=== PATIENT | female | born 1980 | race Caucasian/White ===

== ENCOUNTER 2018-04-10 14:15 | Emergency (ER) | payer OTHER ==
[2018-04-10] MEDS ORDERED: ALBUTEROL 2.5 MG/3 ML NEB SOL ONE (15:42)
[2018-04-10] MEDS ORDERED: IPRATROPIUM BROM 0.5MG/2.5ML ONE (15:42)
--- NOTE | 2018-04-10 17:08 | EDPHYS ---
Physician Documentation [facility] Name: Paradise Colon Age: 38 yrs Sex: Female : 1980 Arrival Date: 04/10/2018 Time: 14:17 Bed 11 Private MD: ED Physician Earl Colon HPI: 04/10 15:45 This 38 yrs old Female presents to ER via Ambulatory with complaints of Flu cp Symptoms. 15:45 The patient or guardian reports cough, that is intermittent. cp 15:45 Onset: The symptoms/episode began/occurred 4 day(s) ago. Associated signs and symptoms: cp Pertinent positives: diarrhea, sore throat, Pertinent negatives: chest pain, ear ache, vomiting. Severity of symptoms: in the emergency department the symptoms are unchanged despite home interventions. 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 - Social history:: Smoking status: Patient/guardian denies using tobacco. ROS: 15:50 Constitutional: Negative for body aches, chills, fever, poor PO intake. cp 15:50 Eyes: Negative for injury, pain, redness, and discharge. cp 15:50 ENT: Positive for sore throat, Negative for drainage from ear(s), ear pain, difficulty swallowing, difficulty handling secretions. 15:50 Cardiovascular: Negative for chest pain, edema, palpitations. 15:50 Respiratory: Positive for cough, Negative for shortness of breath, wheezing. 15:50 Abdomen/GI: Positive for diarrhea, Negative for abdominal pain, vomiting, constipation. 15:50 Skin: Negative for cellulitis, rash. 15:50 Neuro: Negative for altered mental status, headache, weakness. 15:50 All other systems are negative. Exam: 16:00 Constitutional: The patient appears in no acute distress, alert, awake, non-toxic, well cp developed, well nourished. 16:00 Head/Face: Normocephalic, atraumatic. cp 16:00 Eyes: Periorbital structures: appear normal, Conjunctiva: normal, no exudate, no injection, Sclera: no appreciated abnormality, Lids and lashes: appear normal, bilaterally. 16:00 ENT: External ear(s): are unremarkable, Ear canal(s): are normal, clear, TM's: dullness, bilaterally, Nose: is normal, Mouth: Lips: moist, Oral mucosa: moist, Posterior pharynx: Airway: no evidence of obstruction, patent, Tonsils: are normal in appearance, Uvula: midline, swelling, is not appreciated, erythema, that is mild, exudate, is not appreciated, Voice: is hoarse. 16:00 Neck: ROM/movement: is normal, is supple, without pain, no range of motions limitations, no meningismus, no nuchal rigidity, Lymph nodes: no appreciated lymphadenopathy. 16:00 Chest/axilla: Inspection: normal, Palpation: is normal, no crepitus, no tenderness. 16:00 Cardiovascular: Rate: tachycardic, Rhythm: regular. 16:00 Respiratory: the patient does not display signs of respiratory distress, Respirations: normal, no use of accessory muscles, no retractions, no splinting, no tachypnea, labored breathing, is not present, Breath sounds: decreased breath sounds, that are mild, are located in both bases, rhonchi, are not appreciated, stridor, is not appreciated, + upper airway congestion. wheezing: is not appreciated. 16:00 Abdomen/GI: Exam negative for discomfort, distension, guarding, Inspection: obese 16:00 Back: pain, is absent, ROM is normal. 16:00 Skin: cellulitis, is not appreciated, no rash present. 16:00 Neuro: Orientation: to person, place \T\ time. Mentation: lucid, able to follow commands, Cerebellar function: is grossly normal, Motor: moves all fours, strength is normal, Sensation: no obvious gross deficits. Vital Signs: 14:23 BP 160 / 100; Pulse 105; Resp 19; Temp 98.0(TE); Pulse Ox 96% on R/A; Weight 111.13 kg; la1 Height 5 ft. 4 in. (162.56 cm); 17:15 BP 157 / 89; Pulse 99; Resp 19 S; Pulse Ox 98% on R/A; iw 14:23 Body Mass Index 42.05 (111.13 kg, 162.56 cm) la1 MDM: 15:10 Patient medically screened. marleny 16:00 Differential diagnosis: bronchitis, flu, URI, pneumonia, strep throat. cp 17:06 Data reviewed: vital signs, nurses notes, lab test result(s), radiologic studies, plain cp films. 17:06 Antibiotic administration: Not indicated, the patient has a suspected viral illness. cp 17:06 Counseling: I had a detailed discussion with the patient and/or guardian regarding: the cp historical points, exam findings, and any diagnostic results supporting the discharge/admit diagnosis, lab results, radiology results, to return to the emergency department if symptoms worsen or persist or if there are any questions or concerns that arise at home. Response to treatment: the patient's symptoms have mildly improved after treatment, and as a result, I will discharge patient. 04/10 14:23 Order name: Strep; Complete Time: 15:37 la1 04/10 15:37 Interpretation: Reviewed. 04/10 14:23 Order name: Flu; Complete Time: 15:37 la1 04/10 14:52 Order name: Throat Culture EDDE 04/10 16:18 Order name: XRAY Chest Pa And Lat (2 Views) cp Administered Medications: 15:44 Drug: Albuterol 2.5 mg Route: Inhalation; iw 15:44 Drug: AtroVENT Aerosol 0.5 mg Route: Inhalation; iw Disposition: 04/10/18 17:07 Discharged to Home. Impression: Acute upper respiratory infection, unspecified. - Condition is Stable. - Discharge Instructions: Upper Respiratory Infection, Adult, Viral Infections, Cool Mist Vaporizers. - Prescriptions for Tessalon Perles 100 mg Oral Capsule - take 1 capsule by ORAL route every 8 hours As needed; 15 capsule. Prednisone 20 mg Oral Tablet - take 2 tablet by ORAL route once daily for 5 days; 10 tablet. Albuterol Sulfate 90 mcg/actuation - inhale 1-2 puff by INHALATION route every 4-6 hours; 1 Inhaler. - Work release form, Medication Reconciliation Form, Thank You Letter, Antibiotic Education, Prescription Opioid Use form. - Follow up: Private Physician; When: 2 - 3 days; Reason: if symptoms continue. - Problem is new. - Symptoms have improved. Addendum: 04/12/2018 09:03 Co-signature as Attending Physician, Earl Colon MD I agree with the assessment and c santiago plan of care. Signatures: Dispatcher [employer] Earl Copeland MD MD cha Williams, Irene, RN RN iw Flavio Gasca RN RN la1 Earl Reynolds PA PA cp Corrections: (The following items were deleted from the chart) 04/10 17:21 17:07 04/10/2018 17:07 Discharged to Home. Impression: Acute upper respiratory iw infection, unspecified. Condition is Stable. Forms are Medication Reconciliation Form, Thank You Letter, Antibiotic Education, Prescription Opioid Use. Follow up: Private Physician; When: 2 - 3 days; Reason: if symptoms continue. Problem is new. Symptoms have improved. cp
--- NOTE | 2018-04-10 17:08 | ER ---
Nurse's Notes [facility] Name: Paradise Colon Age: 38 yrs Sex: Female : 1980 Arrival Date: 04/10/2018 Time: 14:17 Bed 11 Private MD: Diagnosis: Acute upper respiratory infection, unspecified Presentation: 04/10 14:22 Presenting complaint: Patient states: fever, cough, diarrhea, pain with cough for 4 la1 days. Transition of care: patient was not received from another setting of care. Onset of symptoms was April 10, 2018. Initial Sepsis Screen: Does the patient meet any 2 criteria? No. Patient's initial sepsis screen is negative. Does the patient have a suspected source of infection? No. Patient's initial sepsis screen is negative. Care prior to arrival: None. 14:22 Method Of Arrival: Ambulatory la1 14:22 Acuity: TANA 4 la1 Triage Assessment: 16:15 General: Appears in no apparent distress. Behavior is calm, appropriate for age. Pain: iw Complains of pain in throat. 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 - Social history:: Smoking status: Patient/guardian denies using tobacco. Screenin:20 Abuse screen: Denies threats or abuse. Denies injuries from another. Nutritional iw screening: No deficits noted. Tuberculosis screening: No symptoms or risk factors identified. Fall Risk None identified. Assessment: 17:19 Reassessment: Patient appears in no apparent distress at this time. Patient and/or iw family updated on plan of care and expected duration. Pain level reassessed. Patient is alert, oriented x 3, equal unlabored respirations, skin warm/dry/pink. Vital Signs: 14:23 BP 160 / 100; Pulse 105; Resp 19; Temp 98.0(TE); Pulse Ox 96% on R/A; Weight 111.13 kg; la1 Height 5 ft. 4 in. (162.56 cm); 17:15 BP 157 / 89; Pulse 99; Resp 19 S; Pulse Ox 98% on R/A; iw 14:23 Body Mass Index 42.05 (111.13 kg, 162.56 cm) la1 ED Course: 14:17 Patient arrived in ED. mr 14:22 Triage completed. la1 14:23 Arm band placed on left wrist. la1 14:49 Kiki Armas, RN is Primary Nurse. iw 15:09 Earl Reynolds PA is PHCP. cp 15:09 Earl Colon MD is Attending Physician. cp 16:56 X-ray completed. Patient tolerated procedure well. Patient moved back from radiology. mh1 16:57 XRAY Chest Pa And Lat (2 Views) In Process Unspecified. EDMS 17:19 No provider procedures requiring assistance completed. Patient did not have IV access iw during this emergency room visit. 17:21 Patient has correct armband on for positive identification. iw Administered Medications: 15:44 Drug: Albuterol 2.5 mg Route: Inhalation; iw 15:44 Drug: AtroVENT Aerosol 0.5 mg Route: Inhalation; iw Outcome: 17:07 Discharge ordered by MD. cp 17:20 Discharged to home ambulatory. iw 17:20 Condition: good 17:20 Discharge instructions given to patient, Instructed on discharge instructions, follow up and referral plans. medication usage, Demonstrated understanding of instructions, follow-up care, medications, Prescriptions given X 3. 17:21 Patient left the ED. iw Signatures: Dispatcher [employer] EDNM Kaley Guillaume Gonzalo Blackwellha 1 Kiki Armas, ALBA WILLIS iw Flavio Gasca RN RN hi1 Earl Reynolds PA PA cp
--- NOTE | 2018-04-10 17:26 | RAD REPORT ---
EXAM DESCRIPTION: RAD - Chest Pa And Lat (2 Views) - 04/10/2018 4:57 pm CLINICAL HISTORY: Fever, cough COMPARISON: January 2017 TECHNIQUE: PA and lateral views of the chest were obtained. FINDINGS: The lungs are clear of mass or consolidation. Lung markings are not significantly differen t from the comparison. No failure or volume overload. Heart size is normal and central vasculature is within normal limits. No pleural effusion or pneumothorax seen. No acute bony finding noted. No aortic abnormality. IMPRESSION: No acute cardiopulmonary process. No significant change from comparison.
== END 2018-04-10 17:21 | disposition home or self-care (01) ==
LOC: ER 14:15
DX: J06.9 Acute upper respiratory infection, unspecified (principal)
CPT/HCPCS: 71046; 87070; 87081; 87804; 99284

== ENCOUNTER 2018-08-25 13:47 | Observation (INO) | payer OTHER, SELFPAY ==
[2018-08-25] MEDS ORDERED: MORPHINE 4 MG/ML SYR ONE (16:27)
[2018-08-25] MEDS ORDERED: ONDANSETRON 4 MG/2 ML VIAL ONE ×2 (16:27→21:53)
[2018-08-25] MEDS ORDERED: NA CHLORIDE 0.9% 1,000 ML ONE (16:27)
[2018-08-25 16:31] LABS: Absolute Lymphocytes (CBC) 1.7 K/uL (0.7-4.9); Absolute Monocytes 0.6 K/uL (0.1-1.3); Absolute Neutrophil 11.2 K/uL (1.8-8.0); Basophils % 0.6 % (0-1.3); Eosinophils % 0.7 % (0-4.4); Hematocrit 41.5 % (36.0-45.0); Lymphocytes % 12.7 % (15.3-44.8); MCH 29.7 pg (27.0-35.0); MCV 88.6 fL (80-100); MPV 9.6 fL (7.6-11.3); Monocytes % 4.4 % (3.3-12.3); RBC Red Blood Cell Count 4.69 M/uL (3.86-4.86)
[2018-08-25] MEDS ORDERED: PROMETHAZINE HCL 50 MG/ML AMP IM ONE (17:33)
[2018-08-25 17:40] LABS: Albumin 3.5 g/dL (3.4-5.0); Bilirubin Direct 0.1 mg/dL (0-0.2); Bilirubin Total 0.7 mg/dL (0.2-1.0); Potassium 3.9 mmol/L (3.5-5.1); Protein, Total 7.6 g/dL (6.4-8.2)
[2018-08-25 18:14] LABS: Urine Blood 3+ (NEG); Urine Glucose NEGATIVE (NEG); Urine Protein 1+ (NEG)
[2018-08-25 18:15] LABS: Urine Bacteria <20 /HPF (<20); Urine Culture Reflex Order NOT NEEDED; Urine RBC >50 /HPF (NONE SEEN)
[2018-08-25 18:16] LABS: Urine Mucus 1+ /HPF (NONE SEEN)
--- NOTE | 2018-08-25 19:24 | RAD REPORT ---
EXAM DESCRIPTION: CT - Abdomen Pelvis W Contrast - 08/25/2018 7:11 pm CLINICAL HISTORY: Abdominal pain. Vomiting COMPARISON: None. TECHNIQUE: Computed axial tomography of the abdomen and pelvis was obtained. 100 cc Isovue-300 is ad ministered intravenously. Oral contrast was given. All CT scans are performed using dose optimization technique as appropriate and may include automated exposure control or mA/KV adjustment according to patient size. FINDINGS: Mild fatty infiltration liver is present. The spleen, pancreas, adrenals and right kidney appear unremarkable. Two tiny nonobstructing left dayna al calculi are present. The appendix is normal caliber. There is no evidence of diverticulitis There is no evidence of diverticulitis. The appendix is normal. A tiny umbilical hernia contains fat IMPRESSION: Tiny nonobstructing left renal calculi No acute abnormality is displayed
[2018-08-25] MEDS ORDERED: FAMOTIDINE 20 MG/2 ML VIAL IV ONE (21:53)
--- NOTE | 2018-08-25 22:31 | EDPHYS ---
Physician Documentation [facility] Name: Paradise Colon Age: 38 yrs Sex: Female : 1980 Arrival Date: 08/25/2018 Time: 13:49 Bed 20 Private MD: Landry Colbert ED Physician Bowen Lozoya HPI: 08/25 15:21 This 38 yrs old Female presents to ER via Wheelchair with complaints of rn Vomiting. 15:21 The patient presents to the emergency department with nausea, vomiting, diarrhea. rn 15:23 Onset: The symptoms/episode began/occurred this morning. Possible causes: unknown. The rn symptoms are aggravated by nothing. The symptoms are alleviated by nothing. Severity of symptoms: At their worst the symptoms were moderate in the emergency department the symptoms are unchanged. The patient has experienced a previous episode. Reports lower abd pain, began this AM, assoc with nausea/vomiting/anorexia, some loose stool, no fever, reports similar symptoms in past but didn't require surgery, doesn't remember diagnosis. Unsure if . . 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 - Social history:: Smoking status: Patient/guardian denies using tobacco. - Family history:: not pertinent. - Ebola Screening: : No symptoms or risks identified at this time. - Hospitalizations: : No recent hospitalization is reported. ROS: 15:23 Constitutional: Negative for fever, chills, and weight loss, Eyes: Negative for injury, rn pain, redness, and discharge, Neck: Negative for injury, pain, and swelling, Cardiovascular: Negative for chest pain, palpitations, and edema, Respiratory: Negative for shortness of breath, cough, wheezing, and pleuritic chest pain, Abdomen/GI: Negative for constipation MS/Extremity: Negative for injury and deformity, Skin: Negative for injury, rash, and discoloration, Neuro: Negative for headache, weakness, numbness, tingling, and seizure. Exam: 15:23 Constitutional: This is a well developed, well nourished patient who is awake, alert, rn + appears uncomfortable and holding emesis bag Head/Face: Normocephalic, atraumatic. Eyes: Pupils equal round and reactive to light, extra-ocular motions intact. Lids and lashes normal. Conjunctiva and sclera are non-icteric and not injected. Cornea within normal limits. Periorbital areas with no swelling, redness, or edema. ENT: dry MM Cardiovascular: Regular rate and rhythm with a normal S1 and S2. No gallops, murmurs, or rubs. Normal PMI, no JVD. No pulse deficits. Respiratory: Lungs have equal breath sounds bilaterally, clear to auscultation and percussion. No rales, rhonchi or wheezes noted. No increased work of breathing, no retractions or nasal flaring. Abdomen/GI: soft, mild diffuse abd tenderness, worst in suprapubic region, no rebound Skin: Warm, dry with normal turgor. Normal color with no rashes, no lesions, and no evidence of cellulitis. MS/ Extremity: Pulses equal, no cyanosis. Neurovascular intact. Full, normal range of motion. Equal circumference. Neuro: Awake and alert, GCS 15, oriented to person, place, time, and situation. Cranial nerves II-XII grossly intact. Motor strength 5/5 in all extremities. Sensory grossly intact. Vital Signs: 13:52 BP 134 / 101; Pulse 97; Resp 17; Temp 97.8(O); Pulse Ox 98% on R/A; Pain 10/10; tw2 16:15 BP 148 / 90; Pulse 74; Resp 18; Pulse Ox 99% on R/A; aj1 17:34 BP 120 / 62; Pulse 73; Resp 20; Pulse Ox 97% on R/A; aj1 18:30 BP 136 / 75; Pulse 68; Resp 18; Pulse Ox 97% on R/A; aj1 19:45 BP 133 / 80; Pulse 82; Resp 18; Pulse Ox 96% on R/A; lp1 20:30 BP 115 / 54; Pulse 84; Resp 18; Pulse Ox 95% on R/A; lp1 21:15 BP 105 / 60; Pulse 83; Resp 18; Pulse Ox 95% on R/A; lp1 22:00 BP 144 / 64; Pulse 83; Resp 18; Pulse Ox 96% on R/A; lp1 23:30 BP 137 / 70; Pulse 85; Resp 18; Temp 99(O); Pulse Ox 96% on R/A; lp1 MDM: 14:57 Patient medically screened. rn 17:38 ED course: Pt has not taken the contrast, when asked why, she states "i have been rn trying to drink my soda and still throwing up". . 22:29 Data reviewed: vital signs, nurses notes. ED course: pt still very nauseated some pain gs will admit for hydration. 08/25 15:19 Order name: Basic Metabolic Panel; Complete Time: 18:20 08/25 15:19 Order name: CBC with Diff; Complete Time: 16:39 08/25 15:19 Order name: Creatinine for Radiology; Complete Time: 18:20 08/25 15:19 Order name: Hepatic Function; Complete Time: 18:20 08/25 15:19 Order name: Lipase; Complete Time: 18:20 08/25 15:19 Order name: Urine Microscopic Only; Complete Time: 18:20 08/25 15:19 Order name: CT Abd/Pelvis - W/Contrast; Complete Time: 19:46 08/25 18:03 Order name: Urine Dipstick--Ancillary (enter results); Complete Time: 18:20 [facility] 08/25 18:03 Order name: Urine --Ancillary (enter results); Complete Time: 18:20 [facility] 08/25 15:19 Order name: IV Saline Lock; Complete Time: 16:58 08/25 15:19 Order name: Labs collected and sent; Complete Time: 16:58 08/25 15:19 Order name: Urine Test (obtain specimen); Complete Time: 18:12 08/25 15:19 Order name: Urine Dipstick-Ancillary (obtain specimen); Complete Time: 18:12 08/25 16:37 Order name: Labs - recollect needed; Complete Time: 17:24 bd Administered Medications: 16:26 Drug: NS 0.9% 1000 ml Route: IV; Rate: 1000 ml; Site: right forearm; aj1 17:36 Follow up: IV Status: Completed infusion; IV Intake: 1000ml aj1 16:27 Drug: Zofran 4 mg Route: IVP; Site: right forearm; aj1 17:35 Follow up: Response: No adverse reaction aj1 17:35 Drug: Phenergan 12.5 mg Route: IM; Site: right deltoid; aj1 18:12 Follow up: Response: No adverse reaction aj1 18:12 Drug: morphine 4 mg Route: IVP; Site: right forearm; aj1 21:53 Drug: Pepcid 20 mg Route: IVP; Site: right forearm; lp1 22:26 Follow up: Response: No adverse reaction lp1 21:53 Drug: Zofran 4 mg Route: IVP; Site: right forearm; lp1 22:26 Follow up: Response: Nausea is decreased lp1 Disposition: 08/25/18 22:31 Hospitalization ordered by Derrick Quintana for Observation. Preliminary diagnosis are Vomiting, Generalized abdominal pain, Dehydration. - Bed requested for Telemetry/MedSurg (observation). - Status is Observation. lp1 - Condition is Stable. - Problem is new. - Symptoms have improved. UTI on Admission? No Signatures: Dispatcher [employer] EDMS Aurora Gonzales Angela, RN RN [facility] [place] Renee RN ALBA Uri Jay MD MD rn Pena, Laura, RN RN [facility] Bowen Lozoya MD MD Corrections: (The following items were deleted from the chart) 22:49 22:31 Hospitalization Ordered by Derrick Quintana MD for Observation. Preliminary diagnosis is Vomiting; Generalized abdominal pain; Dehydration. Bed requested for Telemetry/MedSurg (observation). Status is Observation. Condition is Stable. Problem is new. Symptoms have improved. UTI on Admission? No. 08/26 00:19 08/25 22:49 08/25/2018 22:31 Hospitalization Ordered by Derrick Quintana MD for lp1 Observation. Preliminary diagnosis is Vomiting; Generalized abdominal pain; Dehydration. Bed requested for Telemetry/MedSurg (observation). Status is Observation. Condition is Stable. Problem is new. Symptoms have improved. UTI on Admission? No. mw
--- NOTE | 2018-08-25 22:31 | ER ---
Nurse's Notes [facility] Name: Paradise Colon Age: 38 yrs Sex: Female : 1980 Arrival Date: 08/25/2018 Time: 13:49 Bed 20 Private MD: Landry Colbert Diagnosis: Vomiting;Generalized abdominal pain;Dehydration Presentation: 08/25 13:51 Presenting complaint: Patient states: started vomiting this morning and i am having tw2 pain in my lower vaginal area. Transition of care: patient was not received from another setting of care. Onset of symptoms was August 25, 2018. Risk Assessment: Do you want to hurt yourself or someone else? Patient reports no desire to harm self or others. Initial Sepsis Screen: Does the patient meet any 2 criteria? No. Patient's initial sepsis screen is negative. Does the patient have a suspected source of infection? No. Patient's initial sepsis screen is negative. Care prior to arrival: None. 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 - Social history:: Smoking status: Patient/guardian denies using tobacco. - Family history:: not pertinent. - Ebola Screening: : No symptoms or risks identified at this time. - Hospitalizations: : No recent hospitalization is reported. Screenin:15 Abuse screen: Denies threats or abuse. Denies injuries from another. Nutritional aj1 screening: No deficits noted. Tuberculosis screening: No symptoms or risk factors identified. 20:10 Fall Risk None identified. lp1 Assessment: 15:15 General: Appears in no apparent distress. uncomfortable, Behavior is anxious, restless. aj1 Pain: Complains of pain in right lower quadrant and left lower quadrant. Neuro: Level of Consciousness is awake, alert, obeys commands. Cardiovascular: Patient's skin is warm and dry. Respiratory: Airway is patent Respiratory effort is even, unlabored, Respiratory pattern is regular, symmetrical. GI: Abdomen is non-distended, obese, Bowel sounds present X 4 quads. Abd is soft X 4 quads Abdomen is tender to palpation in abdomen diffusely Reports nausea, vomiting, Patient currently denies diarrhea. : No signs and/or symptoms were reported regarding the genitourinary system. EENT: No signs and/or symptoms were reported regarding the EENT system. Derm: No signs and/or symptoms reported regarding the dermatologic system. Skin is pink, warm \T\ dry. normal. Musculoskeletal: No signs and/or symptoms reported regarding the musculoskeletal system. Circulation, motion, and sensation intact. 16:15 Reassessment: Patient appears in no apparent distress at this time. No changes from aj1 previously documented assessment. Patient and/or family updated on plan of care and expected duration. Pain level reassessed. Patient is alert, oriented x 3, equal unlabored respirations, skin warm/dry/pink. 17:33 Reassessment: Notified Ld in CT that patient has finished drinking her contrast. aj1 17:33 Reassessment: Patient and/or family updated on plan of care and expected duration. Pain aj1 level reassessed. General: Appears in no apparent distress. uncomfortable, Behavior is anxious, restless. Neuro: Level of Consciousness is awake, alert, obeys commands. Cardiovascular: Patient's skin is warm and dry. Respiratory: Airway is patent Respiratory effort is even, unlabored, Respiratory pattern is regular, symmetrical. GI: Abdomen is non-distended, obese. Derm: Skin is pink, warm \T\ dry. normal. Musculoskeletal: Circulation, motion, and sensation intact. 18:29 Reassessment: Patient appears in no apparent distress at this time. No changes from aj1 previously documented assessment. Patient and/or family updated on plan of care and expected duration. Pain level reassessed. Patient is alert, oriented x 3, equal unlabored respirations, skin warm/dry/pink. 19:20 Reassessment: Patient returned from CT. lp1 19:40 Reassessment: Patient is alert, oriented x 3, equal unlabored respirations, skin lp1 warm/dry/pink. Patient aware of waiting for CT results. 20:45 Reassessment: Patient tolerating drinking Sprite at this time, states some nausea. lp1 21:45 Reassessment: Provider aware of patient's continued nausea; sipping on Sprite. lp1 22:26 Reassessment: Patient states some relief, but still having some nausea;. lp1 23:30 Reassessment: Patient appears in no apparent distress at this time. No changes from lp1 previously documented assessment. Aware of pending admission. 23:54 Reassessment: Attempted to give report to floor, nurse will call back. lp1 Vital Signs: 13:52 BP 134 / 101; Pulse 97; Resp 17; Temp 97.8(O); Pulse Ox 98% on R/A; Pain 10/10; tw2 16:15 BP 148 / 90; Pulse 74; Resp 18; Pulse Ox 99% on R/A; aj1 17:34 BP 120 / 62; Pulse 73; Resp 20; Pulse Ox 97% on R/A; aj1 18:30 BP 136 / 75; Pulse 68; Resp 18; Pulse Ox 97% on R/A; aj1 19:45 BP 133 / 80; Pulse 82; Resp 18; Pulse Ox 96% on R/A; lp1 20:30 BP 115 / 54; Pulse 84; Resp 18; Pulse Ox 95% on R/A; lp1 21:15 BP 105 / 60; Pulse 83; Resp 18; Pulse Ox 95% on R/A; lp1 22:00 BP 144 / 64; Pulse 83; Resp 18; Pulse Ox 96% on R/A; lp1 23:30 BP 137 / 70; Pulse 85; Resp 18; Temp 99(O); Pulse Ox 96% on R/A; lp1 ED Course: 13:49 Patient arrived in ED. sb2 13:50 Landry Colbert MD is Private Physician. sb2 13:52 Triage completed. tw2 14:57 Uri Jay MD is Attending Physician. rn 15:11 Irene Hart RN is Primary Nurse. aj1 15:15 No provider procedures requiring assistance completed. aj1 15:15 Patient has correct armband on for positive identification. Bed in low position. Call aj1 light in reach. Side rails up X 1. 16:27 Initial lab(s) drawn, by me, sent to lab. Inserted saline lock: 22 gauge in right aj1 forearm, using aseptic technique. Blood collected. 19:08 Attending Physician role handed off by Uri Jay MD gs 19:08 Bowen Lozoya MD is Attending Physician. gs 19:12 CT Abd/Pelvis - W/Contrast In Process Unspecified. EDMS 20:10 Arm band placed on right wrist. lp1 22:30 Derrick Quintana MD is Hospitalizing Provider. gs 23:56 Patient admitted, IV remains in place. lp1 Administered Medications: 16:26 Drug: NS 0.9% 1000 ml Route: IV; Rate: 1000 ml; Site: right forearm; aj1 17:36 Follow up: IV Status: Completed infusion; IV Intake: 1000ml aj1 16:27 Drug: Zofran 4 mg Route: IVP; Site: right forearm; aj1 17:35 Follow up: Response: No adverse reaction aj1 17:35 Drug: Phenergan 12.5 mg Route: IM; Site: right deltoid; aj1 18:12 Follow up: Response: No adverse reaction aj1 18:12 Drug: morphine 4 mg Route: IVP; Site: right forearm; aj1 21:53 Drug: Pepcid 20 mg Route: IVP; Site: right forearm; lp1 22:26 Follow up: Response: No adverse reaction lp1 21:53 Drug: Zofran 4 mg Route: IVP; Site: right forearm; lp1 22:26 Follow up: Response: Nausea is decreased lp1 Intake: 17:36 IV: 1000ml; Total: 1000ml. aj1 Outcome: 22:31 Decision to Hospitalize by Provider. gs 23:55 Condition: stable lp1 23:55 Instructed on the need for admit. 08/26 00:08 Admitted to Med/surg accompanied by tech, via wheelchair, room 231, with chart, Report lp1 called to ALBA Cuellar 00:19 Patient left the ED. lp1 Signatures: Dispatcher [employer] EDMS Irene Hart RN RN aj1 Uri Jay MD MD rn Pena, Laura, RN RN lp1 Madie Bella RN RN tw2 Bowen Lozoya MD MD gs Billeau, Sheri sb2 Corrections: (The following items were deleted from the chart) 08/25 13:52 13:51 Presenting complaint: Patient states: started vomiting this morning tw2 tw2
[2018-08-25] MEDS ORDERED: ACETAMINOPHEN 500 MG TAB PO PRN (23:41)
[2018-08-25] MEDS ORDERED: MORPHINE 2 MG/ML SYR IV PRN (23:41)
[2018-08-25] MEDS ORDERED: ONDANSETRON 4 MG/2 ML VIAL IV PRN (23:41)
[2018-08-26] MEDS: NA CHLORIDE 0.9% 1,000 ML IV SCH ×3 (01:19→17:49)
[2018-08-26] MEDS ORDERED: MORPHINE 4 MG/ML SYR ONE (01:22)
[2018-08-26 05:12] LABS: Absolute Monocytes 0.5 K/uL (0.1-1.3); Absolute Neutrophil 6.9 K/uL (1.8-8.0); Basophils % 1.3 % (0-1.3); Eosinophils % 1.4 % (0-4.4); Hematocrit 38.8 % (36.0-45.0); Lymphocytes % 27.9 % (15.3-44.8); MCH 29.6 pg (27.0-35.0); MCV 89.1 fL (80-100); MPV 9.6 fL (7.6-11.3); RBC Red Blood Cell Count 4.35 M/uL (3.86-4.86)
[2018-08-26 05:34] LABS: ALT/SGPT 50 U/L (12-78); AST/SGOT 62 U/L (15-37); Albumin 3.2 g/dL (3.4-5.0); Alkaline Phosphatase 56 U/L (45-117); BUN Blood Urea Nitrogen 13 mg/dL (7-18); Bicarbonate 27 mmol/L (21-32); Bilirubin Total 0.8 mg/dL (0.2-1.0); Glucose Level 106 mg/dL (74-106); Potassium 3.8 mmol/L (3.5-5.1); Protein, Total 6.8 g/dL (6.4-8.2); Sodium Level 141 mmol/L (136-145)
[2018-08-26] MEDS ORDERED: INFLUENZA VACCINE (for 3y+) 0.5 ML DOSE IMVAC ONE (06:00)
[2018-08-26] MEDS ORDERED: MORPHINE 4 MG/ML SYR IV PRN (07:07)
--- NOTE | 2018-08-26 08:51 | P.HP ---
Certification for Inpatient Patient admitted to: Observation With expected LOS: <2 Midnights Patient will require the following post-hospital care: None Practitioner: I am a practitioner with admitting privileges, knowledge of patient current condition, hospital course, and medical plan of care. Services: Services provided to patient in accordance with Admission requirements found in Title 42 Section 412.3 of the Code of Federal Regulations Patient History Date of Service: 08/25/18 Reason for admission: intractable nausea and vomiting along with abdominal pain History of Present Illness: Patient is a 38-year-old female who was admitted to the hospital with abdominal pain along with nausea and vomiting. She was in the emergency room for a prolonged period of time but her nausea and vomiting continued. I spoke with the ER physician and we decided to admit the patient for observation. She still has been able to keep any liquids down tonight. Will go ahead and try to advance her diet in the morning. Otherwise, her workup has been completely unremarkable except for mildly elevated liver enzymes. Allergies No Known Allergies Allergy (Verified 02/15/13 13:51) Home Medications: NK [No Home Meds] 08/26/18 - Past Medical/Surgical History Has patient received pneumonia vaccine in the past: No Diabetic: No Past Medical History: Patient denies medical history Past Surgical History: Patient denies surgical history - Family History Father Family History: Reviewed- Non-Contributory - Social History Smoking Status: Current every day smoker Alcohol use: Yes CD- Drugs: No Caffeine use: Yes Place of Residence: Home Review of Systems 10-point ROS is otherwise unremarkable Physical Examination - Vital Signs Temperature: 98.2 F Blood Pressure: 139/86 Pulse: 86 Respirations: 20 Pulse Ox (%): 94 - Physical Exam General: Alert, In no apparent distress, Oriented x3 HEENT: Atraumatic, PERRLA, Mucous membr. moist/pink, EOMI, Sclerae nonicteric Neck: Supple, 2+ carotid pulse no bruit, No LAD, Without JVD or thyroid abnormality Respiratory: Clear to auscultation bilaterally, Normal air movement Cardiovascular: Regular rate/rhythm, Normal S1 S2 Gastrointestinal: Normal bowel sounds, Soft and benign, Non-distended, No tenderness Musculoskeletal: No clubbing, No swelling, No tenderness Integumentary: No rashes Neurological: Normal gait, Normal speech, Normal strength at 5/5 x4 extr, Normal tone, Sensation intact, Cranial nerves 3-12 intact, Normal affect Lymphatics: No axilla or inguinal lymphadenopathy - Studies Laboratory Data (last 24 hrs) 08/25/18 16:58: Sodium 140, Potassium 3.9, BUN 15, Creatinine 0.90, Glucose 141 H, Total Bilirubin 0.7, AST 79 H, ALT 60, Alkaline Phosphatase 62, Lipase 65 L 08/25/18 16:16: Creatinine 0.80 08/25/18 16:16: WBC 13.7 H, Hgb 13.9, Hct 41.5, Plt Count 280 Assessment & Plan - Problems (Diagnosis) (1) Intractable nausea and vomiting Current Visit: Yes Status: Acute (2) Abdominal pain Current Visit: Yes Status: Acute - Plan 1. Continue with IV hydration 2. Continue with IV antiemetics 3. Continue with pain control 4. NPO 5. GI consultation if symptoms worsens 6. Monitor labs-CBC, BMP, LFTs and lipase along with electrolytes. 7. GI and DVT prophylaxis Discharge Plan: Home Plan to discharge in: 24 Hours - Advance Directives Does patient have a Living Will: No Does patient have a Durable POA for Healthcare: No - Code Status/Comfort Care Code Status Assessed: Yes Code Status: Full Code Critical Care: No Time Spent Managing PTS Care (In Minutes): 50
--- NOTE | 2018-08-26 17:21 | PN ---
Date of Progress Note: 08/26/2018 Subjective: The patient seen and examined. Chart reviewed and case discussed with RN. The patient unable to tolerate clear liquid diet, started having some abdominal cramping, but no nausea or vomiti ng. Review of Systems: Negative except as above. Medications: List reviewed. Objective: Vital Signs: Temperature 98.2, heart rate 83, blood pressure 139/86, respirations 20, O2 94% on room air. General: Awake, alert, and oriented x3, in some mild distress, morbidly obese female. CV: S1, S2. No murmurs. Regular rate and rhythm. Peripheral pulses present. Respiratory: Moving air well bilaterally. No wheezing or stridor. Gastrointestinal: Abdomen is soft. Mild tenderness to palpation in the suprapubic and epigastric re gion. No rebound or guarding. Bowel sounds are positive. Extremities: No clubbing, cyanosis, or edema. Neurologic: Nonfocal. Laboratory Data: Sodium 141, potassium 3.8, chloride 109, CO2 27, BUN 13, creatinine 0.7, glucose 10 6, calcium 8.4, AST 62, ALT 50, albumin 3.2. WBC 10.7, H and H 12.9, 38.8, platelets 258, neutrophil s 54%. Assessment And Plan: 1.Intractable nausea and vomiting. Continue antiemetics. Has improved. We will start on clear liq uid diet and advance as tolerated. 2.Generalized abdominal pain, improving, still mildly tender. CT scan does not show any abnormaliti es. 3.Fatty liver disease. Counseled. The patient understands risks of fatty liver disease, which can develop into liver cirrhosis and cancer, and need for transplant. She understands that she will need diet and exercise modification. Plan: Continue IV fluids. Continue antiemetics. Ambulate. If not improving, we will obtain abdomi nal x-ray and GI consultation. SA/MODL Voice ID: [id number] Report ID: [id number]
[2018-08-27] MEDS: NA CHLORIDE 0.9% 1,000 ML IV SCH (05:48)
[2018-08-27 05:49] LABS: ALT/SGPT 77 U/L (12-78); AST/SGOT 134 U/L (15-37); Albumin 3.1 g/dL (3.4-5.0); Alkaline Phosphatase 50 U/L (45-117); BUN Blood Urea Nitrogen 9 mg/dL (7-18); Bicarbonate 26 mmol/L (21-32); Glucose Level 97 mg/dL (74-106); Potassium 3.5 mmol/L (3.5-5.1); Protein, Total 6.5 g/dL (6.4-8.2); Sodium Level 140 mmol/L (136-145)
[2018-08-27 05:51] LABS: Absolute Lymphocytes (CBC) 2.4 K/uL (0.7-4.9); Absolute Monocytes 0.4 K/uL (0.1-1.3); Absolute Neutrophil 3.8 K/uL (1.8-8.0); Basophils % 0.8 % (0-1.3); Eosinophils % 3.9 % (0-4.4); Hematocrit 38.2 % (36.0-45.0); Lymphocytes % 34.3 % (15.3-44.8); MCH 29.7 pg (27.0-35.0); MCV 88.4 fL (80-100); MPV 9.5 fL (7.6-11.3); Monocytes % 5.1 % (3.3-12.3); RBC Red Blood Cell Count 4.32 M/uL (3.86-4.86)
[2018-08-27] MEDS ORDERED: VANCOMYCIN ORAL SOLN 250 MG/5 ML OSYR PO SCH (10:00)
--- NOTE | 2018-08-28 06:07 | DS ---
Date of Discharge: 08/27/2018 Admitting Diagnoses: 1.Intractable nausea and vomiting. 2.Generalized abdominal pain. Discharge Diagnoses: 1.Intractable nausea and vomiting resolved. The patient is able to tolerate diet. 2.Generalized abdominal pain, improved. 3.Diarrhea, resolved. Clostridium difficile negative. 4.Fatty liver disease, counseled. 5.Morbid obesity, body mass index 47, counseled. Hospital Course: The patient is a 38-year-old female with no past medical history, comes in with [place], vomiting, abdominal pain, cramping in nature, unable to tolerate any liquids or p.o. The patien t was started on IV fluids, IV antiemetics, and pain medications. Her white count was initially elev ated at 13.7 with left shift; however, normalized. She was not septic. The patient's electrolytes w ere within normal limits. The lipase was negative. UA did not show any infection. She was having s ome diarrhea and C. diff assay was checked which was negative. CT scan of the abdomen and pelvis was unremarkable other than a fatty liver which was seen. The patient was counseled regarding her fatty liver disease. She understands that she needs to modify her diet and exercise regimen. Otherwise, she will develop nonalcoholic fatty liver disease and complications thereof, including cirrhosis, nee d for transplant, and even . She voiced understanding. The patient was then slowly started on a diet, which was advanced. The patient was able to tolerate her diet. The pain had resolved. She was no longer nauseated or vomiting. The patient likely had viral gastroenteritis, which has improve d significantly. The patient was then cleared for discharge and was sent home in a stable condition. Activity: As tolerated. Medications: As per medication reconciliation list. Followup: Follow up with primary care physician in 2-3 days. Return to ER for worsening condition. Diet: [place] diet for the next few days. Physical Examination: General: Awake, alert, oriented x3. No acute distress. CV: S1, S2. No murmurs. Respiratory: Moving air well bilaterally. Abdomen: Soft, nontender, nondistended. Positive bowel sounds. Extremities: No clubbing, cyanosis, edema. Neurologic: Nonfocal. SA/MODL Voice ID: [id number] Report ID: [id number]
== END 2018-08-27 15:52 | disposition home or self-care (01) ==
LOC: ER 13:47 → ERHOLD 22:43 → 2ND 23:58
PROVIDERS: ADMIT Hospitalist; ATTEND Hospitalist
DX: R11.2 Nausea with vomiting, unspecified (principal); R10.84 Generalized abdominal pain; R19.7 Diarrhea, unspecified; K76.0 Fatty (change of) liver, not elsewhere classified; E66.01 Morbid (severe) obesity due to excess calories; Z68.42 Body mass index [BMI] 45.0-49.9, adult; F17.210 Nicotine dependence, cigarettes, uncomplicated; Z23 Encounter for immunization
CPT/HCPCS: 36415; 74177; 80048; 80053; 80076; 81003; 81015; 81025; 83690; 85025; 87493; 96361; 96372; 96374; 96375; 99285; G0008; G0378; J2270; J2405; J2550; J7030; Q2035; Q9967

== ENCOUNTER 2018-11-01 10:11 | Emergency (ER) | payer OTHER, SELFPAY ==
--- NOTE | 2018-11-01 12:50 | RAD REPORT ---
EXAM DESCRIPTION: RAD - Ankle Right 3 View - 11/01/2018 12:29 pm CLINICAL HISTORY: ankle pain History of ankle trauma on the right. COMPARISON: Ankle Left 3 View dated 11/05/2016 FINDINGS: Mild soft tissue swelling is seen about the right ankle. No acute fracture seen. Large pos terior and small plantar calcaneal spur.
--- NOTE | 2018-11-01 12:55 | ER ---
Nurse's Notes [facility] Name: Paradise Colon Age: 38 yrs Sex: Female : 1980 Arrival Date: 11/01/2018 Time: 10:12 Bed 12 Private MD: Diagnosis: Sprain of ankle Presentation: 11/01 10:52 Presenting complaint: Patient states: R ankle pain x months after "rolling ankle". ss Transition of care: patient was not received from another setting of care. Onset of symptoms is unknown. Risk Assessment: Do you want to hurt yourself or someone else? Patient reports no desire to harm self or others. Initial Sepsis Screen: Does the patient meet any 2 criteria? No. Patient's initial sepsis screen is negative. Does the patient have a suspected source of infection? No. Patient's initial sepsis screen is negative. Care prior to arrival: None. 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 - Social history:: Smoking status: Patient uses tobacco products, "I vape". - Ebola Screening: : Patient denies exposure to infectious person Patient denies travel to an Ebola-affected area in the 21 days before illness onset. Screenin:22 Abuse screen: Denies threats or abuse. Denies injuries from another. Nutritional iw screening: No deficits noted. Tuberculosis screening: No symptoms or risk factors identified. Fall Risk None identified. Assessment: 11:21 General: Appears in no apparent distress. Behavior is calm, cooperative. Pain: iw Complains of pain in right foot. Neuro: Level of Consciousness is awake, alert, obeys commands, Oriented to person, place, time, situation, Moves all extremities. Full function. Cardiovascular: Patient's skin is warm and dry. Respiratory: Respiratory effort is even, unlabored, Respiratory pattern is regular, symmetrical. Derm: Skin is intact, is healthy with good turgor. Musculoskeletal: Range of motion: intact in all extremities, Reports pain in right foot. Vital Signs: 10:53 BP 155 / 101; Pulse 78; Resp 16; Temp 97.6(TE); Pulse Ox 97% on R/A; Weight 108.86 kg; ss Height 5 ft. 2 in. (157.48 cm); Pain 4/10; 10:53 Body Mass Index 43.90 (108.86 kg, 157.48 cm) ED Course: 10:12 Patient arrived in ED. rg4 10:53 Triage completed. ss 10:53 Arm band placed on right wrist. ss 11:17 Kiki Armas, RN is Primary Nurse. iw 11:18 Reed Flores PA is PHCP. jr8 11:18 Earl Colon MD is Attending Physician. jr8 11:22 No provider procedures requiring assistance completed. Patient did not have IV access iw during this emergency room visit. 11:30 Patient has correct armband on for positive identification. iw 12:34 XRAY Ankle RIGHT 3 view In Process Unspecified. EDMS 12:53 Angelo Taylor MD is Referral Physician. jr8 Administered Medications: No medications were administered Outcome: 12:54 Discharge ordered by . jr8 13:48 Discharged to home ambulatory. iw 13:48 Condition: good 13:48 Discharge instructions given to patient, Instructed on discharge instructions, follow up and referral plans. medication usage, Demonstrated understanding of instructions, follow-up care, medications, Prescriptions given X 2. 13:50 Patient left the ED. iw Signatures: Dispatcher [employer] EDMS Kiki Armas, RN ALBA Bessie Norris RN RN Reed Flores PA PA jr8 Garcia, Rubi rg4
--- NOTE | 2018-11-01 12:55 | EDPHYS ---
Physician Documentation [facility] Name: Paradise Colon Age: 38 yrs Sex: Female : 1980 Arrival Date: 11/01/2018 Time: 10:12 Bed 12 Private MD: ED Physician Earl Cloon HPI: 11/01 12:37 This 38 yrs old Female presents to ER via Ambulatory with complaints of Ankle jr8 Injury. 12:37 The complaints affect the right ankle. Onset: The symptoms/episode began/occurred 2 jr8 month(s) ago. Associated signs and symptoms: The patient has no apparent associated signs or symptoms. Severity of symptoms: At their worst the symptoms were mild, in the emergency department the symptoms are unchanged. The patient has not experienced similar symptoms in the past. The patient has not recently seen a physician. Patient stated that she rolled her ankle back in August. Was not evaluated at that time. Continues to have ankle pain with motion and weight bearing . 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 - Social history:: Smoking status: Patient uses tobacco products, "I vape". - Ebola Screening: : Patient denies exposure to infectious person Patient denies travel to an Ebola-affected area in the 21 days before illness onset. ROS: 12:37 Eyes: Negative for injury, pain, redness, and discharge, ENT: Negative for injury, jr8 pain, and discharge, Neck: Negative for injury, pain, and swelling, Cardiovascular: Negative for chest pain, palpitations, and edema, Respiratory: Negative for shortness of breath, cough, wheezing, and pleuritic chest pain, Abdomen/GI: Negative for abdominal pain, nausea, vomiting, diarrhea, and constipation, Back: Negative for injury and pain, Skin: Negative for injury, rash, and discoloration, Neuro: Negative for headache, weakness, numbness, tingling, and seizure. 12:37 MS/extremity: Positive for pain, tenderness, of the right ankle. Exam: 12:37 Eyes: Pupils equal round and reactive to light, extra-ocular motions intact. Lids and jr8 lashes normal. Conjunctiva and sclera are non-icteric and not injected. Cornea within normal limits. Periorbital areas with no swelling, redness, or edema. ENT: Nares patent. No nasal discharge, no septal abnormalities noted. Tympanic membranes are normal and external auditory canals are clear. Oropharynx with no redness, swelling, or masses, exudates, or evidence of obstruction, uvula midline. Mucous membranes moist. Neck: Trachea midline, no thyromegaly or masses palpated, and no cervical lymphadenopathy. Supple, full range of motion without nuchal rigidity, or vertebral point tenderness. No Meningismus. Cardiovascular: Regular rate and rhythm with a normal S1 and S2. No gallops, murmurs, or rubs. Normal PMI, no JVD. No pulse deficits. Respiratory: Lungs have equal breath sounds bilaterally, clear to auscultation and percussion. No rales, rhonchi or wheezes noted. No increased work of breathing, no retractions or nasal flaring. Abdomen/GI: Soft, non-tender, with normal bowel sounds. No distension or tympany. No guarding or rebound. No evidence of tenderness throughout. Back: No spinal tenderness. No costovertebral tenderness. Full range of motion. Skin: Warm, dry with normal turgor. Normal color with no rashes, no lesions, and no evidence of cellulitis. Neuro: Awake and alert, GCS 15, oriented to person, place, time, and situation. Cranial nerves II-XII grossly intact. Motor strength 5/5 in all extremities. Sensory grossly intact. Cerebellar exam normal. Normal gait. 12:37 Musculoskeletal/extremity: Extremities: grossly normal except: noted in the right ankle: pain, tenderness, Tenderness to anterior aspect of ankle, ROM: intact in all extremities, full active range of motion, full passive range of motion, limited active range of motion due to pain, limited passive range of motion due to pain, Circulation is intact in all extremities. Sensation intact. Vital Signs: 10:53 BP 155 / 101; Pulse 78; Resp 16; Temp 97.6(TE); Pulse Ox 97% on R/A; Weight 108.86 kg; ss Height 5 ft. 2 in. (157.48 cm); Pain 4/10; 10:53 Body Mass Index 43.90 (108.86 kg, 157.48 cm) MDM: 11:18 Patient medically screened. jr8 12:53 Data reviewed: vital signs, nurses notes, radiologic studies, plain films, and as a jr8 result, I will discharge patient. Data interpreted: Pulse oximetry: on room air is 97 %. Interpretation: normal. Counseling: I had a detailed discussion with the patient and/or guardian regarding: the historical points, exam findings, and any diagnostic results supporting the discharge/admit diagnosis, radiology results, the need for outpatient follow up, a orthopedic surgeon, to return to the emergency department if symptoms worsen or persist or if there are any questions or concerns that arise at home. 11/01 10:55 Order name: XRAY Ankle RIGHT 3 view; Complete Time: 12:53 ss 11/01 12:53 Order name: Ankle Splint: Aircast; Complete Time: 13:40 jr8 Administered Medications: No medications were administered Disposition: 18:06 Co-signature as Attending Physician, Earl Colon MD I agree with the assessment and marleny plan of care. Disposition: 11/01/18 12:54 Discharged to Home. Impression: Sprain of ankle. - Condition is Stable. - Discharge Instructions: Ankle Sprain. - Prescriptions for Ibuprofen 800 mg Oral Tablet - take 1 tablet by ORAL route every 12 hours As needed take with food; 20 tablet. Tramadol 50 mg Oral Tablet - take 1 tablet by ORAL route every 8 hours as needed; 12 tablet. - Work release form, Medication Reconciliation Form, Thank You Letter, Antibiotic Education, Prescription Opioid Use form. - Follow up: Angelo Taylor MD; When: 2 - 3 days; Reason: Recheck today's complaints, Continuance of care, Re-evaluation by your physician. - Problem is new. - Symptoms have improved. Signatures: Dispatcher [employer] Earl Copeland MD MD cha Williams, Irene, RN RN iw Smirch, Shelby, RN RN ss Roszak, Josh, PA PA jr8 Corrections: (The following items were deleted from the chart) 13:50 12:54 11/01/2018 12:54 Discharged to Home. Impression: Sprain of ankle. Condition is iw Stable. Forms are Medication Reconciliation Form, Thank You Letter, Antibiotic Education, Prescription Opioid Use. Follow up: Angelo Taylor; When: 2 - 3 days; Reason: Recheck today's complaints, Continuance of care, Re-evaluation by your physician. Problem is new. Symptoms have improved. jr8
== END 2018-11-01 13:50 | disposition home or self-care (01) ==
LOC: ER 10:11
DX: S93.401A Sprain of unspecified ligament of right ankle, initial encounter (principal); X58.XXXA Exposure to other specified factors, initial encounter; Y93.9 Activity, unspecified; Y92.9 Unspecified place or not applicable
CPT/HCPCS: 99283

== ENCOUNTER 2019-02-13 06:54 | Emergency (ER) | payer BC, OTHER ==
[2019-02-13 07:44] LABS: Absolute Lymphocytes (CBC) 1.9 K/uL (0.7-4.9); Absolute Monocytes 0.4 K/uL (0.1-1.3); Absolute Neutrophil 5.2 K/uL (1.8-8.0); Basophils % 0.9 % (0-1.3); Eosinophils % 3.4 % (0-4.4); Hematocrit 42.6 % (36.0-45.0); MPV 9.4 fL (7.6-11.3); Monocytes % 4.7 % (3.3-12.3); RBC Red Blood Cell Count 4.82 M/uL (3.86-4.86)
[2019-02-13] MEDS ORDERED: CYCLOBENZAPRINE 10 MG TAB ONE (07:50)
[2019-02-13] MEDS ORDERED: HYDROCODONE/APAP 5/325 MG TAB ONE (07:50)
[2019-02-13 08:06] LABS: ALT/SGPT 44 U/L (12-78); AST/SGOT 55 U/L (15-37); Albumin 3.6 g/dL (3.4-5.0); Alkaline Phosphatase 66 U/L (45-117); BUN Blood Urea Nitrogen 14 mg/dL (7-18); Bicarbonate 28 mmol/L (21-32); Bilirubin Direct 0.2 mg/dL (0-0.2); Glucose Level 161 mg/dL (74-106); Lipase 47 U/L (73-393); Protein, Total 7.2 g/dL (6.4-8.2); Sodium Level 139 mmol/L (136-145); Troponin (Emerg Dept Use Only) < 0.02 ng/mL (0.0-0.045)
--- NOTE | 2019-02-13 08:45 | RAD REPORT ---
EXAM DESCRIPTION: [place] Single View02/13/2019 8:10 am CLINICAL HISTORY: Chest pain COMPARISON: March 2018 FINDINGS: The lungs appear clear of acute infiltrate. The heart is normal size IMPRESSION: No acute abnormalities displayed
--- NOTE | 2019-02-13 08:45 | RAD REPORT ---
EXAM DESCRIPTION: RAD - Shoulder Right 2 View - 02/13/2019 8:10 am CLINICAL HISTORY: Right shoulder pain FINDINGS: No acute fracture or dislocation is seen. Small bony density adjacent to the acromion has a sclerotic border and likely is chronic.
--- NOTE | 2019-02-13 09:23 | EDPHYS ---
Physician Documentation [facility] Name: Paradise Colon Age: 38 yrs Sex: Female : 1980 Arrival Date: 02/13/2019 Time: 06:56 Bed 16 Private MD: ED Physician Uri Jay HPI: 02/13 08:02 This 38 yrs old Female presents to ER via Ambulatory with complaints of rn Shoulder Pain, Vomiting. 08:02 The patient or guardian complains of pain, that is acute. right shoulder. rn 08:02 Onset: The symptoms/episode began/occurred yesterday. Modifying factors: the symptoms rn are alleviated by nothing. The symptoms are aggravated by lifting weight, movement, rotation of arm. Associated signs and symptoms: Pertinent positives: chest pain, Pertinent negatives:. 08:06 Severity of symptoms: At their worst the symptoms were mild, in the emergency rn department the symptoms are unchanged. The patient has not experienced similar symptoms in the past. REports works at [employer], began having right shoulder/outer chest pain yesterday, intermittent, no pain when not moving, pain with moving, no fever/cough/sob. Denies abd pain. Reports vomited today. . 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 - Social history:: Smoking status: Patient/guardian denies using tobacco. - Ebola Screening: : No symptoms or risks identified at this time. - Family history:: not pertinent. - Hospitalizations: : No recent hospitalization is reported. ROS: 08:06 Constitutional: Negative for fever, chills, and weight loss Eyes: Negative for injury, rn pain, redness, and discharge, Neck: Negative for injury, pain, and swelling, Cardiovascular: Negative for palpitations, and edema, Respiratory: Negative for shortness of breath, cough, wheezing, and pleuritic chest pain, Abdomen/GI: Negative for abdominal pain, and constipation, MS/Extremity: + right shoulder pain Skin: Negative for injury, rash, and discoloration, Neuro: Negative for headache, weakness, numbness, tingling, and seizure. Exam: 08:06 Constitutional: This is a well developed, well nourished patient who is awake, alert, rn and in no acute distress. Head/Face: Normocephalic, atraumatic. Neck: Trachea midline, no thyromegaly or masses palpated, and no cervical lymphadenopathy. Supple, full range of motion without nuchal rigidity, or vertebral point tenderness. No Meningismus. Chest/axilla: + tender right outer/lateral chest wall pain, no crepitus, no skin changes Cardiovascular: Regular rate and rhythm. No pulse deficits. Respiratory: Lungs have equal breath sounds bilaterally, clear to auscultation. No increased work of breathing, no retractions or nasal flaring. Abdomen/GI: soft, non-tender MS/ Extremity: Pulses equal, no cyanosis. Neurovascular intact. Full, normal range of motion. Equal circumference. Neuro: Awake and alert, GCS 15, oriented to person, place, time, and situation. Cranial nerves II-XII grossly intact. Motor strength 5/5 in all extremities. Sensory grossly intact. Cerebellar exam normal. Normal gait. Vital Signs: 07:24 BP 136 / 98; Pulse 90; Resp 16 S; Temp 97.5(TE); Pulse Ox 94% on R/A; Weight 108.86 kg aa5 (R); Height 5 ft. 3 in. (160.02 cm) (R); Pain 0/10; 08:21 BP 120 / 84; Pulse 82; Resp 17; Pulse Ox 95% on R/A; tw2 10:11 BP 136 / 87; Pulse 73; Resp 17; Pulse Ox 96% on R/A; tw2 10:54 BP 116 / 73; Pulse 77; Resp 17; Pulse Ox 95% on R/A; tw2 07:24 Body Mass Index 42.51 (108.86 kg, 160.02 cm) aa5 07:24 Pt reports pain only with movement. aa5 MDM: 07:23 Patient medically screened. rn 09:20 Differential diagnosis: DJD, tendonitis, muscle strain, chest wall pain, tendonitis. rn Data reviewed: vital signs, nurses notes, lab test result(s), EKG, radiologic studies, plain films, and as a result, I will discharge patient. Counseling: I had a detailed discussion with the patient and/or guardian regarding: the historical points, exam findings, and any diagnostic results supporting the discharge/admit diagnosis, lab results, radiology results, the need for outpatient follow up, to return to the emergency department if symptoms worsen or persist or if there are any questions or concerns that arise at home. Special discussion: I discussed with the patient/guardian in detail that at this point there is no indication for admission to the hospital. It is understood, however, that if the symptoms persist or worsen the patient needs to return immediately for re-evaluation. 02/13 07:30 Order name: CBC with Diff; Complete Time: 08:20 rn 02/13 07:30 Order name: Basic Metabolic Panel; Complete Time: 08:20 rn 02/13 07:30 Order name: LFT's; Complete Time: 08:20 rn 02/13 07:30 Order name: Lipase; Complete Time: 08:20 rn 02/13 07:30 Order name: Troponin (emerg Dept Use Only); Complete Time: 08:20 rn 02/13 07:30 Order name: XRAY Chest (1 view); Complete Time: 08:54 rn 02/13 07:30 Order name: IV Start; Complete Time: 07:36 rn 02/13 07:30 Order name: EKG; Complete Time: 07:31 rn 02/13 07:30 Order name: EKG - Nurse/Tech; Complete Time: 07:40 rn 02/13 07:30 Order name: XRAY Shoulder RIGHT 2 view; Complete Time: 08:54 rn 02/13 09:23 Order name: US Abdomen Limited; Complete Time: 10:38 rn Administered Medications: 07:42 Drug: [place] 5 mg-325 mg 1 tabs Route: PO; em 10:50 Follow up: Response: No adverse reaction; Pain is decreased tw2 07:42 Drug: Flexeril 10 mg Route: PO; em 10:49 Follow up: Response: No adverse reaction tw2 Disposition: 02/13/19 09:22 Discharged to Home. Impression: Chest pain, unspecified, Pain in right shoulder. - Condition is Stable. - Medication Reconciliation Form, Thank You Letter, Antibiotic Education, Prescription Opioid Use, Work release form form. - Follow up: Private Physician; When: As needed; Reason: Recheck today's complaints, Re-evaluation by your physician. - Problem is new. - Symptoms have improved. Signatures: Dispatcher [employer] Ciro Thompson, MANAGER SALES AND MARKETING MANAGER SALES AND MARKETING Uri Morrissey MD MD rn Calderon, Audri, RN RN aa5 Madie Bella RN RN tw2 Corrections: (The following items were deleted from the chart) 10:54 09:22 02/13/2019 09:22 Discharged to Home. Impression: Chest pain, unspecified; Pain in tw2 right shoulder. Condition is Stable. Forms are Work release form, Medication Reconciliation Form, Thank You Letter, Antibiotic Education, Prescription Opioid Use. Follow up: Private Physician; When: As needed; Reason: Recheck today's complaints, Re-evaluation by your physician. Problem is new. Symptoms have improved. rn
--- NOTE | 2019-02-13 09:23 | ER ---
Nurse's Notes [facility] Name: Paradise Colon Age: 38 yrs Sex: Female : 1980 Arrival Date: 02/13/2019 Time: 06:56 Bed 16 Private MD: Diagnosis: Chest pain, unspecified;Pain in right shoulder Presentation: 02/13 07:23 Presenting complaint: Patient states: pt c/o pain to right anterior aspect of chest aa5 radiating to right scapula that began yesterday. Pt reports vomiting today. Denies known injury, denies SOB, denies cough. 07:23 Acuity: TANA 3 aa5 07:23 Risk Assessment: Do you want to hurt yourself or someone else? Patient reports no aa5 desire to harm self or others. 07:23 Transition of care: patient was not received from another setting of care. Onset of aa5 symptoms was January 2019. Initial Sepsis Screen: Does the patient meet any 2 criteria? No. Patient's initial sepsis screen is negative. Does the patient have a suspected source of infection? No. Patient's initial sepsis screen is negative. Care prior to arrival: None. 07:23 Method Of Arrival: Ambulatory aa5 Triage Assessment: 07:40 General: Appears in no apparent distress. Behavior is calm, cooperative, appropriate tw2 for age. Pain: Complains of pain in left scapular area, right scapular area, left subscapular area, right subscapular area and chest. GI: Reports nausea, vomiting. 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 - Social history:: Smoking status: Patient/guardian denies using tobacco. - Ebola Screening: : No symptoms or risks identified at this time. - Family history:: not pertinent. - Hospitalizations: : No recent hospitalization is reported. Screenin:40 Abuse screen: Denies threats or abuse. Nutritional screening: No deficits noted. tw2 Tuberculosis screening: Fall Risk None identified. Assessment: 07:41 General: Appears in no apparent distress. Neuro: Level of Consciousness is awake, tw2 alert, obeys commands, Oriented to person, place, situation. Cardiovascular: Patient's skin is warm and dry. Respiratory: Airway is patent Respiratory effort is even, unlabored, Respiratory pattern is regular, symmetrical, Breath sounds are clear bilaterally. GI: Abdomen is flat, Bowel sounds present X 4 quads. : No signs and/or symptoms were reported regarding the genitourinary system. EENT: No signs and/or symptoms were reported regarding the EENT system. Derm: No signs and/or symptoms reported regarding the dermatologic system. Musculoskeletal: Range of motion: intact in all extremities. 08:23 Reassessment: Patient appears in no apparent distress at this time. No changes from tw2 previously documented assessment. Patient and/or family updated on plan of care and expected duration. Pain level reassessed. Patient is alert, oriented x 3, equal unlabored respirations, skin warm/dry/pink. 09:30 Reassessment: Patient appears in no apparent distress at this time. No changes from tw2 previously documented assessment. Patient and/or family updated on plan of care and expected duration. Pain level reassessed. Patient is alert, oriented x 3, equal unlabored respirations, skin warm/dry/pink. 10:09 Reassessment: US at bedside at this time. tw2 10:50 Reassessment: Patient appears in no apparent distress at this time. No changes from tw2 previously documented assessment. Patient and/or family updated on plan of care and expected duration. Pain level reassessed. Patient is alert, oriented x 3, equal unlabored respirations, skin warm/dry/pink. 10:54 Reassessment: Patient appears in no apparent distress at this time. No changes from tw2 previously documented assessment. Patient and/or family updated on plan of care and expected duration. Pain level reassessed. Patient is alert, oriented x 3, equal unlabored respirations, skin warm/dry/pink. Vital Signs: 07:24 BP 136 / 98; Pulse 90; Resp 16 S; Temp 97.5(TE); Pulse Ox 94% on R/A; Weight 108.86 kg aa5 (R); Height 5 ft. 3 in. (160.02 cm) (R); Pain 0/10; 08:21 BP 120 / 84; Pulse 82; Resp 17; Pulse Ox 95% on R/A; tw2 10:11 BP 136 / 87; Pulse 73; Resp 17; Pulse Ox 96% on R/A; tw2 10:54 BP 116 / 73; Pulse 77; Resp 17; Pulse Ox 95% on R/A; tw2 07:24 Body Mass Index 42.51 (108.86 kg, 160.02 cm) aa5 07:24 Pt reports pain only with movement. aa5 ED Course: 06:56 Patient arrived in ED. ds1 07:23 Madie Bella RN is Primary Nurse. tw2 07:23 Uri Jay MD is Attending Physician. rn 07:23 Arm band placed on Patient placed in an exam room, on a stretcher. aa5 07:23 Patient has correct armband on for positive identification. Bed in low position. Call aa5 light in reach. 07:37 Triage completed. aa5 07:37 Initial lab(s) drawn, by me, sent to lab. Inserted saline lock: 22 gauge in left em antecubital area, using aseptic technique. Blood collected. 08:11 XRAY Chest (1 view) In Process Unspecified. EDMS 08:11 XRAY Shoulder RIGHT 2 view In Process Unspecified. EDMS 09:25 Awaiting: US and results PRIOR to discharge. tw2 10:23 Ultrasound completed. Patient tolerated well. sg3 10:24 US Abdomen Limited In Process Unspecified. EDMS 10:50 No provider procedures requiring assistance completed. IV discontinued, intact, tw2 bleeding controlled, No redness/swelling at site. Pressure dressing applied. Administered Medications: 07:42 Drug: [place] 5 mg-325 mg 1 tabs Route: PO; em 10:50 Follow up: Response: No adverse reaction; Pain is decreased tw2 07:42 Drug: Flexeril 10 mg Route: PO; em 10:49 Follow up: Response: No adverse reaction tw2 Outcome: 09:22 Discharge ordered by . rn 10:50 Discharged to home ambulatory. tw2 10:50 Condition: stable 10:50 Discharge instructions given to patient, Instructed on discharge instructions, follow up and referral plans. Demonstrated understanding of instructions, follow-up care. 10:54 Patient left the ED. tw2 Signatures: Dispatcher [employer] EDMS Ciro Evans, EXPERIMENTAL MECHANIC ELECTRICAL EXPERIMENTAL MECHANIC ELECTRICAL Tosha Morris ds1 rUi Jay MD MD rn Calderon, Audri, RN RN aa5 Madie Bella RN RN tw2 Erika Esteves sg3
--- NOTE | 2019-02-13 10:30 | RAD REPORT ---
EXAM DESCRIPTION: US - Abdomen Exam Limited - 02/13/2019 10:24 am CLINICAL HISTORY: Abdominal pain. COMPARISON: None. FINDINGS: The gallbladder wall is not thickened. A gallstone is not seen. The biliary tree is normal caliber. IMPRESSION: Unremarkable gallbladder ultrasound.
--- NOTE | 2019-02-14 12:25 | EKG ---
Test Date: 2019-02-13 Test Time: 07:44:07 Manager Community: MEASUREMENT RESULTS: Intervals: Rate: 77 FL: 150 QRSD: 78 QT: 362 QTc: 409 [place]: P: 67 FL: 150 QRS: 10 T: 59 INTERPRETIVE STATEMENTS: Normal sinus rhythm Low voltage QRS Borderline ECG Compared to ECG 02/21/2017 13:48:53 Low QRS voltage now present Electronically Signed On 02-14-19 12:24:50 CDT by Fidel Peña
== END 2019-02-13 10:54 | disposition home or self-care (01) ==
LOC: ER 06:54
DX: R07.9 Chest pain, unspecified (principal); M25.511 Pain in right shoulder
CPT/HCPCS: 36415; 71045; 76705; 80048; 80076; 83690; 84484; 85025; 93005; 99284

== ENCOUNTER 2019-03-04 21:12 | Emergency (ER) | payer BC ==
[2019-03-04] MEDS ORDERED: HYDROCODONE/APAP 7.5/325 MG TAB ONE (22:44)
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
[2019-03-05 00:28] LABS: Urine Blood 3+ (NEG); Urine Glucose NEGATIVE (NEG); Urine Protein TRACE (NEG)
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
== END 2019-03-05 00:18 | disposition home or self-care (01) ==
LOC: ER 21:12
DX: S16.1XXA Strain of muscle, fascia and tendon at neck level, initial encounter (principal); V49.40XA Driver injured in collision with unspecified motor vehicles in traffic accident, initial encounter; Z72.0 Tobacco use
CPT/HCPCS: 70450; 72125; 81003; 81025; 99284

== ENCOUNTER 2019-08-23 21:01 | Emergency (ER) | payer BC, SELFPAY ==
[2019-08-23 22:10] LABS: Urine Bacteria >50 /HPF (<20); Urine Culture Reflex Order NOT NEEDED; Urine RBC NONE SEEN /HPF (NONE SEEN)
[2019-08-23 22:12] LABS: Urine Blood NEGATIVE (NEG); Urine Glucose NEGATIVE (NEG); Urine Protein 1+ (NEG)
[2019-08-23] MEDS ORDERED: CEFTRIAXONE 1000 MG/VIAL ONE (22:32)
--- NOTE | 2019-08-23 22:45 | ER ---
Nurse's Notes [facility] Name: Paradise Colon Age: 39 yrs Sex: Female : 1980 Arrival Date: 08/23/2019 Time: 21:05 Bed 5 Private MD: Diagnosis: Urinary tract infection, site not specified;Fever presenting with conditions classified elsewhere Presentation: 08/23 21:11 Presenting complaint: Patient states: "Since yesterday, my body has been hot, I've been lp1 running a fever and it's making me dizzy"; States Last taking Tylenol x3 tablets about an hour ago; Also states allergy to cats, has been around cats staying with a friend. Transition of care: patient was not received from another setting of care. Onset of symptoms was August 23, 2019. Risk Assessment: Do you want to hurt yourself or someone else? Patient reports no desire to harm self or others. Initial Sepsis Screen: Does the patient meet any 2 criteria? No. Patient's initial sepsis screen is negative. Does the patient have a suspected source of infection? No. Patient's initial sepsis screen is negative. Care prior to arrival: None. 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 - Social history:: Smoking status: Patient uses tobacco products, Vaping. - Ebola Screening: : No symptoms or risks identified at this time. Screenin:16 Abuse screen: Denies threats or abuse. Denies injuries from another. Nutritional lp1 screening: No deficits noted. Tuberculosis screening: No symptoms or risk factors identified. 21:28 Fall Risk Ambulatory Aid- None/Bed Rest/Nurse Assist (0 pts). Gait- Normal/Bed jd3 Rest/Wheelchair (0 pts) Mental Status- Oriented to own ability (0 pts). Total Munoz Fall Scale indicates No Risk (0-24 pts). Assessment: 21:25 General: Appears in no apparent distress. uncomfortable, Behavior is calm, cooperative, jd3 appropriate for age. Pain: Complains of pain in face and back Quality of pain is described as burning, aching. Neuro: Level of Consciousness is awake, alert, obeys commands, Oriented to person, place, time, situation, Reports dizziness. Cardiovascular: Heart tones S1 S2 Capillary refill < 3 seconds Patient's skin is warm and dry. Respiratory: Airway is patent Respiratory effort is even, unlabored, Respiratory pattern is regular, symmetrical, Breath sounds are clear bilaterally. GI: No signs and/or symptoms were reported involving the gastrointestinal system. : No signs and/or symptoms were reported regarding the genitourinary system. EENT: No signs and/or symptoms were reported regarding the EENT system. Derm: Skin is intact, Skin is dry, Skin is normal, face appears reddened Skin temperature is warm. Musculoskeletal: Circulation, motion, and sensation intact. Range of motion: intact in all extremities. 22:51 Reassessment: Patient appears in no apparent distress at this time. Patient and/or jd3 family updated on plan of care and expected duration. Pain level reassessed. Patient is alert, oriented x 3, equal unlabored respirations, skin warm/dry/pink. reported understanding of discharge instructions. Vital Signs: 21:15 BP 142 / 88; Pulse 103; Resp 20; Temp 99.8(O); Pulse Ox 96% on R/A; Weight 104.33 kg lp1 (R); Height 5 ft. 2 in. (157.48 cm); Pain 5/10; 22:52 Pulse 100; Resp 19 S; Pulse Ox 97% on R/A; jd3 21:15 Body Mass Index 42.07 (104.33 kg, 157.48 cm) lp1 ED Course: 21:05 Patient arrived in ED. mr 21:15 Triage completed. lp1 21:15 Arm band placed on left wrist. lp1 21:21 [facility] Vas[facility]C [facility]. snw 21:22 Uri Jay MD is Attending Physician. snw 21:22 Bentley Ventura RN is Primary Nurse. jd3 21:28 Patient has correct armband on for positive identification. Placed in gown. Bed in low jd3 position. Call light in reach. Side rails up X2. Adult w/ patient. 22:51 No provider procedures requiring assistance completed. Patient did not have IV access jd3 during this emergency room visit. Administered Medications: 22:39 Drug: Rocephin (cefTRIAXone) 1 grams Route: IM; Site: right gluteus; jd3 22:53 Follow up: Response: No adverse reaction jd3 Outcome: 22:43 Discharge ordered by MD. madrigal 22:51 Discharged to home ambulatory, with family. jd3 22:51 Condition: stable 22:51 Discharge instructions given to patient, family, Instructed on discharge instructions, follow up and referral plans. medication usage, Demonstrated understanding of instructions, follow-up care, medications, Prescriptions given X 1. 22:52 Patient left the ED. jd3 Signatures: Mary Vasquez, CHEF'S ASSISTANT-C CHEF'S ASSISTANT-Chanduw Kimberley Guillaume Laura, RN RN lp1 Bentley Ventura RN RN jd3
--- NOTE | 2019-08-23 22:45 | EDPHYS ---
Physician Documentation [facility] Name: Paradise Colon Age: 39 yrs Sex: Female : 1980 Arrival Date: 08/23/2019 Time: 21:05 Bed 5 Private MD: ED Physician Uri Jay HPI: 08/23 21:46 This 39 yrs old Female presents to ER via Ambulatory with complaints of snw Fever, Dizziness. 21:46 The patient reports fever, not measured (subjective). Onset: The symptoms/episode snw began/occurred suddenly, last night, and became persistent. Modifying factors: there are no obvious modifying factors. Associated signs and symptoms: Pertinent negatives: earache, sore throat. Severity of symptoms: At their worst the symptoms were mild moderate. The patient has not experienced similar symptoms in the past. It is unknown whether or not the patient has recently seen a physician. 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 - Social history:: Smoking status: Patient uses tobacco products, Vaping. - Ebola Screening: : No symptoms or risks identified at this time. ROS: 21:46 Eyes: Negative for injury, pain, redness, and discharge, ENT: Negative for injury, snw pain, and discharge, Neck: Negative for injury, pain, and swelling, Cardiovascular: Negative for chest pain, palpitations, and edema, Respiratory: Negative for shortness of breath, cough, wheezing, and pleuritic chest pain, Abdomen/GI: Negative for abdominal pain, nausea, vomiting, diarrhea, and constipation, Back: Negative for injury and pain, : Negative for injury, bleeding, discharge, and swelling, MS/Extremity: Negative for injury and deformity, Skin: Negative for injury, rash, and discoloration, Neuro: Negative for headache, weakness, numbness, tingling, and seizure. 21:46 Constitutional: Positive for fever, malaise. Exam: 21:45 Head/Face: Normocephalic, atraumatic. Eyes: Pupils equal round and reactive to light, snw extra-ocular motions intact. Lids and lashes normal. Conjunctiva and sclera are non-icteric and not injected. Cornea within normal limits. Periorbital areas with no swelling, redness, or edema. ENT: Nares patent. No nasal discharge, no septal abnormalities noted. Tympanic membranes are normal and external auditory canals are clear. Oropharynx with no redness, swelling, or masses, exudates, or evidence of obstruction, uvula midline. Mucous membranes moist. Neck: Trachea midline, no thyromegaly or masses palpated, and no cervical lymphadenopathy. Supple, full range of motion without nuchal rigidity, or vertebral point tenderness. No Meningismus. Chest/axilla: Normal chest wall appearance and motion. Nontender with no deformity. No lesions are appreciated. Respiratory: Lungs have equal breath sounds bilaterally, clear to auscultation and percussion. No rales, rhonchi or wheezes noted. No increased work of breathing, no retractions or nasal flaring. Abdomen/GI: Soft, non-tender, with normal bowel sounds. No distension or tympany. No guarding or rebound. No evidence of tenderness throughout. Back: No spinal tenderness. No costovertebral tenderness. Full range of motion. 21:45 Skin: Warm, dry with normal turgor. Normal color with no rashes, no lesions, and no evidence of cellulitis. MS/ Extremity: Pulses equal, no cyanosis. Neurovascular intact. Full, normal range of motion. Neuro: Awake and alert, GCS 15, oriented to person, place, time, and situation. Cranial nerves II-XII grossly intact. Motor strength 5/5 in all extremities. Sensory grossly intact. Cerebellar exam normal. Normal gait. Psych: Awake, alert, with orientation to person, place and time. Behavior, mood, and affect are within normal limits. 21:45 Constitutional: The patient appears alert, awake, obese, hyperemic 21:45 Cardiovascular: Rate: tachycardic, Rhythm: regular. Vital Signs: 21:15 BP 142 / 88; Pulse 103; Resp 20; Temp 99.8(O); Pulse Ox 96% on R/A; Weight 104.33 kg lp1 (R); Height 5 ft. 2 in. (157.48 cm); Pain 5/10; 22:52 Pulse 100; Resp 19 S; Pulse Ox 97% on R/A; jd3 21:15 Body Mass Index 42.07 (104.33 kg, 157.48 cm) lp1 MDM: 21:28 Patient medically screened. snw 22:44 Data reviewed: vital signs, nurses notes. Data interpreted: Pulse oximetry: on room air snw is 96 %. Interpretation: acceptable. Counseling: I had a detailed discussion with the patient and/or guardian regarding: the historical points, exam findings, and any diagnostic results supporting the discharge/admit diagnosis, lab results, the need for outpatient follow up, to return to the emergency department if symptoms worsen or persist or if there are any questions or concerns that arise at home. Special discussion: I have referred the patient to see his PCP for further evaluation of high blood pressure. Based on the history and exam findings, there is no indication for further emergent testing or inpatient evaluation. I discussed with the patient/guardian the need to see the primary care provider for further evaluation of the symptoms. 08/23 21:34 Order name: Flu; Complete Time: 22:42 snw 08/23 21:34 Order name: Strep; Complete Time: 22:42 snw 08/23 21:34 Order name: Urine Culture snw 08/23 21:34 Order name: Urine Microscopic Only; Complete Time: 22:22 snw 08/23 21:56 Order name: Urine Dipstick--Ancillary (enter results); Complete Time: 22:22 mw2 08/23 21:56 Order name: Urine --Ancillary (enter results); Complete Time: 22:22 mw2 08/23 21:34 Order name: Urine Dipstick-Ancillary (obtain specimen); Complete Time: 21:51 snw 08/23 22:28 Order name: PO challenge; Complete Time: 22:39 snw 08/23 22:34 Order name: Throat Culture EDMS Administered Medications: 22:39 Drug: Rocephin (cefTRIAXone) 1 grams Route: IM; Site: right gluteus; jd3 22:53 Follow up: Response: No adverse reaction jd3 Disposition: 23:25 Co-signature as Attending Physician, Uri Jay MD. rn Disposition: 08/23/19 22:43 Discharged to Home. Impression: Urinary tract infection, site not specified, Fever presenting with conditions classified elsewhere. - Condition is Stable. - Discharge Instructions: Fever, Adult, Hypertension, Urinary Tract Infection, Adult, Rehydration, Adult. - Prescriptions for Augmentin 875- 125 mg Oral Tablet - take 1 tablet by ORAL route every 12 hours for 10 days; 20 tablet. - Work release form, Medication Reconciliation Form, Thank You Letter, Antibiotic Education, Prescription Opioid Use form. - Follow up: Private Physician; When: 2 - 3 days; Reason: Recheck today's complaints, Continuance of care, Re-evaluation by your physician. Follow up: Emergency Department; When: As needed; Reason: Worsening of condition. Signatures: Dispatcher [employer] EDMS Mary Vasquez, RUG CUTTER HELPER-C RUG CUTTER HELPER-Csnw Uri Jay MD MD rn Dilma Hernandez RN RN lp1 Bentley Ventura RN RN jd3 Corrections: (The following items were deleted from the chart) 22:52 22:43 08/23/2019 22:43 Discharged to Home. Impression: Urinary tract infection, site jd3 not specified; Fever presenting with conditions classified elsewhere. Condition is Stable. Forms are Medication Reconciliation Form, Thank You Letter, Antibiotic Education, Prescription Opioid Use. Follow up: Private Physician; When: 2 - 3 days; Reason: Recheck today's complaints, Continuance of care, Re-evaluation by your physician. Follow up: Emergency Department; When: As needed; Reason: Worsening of condition. snw
[2019-08-24 00:44] VITALS: BP 142/88; TEMP 99.8
[2019-08-24 00:45] VITALS: O2SAT 97
== END 2019-08-23 22:52 | disposition home or self-care (01) ==
LOC: ER 21:01
DX: N39.0 Urinary tract infection, site not specified (principal)
CPT/HCPCS: 81003; 81015; 81025; 87070; 87081; 87086; 87088; 87804

== ENCOUNTER 2020-05-07 08:17 | Emergency (ER) | payer SELFPAY ==
--- NOTE | 2020-05-07 08:54 | EDPHYS ---
Physician Documentation [facility] Name: Paradise Colon Age: 40 yrs Sex: Female : 1980 Arrival Date: 05/07/2020 Time: 08:20 Bed 8 Private MD: ED Physician Tamir Hall HPI: 05/07 08:33 This 40 yrs old Female presents to ER via Unassigned with complaints of Ankle snw Injury. 08:33 The patient presents with pain, that is chronic. The complaints affect the right ankle. snw Onset: The symptoms/episode began/occurred acutely. Context: injury in 2001, started hurting last pm, no new injury. Associated signs and symptoms: The patient has no apparent associated signs or symptoms. Severity of symptoms: At their worst the symptoms were mild, moderate. The patient has experienced similar episodes in the past. just finished medications given at [place] [facility] for sciatica. 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 - Social history:: Smoking status: Reported history of juuling and/or vaping. ROS: 08:32 Constitutional: Negative for fever, chills, and weight loss, Eyes: Negative for injury, snw pain, redness, and discharge, ENT: Negative for injury, pain, and discharge, Neck: Negative for injury, pain, and swelling, Cardiovascular: Negative for chest pain, palpitations, and edema, Respiratory: Negative for shortness of breath, cough, wheezing, and pleuritic chest pain, Abdomen/GI: Negative for abdominal pain, nausea, vomiting, diarrhea, and constipation, Back: Negative for injury and pain, : Negative for injury, bleeding, discharge, and swelling, Skin: Negative for injury, rash, and discoloration, Neuro: Negative for headache, weakness, numbness, tingling, and seizure, Psych: Negative for depression, anxiety, suicide ideation, homicidal ideation, and hallucinations. 08:32 MS/extremity: Positive for injury or acute deformity, pain, of the right lateral malleolus. Exam: 08:32 Constitutional: This is a well developed, well nourished patient who is awake, alert, snw and in no acute distress. Head/Face: Normocephalic, atraumatic. Eyes: Pupils equal round and reactive to light, extra-ocular motions intact. Lids and lashes normal. Conjunctiva and sclera are non-icteric and not injected. Cornea within normal limits. Periorbital areas with no swelling, redness, or edema. ENT: Nares patent. No nasal discharge, no septal abnormalities noted. Tympanic membranes are normal and external auditory canals are clear. Oropharynx with no redness, swelling, or masses, exudates, or evidence of obstruction, uvula midline. Mucous membranes moist. Neck: Trachea midline, no thyromegaly or masses palpated, and no cervical lymphadenopathy. Supple, full range of motion without nuchal rigidity, or vertebral point tenderness. No Meningismus. Chest/axilla: Normal chest wall appearance and motion. Nontender with no deformity. No lesions are appreciated. Cardiovascular: Regular rate and rhythm with a normal S1 and S2. No gallops, murmurs, or rubs. Normal PMI, no JVD. No pulse deficits. Respiratory: Lungs have equal breath sounds bilaterally, clear to auscultation and percussion. No rales, rhonchi or wheezes noted. No increased work of breathing, no retractions or nasal flaring. Abdomen/GI: Soft, non-tender, with normal bowel sounds. No distension or tympany. No guarding or rebound. No evidence of tenderness throughout. Back: No spinal tenderness. No costovertebral tenderness. Full range of motion. Skin: Warm, dry with normal turgor. Normal color with no rashes, no lesions, and no evidence of cellulitis. Neuro: Awake and alert, GCS 15, oriented to person, place, time, and situation. Cranial nerves II-XII grossly intact. Motor strength 5/5 in all extremities. Sensory grossly intact. Cerebellar exam normal. Normal gait. Psych: Awake, alert, with orientation to person, place and time. Behavior, mood, and affect are within normal limits. 08:32 Musculoskeletal/extremity: Extremities: grossly normal except: noted in the right lateral malleolus: pain. Vital Signs: 08:35 BP 143 / 93; Pulse 80; Resp 17; Pulse Ox 96% ; Weight 103.42 kg; Height 5 ft. 3 in. jl7 (160.02 cm); Pain 6/10; 08:35 Body Mass Index 40.39 (103.42 kg, 160.02 cm) jl7 MDM: 08:29 Patient medically screened. snw 08:54 Data reviewed: vital signs, EMS record. Data interpreted: Pulse oximetry: on room air snw is 96 %. Interpretation: normal. Counseling: I had a detailed discussion with the patient and/or guardian regarding: the historical points, exam findings, and any diagnostic results supporting the discharge/admit diagnosis, the presence of at least one elevated blood pressure reading (>120/80) during this emergency department visit, radiology results, the need for outpatient follow up, for definitive care, to return to the emergency department if symptoms worsen or persist or if there are any questions or concerns that arise at home. Response to treatment: There is no appreciated change of the patient's symptoms at this time. 05/07 08:32 Order name: Ankle Right 2 View XRAY snw 05/07 09:18 Order name: Paul Wrap; Complete Time: 09:19 [facility] Administered Medications: 09:10 Drug: Motrin 400 mg Route: PO; jl7 09:19 Follow up: Response: Medication administered at discharge. [facility] Disposition: 11:14 Co-signature as Attending Physician, Tamir Hall MD I agree with the assessment and kdr plan of care. Disposition: 05/07/20 08:53 Discharged to Home. Impression: Pain in right ankle and joints of right foot, Essential (primary) hypertension. - Condition is Stable. - Discharge Instructions: Joint Pain, Hypertension, Musculoskeletal Pain, How to Take Your Blood Pressure, [id number], Ankle Pain, Cryotherapy, DASH Eating Plan, Managing Your Hypertension, Form - Blood Pressure Record Sheet. - Prescriptions for Mobic 7.5 mg Oral Tablet - take 1 tablet by ORAL route once daily take with food; 20 tablet. - Medication Reconciliation Form, Thank You Letter, Antibiotic Education, Prescription Opioid Use, Work release form form. - Follow up: Emergency Department; When: As needed; Reason: Worsening of condition. Follow up: Private Physician; When: 2 - 3 days; Reason: Recheck today's complaints, Continuance of care, Re-evaluation by your physician. Signatures: Dispatcher [employer] Tamir Hernandez MD MD [facility] Mary Vasquez, CONFERENCE DIRECTOR-C CONFERENCE DIRECTOR-Csnw Hakeem Hendricks RN RN jl7 Corrections: (The following items were deleted from the chart) 09:18 08:51 Walking boot ordered. snw jl7 09:20 08:53 05/07/2020 08:53 Discharged to Home. Impression: Pain in right ankle and joints jl7 of right foot; Essential (primary) hypertension. Condition is Stable. Forms are Medication Reconciliation Form, Thank You Letter, Antibiotic Education, Prescription Opioid Use. Follow up: Emergency Department; When: As needed; Reason: Worsening of condition. Follow up: Private Physician; When: 2 - 3 days; Reason: Recheck today's complaints, Continuance of care, Re-evaluation by your physician. snw
--- NOTE | 2020-05-07 08:54 | ER ---
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 Coronavirus screen: Proceed with normal triage. Patient denies a cough. Patient denies shortness of breath or difficulty breathing. Patient denies measured and/or subjective temperature greater than 100.4F prior to today's visit. Patient denies travel on a cruise ship or to a country the [facility] currently lists as an affected area. Patient denies contact with known and/or suspected case of COVID-19. Ebola Screen: No symptoms or risks identified at this time. Initial Sepsis Screen: Does the patient meet any 2 criteria? No. Patient's initial sepsis screen is negative. Does the patient have a suspected source of infection? No. Patient's initial sepsis screen is negative. Risk Assessment: Do you want to hurt yourself or someone else? Patient reports no desire to harm self or others. Onset of symptoms was May 06, 2020. Care prior to arrival: None. 08:35 Method Of Arrival: Ambulatory [facility] 08:35 Acuity: TANA 4 jl7 Triage Assessment: 08:37 General: Appears in no apparent distress. uncomfortable, Behavior is cooperative, jl7 anxious. Pain: Complains of pain in right ankle Pain currently is 6 out of 10 on a pain scale. Neuro: Level of Consciousness is awake, alert, obeys commands, Oriented to person, place, time, situation. Cardiovascular: Patient's skin is warm and dry. Respiratory: Airway is patent Respiratory effort is even, unlabored, Respiratory pattern is regular, symmetrical. Derm: Skin is pink, warm \\T\\ dry. Musculoskeletal: Range of motion: limited in right ankle. 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 - Social history:: Smoking status: Reported history of juuling and/or vaping. Screenin:39 Abuse screen: Denies threats or abuse. Denies injuries from another. Nutritional jl7 screening: No deficits noted. Tuberculosis screening: No symptoms or risk factors identified. Fall Risk None identified. Assessment: 08:39 General: See triage assessment. jl7 Vital Signs: 08:35 BP 143 / 93; Pulse 80; Resp 17; Pulse Ox 96% ; Weight 103.42 kg; Height 5 ft. 3 in. jl7 (160.02 cm); Pain 6/10; 08:35 Body Mass Index 40.39 (103.42 kg, 160.02 cm) jl7 ED Course: 08:20 Patient arrived in ED. as 08:24 Hakeem Hendricks RN is Primary Nurse. jl7 08:29 Mary Vasquez FNP-C [facility]. snw 08:29 Tamir Hall MD is Attending Physician. snw 08:37 Triage completed. jl7 08:37 Arm band placed on right wrist. jl7 08:39 Patient has correct armband on for positive identification. Bed in low position. Call jl7 light in reach. Side rails up X 1. 09:06 Ankle Right 2 View XRAY In Process Unspecified. EDMS 09:19 No provider procedures requiring assistance completed. Patient did not have IV access jl7 during this emergency room visit. 09:19 Paul wrap to right ankle. jl7 Administered Medications: 09:10 Drug: Motrin 400 mg Route: PO; jl7 09:19 Follow up: Response: Medication administered at discharge. jl7 Outcome: 08:53 Discharge ordered by . snw 09:19 Discharged to home ambulatory. jl7 09:19 Condition: stable 09:19 Discharge instructions given to patient, Instructed on discharge instructions, follow up and referral plans. medication usage, Demonstrated understanding of instructions, follow-up care, medications, Prescriptions given X 1. 09:20 Patient left the ED. jl7 Signatures: Dispatcher [employer] EDLA Mary Vasquez FNP-C ADMINISTRATIVE SUPPORT ASSOCIATE-Ivana Hawkins as Hendricks, Jahala, RN RN jl7
[2020-05-07] MEDS ORDERED: IBUPROFEN 400 MG TAB ONE (09:16)
--- NOTE | 2020-05-07 09:20 | RAD REPORT ---
EXAM DESCRIPTION: RAD - Ankle Right 2 View - 05/07/2020 9:05 am CLINICAL HISTORY: PAIN COMPARISON: Ankle Right 3 View dated 11/01/2018 FINDINGS: Mild soft tissue swelling is seen about the ankle. A large posterior and small plantar jenelle caneal spur seen. No fracture or dislocation.
[2020-05-07 09:26] VITALS: BP 143/93; O2SAT 96
== END 2020-05-07 09:20 | disposition home or self-care (01) ==
LOC: ER 08:17
DX: M25.571 Pain in right ankle and joints of right foot (principal); I10 Essential (primary) hypertension
CPT/HCPCS: 99283

== ENCOUNTER 2020-09-22 19:01 | Emergency (ER) | payer OTHER, SELFPAY ==
[2020-09-22 20:24] LABS: Urine Blood NEGATIVE (NEG); Urine Glucose NEGATIVE (NEG); Urine Protein TRACE (NEG); Urine Specific Gravity >1.030 (1.005-1.030)
[2020-09-22] MEDS ORDERED: HYDROCODONE/APAP 10/325 TAB ONE (20:24)
--- NOTE | 2020-09-22 21:19 | EDPHYS ---
Physician Documentation [facility] Name: Paradise Colon Age: 40 yrs Sex: Female : 1980 Arrival Date: 09/22/2020 Time: 19:04 Bed 5 Private MD: ED Physician Earl Colon HPI: 09/22 20:03 This 40 yrs old Female presents to ER via Ambulatory with complaints of Fall marleny Injury. 20:03 Details of fall: The patient fell from an upright position, while walking. Onset: The marleny symptoms/episode began/occurred just prior to arrival. Associated injuries: The patient sustained neck injury, upper back injury, injury to the low back. Severity of symptoms: At their worst the symptoms were moderate, in the emergency department the symptoms are unchanged. The patient has not experienced similar symptoms in the past. Historical: - Allergies: 19:25 No Known Allergies; sv - PMHx: 19:25 Chronic pain; sv - PSHx: 19:25 None; sv - Immunization history:: Flu vaccine is up to date. - Social history:: Smoking status: Patient reports the use of cigarette tobacco products, denies chronic smoking, but will smoke occasionally, Reported history of juuling and/or vaping. - Immunization history: Last tetanus immunization: unknown. - Family history:: not pertinent. ROS: 20:03 Constitutional: Negative for fever, chills, and weight loss, Eyes: Negative for injury, marleny pain, redness, and discharge, ENT: Negative for injury, pain, and discharge, Cardiovascular: Negative for chest pain, palpitations, and edema, Respiratory: Negative for shortness of breath, cough, wheezing, and pleuritic chest pain, Abdomen/GI: Negative for abdominal pain, nausea, vomiting, diarrhea, and constipation, : Negative for injury, bleeding, discharge, and swelling, MS/Extremity: Negative for injury and deformity, Skin: Negative for injury, rash, and discoloration, Neuro: Negative for headache, weakness, numbness, tingling, and seizure, Psych: Negative for depression, anxiety, suicide ideation, homicidal ideation, and hallucinations, Allergy/Immunology: Negative for hives, rash, and allergies, Endocrine: Negative for neck swelling, polydipsia, polyuria, polyphagia, and marked weight changes, Hematologic/Lymphatic: Negative for swollen nodes, abnormal bleeding, and unusual bruising. 20:03 Neck: Positive for pain with movement, pain at rest. 20:03 Back: Positive for decreased range of motion, pain at rest, of the thoracic area, lumbar area and sacrum. Exam: 20:03 Constitutional: This is a well developed, well nourished patient who is awake, alert, marleny and in no acute distress. Head/Face: Normocephalic, atraumatic. Eyes: Pupils equal round and reactive to light, extra-ocular motions intact. Lids and lashes normal. Conjunctiva and sclera are non-icteric and not injected. Cornea within normal limits. Periorbital areas with no swelling, redness, or edema. ENT: Nares patent. No nasal discharge, no septal abnormalities noted. Tympanic membranes are normal and external auditory canals are clear. Oropharynx with no redness, swelling, or masses, exudates, or evidence of obstruction, uvula midline. Mucous membranes moist. Neck: Trachea midline, no thyromegaly or masses palpated, and no cervical lymphadenopathy. Supple, full range of motion without nuchal rigidity, or vertebral point tenderness. No Meningismus. Chest/axilla: Normal chest wall appearance and motion. Nontender with no deformity. No lesions are appreciated. Cardiovascular: Regular rate and rhythm with a normal S1 and S2. No gallops, murmurs, or rubs. Normal PMI, no JVD. No pulse deficits. Respiratory: Lungs have equal breath sounds bilaterally, clear to auscultation and percussion. No rales, rhonchi or wheezes noted. No increased work of breathing, no retractions or nasal flaring. Abdomen/GI: Soft, non-tender, with normal bowel sounds. No distension or tympany. No guarding or rebound. No evidence of tenderness throughout. Skin: Warm, dry with normal turgor. Normal color with no rashes, no lesions, and no evidence of cellulitis. MS/ Extremity: Pulses equal, no cyanosis. Neurovascular intact. Full, normal range of motion. Neuro: Awake and alert, GCS 15, oriented to person, place, time, and situation. Cranial nerves II-XII grossly intact. Motor strength 5/5 in all extremities. Sensory grossly intact. Cerebellar exam normal. Normal gait. Psych: Awake, alert, with orientation to person, place and time. Behavior, mood, and affect are within normal limits. 20:03 Back: pain, that is mild, that is moderate, ROM is painful, normal spinal alignment noted, CVA tenderness, is absent, vertebral tenderness, is not appreciated, muscle spasm, is appreciated in the left scapular area, right scapular area, left low back, left mid back, right mid back and right low back. Vital Signs: 19:23 BP 159 / 93; Pulse 96; Resp 18; Temp 98.7; Pulse Ox 98% ; Weight 104.33 kg; Height 5 sv ft. 2 in. (157.48 cm); Pain 8/10; 21:00 BP 145 / 89; Pulse 86; Resp 17; Pulse Ox 98% on R/A; rv 22:00 BP 141 / 86; Pulse 81; Resp 17; Pulse Ox 97% on R/A; rv 19:23 Body Mass Index 42.07 (104.33 kg, 157.48 cm) sv Tc Coma Score: 20:00 Eye Response: spontaneous(4). Verbal Response: oriented(5). Motor Response: obeys rv commands(6). Total: 15. Trauma Score (Adult): 20:00 Eye Response: spontaneous(1); Verbal Response: oriented(1); Motor Response: obeys rv commands(2); Systolic BP: > 89 mm Hg(4); Respiratory Rate: 10 to 29 per min(4); Drift Score: 15; Trauma Score: 12 MDM: 19:27 Patient medically screened. marleny 20:07 Differential diagnosis: abrasion, contusion, fracture, multiple trauma, sprain, strain. marleny 20:16 Data reviewed: vital signs, nurses notes, lab test result(s), urinalysis, UPT: marleny negative. 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 Test interpretation: by ED physician or midlevel provider:. Counseling: I had a detailed discussion with the patient and/or guardian regarding: the historical points, exam findings, and any diagnostic results supporting the discharge/admit diagnosis, lab results, radiology results, the need for outpatient follow up, for definitive care, a family practitioner. 09/22 20:21 Order name: Urine Dipstick--Ancillary (enter results); Complete Time: 20:57 mw2 09/22 20:21 Order name: Urine --Ancillary (enter results); Complete Time: 20:57 mw2 09/22 19:59 Order name: Urine Dipstick-Ancillary (obtain specimen); Complete Time: 20:12 [facility] 09/22 20:12 Order name: CT Traumagram (Head C Spine CAP wo con) [facility] 09/22 19:59 Order name: Urine Test (obtain specimen); Complete Time: 20:12 [facility] Administered Medications: 20:12 Drug: [place] 10 mg-325 mg 1 tabs {Note: rass 0.} Route: PO; rv 20:45 Follow up: Response: No adverse reaction rv 20:45 Follow up: Response: Pain is decreased rv Disposition: 09/22/20 21:18 Discharged to Home. Impression: Fall due to bumping against object, Low back pain, Strain of muscle, fascia and tendon at neck level, Contusion of unspecified back wall of thorax. - Condition is Stable. - Discharge Instructions: Back Pain, Adult, Muscle Strain, Musculoskeletal Pain, Cervical Sprain, [id number], Back Pain, Adult, [id number]. - Prescriptions for Ibuprofen 600 mg Oral Tablet - take 1 tablet by ORAL route every 6 hours As needed take with food; 20 tablet. Tylenol- Codeine #3 300-30 mg Oral Tablet - take 2 tablets by ORAL route every 6 hours As needed; 26 tablet. Cyclobenzaprine 5 mg Oral Tablet - take 1 tablet by ORAL route 3 times per day As needed; 15 tablet. - Medication Reconciliation Form, Thank You Letter, Antibiotic Education, Prescription Opioid Use, Work release form form. - Follow up: Private Physician; When: 2 - 3 days; Reason: Recheck today's complaints, Continuance of care, Re-evaluation by your physician. - Problem is new. - Symptoms have improved. Signatures: Dispatcher [employer] EDYani Martinez, Earl Diaz RN, MD MD cha Westbrook, Chip 2 Keron Romero RN RN rv Corrections: (The following items were deleted from the chart) 20:25 20:00 Chest Abdomen Pelvis Wo Con+CT.RAD.BRZ ordered. EDMI EDMS 22:58 21:18 09/22/2020 21:18 Discharged to Home. Impression: Fall due to bumping against mw2 object; Low back pain; Strain of muscle, fascia and tendon at neck level; Contusion of unspecified back wall of thorax. Condition is Stable. Discharge Instructions: Back Pain, Adult, Muscle Strain, Musculoskeletal Pain, Cervical Sprain, [id number], Back Pain, Adult, [id number]. Prescriptions for Ibuprofen 600 mg Oral Tablet - take 1 tablet by ORAL route every 6 hours As needed take with food; 20 tablet, Tylenol-Codeine #3 300-30 mg Oral Tablet - take 2 tablets by ORAL route every 6 hours As needed; 26 tablet, Cyclobenzaprine 5 mg Oral Tablet - take 1 tablet by ORAL route 3 times per day As needed; 15 tablet. and Forms are Medication Reconciliation Form, Thank You Letter, Antibiotic Education, Prescription Opioid Use. Follow up: Private Physician; When: 2 - 3 days; Reason: Recheck today's complaints, Continuance of care, Re-evaluation by your physician. Problem is new. Symptoms have improved. marleny
--- NOTE | 2020-09-22 21:19 | ER ---
Nurse's Notes [facility] Name: Paradise Colon Age: 40 yrs Sex: Female : 1980 Arrival Date: 09/22/2020 Time: 19:04 Bed 5 Private MD: Diagnosis: Fall due to bumping against object;Low back pain;Strain of muscle, fascia and tendon at neck level;Contusion of unspecified back wall of thorax Presentation: 09/22 19:23 Chief complaint: Patient states: Leg gave out at work today at 1100. Fell onto right sv side. Entire back pain, right shoulder, right leg, and right ankle pain since. Gait steady. Coronavirus screen: Client denies travel out of the [place] in the last 14 days. At this time, the client does not indicate any symptoms associated with coronavirus-19. Ebola Screen: Patient denies travel to an Ebola-affected area in the 21 days before illness onset. Initial Sepsis Screen: Does the patient meet any 2 criteria? HR > 90 bpm. No. Patient's initial sepsis screen is negative. Does the patient have a suspected source of infection? No. Patient's initial sepsis screen is negative. Risk Assessment: Do you want to hurt yourself or someone else? Patient reports no desire to harm self or others. Onset of symptoms was September 22, 2020. 19:23 Method Of Arrival: Ambulatory 19:23 Acuity: TANA 3 20:00 Care prior to arrival: None. Mechanism of Injury: Fall from standing position. 20:00 Trauma event details:. Triage Assessment: 22:57 General: Behavior is. Trauma Activation: Not Applicable Physician: ED Physician; Name: ; Notified At: ; Arrived At: Physician: General Surgeon; Name: ; Notified At: ; Arrived At: Physician: Radiology; Name: ; Notified At: ; Arrived At: Physician: Respiratory; Name: ; Notified At: ; Arrived At: Physician: Lab; Name: ; Notified At: ; Arrived At: Historical: - Allergies: 19:25 No Known Allergies; sv - PMHx: 19:25 Chronic pain; sv - PSHx: 19:25 None; sv - Immunization history:: Flu vaccine is up to date. - Social history:: Smoking status: Patient reports the use of cigarette tobacco products, denies chronic smoking, but will smoke occasionally, Reported history of juuling and/or vaping. - Immunization history: Last tetanus immunization: unknown. - Family history:: not pertinent. Screenin:47 Abuse screen: Denies threats or abuse. Denies injuries from another. Nutritional rv screening: No deficits noted. Tuberculosis screening: No symptoms or risk factors identified. Fall Risk None identified. Primary Survey: 20:00 NO uncontrolled hemorrhage observed. Breathing/Chest: Respiratory pattern: regular, rv Respiratory effort: spontaneous, unlabored. 20:00 Circulation: Skin color: pink. Disability Alert. Exposure/Environment: There is no rv evidence of uncontrolled external bleeding. A warming method has been applied: A warm blanket has been provided to the patient. Secondary Survey: 20:47 HEENT: No deficits noted. Gastrointestinal: No deficits noted. : No signs and/or rv symptoms were reported regarding the genitourinary system. Musculoskeletal: Reports pain in back. Assessment: 20:00 General: Appears uncomfortable. rv 20:00 Pain: Complains of pain in back. Neuro: Level of Consciousness is awake, alert, obeys rv commands, Oriented to person, place, time, situation. Cardiovascular: Patient's skin is warm and dry. Respiratory: Airway is patent Respiratory effort is even, unlabored, Breath sounds are clear bilaterally. Derm: Skin is intact. 21:31 Reassessment: patient waiting for CT report. to be dc after ct is clear. mg2 Vital Signs: 19:23 BP 159 / 93; Pulse 96; Resp 18; Temp 98.7; Pulse Ox 98% ; Weight 104.33 kg; Height 5 sv ft. 2 in. (157.48 cm); Pain 8/10; 21:00 BP 145 / 89; Pulse 86; Resp 17; Pulse Ox 98% on R/A; rv 22:00 BP 141 / 86; Pulse 81; Resp 17; Pulse Ox 97% on R/A; rv 19:23 Body Mass Index 42.07 (104.33 kg, 157.48 cm) sv Tc Coma Score: 20:00 Eye Response: spontaneous(4). Verbal Response: oriented(5). Motor Response: obeys rv commands(6). Total: 15. Trauma Score (Adult): 20:00 Eye Response: spontaneous(1); Verbal Response: oriented(1); Motor Response: obeys rv commands(2); Systolic BP: > 89 mm Hg(4); Respiratory Rate: 10 to 29 per min(4); Tc Score: 15; Trauma Score: 12 ED Course: 19:04 Patient arrived in ED. ds1 19:25 Triage completed. sv 19:25 Arm band placed on Patient placed in an exam room, on a stretcher. sv 19:27 Earl Colon MD is Attending Physician. [facility] 19:57 Keron Romero RN is Primary Nurse. rv 20:00 Patient has correct armband on for positive identification. Placed in gown. Bed in low rv position. Call light in reach. Pulse ox on. NIBP on. 20:00 Patient maintains SpO2 saturation greater than 95% on room air. Thermoregulation: warm rv blanket given to patient. 21:20 CT Traumagram (Head C Spine CAP wo con) In Process Unspecified. EDMS 22:57 No provider procedures requiring assistance completed. Patient did not have IV access rv during this emergency room visit. Administered Medications: 20:12 Drug: [place] 10 mg-325 mg 1 tabs {Note: rass 0.} Route: PO; rv 20:45 Follow up: Response: No adverse reaction rv 20:45 Follow up: Response: Pain is decreased rv Output: 22:00 Urine: 300ml (Voided); Total: 300ml. rv Outcome: 21:18 Discharge ordered by . [facility] 22:58 Patient left the ED. mw2 Signatures: Dispatcher [employer] EDMS Yani Virgen RN RN Earl Colon MD MD cha [place], Demi ds1 Chip Cortez mw2 Gustavo White RN RN [facility] Keron Romero RN RN rv
[2020-09-22 23:44] VITALS: BP 159/93; TEMP 98.7; O2SAT 98
--- NOTE | 2020-09-24 12:49 | RAD REPORT ---
EXAM DESCRIPTION: CT - Head C Spine Cap Wo Con - 09/23/2020 7:00 am CLINICAL HISTORY: PAIN COMPARISON: None. TECHNIQUE: CT HEAD CERVICAL SPINE CHEST ABDOMEN PELVIS WITHOUT IV CONTRAST on 09/22/2020 8:12 PM CDT This exam was performed according to our departmental dose-optimization program, which includes autom ated exposure control, adjustment of the mA and/or kV according to patient size and/or use of iterati ve reconstruction technique. FINDINGS: Brain: There is no acute hemorrhage, mass effect or midline shift. Fuentes-white differentiat ion is preserved. There is no hydrocephalus. There is no significant volume loss for age. The calvarium is intact. Orbits and globes are unremarkable. The paranasal sinuses are clear. Mastoid air cells are clear. Cervical Spine: There is no acute fracture. Alignment is anatomic. There is incomplete posterior fusi on of C1. Disc spaces are maintained. Vertebral body heights are preserved. Soft tissues are unremarkable. Vascular: Thoracic aorta is normal in course and caliber without aneurysm or dissection. Pulmonary ar teries are adequately opacified without acute or chronic filling defects. Abdominal aorta is normal i n course and caliber without aneurysm. Pelvic arteries are patent without aneurysm or occlusion. Chest: The heart is normal in size. There is no pericardial effusion. Intrathoracic lymph nodes are n ot enlarged. There is no pleural effusion, pleural thickening or pneumothorax. Central airways are patent. Lungs a re clear with no consolidation, mass or interstitial lung disease. Abdomen: The liver is normal in appearance. There is no biliary dilatation. Gallbladder is normal in appearance. The pancreas and spleen are normal in appearance. There is a 2 mm mid pole left renal jenelle culus. Right kidney and both adrenal glands are normal. There is no free air. There is no retroperitoneal adenopathy. Pelvis: There is no bowel obstruction. Urinary bladder is unremarkable. There is no free fluid. Uteru s is normal in size. Appendix is normal. Skeleton: There are no acute osseous findings. No suspicious bony lesions. IMPRESSION: No definite posttraumatic findings. Electronically signed by: Giles Zamudio MD 09/22/2020 10:34 PM CDT Due to temporary technical issues with the PACS/Fluency reporting system, reports are being signed by the in house radiologist without review as a courtesy to ensure prompt reporting. The interpreting r adiologist is fully responsible for the content of the report.
== END 2020-09-22 22:58 | disposition home or self-care (01) ==
LOC: ER 19:01
DX: S16.1XXA Strain of muscle, fascia and tendon at neck level, initial encounter (principal); S20.229A Contusion of unspecified back wall of thorax, initial encounter; M54.5 Low back pain; W18.00XA Striking against unspecified object with subsequent fall, initial encounter; Y93.01 Activity, walking, marching and hiking; Y92.9 Unspecified place or not applicable; F17.210 Nicotine dependence, cigarettes, uncomplicated
CPT/HCPCS: 70450; 71250; 72125; 81003; 81025; 99284

== ENCOUNTER 2020-10-09 18:53 | Emergency (ER) | payer OTHER ==
[2020-10-09 22:22] LABS: Absolute Lymphocytes (CBC) 3.4 K/uL (0.7-4.9); Basophils % 0.9 % (0-1.3); Hematocrit 45.7 % (36.0-45.0); Lymphocytes % 31.6 % (15.3-44.8); MPV 9.1 fL (7.6-11.3); RBC Red Blood Cell Count 5.17 M/uL (3.86-4.86)
[2020-10-09 22:33] LABS: Magnesium 2.4 mg/dL (1.8-2.4); Potassium 3.7 mmol/L (3.5-5.1)
[2020-10-09 22:40] LABS: Protime INR 1.01
[2020-10-09 22:43] LABS: Urine Blood NEGATIVE (NEG); Urine Glucose NEGATIVE (NEG); Urine Protein NEGATIVE (NEG); Urine Specific Gravity 1.025 (1.005-1.030)
[2020-10-09] MEDS ORDERED: METOCLOPRAMIDE 10 MG/2mL INJ ONE (23:11)
[2020-10-09] MEDS ORDERED: MECLIZINE HCL 12.5 MG TAB ONE (23:12)
[2020-10-09] MEDS ORDERED: dexAMETHasone 4 MG/ML VIAL ONE (23:12)
--- NOTE | 2020-10-09 23:54 | EDPHYS ---
Physician Documentation [facility] Name: Paradise Colon Age: 40 yrs Sex: Female : 1980 Arrival Date: 10/09/2020 Time: 18:58 Bed 20 Private MD: ED Physician Uri Jay HPI: 10/09 21:30 This 40 yrs old Female presents to ER via Ambulatory with complaints of cp Fever, Dizziness. 21:30 The patient presents with dizziness, lightheadedness, feeling off balance. cp 21:33 The patient has been recently seen by a physician: in [facility], cp yesterday, with similar presenting complaints, lab tests were done, CT scan was done. 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 - Social history:: Smoking status: Reported history of juuling and/or vaping. ROS: 21:35 Constitutional: Negative for body aches, chills, fever, poor PO intake. cp 21:35 Eyes: Negative for injury, pain, redness, and discharge. cp 21:35 ENT: Negative for ear pain, sinus pain, sore throat. 21:35 Cardiovascular: Negative for chest pain, palpitations. 21:35 Respiratory: Negative for cough, shortness of breath, wheezing. 21:35 Abdomen/GI: Positive for nausea, Negative for abdominal pain, vomiting, diarrhea, constipation. 21:35 : Negative for urinary symptoms. 21:35 Neuro: Positive for dizziness, headache, Negative for numbness, syncope, weakness. 21:35 All other systems are negative. Exam: 21:40 Constitutional: The patient appears in no acute distress, alert, awake, non-toxic, well cp developed, well nourished. 21:40 Head/Face: Normocephalic, atraumatic. cp 21:40 Eyes: Periorbital structures: appear normal, Conjunctiva: normal, no exudate, no injection, Sclera: no appreciated abnormality, Lids and lashes: appear normal, bilaterally. 21:40 ENT: External ear(s): are unremarkable, Ear canal(s): are normal, clear, TM's: dullness, bilaterally, Nose: is normal, Mouth: Lips: moist, Oral mucosa: moist, Posterior pharynx: Airway: no evidence of obstruction, patent. 21:40 Neck: ROM/movement: is normal, is supple, without pain, no range of motions limitations, no meningismus. 21:40 Chest/axilla: Inspection: normal. 21:40 Cardiovascular: Rate: normal, Rhythm: regular. 21:40 Respiratory: the patient does not display signs of respiratory distress, Respirations: normal, no use of accessory muscles, no retractions, labored breathing, is not present, Breath sounds: are clear throughout, no decreased breath sounds. 21:40 Abdomen/GI: Exam negative for discomfort, distension, guarding, Inspection: abdomen appears normal. 21:40 Neuro: Orientation: to person, place \\T\\ time. Mentation: is normal, Cerebellar function: Romberg testing is negative, normal finger to nose testing, Motor: moves all fours, strength is normal, Sensation: no obvious gross deficits. 23:10 ECG was reviewed by the Attending Physician. cp Vital Signs: 19:35 BP 164 / 99; Pulse 98; Resp 17 S; Temp 98.3(TE); Pulse Ox 97% on R/A; Weight 104.33 kg ca1 (R); Height 5 ft. 3 in. (160.02 cm) (R); Pain 4/10; 22:40 BP 130 / 87 LA Supine (auto/reg); Pulse 72; Pulse Ox 99% on R/A; jp3 22:44 BP 136 / 95 LA Sitting (auto/reg); Pulse 77; Pulse Ox 99% ; jp3 22:49 BP 152 / 102 LA Standing (auto/reg); Pulse 77; Pulse Ox 100% on R/A; jp3 23:54 BP 110 / 70; Pulse 69; Resp 18; Pulse Ox 98% on R/A; aj1 19:35 Body Mass Index 40.74 (104.33 kg, 160.02 cm) ca1 22:44 Pt stated "I feel a little dizzy" jp3 MDM: 21:14 Patient medically screened. cp 22:00 Differential diagnosis: cardiac arrhythmia, generalized weakness, hypovolemia, cp idiopathic dizziness, vertigo. 23:52 Data reviewed: vital signs, nurses notes, lab test result(s), EKG. cp 23:52 Counseling: I had a detailed discussion with the patient and/or guardian regarding: the cp historical points, exam findings, and any diagnostic results supporting the discharge/admit diagnosis, lab results, to return to the emergency department if symptoms worsen or persist or if there are any questions or concerns that arise at home. Response to treatment: the patient's symptoms have markedly improved after treatment, and as a result, I will discharge patient. 10/09 21:28 Order name: CBC with Diff; Complete Time: 22:47 cp 10/09 22:48 Interpretation: Normal except: RBC 5.17; HGB 15.4; HCT 45.7. cp 10/09 21:28 Order name: BMP; Complete Time: 22:36 cp 10/09 22:36 Interpretation: Normal except: GLUC 109; GFR 70. cp 10/09 21:28 Order name: Magnesium; Complete Time: 22:36 cp 10/09 21:28 Order name: PT-INR; Complete Time: 22:47 cp 10/09 22:09 Order name: Urine --Ancillary (enter results); Complete Time: 22:47 tt3 10/09 22:09 Order name: Urine Dipstick--Ancillary (enter results); Complete Time: 22:47 tt3 10/09 21:28 Order name: IV; Complete Time: 22:10 cp 10/09 21:28 Order name: Urine Dipstick-Ancillary (obtain specimen); Complete Time: 22:10 cp 10/09 21:28 Order name: Urine Test (obtain specimen); Complete Time: 22:10 cp 10/09 21:28 Order name: EKG; Complete Time: 21:28 cp 10/09 21:28 Order name: Orthostatics; Complete Time: 23:14 cp 10/09 23:33 Order name: PO challenge; Complete Time: 00:06 cp EC:10 Rate is 66 beats/min. Rhythm is regular. RI interval is normal. QRS interval is normal. cp QT interval is normal. Interpreted by me. Reviewed by me. Administered Medications: 23:11 Drug: Meclizine 25 mg Route: PO; bb 23:56 Follow up: Response: No adverse reaction aj1 23:11 Drug: Reglan 10 mg Route: IVP; Site: right antecubital; bb 23:56 Follow up: Response: No adverse reaction aj1 23:12 Drug: Decadron - Dexamethasone 10 mg Route: IVP; Site: right antecubital; bb 23:56 Follow up: Response: No adverse reaction aj1 10/10 00:06 Drug: Scopolamine 1 patches Route: Transdermal; Site: affected area; bb 00:14 Follow up: Response: No adverse reaction bb Point of Care Testing: Urine : 10/09 22:09 hCG Reading: Negative; Control Reading: Positive; jp3 Disposition: 10/10 00:24 Co-signature as Attending Physician, Uri Jay MD. rn Disposition: 10/09/20 23:53 Discharged to Home. Impression: Dizziness and giddiness, Headache. - Condition is Stable. - Discharge Instructions: Dizziness, Migraine Headache. - Prescriptions for Meclizine 25 mg Oral Tablet - take 1 tablet by ORAL route every 8 hours As needed; 30 tablet. Zofran 4 mg Oral Tablet - take 1 tablet by ORAL route every 12 hours As needed; 20 tablet. - Medication Reconciliation Form, Thank You Letter, Antibiotic Education, Prescription Opioid Use form. - Follow up: Private Physician; When: 2 - 3 days; Reason: Recheck today's complaints. - Problem is new. - Symptoms have improved. Signatures: Dispatcher [employer] Ewelina Raymundo RN RN bb Nieto, Roman, MD MD rn Page, Corey, PA PA cp Beth Rivera RN RN ca1 Johnson, Angela RN aj1 Corrections: (The following items were deleted from the chart) 00:16 10/09 23:53 10/09/2020 23:53 Discharged to Home. Impression: Dizziness and giddiness; bb Headache. Condition is Stable. Forms are Medication Reconciliation Form, Thank You Letter, Antibiotic Education, Prescription Opioid Use. Follow up: Private Physician; When: 2 - 3 days; Reason: Recheck today's complaints. Problem is new. Symptoms have improved. cp
--- NOTE | 2020-10-09 23:54 | ER ---
Nurse's Notes [facility] Name: Paradise Colon Age: 40 yrs Sex: Female : 1980 Arrival Date: 10/09/2020 Time: 18:58 Bed 20 Private MD: Diagnosis: Dizziness and giddiness;Headache Presentation: 10/09 19:35 Chief complaint: Patient states: I was at [facility] last night and I was ca1 diagnosed with vertigo. But I am still very dizzy, last night started having chills and I feel very hot too. Report headache and nausea. Coronavirus screen: Client denies travel out of the [place] in the last 14 days. headache, nausea, Client presents with at least one sign or symptom that may indicate coronavirus-19. Standard/surgical mask placed on the client. Provider contacted for isolation considerations. Coronavirus screen: The client reports previous COVID testing was negative. Date of collection: October 08, 2020. Ebola Screen: Patient negative for fever greater than or equal to 101.5 degrees Fahrenheit, and additional compatible Ebola Virus Disease symptoms Patient denies exposure to infectious person. Patient denies travel to an Ebola-affected area in the 21 days before illness onset. No symptoms or risks identified at this time. Initial Sepsis Screen: Does the patient meet any 2 criteria? No. Patient's initial sepsis screen is negative. Does the patient have a suspected source of infection? No. Patient's initial sepsis screen is negative. Risk Assessment: Do you want to hurt yourself or someone else? Patient reports no desire to harm self or others. Onset of symptoms was October 09, 2020. 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 - Social history:: Smoking status: Reported history of juuling and/or vaping. Screenin:45 Abuse screen: Denies threats or abuse. Denies injuries from another. Nutritional aj1 screening: No deficits noted. Tuberculosis screening: No symptoms or risk factors identified. Assessment: 21:45 General: Appears in no apparent distress. uncomfortable, Behavior is calm, cooperative, aj1 appropriate for age. Pain: Denies pain. Neuro: Level of Consciousness is awake, alert, obeys commands, Oriented to person, place, time, situation, Refrigeration Tech are equal bilaterally Moves all extremities. Full function Gait is steady, Speech is normal, Facial symmetry appears normal, Reports dizziness, "feeling warm and light headed". Cardiovascular: Heart tones S1 S2 present Patient's skin is warm and dry. Rhythm is regular. Respiratory: Airway is patent Respiratory effort is even, unlabored, Respiratory pattern is regular, symmetrical. GI: No signs and/or symptoms were reported involving the gastrointestinal system. : No signs and/or symptoms were reported regarding the genitourinary system. EENT: No signs and/or symptoms were reported regarding the EENT system. Derm: No signs and/or symptoms reported regarding the dermatologic system. Skin is pink, warm \\T\\ dry. normal. Musculoskeletal: No signs and/or symptoms reported regarding the musculoskeletal system. Circulation, motion, and sensation intact. 22:45 Reassessment: Patient appears in no apparent distress at this time. No changes from aj1 previously documented assessment. Patient and/or family updated on plan of care and expected duration. Pain level reassessed. Patient is alert, oriented x 3, equal unlabored respirations, skin warm/dry/pink. 23:54 Reassessment: Patient appears in no apparent distress at this time. No changes from aj1 previously documented assessment. Patient and/or family updated on plan of care and expected duration. Pain level reassessed. Patient is alert, oriented x 3, equal unlabored respirations, skin warm/dry/pink. 10/10 00:14 Reassessment: Patient is alert, oriented x 3, equal unlabored respirations, skin bb warm/dry/pink. pt verbalized understanding of and agrees to plan of care discharge instructions given pt ambulated with steady gait to exit accompanied by family. Vital Signs: 10/09 19:35 BP 164 / 99; Pulse 98; Resp 17 S; Temp 98.3(TE); Pulse Ox 97% on R/A; Weight 104.33 kg ca1 (R); Height 5 ft. 3 in. (160.02 cm) (R); Pain 4/10; 22:40 BP 130 / 87 LA Supine (auto/reg); Pulse 72; Pulse Ox 99% on R/A; jp3 22:44 BP 136 / 95 LA Sitting (auto/reg); Pulse 77; Pulse Ox 99% ; jp3 22:49 BP 152 / 102 LA Standing (auto/reg); Pulse 77; Pulse Ox 100% on R/A; jp3 23:54 BP 110 / 70; Pulse 69; Resp 18; Pulse Ox 98% on R/A; aj1 19:35 Body Mass Index 40.74 (104.33 kg, 160.02 cm) ca1 22:44 Pt stated "I feel a little dizzy" jp3 ED Course: 18:58 Patient arrived in ED. mr 19:39 Triage completed. ca1 19:39 Arm band placed on right wrist. ca1 21:12 Earl Reynolds PA is PHCP. cp 21:12 Uri Jay MD is Attending Physician. cp 21:13 Irene Hart RN is Primary Nurse. aj1 21:45 Patient has correct armband on for positive identification. Bed in low position. Call aj1 light in reach. 21:45 No provider procedures requiring assistance completed. aj1 21:56 Urine collected: clean catch specimen, clear, kathleen colored. 3 22:00 Initial lab(s) drawn, by me, sent to lab. Inserted saline lock: 20 gauge in right 3 antecubital area, using aseptic technique. Blood collected. 10/10 00:00 Report given to Ewelina Juarez RN. aj1 00:15 IV discontinued, intact, bleeding controlled, No redness/swelling at site. Pressure bb dressing applied. Administered Medications: 10/09 23:11 Drug: Meclizine 25 mg Route: PO; bb 23:56 Follow up: Response: No adverse reaction aj1 23:11 Drug: Reglan 10 mg Route: IVP; Site: right antecubital; bb 23:56 Follow up: Response: No adverse reaction aj1 23:12 Drug: Decadron - Dexamethasone 10 mg Route: IVP; Site: right antecubital; bb 23:56 Follow up: Response: No adverse reaction aj1 10/10 00:06 Drug: Scopolamine 1 patches Route: Transdermal; Site: affected area; bb 00:14 Follow up: Response: No adverse reaction bb Point of Care Testing: Urine : 10/09 22:09 hCG Reading: Negative; Control Reading: Positive; jp3 Outcome: 23:53 Discharge ordered by MD. vera 10/10 00:15 Discharged to home ambulatory, with family. bb Condition: stable Discharge instructions given to patient, Instructed on discharge instructions, follow up and referral plans. medication usage, Demonstrated understanding of instructions, follow-up care, medications, Prescriptions given X 2. 00:16 Patient left the ED. bb Signatures: Irene Hart, RN RN aj1 Kimberley Guillaume mr Ewelina Boyce RN RN bb Earl Reynolds PA PA cp Pisarski, Jacob jp3 Beth Rivera RN RN ca1
[2020-10-10] MEDS ORDERED: SCOPOLAMINE HYDROBROMIDE PATCH TD ONE (00:05)
[2020-10-10 07:18] VITALS: TEMP 98.3
[2020-10-10 07:23] VITALS: BP 110/70; O2SAT 98
--- NOTE | 2020-10-10 18:05 | EKG ---
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
== END 2020-10-10 00:16 | disposition home or self-care (01) ==
LOC: ER 18:53
DX: R51.9 Headache, unspecified (principal); Z87.891 Personal history of nicotine dependence
CPT/HCPCS: 93005; 85025; 80048; 36415; 83735; 81025; 85610; 81003; 96375; 96374; 99284; J1100; J2765

== ENCOUNTER 2020-10-20 06:34 | Emergency (ER) | payer OTHER ==
[2020-10-20 07:11] LABS: Urine Blood NEGATIVE (NEG); Urine Glucose NEGATIVE (NEG); Urine Protein NEGATIVE (NEG); Urine Specific Gravity 1.025 (1.005-1.030); Urine pH 6.5 (5.0-7.0)
--- NOTE | 2020-10-20 07:27 | ER ---
Nurse's Notes [facility] Name: Paradise Colon Age: 40 yrs Sex: Female : 1980 Arrival Date: 10/20/2020 Time: 06:36 Bed 6 Private MD: Diagnosis: Right Index Finger Contusion Presentation: 10/20 06:45 Coronavirus screen: Client denies travel out of the [place] in the last 14 days. Ebola rv Screen: No symptoms or risks identified at this time. Initial Sepsis Screen: Does the patient meet any 2 criteria? No. Patient's initial sepsis screen is negative. Does the patient have a suspected source of infection? No. Patient's initial sepsis screen is negative. Risk Assessment: Do you want to hurt yourself or someone else? Patient reports no desire to harm self or others. Onset of symptoms was October 19, 2020. 06:45 Acuity: TANA 4 rv 06:45 Method Of Arrival: Ambulatory rv 06:45 Chief complaint: Patient states: my hand got caught on my door happened yesterday. now rr5 it got swollen, bruise and hurts a lot. Triage Assessment: 06:44 General: Appears comfortable, Behavior is calm, cooperative. Pain: Complains of pain in rv right hand. EENT: No signs and/or symptoms were reported regarding the EENT system. Neuro: Level of Consciousness is awake, alert, obeys commands, Oriented to person, place, time, situation. Cardiovascular: Patient's skin is warm and dry. Respiratory: Airway is patent. Musculoskeletal: Swelling present in right hand. Injury Description: HAND CAUGHT IN THE DOOR. Historical: - Allergies: 06:45 No Known Allergies; rr5 - Home Meds: 06:45 Meclizine Oral [Active]; Aspirin Oral [Active]; rr5 - PMHx: 06:44 Chronic pain; rv 06:45 vertigo; Hypertension; rr5 - PSHx: 06:45 None; rr5 - Immunization history:: Adult Immunizations up to date. - Social history:: Smoking status: Reported history of juuling and/or vaping. Screenin:45 Abuse screen: Denies threats or abuse. Denies injuries from another. Nutritional rv screening: No deficits noted. Tuberculosis screening: No symptoms or risk factors identified. Fall Risk None identified. Assessment: 06:50 General: Appears in no apparent distress. uncomfortable, Behavior is calm, cooperative, rr5 appropriate for age. Pain: Complains of pain in dorsal aspect of distal phalanx of right index finger, dorsal aspect of middle phalanx of right index finger and dorsal aspect of proximal phalanx of right index finger Pain currently is 5 out of 10 on a pain scale. Quality of pain is described as aching, Pain began suddenly, Is intermittent. Neuro: Level of Consciousness is awake, alert, obeys commands, Oriented to person, place, time. Cardiovascular: Capillary refill < 3 seconds Patient's skin is warm and dry. Respiratory: Airway is patent Respiratory effort is even, unlabored, Respiratory pattern is regular, symmetrical. GI: No signs and/or symptoms were reported involving the gastrointestinal system. : No signs and/or symptoms were reported regarding the genitourinary system. EENT: No signs and/or symptoms were reported regarding the EENT system. Derm: Skin is intact, is healthy with good turgor, Skin temperature is warm Bruising that is dark purple, on dorsal aspect of distal phalanx of right index finger, dorsal aspect of middle phalanx of right index finger and dorsal aspect of proximal phalanx of right index finger. Musculoskeletal: Swelling present in dorsal aspect of distal phalanx of right index finger, dorsal aspect of middle phalanx of right index finger and dorsal aspect of proximal phalanx of right index finger. 07:11 Reassessment: x-rays at bedside. zb 07:16 Reassessment: Patient is alert, oriented x 3, equal unlabored respirations, skin aa5 warm/dry/pink. Awaiting x-ray results, pt notified of wait time. . 07:55 Reassessment: Patient is alert, oriented x 3, equal unlabored respirations, skin aa5 warm/dry/pink. 07:55 Reassessment: Finger splint applied to right index finger.. aa5 Vital Signs: 06:45 BP 168 / 100; Pulse 81; Resp 17; Temp 97.8; Pulse Ox 100% ; Weight 104.33 kg; Height 5 rr5 ft. 3 in. (160.02 cm); Pain 5/10; 07:30 BP 158 / 99; Pulse 80; Resp 16 S; Pulse Ox 99% on R/A; aa5 06:45 Body Mass Index 40.74 (104.33 kg, 160.02 cm) rr5 ED Course: 06:36 Patient arrived in ED. ag3 06:37 Thomas Wright, RN is Primary Nurse. rr5 06:40 Unruly Smith MD is Attending Physician. 7 06:45 Arm band placed on right wrist. Patient placed in the treatment room, on a stretcher, rv Patient notified of wait time. 06:46 Triage completed. rv 06:46 Patient has correct armband on for positive identification. Bed in low position. Call rv light in reach. Side rails up X 1. Pulse ox on. NIBP on. 07:26 Rafael Zeng MD is Referral Physician. 7 07:39 Hand Right 3 View XRAY In Process Unspecified. EDMS 07:55 No provider procedures requiring assistance completed. Patient did not have IV access aa5 during this emergency room visit. Administered Medications: 07:17 Drug: Motrin 800 mg Route: PO; aa5 07:59 Follow up: Response: No adverse reaction aa5 Outcome: 07:26 Discharge ordered by . 7 07:55 Discharged to home ambulatory, with significant other. aa5 07:55 Condition: stable 07:55 Discharge instructions given to patient, Instructed on discharge instructions, follow up and referral plans. medication usage, Demonstrated understanding of instructions, follow-up care, medications, Prescriptions given X 1. 07:59 Patient left the ED. aa5 Signatures: Dispatcher [employer] EDSD Michelle Dominguez RN RN aa5 Keron Romero, RN RN Cuca Salas 3 Thomas Wright, ALBA WILLIS rr5 Unruly Smith MD MD [facility] Guillermina Albrecht RN RN zb
--- NOTE | 2020-10-20 07:27 | EDPHYS ---
Physician Documentation [facility] Name: Paradise Colon Age: 40 yrs Sex: Female : 1980 Arrival Date: 10/20/2020 Time: 06:36 Bed 6 Private MD: ED Physician Unruly Smith HPI: 10/20 06:48 This 40 yrs old Female presents to ER via Ambulatory with complaints of mh7 Finger Injury. 06:48 Trauma demographics: County: The injury occurred in [place] Location of Injury: The mh7 injury occurred at work, Date: October 19, 2020, Time: 13:30. Mechanism of injury: Crush injury: from Work door. Associated injuries: The patient sustained right index finger, contusion, decreased range of motion, painful injury. Onset: The symptoms/episode began/occurred yesterday. Historical: - Allergies: 06:45 No Known Allergies; rr5 - Home Meds: 06:45 Meclizine Oral [Active]; Aspirin Oral [Active]; rr5 - PMHx: 06:44 Chronic pain; rv 06:45 vertigo; Hypertension; rr5 - PSHx: 06:45 None; rr5 - Immunization history:: Adult Immunizations up to date. - Social history:: Smoking status: Reported history of juuling and/or vaping. ROS: 06:48 Constitutional: Negative for fever, chills, and weight loss, Eyes: Negative for injury, mh7 pain, redness, and discharge, ENT: Negative for injury, pain, and discharge, Neck: Negative for injury, pain, and swelling, Cardiovascular: Negative for chest pain, palpitations, and edema, Respiratory: Negative for shortness of breath, cough, wheezing, and pleuritic chest pain, Abdomen/GI: Negative for abdominal pain, nausea, vomiting, diarrhea, and constipation, Back: Negative for injury and pain, : Negative for injury, bleeding, discharge, and swelling, Skin: Negative for injury, rash, and discoloration, Neuro: Negative for headache, weakness, numbness, tingling, and seizure, Psych: Negative for depression, anxiety, suicide ideation, homicidal ideation, and hallucinations, Allergy/Immunology: Negative for hives, rash, and allergies, Endocrine: Negative for neck swelling, polydipsia, polyuria, polyphagia, and marked weight changes, Hematologic/Lymphatic: Negative for swollen nodes, abnormal bleeding, and unusual bruising. Exam: 06:48 Constitutional: This is a well developed, well nourished patient who is awake, alert, mh7 and in no acute distress. Head/Face: Normocephalic, atraumatic. Eyes: Pupils equal round and reactive to light, extra-ocular motions intact. Lids and lashes normal. Conjunctiva and sclera are non-icteric and not injected. Cornea within normal limits. Periorbital areas with no swelling, redness, or edema. Neck: Trachea midline, no thyromegaly or masses palpated, and no cervical lymphadenopathy. Supple, full range of motion without nuchal rigidity, or vertebral point tenderness. No Meningismus. Chest/axilla: Normal chest wall appearance and motion. Nontender with no deformity. No lesions are appreciated. Cardiovascular: Regular rate and rhythm with a normal S1 and S2. No gallops, murmurs, or rubs. Normal PMI, no JVD. No pulse deficits. Respiratory: Lungs have equal breath sounds bilaterally, clear to auscultation and percussion. No rales, rhonchi or wheezes noted. No increased work of breathing, no retractions or nasal flaring. Abdomen/GI: Soft, non-tender, with normal bowel sounds. No distension or tympany. No guarding or rebound. No evidence of tenderness throughout. Back: No spinal tenderness. No costovertebral tenderness. Full range of motion. Skin: Warm, dry with normal turgor. Normal color with no rashes, no lesions, and no evidence of cellulitis. 06:48 Neuro: Awake and alert, GCS 15, oriented to person, place, time, and situation. Cranial nerves II-XII grossly intact. Motor strength 5/5 in all extremities. Sensory grossly intact. Cerebellar exam normal. Normal gait. Psych: Awake, alert, with orientation to person, place and time. Behavior, mood, and affect are within normal limits. 06:48 Musculoskeletal/extremity: Extremities: noted in the right index finger: ROM: limited active range of motion due to pain, in the right index finger, limited passive range of motion due to pain, in the right index finger, Circulation is intact in all extremities. Pulses: are normal with no appreciated deficits, Perfusion: the patient is normally perfused throughout, Perfusion: the extremity is normally perfused throughout, Sensation intact. Compartment Syndrome exam of affected extremity: is normal. no numbness, no tingling, no sensation deficit, no palor, no weak pulses, Joints: the DIP of right index finger and PIP of right index finger displays painful range of motion, tenderness, Weight bearing: able to fully bear weight, without difficulty, Tendon exam: specific tendon testing normal through active and passive range of motion Vital Signs: 06:45 BP 168 / 100; Pulse 81; Resp 17; Temp 97.8; Pulse Ox 100% ; Weight 104.33 kg; Height 5 rr5 ft. 3 in. (160.02 cm); Pain 5/10; 07:30 BP 158 / 99; Pulse 80; Resp 16 S; Pulse Ox 99% on R/A; aa5 06:45 Body Mass Index 40.74 (104.33 kg, 160.02 cm) rr5 Procedures: 07:27 Splinting: Splint applied to Right Index Finger using finger splint, applied by nurse. [facility] MDM: 07:24 Differential diagnosis: extremity fracture, contusion, sprain. Data reviewed: vital [facility] signs, nurses notes, radiologic studies, plain films. Data interpreted: Pulse oximetry: on room air is 100 %. Interpretation: normal. Counseling: I had a detailed discussion with the patient and/or guardian regarding: the historical points, exam findings, and any diagnostic results supporting the discharge/admit diagnosis, the presence of at least one elevated blood pressure reading (>120/80) during this emergency department visit, radiology results, the need for outpatient follow up, a hand specialist, a orthopedic surgeon, to return to the emergency department if symptoms worsen or persist or if there are any questions or concerns that arise at home. Response to treatment: the patient's symptoms have markedly improved after treatment. 07:26 Patient medically screened. [facility] 10/20 07:06 Order name: Urine Dipstick--Ancillary (enter results); Complete Time: 07:23 [facility] 10/20 07:06 Order name: Urine --Ancillary (enter results); Complete Time: 07:23 [facility] 10/20 06:46 Order name: Hand Right 3 View XRAY [facility] 10/20 06:48 Order name: Urine Test (obtain specimen); Complete Time: 07:01 [facility] 11/21 07:23 Order name: Finger Splint; Complete Time: 07:59 7 Administered Medications: 07:17 Drug: Motrin 800 mg Route: PO; aa5 07:59 Follow up: Response: No adverse reaction aa5 Disposition: 10/20/20 07:26 Discharged to Home. Impression: Right Index Finger Contusion. - Condition is Stable. - Discharge Instructions: Contusion, [id number]. - Prescriptions for Ibuprofen 800 mg Oral Tablet - take 1 tablet by ORAL route every 8 hours As needed take with food; 15 tablet. - Work release form, Medication Reconciliation Form, Thank You Letter, Antibiotic Education, Prescription Opioid Use form. - Follow up: Rafael Zeng MD; When: 2 - 3 days; Reason: Worsening of condition, Recheck today's complaints. - Problem is new. - Symptoms have improved. Signatures: Dispatcher [employer] EDMS Michelle Dominguez RN RN aa5 Keron Romero RN RN Thomas Wright RN RN rr5 Unruly Smith MD MD 7 Corrections: (The following items were deleted from the chart) 07:59 07:26 10/20/2020 07:26 Discharged to Home. Impression: Right Index Finger Contusion. aa5 Condition is Stable. Forms are Medication Reconciliation Form, Thank You Letter, Antibiotic Education, Prescription Opioid Use. Follow up: Rafael Zeng; When: 2 - 3 days; Reason: Worsening of condition, Recheck today's complaints. Problem is new. Symptoms have improved. [facility]
--- NOTE | 2020-10-20 08:45 | RAD REPORT ---
EXAM DESCRIPTION: RAD - Hand Right 3 View - 10/20/2020 7:39 am CLINICAL HISTORY: Right hand pain status post injury FINDINGS: No fracture or dislocation is seen.
[2020-10-20 14:50] VITALS: BP 168/100; TEMP 97.8; O2SAT 100
== END 2020-10-20 07:59 | disposition home or self-care (01) ==
LOC: ER 06:34
DX: S60.021A Contusion of right index finger without damage to nail, initial encounter (principal); W23.0XXA Caught, crushed, jammed, or pinched between moving objects, initial encounter; Y93.9 Activity, unspecified; Y92.9 Unspecified place or not applicable; I10 Essential (primary) hypertension; Z87.891 Personal history of nicotine dependence
CPT/HCPCS: 81003; 81025; 99284

== ENCOUNTER 2020-11-13 10:34 | Emergency (ER) | payer OTHER ==
[2020-11-13] MEDS ORDERED: DIAZEPAM 5 MG TABLET ONE (11:21)
[2020-11-13] MEDS ORDERED: ONDANSETRON 4 MG/2 ML VIAL ONE (11:22)
[2020-11-13] MEDS ORDERED: dexAMETHasone 10 MG/ML VIAL ONE (11:22)
[2020-11-13] MEDS ORDERED: MORPHINE 4 MG/ML SYR ONE (11:22)
--- NOTE | 2020-11-13 12:02 | EDPHYS ---
Physician Documentation [facility] Name: Paradise Colon Age: 40 yrs Sex: Female : 1980 Arrival Date: 11/13/2020 Time: 10:36 Bed 19 Private MD: Earl Vann HPI: 11/13 11:05 This 40 yrs old Female presents to ER via Wheelchair with complaints of Hip jmm Pain. 11:05 The patient or guardian reports pain. Onset: The symptoms/episode began/occurred jmm yesterday. Modifying factors: The symptoms are alleviated by nothing, the symptoms are aggravated by any movement. Associated signs and symptoms: Loss of consciousness: the patient experienced no loss of consciousness, Pertinent negatives: abdominal pain, dysuria, fever, incontinence, shortness of breath, vomiting, weakness. The patient has experienced similar episodes in the past. Historical: - Allergies: 10:47 No Known Allergies; sv - PMHx: 10:47 Chronic pain; Hypertension; Vertigo; sv - PSHx: 10:47 None; sv - Immunization history:: Flu vaccine is up to date. - Social history:: Smoking status: Reported history of juuling and/or vaping. ROS: 11:05 Constitutional: Negative for fever, chills, and weight loss, Cardiovascular: Negative jmm for chest pain, palpitations, and edema, Respiratory: Negative for shortness of breath, cough, wheezing, and pleuritic chest pain. 11:05 Back: Positive for pain at rest, pain with movement. 11:05 MS/extremity: Positive for pain. 11:05 All other systems are negative. Exam: 11:05 Constitutional: This is a well developed, well nourished patient who is awake, alert, jmm and in no acute distress. Head/Face: atraumatic. Eyes: EOMI, no conjunctival erythema appreciated ENT: Moist Mucus Membranes Neck: Trachea midline, Supple Chest/axilla: Normal chest wall appearance and motion. Cardiovascular: Regular rate and rhythm. No edema appreciated Respiratory: Normal respirations, no respiratory distress appreciated Abdomen/GI: Non distended, soft 11:05 Skin: General appearance color normal MS/ Extremity: Moves all extremities, no obvious deformities appreciated, no edema noted to the lower extremities 11:05 Back: left lower lumbar back pain. 11:05 Neuro: Orientation: is normal, Mentation: is normal, Memory: is normal. 11:05 Psych: Behavior/mood is pleasant, cooperative. Vital Signs: 10:45 BP 151 / 84; Pulse 76; Resp 20; Temp 97.8(TE); Pulse Ox 98% on R/A; Weight 104.33 kg; sv Height 5 ft. 3 in. (160.02 cm); Pain 9/10; 11:48 BP 113 / 71; Pulse 67; Resp 18; Pulse Ox 97% on R/A; Pain 2/10; em 10:45 Body Mass Index 40.74 (104.33 kg, 160.02 cm) sv MDM: 10:42 Patient medically screened. [facility] 12:00 Data reviewed: vital signs, nurses notes. Counseling: I had a detailed discussion with [facility] the patient and/or guardian regarding: the historical points, exam findings, and any diagnostic results supporting the discharge/admit diagnosis, the need for outpatient follow up, to return to the emergency department if symptoms worsen or persist or if there are any questions or concerns that arise at home. ED course: Pain relieved in the ED. I do not suspect cord compression, cauda equina. Most likely sciatica. Patient given follow up and otherwise given strict return precautions. Patient understood and agrees with the plan of care. . 11/13 10:54 Order name: Saline Lock; Complete Time: 11:18 [facility] Administered Medications: 11:10 Drug: Valium 5 mg Route: PO; em 11:56 Follow up: Response: No adverse reaction; Marked relief of symptoms; Pain is decreased em 11:12 Drug: Zofran (Ondansetron) 4 mg Route: IVP; Site: right antecubital; em 11:56 Follow up: Response: No adverse reaction em 11:14 Drug: morphine 4 mg Route: IVP; Site: right antecubital; em 11:55 Follow up: Response: No adverse reaction; Marked relief of symptoms; Pain is decreased em 11:16 Drug: Decadron - Dexamethasone 10 mg Route: IVP; Site: right antecubital; em 11:56 Follow up: Response: No adverse reaction; Pain is decreased em Disposition: 11/14 11:49 Co-signature as Attending Physician, Earl Colon MD I agree with the assessment and marleny plan of care. Disposition: 11/13/20 12:02 Discharged to Home. Impression: Sciatica, left side. - Condition is Stable. - Discharge Instructions: Sciatica. - Medication Reconciliation Form, Thank You Letter, Antibiotic Education, Prescription Opioid Use, Work release form form. - Follow up: Private Physician; When: 2 - 3 days; Reason: Recheck today's complaints, Continuance of care, Re-evaluation by your physician. Signatures: Yani Virgen RN RN sv Anderson, Corey, MD MD cha Mickail, Joel, PA PA jmm Munoz, Edgar, RN RN em Corrections: (The following items were deleted from the chart) 11/13 12:14 12:02 11/13/2020 12:02 Discharged to Home. Impression: Sciatica, left side. Condition em is Stable. Forms are Medication Reconciliation Form, Thank You Letter, Antibiotic Education, Prescription Opioid Use. Follow up: Private Physician; When: 2 - 3 days; Reason: Recheck today's complaints, Continuance of care, Re-evaluation by your physician. maggi
--- NOTE | 2020-11-13 12:02 | ER ---
Nurse's Notes [facility] Name: Paradise Colon Age: 40 yrs Sex: Female : 1980 Arrival Date: 11/13/2020 Time: 10:36 Bed 19 Private MD: Diagnosis: Sciatica, left side Presentation: 11/13 10:45 Chief complaint: Patient states: left hip pain that started last night after work. sv Denies injury. Pt took Ibuprofen x3 and Tylenol x 3 taken about 0800 today with no relief. Coronavirus screen: Client denies travel out of the [place] in the last 14 days. At this time, the client does not indicate any symptoms associated with coronavirus-19. Ebola Screen: No symptoms or risks identified at this time. Risk Assessment: Do you want to hurt yourself or someone else? Patient reports no desire to harm self or others. Onset of symptoms was November 12, 2020. 10:45 Method Of Arrival: Wheelchair sv 10:45 Acuity: TANA 4 sv Historical: - Allergies: 10:47 No Known Allergies; sv - PMHx: 10:47 Chronic pain; Hypertension; Vertigo; sv - PSHx: 10:47 None; sv - Immunization history:: Flu vaccine is up to date. - Social history:: Smoking status: Reported history of juuling and/or vaping. Screenin:50 Abuse screen: Denies threats or abuse. Nutritional screening: No deficits noted. em Tuberculosis screening: No symptoms or risk factors identified. Fall Risk None identified. Assessment: 11:05 General: Appears in no apparent distress. uncomfortable, Behavior is calm, cooperative, em appropriate for age, Denies fever. Pain: Complains of pain in right hip Pain radiates to right leg Pain currently is 8 out of 10 on a pain scale. Pain began 1 day ago. Neuro: Level of Consciousness is awake, alert, obeys commands, Oriented to person, place, time, situation, Appropriate for age. Cardiovascular: Capillary refill < 3 seconds Patient's skin is warm and dry. Respiratory: Airway is patent Respiratory effort is even, unlabored, Respiratory pattern is regular, symmetrical. Derm: Skin is intact, is healthy with good turgor, Skin is pink, warm \T\ dry. Musculoskeletal: Capillary refill < 3 seconds, Range of motion: intact in all extremities. 11:55 Reassessment: Patient appears in no apparent distress at this time. Patient and/or em family updated on plan of care and expected duration. Pain level reassessed. Patient is alert, oriented x 3, equal unlabored respirations, skin warm/dry/pink. rates pain 2/10 Patient states feeling better. Vital Signs: 10:45 BP 151 / 84; Pulse 76; Resp 20; Temp 97.8(TE); Pulse Ox 98% on R/A; Weight 104.33 kg; sv Height 5 ft. 3 in. (160.02 cm); Pain 9/10; 11:48 BP 113 / 71; Pulse 67; Resp 18; Pulse Ox 97% on R/A; Pain 2/10; em 10:45 Body Mass Index 40.74 (104.33 kg, 160.02 cm) sv ED Course: 10:36 Patient arrived in ED. rg4 10:40 Elder Becerra PA is PHCP. [facility] 10:40 Earl Colon MD is Attending Physician. jm 10:47 Triage completed. sv 10:47 Arm band placed on. sv 10:48 Ciro Evans, ALBA is Primary Nurse. em 10:50 Patient has correct armband on for positive identification. Bed in low position. Call em light in reach. Adult w/ patient. 11:11 Inserted saline lock: 20 gauge in right antecubital area, using aseptic technique. em 12:03 No provider procedures requiring assistance completed. IV discontinued, intact, em bleeding controlled, No redness/swelling at site. Pressure dressing applied. Administered Medications: 11:10 Drug: Valium 5 mg Route: PO; em 11:56 Follow up: Response: No adverse reaction; Marked relief of symptoms; Pain is decreased em 11:12 Drug: Zofran (Ondansetron) 4 mg Route: IVP; Site: right antecubital; em 11:56 Follow up: Response: No adverse reaction em 11:14 Drug: morphine 4 mg Route: IVP; Site: right antecubital; em 11:55 Follow up: Response: No adverse reaction; Marked relief of symptoms; Pain is decreased em 11:16 Drug: Decadron - Dexamethasone 10 mg Route: IVP; Site: right antecubital; em 11:56 Follow up: Response: No adverse reaction; Pain is decreased em Outcome: 12:02 Discharge ordered by MD. tay 12:11 Discharged to home ambulatory. em 12:11 Condition: good 12:11 Discharge instructions given to patient, Instructed on discharge instructions, follow up and referral plans. Demonstrated understanding of instructions, follow-up care. 12:14 Patient left the ED. em Signatures: Yani Virgen RN RN sv Mickail, Joel, PA PA jmm Munoz, Edgar, RN RN Radha Bhakta 4 Corrections: (The following items were deleted from the chart) 10:47 10:45 Temp 97.8F; 104.33 kg; Height 5 ft. 3 in.; BMI: 40.7; Pain 08/09; sv sv
[2020-11-15 16:25] VITALS: TEMP 97.8
[2020-11-15 16:27] VITALS: BP 113/71; O2SAT 97
== END 2020-11-13 12:14 | disposition home or self-care (01) ==
LOC: ER 10:34
DX: M54.32 Sciatica, left side (principal); I10 Essential (primary) hypertension
CPT/HCPCS: J1100; J2405; 96374; 96375; 99283

== ENCOUNTER 2020-11-16 14:58 | Emergency (ER) | payer OTHER ==
[2020-11-16 17:39] LABS: Absolute Lymphocytes (CBC) 3.2 K/uL (0.7-4.9); Basophils % 0.4 % (0-1.3); Lymphocytes % 30.9 % (15.3-44.8); MPV 9.4 fL (7.6-11.3); RBC Red Blood Cell Count 4.82 M/uL (3.86-4.86)
[2020-11-16 17:47] LABS: Potassium 3.9 mmol/L (3.5-5.1)
--- NOTE | 2020-11-16 18:12 | EDPHYS ---
Physician Documentation [facility] Name: Paradise Colon Age: 40 yrs Sex: Female : 1980 Arrival Date: 11/16/2020 Time: 14:59 Bed 19 Private MD: ED Physician Tamir Hall HPI: 11/16 18:10 This 40 yrs old Female presents to ER via Ambulatory with complaints of Blood kb In Stool. 18:10 The patient presents to the emergency department with rectal bleeding, a small amount, kb bright red blood with bowel movement. Onset: The symptoms/episode began/occurred today. Abdominal pain: none is appreciated. Modifying factors: The symptoms are alleviated by nothing, the symptoms are aggravated by nothing. Associated signs and symptoms: The patient has no apparent associated signs or symptoms. Severity of symptoms: At their worst the symptoms were mild in the emergency department the symptoms are unchanged. The patient has not experienced similar symptoms in the past. The patient has not recently seen a physician. Pt reports she had two bowel movements today with bright red blood. States this has never occurred before so she wanted to come get checked out. Denies abd pain, n/v/d/f/c.. 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 - Social history:: Smoking status: Reported history of juuling and/or vaping. ROS: 18:09 Constitutional: Negative for fever, chills, and weight loss, Cardiovascular: Negative kb for chest pain, palpitations, and edema, Respiratory: Negative for shortness of breath, cough, wheezing, and pleuritic chest pain, Back: Negative for injury and pain, MS/Extremity: Negative for injury and deformity, Skin: Negative for injury, rash, and discoloration, Neuro: Negative for headache, weakness, numbness, tingling, and seizure. 18:09 Abdomen/GI: Positive for rectal bleeding, Negative for abdominal pain, nausea, vomiting, and diarrhea. Exam: 18:09 Constitutional: This is a well developed, well nourished patient who is awake, alert, kb and in no acute distress. Head/Face: Normocephalic, atraumatic. Chest/axilla: Normal chest wall appearance and motion. Nontender with no deformity. No lesions are appreciated. Cardiovascular: Regular rate and rhythm with a normal S1 and S2. No gallops, murmurs, or rubs. Normal PMI, no JVD. No pulse deficits. Respiratory: Lungs have equal breath sounds bilaterally, clear to auscultation and percussion. No rales, rhonchi or wheezes noted. No increased work of breathing, no retractions or nasal flaring. Abdomen/GI: Soft, non-tender, with normal bowel sounds. No distension or tympany. No guarding or rebound. No evidence of tenderness throughout. Skin: Warm, dry with normal turgor. Normal color with no rashes, no lesions, and no evidence of cellulitis. MS/ Extremity: Pulses equal, no cyanosis. Neurovascular intact. Full, normal range of motion. Neuro: Awake and alert, GCS 15, oriented to person, place, time, and situation. Cranial nerves II-XII grossly intact. Motor strength 5/5 in all extremities. Sensory grossly intact. Cerebellar exam normal. Normal gait. 18:09 Abdomen/GI: Rectal exam: rectal tone normal, Stool: brown, guaiac positive, the exam is chaperoned by the nurse. Vital Signs: 15:48 BP 141 / 72; Pulse 83; Resp 16 S; Temp 98.6(O); Pulse Ox 99% on R/A; Weight 104.33 kg aa5 (R); Height 5 ft. 3 in. (160.02 cm) (R); Pain 0/10; 18:20 BP 127 / 85; Pulse 72; Resp 17; Pulse Ox 99% ; Pain 0/10; ll1 15:48 Body Mass Index 40.74 (104.33 kg, 160.02 cm) aa5 MDM: 16:48 Patient medically screened. kb 18:08 Data reviewed: vital signs, nurses notes. Data interpreted: Pulse oximetry: on room air kb is 99 %. Interpretation: normal. Counseling: I had a detailed discussion with the patient and/or guardian regarding: the historical points, exam findings, and any diagnostic results supporting the discharge/admit diagnosis, lab results, the need for outpatient follow up, a family practitioner, to return to the emergency department if symptoms worsen or persist or if there are any questions or concerns that arise at home. 18:11 ED course: Pt educated on results. Will follow up with GI and return for worsening kb symptoms or other concerns.. 11/16 16:53 Order name: CBC with Diff; Complete Time: 17:47 kb 11/16 16:53 Order name: Basic Metabolic Panel; Complete Time: 17:48 kb 11/16 16:53 Order name: IV Start; Complete Time: 17:06 kb 11/16 18:10 Order name: Occult Blood--Ancillary eb Administered Medications: No medications were administered Point of Care Testing: Guaiac: 18:06 Stool Guaiac: Positive; Stool Hemoccult Control: Pass; ll1 Disposition: 18:29 Co-signature as Attending Physician, Tamir Hall MD I agree with the assessment and kdr plan of care. Disposition: 11/16/20 18:12 Discharged to Home. Impression: Gastrointestinal hemorrhage, unspecified. - Condition is Stable. - Discharge Instructions: Gastrointestinal Bleeding. - Medication Reconciliation Form, Thank You Letter, Antibiotic Education, Prescription Opioid Use form. - Follow up: Emergency Department; When: As needed; Reason: Worsening of condition. Follow up: Private Physician; When: 2 - 3 days; Reason: Recheck today's complaints, Continuance of care, Re-evaluation by your physician. Signatures: Dispatcher [employer] EDMS Pili Prado, STRATEGY EXECUTION CONSULTANT-C STRATEGY EXECUTION CONSULTANT-Ckb Tamir Hall MD MD [facility] Michelle Dominguez RN RN aa5 Brianna Rebolledo RN RN ll1 Corrections: (The following items were deleted from the chart) 18:21 18:12 11/16/2020 18:12 Discharged to Home. Impression: Gastrointestinal hemorrhage, ll1 unspecified. Condition is Stable. Forms are Medication Reconciliation Form, Thank You Letter, Antibiotic Education, Prescription Opioid Use. Follow up: Emergency Department; When: As needed; Reason: Worsening of condition. Follow up: Private Physician; When: 2 - 3 days; Reason: Recheck today's complaints, Continuance of care, Re-evaluation by your physician. kb
--- NOTE | 2020-11-16 18:12 | ER ---
Nurse's Notes [facility] Name: Paradise Colon Age: 40 yrs Sex: Female : 1980 Arrival Date: 11/16/2020 Time: 14:59 Bed 19 Private MD: Diagnosis: Gastrointestinal hemorrhage, unspecified Presentation: 11/16 15:47 Chief complaint: Patient states: bright red blood in stool twice today. Pt denies abd aa5 pain, denies vomiting, denies diarrhea. Pt reports nausea. Coronavirus screen: Client denies travel out of the [place] in the last 14 days. At this time, the client does not indicate any symptoms associated with coronavirus-19. Ebola Screen: Patient negative for fever greater than or equal to 101.5 degrees Fahrenheit, and additional compatible Ebola Virus Disease symptoms. Initial Sepsis Screen: Does the patient meet any 2 criteria? No. Patient's initial sepsis screen is negative. Does the patient have a suspected source of infection? No. Patient's initial sepsis screen is negative. Risk Assessment: Do you want to hurt yourself or someone else? Patient reports no desire to harm self or others. Onset of symptoms was October 2020. 15:47 Method Of Arrival: Ambulatory aa5 15:47 Acuity: TANA 3 aa5 CLIENT SUPPORT REPRESENTATIVE: 18:20 LMP N/A - control method ll1 Historical: - Allergies: 15:48 No Known Allergies; aa5 - PMHx: 15:48 Chronic pain; Hypertension; Vertigo; aa5 - PSHx: 15:48 None; aa5 - Immunization history:: Flu vaccine is up to date. - Social history:: Smoking status: Reported history of juuling and/or vaping. Screenin:11 Abuse screen: Denies threats or abuse. Nutritional screening: No deficits noted. ll1 Tuberculosis screening: No symptoms or risk factors identified. Fall Risk Total Munoz Fall Scale indicates No Risk (0-24 pts). Assessment: 17:10 General: Appears in no apparent distress. Behavior is calm, cooperative, appropriate ll1 for age. Pain: Denies pain. Neuro: No deficits noted. Cardiovascular: No deficits noted. Respiratory: No deficits noted. GI: Abdomen is flat, Bowel sounds present X 4 quads. Abd is soft and non tender X 4 quads. Reports rectal bleeding, bloody stool, nausea. 18:06 Reassessment: Patient and/or family updated on plan of care and expected duration. Pain ll1 level reassessed. Vital Signs: 15:48 BP 141 / 72; Pulse 83; Resp 16 S; Temp 98.6(O); Pulse Ox 99% on R/A; Weight 104.33 kg aa5 (R); Height 5 ft. 3 in. (160.02 cm) (R); Pain 0/10; 18:20 BP 127 / 85; Pulse 72; Resp 17; Pulse Ox 99% ; Pain 0/10; ll1 15:48 Body Mass Index 40.74 (104.33 kg, 160.02 cm) aa5 ED Course: 14:59 Patient arrived in ED. ds1 15:39 [facility] kb 15:40 Tamir Hall MD is Attending Physician. kb 15:47 Arm band placed on. aa5 15:48 Triage completed. aa5 16:47 Brianna Rebolledo RN is Primary Nurse. ll1 17:06 Placed in gown. Bed in low position. Call light in reach. Side rails up X 1. Warm jp3 blanket given. Verbal reassurance given. Pulse ox on. NIBP on. 17:06 Initial lab(s) drawn, by me, sent to lab. Inserted saline lock: 20 gauge in right jp3 antecubital area, using aseptic technique. Blood collected. 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 IV discontinued, intact, bleeding controlled, ll1 No redness/swelling at site. Pressure dressing applied. Administered Medications: No medications were administered Point of Care Testing: Guaiac: 18:06 Stool Guaiac: Positive; Stool Hemoccult Control: Pass; ll1 Outcome: 18:12 Discharge ordered by . kb 18:20 Discharged to home ambulatory. ll1 18:20 Condition: stable 18:20 Discharge instructions given to patient, Instructed on discharge instructions, follow up and referral plans. Demonstrated understanding of instructions, follow-up care. 18:21 Patient left the ED. ll1 Signatures: Pili Prado FNP-C FNP-Tosha Back ds1 Michelle Dominguez RN RN aa5 Santos Townsend jp3 Amaury, Lynsay, RN RN ll1
[2020-11-19 15:56] VITALS: TEMP 98.6; O2SAT 99
[2020-11-19 15:58] VITALS: BP 127/85
== END 2020-11-16 18:21 | disposition home or self-care (01) ==
LOC: ER 14:58
DX: K92.2 Gastrointestinal hemorrhage, unspecified (principal); I10 Essential (primary) hypertension
CPT/HCPCS: 36415; 80048; 82272; 85025; 99284

== ENCOUNTER 2020-11-28 21:56 | Emergency (ER) | payer OTHER ==
[2020-11-29 02:56] LABS: Urine Blood NEGATIVE (NEG); Urine Glucose NEGATIVE (NEG); Urine Protein NEGATIVE (NEG); Urine Specific Gravity >1.030 (1.005-1.030); Urine pH 5.5 (5.0-7.0)
[2020-11-29 03:57] LABS: Absolute Lymphocytes (CBC) 2.4 K/uL (0.7-4.9); Basophils % 0.7 % (0-1.3); Hematocrit 40.9 % (36.0-45.0); Lymphocytes % 29.9 % (15.3-44.8); MPV 9.4 fL (7.6-11.3); RBC Red Blood Cell Count 4.63 M/uL (3.86-4.86)
[2020-11-29] MEDS ORDERED: dexAMETHasone 10 MG/ML VIAL ONE (04:15)
[2020-11-29] MEDS ORDERED: NA CHLORIDE 0.9% 1,000 ML ONE (04:15)
[2020-11-29] MEDS ORDERED: PEN G BENZ LA 1.2MU/2ML SYRINGE IM ONE (04:16)
[2020-11-29 04:18] LABS: Albumin 3.6 g/dL (3.4-5.0); Bilirubin Direct 0.2 mg/dL (0-0.2); Potassium 3.7 mmol/L (3.5-5.1); Protein, Total 7.5 g/dL (6.4-8.2)
--- NOTE | 2020-11-29 05:50 | EDPHYS ---
Physician Documentation [facility] Name: Paradise Colon Age: 40 yrs Sex: Female : 1980 Arrival Date: 11/28/2020 Time: 21:58 Bed 18 Private MD: ED Physician Unruly Smith HPI: 11/29 02:26 This 40 yrs old Female presents to ER via Ambulatory with complaints of mh7 Fever, Cough. 02:26 The patient or guardian reports cough, that is intermittent, described as moderate, mh7 with no sputum. Onset: The symptoms/episode began/occurred 2 day(s) ago. Severity of symptoms: At their worst the symptoms were moderate, yesterday, in the emergency department the symptoms have improved, moderately. Modifying factors: The symptoms are alleviated by nothing, the symptoms are aggravated by nothing. Associated signs and symptoms: Pertinent positives: fever, sore throat, Diarrhea x 2, Pertinent negatives: chest pain, ear ache, nausea, rhinorrhea, vomiting. Historical: - Allergies: 11/28 22:26 No Known Allergies; ss - PMHx: 22:26 Chronic pain; Hypertension; Vertigo; ss - Immunization history:: Adult Immunizations up to date. - Social history:: Smoking status: Reported history of juuling and/or vaping. ROS: 11/29 02:26 Eyes: Negative for injury, pain, redness, and discharge, Neck: Negative for injury, mh7 pain, and swelling, Cardiovascular: Negative for chest pain, palpitations, and edema, Back: Negative for injury and pain, : Negative for injury, bleeding, discharge, and swelling, MS/Extremity: Negative for injury and deformity, Skin: Negative for injury, rash, and discoloration, Neuro: Negative for headache, weakness, numbness, tingling, and seizure, Psych: Negative for depression, anxiety, suicide ideation, homicidal ideation, and hallucinations, Allergy/Immunology: Negative for hives, rash, and allergies, Endocrine: Negative for neck swelling, polydipsia, polyuria, polyphagia, and marked weight changes, Hematologic/Lymphatic: Negative for swollen nodes, abnormal bleeding, and unusual bruising. Exam: 02:26 Constitutional: This is a well developed, well nourished patient who is awake, alert, mh7 and in no acute distress. Head/Face: Normocephalic, atraumatic. Eyes: Pupils equal round and reactive to light, extra-ocular motions intact. Lids and lashes normal. Conjunctiva and sclera are non-icteric and not injected. Cornea within normal limits. Periorbital areas with no swelling, redness, or edema. ENT: Nares patent. No nasal discharge, no septal abnormalities noted. Tympanic membranes are normal and external auditory canals are clear. Oropharynx with no redness, swelling, or masses, exudates, or evidence of obstruction, uvula midline. Mucous membranes moist. Neck: Trachea midline, no thyromegaly or masses palpated, and no cervical lymphadenopathy. Supple, full range of motion without nuchal rigidity, or vertebral point tenderness. No Meningismus. Chest/axilla: Normal chest wall appearance and motion. Nontender with no deformity. No lesions are appreciated. Cardiovascular: Regular rate and rhythm with a normal S1 and S2. No gallops, murmurs, or rubs. Normal PMI, no JVD. No pulse deficits. Respiratory: Lungs have equal breath sounds bilaterally, clear to auscultation and percussion. No rales, rhonchi or wheezes noted. No increased work of breathing, no retractions or nasal flaring. Abdomen/GI: Soft, non-tender, with normal bowel sounds. No distension or tympany. No guarding or rebound. No evidence of tenderness throughout. Back: No spinal tenderness. No costovertebral tenderness. Full range of motion. Skin: Warm, dry with normal turgor. Normal color with no rashes, no lesions, and no evidence of cellulitis. MS/ Extremity: Pulses equal, no cyanosis. Neurovascular intact. Full, normal range of motion. Neuro: Awake and alert, GCS 15, oriented to person, place, time, and situation. Cranial nerves II-XII grossly intact. Motor strength 5/5 in all extremities. Sensory grossly intact. Cerebellar exam normal. Normal gait. Psych: Awake, alert, with orientation to person, place and time. Behavior, mood, and affect are within normal limits. Vital Signs: 11/28 22:24 BP 145 / 100; Pulse 90; Resp 17; Temp 98.4(TE); Pulse Ox 97% on R/A; Weight 104.33 kg; ss Height 5 ft. 3 in. (160.02 cm); Pain 2/10; 11/29 02:01 Temp 98.6(O); dm5 11/28 22:24 Body Mass Index 40.74 (104.33 kg, 160.02 cm) ss MDM: 05:47 Differential Diagnosis: Obstructed Airway Bronchitis Influenza Upper Respiratory 7 Infection Pharyngitis Viral Syndrome Pneumonia. Data reviewed: vital signs, nurses notes, lab test result(s), CBC, electrolytes, Flu: negative Rapid Strep. Data interpreted: Pulse oximetry: on room air is 97 %. Interpretation: normal. Counseling: I had a detailed discussion with the patient and/or guardian regarding: the historical points, exam findings, and any diagnostic results supporting the discharge/admit diagnosis, the presence of at least one elevated blood pressure reading (>120/80) during this emergency department visit, lab results, radiology results, the need for outpatient follow up. Response to treatment: the patient's symptoms have markedly improved after treatment. 05:49 Patient medically screened. [facility] 11/28 23:16 Order name: Flu; Complete Time: 02:00 kb 11/29 02:19 Order name: Rapid Strep; Complete Time: 03:09 [facility] 11/29 02:47 Order name: Urine --Ancillary (enter results); Complete Time: 03:09 tt3 11/29 02:47 Order name: Urine Dipstick--Ancillary (enter results); Complete Time: 03:09 tt3 11/29 03:31 Order name: CBC with Diff; Complete Time: 04:29 [facility] 11/29 03:31 Order name: Basic Metabolic Panel; Complete Time: 04:29 [facility] 11/29 02:19 Order name: Urine Dipstick-Ancillary (obtain specimen); Complete Time: 02:46 [facility] 11/29 02:19 Order name: Urine Test (obtain specimen); Complete Time: 02:46 [facility] 11/29 02:19 Order name: Chest Single View XRAY [facility] 11/29 03:31 Order name: LFT's; Complete Time: 04:29 [facility] 11/29 03:31 Order name: CT Soft Tissue Neck W/contr [facility] 11/29 03:31 Order name: Saline Lock; Complete Time: 03:58 7 Administered Medications: 04:00 Drug: Bicillin L-A 1.2 million units Route: IM; Site: right ventrogluteal; dm5 04:10 Drug: NS 0.9% 1000 ml Route: IV; Rate: 1000 ml; Site: right antecubital; dm5 04:11 Drug: Decadron - Dexamethasone 10 mg Route: IVP; Site: right antecubital; dm5 Disposition: 11/29/20 05:49 Discharged to Home. Impression: Streptococcal pharyngitis, Viral Syndrome. - Condition is Stable. - Discharge Instructions: Strep Throat, [id number], Viral Respiratory Infection, [id number]. - Work release form, Medication Reconciliation Form, Thank You Letter, Antibiotic Education, Prescription Opioid Use form. - Follow up: Private Physician; When: 1 - 2 days; Reason: Worsening of condition, Recheck today's complaints, Continuance of care, Re-evaluation by your physician. - Problem is new. - Symptoms have improved. Signatures: Dispatcher [employer] EDMS Ana Bhakta RN RN dm5 Bessie Norris RN RN ss Holmes, Maurice, MD MD mh7 Corrections: (The following items were deleted from the chart) 06:32 05:49 11/29/2020 05:49 Discharged to Home. Impression: Streptococcal pharyngitis; Viral dm5 Syndrome. Condition is Stable. Forms are Medication Reconciliation Form, Thank You Letter, Antibiotic Education, Prescription Opioid Use. Follow up: Private Physician; When: 1 - 2 days; Reason: Worsening of condition, Recheck today's complaints, Continuance of care, Re-evaluation by your physician. Problem is new. Symptoms have improved. mh7
--- NOTE | 2020-11-29 05:50 | ER ---
Nurse's Notes [facility] Name: Paradise Colon Age: 40 yrs Sex: Female : 1980 Arrival Date: 11/28/2020 Time: 21:58 Bed 18 Private MD: Diagnosis: Streptococcal pharyngitis;Viral Syndrome Presentation: 11/28 22:24 Chief complaint: Patient states: fever, cough and diarrhea that began yesterday. COVID ss test was done today at work, but will get results in the next 3-4 days. Coronavirus screen: Client denies travel out of the [place] in the last 14 days. cough unrelated to allergies, diarrhea, Client presents with at least one sign or symptom that may indicate coronavirus-19. Standard/surgical mask placed on the client. Provider contacted for isolation considerations. Ebola Screen: Patient denies exposure to infectious person. Patient denies travel to an Ebola-affected area in the 21 days before illness onset. Initial Sepsis Screen: Does the patient meet any 2 criteria? No. Patient's initial sepsis screen is negative. Does the patient have a suspected source of infection? No. Patient's initial sepsis screen is negative. Risk Assessment: Do you want to hurt yourself or someone else? Patient reports no desire to harm self or others. Note TMAX 99.2. Onset of symptoms was November 27, 2020. 22:24 Method Of Arrival: Ambulatory ss 22:24 Acuity: TANA 3 ss Historical: - Allergies: 22:26 No Known Allergies; ss - PMHx: 22:26 Chronic pain; Hypertension; Vertigo; ss - Immunization history:: Adult Immunizations up to date. - Social history:: Smoking status: Reported history of juuling and/or vaping. Screenin/31 02:46 Abuse screen: Denies threats or abuse. Denies injuries from another. Nutritional dm5 screening: No deficits noted. Tuberculosis screening: No symptoms or risk factors identified. Fall Risk None identified. Assessment: 02:46 General: Appears in no apparent distress. uncomfortable, Behavior is calm, cooperative. dm5 Neuro: Level of Consciousness is awake, alert, obeys commands, Oriented to person, place, time, situation. Cardiovascular: No deficits noted. Respiratory: Reports cough that is productive, persistent Airway is patent Respiratory effort is even, unlabored, Respiratory pattern is regular, symmetrical. Derm: Skin is pink, warm \T\ dry. Vital Signs: 11/28 22:24 BP 145 / 100; Pulse 90; Resp 17; Temp 98.4(TE); Pulse Ox 97% on R/A; Weight 104.33 kg; Height 5 ft. 3 in. (160.02 cm); Pain 2/10; 11/29 02:01 Temp 98.6(O); dm5 11/28 22:24 Body Mass Index 40.74 (104.33 kg, 160.02 cm) ED Course: 11/28 21:58 Patient arrived in ED. cl3 22:25 Triage completed. 22:26 Arm band placed on left wrist. 11/29 01:58 Unruly Smith MD is Attending Physician. 7 02:00 Ana Bhakta, RN is Primary Nurse. dm5 02:35 Chest Single View XRAY In Process Unspecified. EDMS 02:46 Patient has correct armband on for positive identification. Adult w/ patient. dm5 02:46 No provider procedures requiring assistance completed. dm5 03:30 Initial lab(s) drawn, by wi, sent to lab. Inserted saline lock: 20 gauge in right 5 antecubital area, using aseptic technique. Blood collected. 04:50 CT Soft Tissue Neck W/contr In Process Unspecified. EDMS Administered Medications: 04:00 Drug: Bicillin L-A 1.2 million units Route: IM; Site: right ventrogluteal; dm5 04:10 Drug: NS 0.9% 1000 ml Route: IV; Rate: 1000 ml; Site: right antecubital; dm5 04:11 Drug: Decadron - Dexamethasone 10 mg Route: IVP; Site: right antecubital; dm5 Outcome: 05:49 Discharge ordered by . mh7 06:32 Patient left the ED. dm5 Signatures: Dispatcher [employer] EDMS Ana Bhakta, ALBA WILLIS Bessie Lawton RN RN Key Rebolledo 3 Unruly Smith MD MD Kari
[2020-11-29 06:40] VITALS: TEMP 98.6
[2020-11-29 06:41] VITALS: BP 145/100; O2SAT 97
--- NOTE | 2020-11-29 08:41 | RAD REPORT ---
EXAM DESCRIPTION: RAD - Chest Single View - 11/29/2020 2:35 am CLINICAL HISTORY: COUGH Chest pain. COMPARISON: Chest Single View dated 02/13/2019; Chest Pa And Lat (2 Views) dated 04/10/2018; Chest Pa And Lat (2 Views) dated 02/23/2017; Chest Pa And Lat (2 Views) dated 02/21/2017 FINDINGS: Portable technique limits examination quality. The lungs are grossly clear. The heart is normal in size. No displaced fractures. IMPRESSION: No acute intrathoracic process suspected.
--- NOTE | 2020-11-29 18:01 | RAD REPORT ---
EXAM DESCRIPTION: CT Neck With Intravenous Contrast CLINICAL HISTORY: The patient is 40 years old and is Female; SORE THROAT TECHNIQUE: Axial computed tomography images of the neck with intravenous contrast. Sagittal and co taiwo reformatted images were created and reviewed. This CT exam was performed using one or more of the following dose reduction techniques: automated exposure control, adjustment of the mA and/or k V according to patient size, and/or use of iterative reconstruction technique. COMPARISON: No relevant prior studies available. FINDINGS: OROPHARYNX: Unremarkable. No significant tonsillar enlargement. No peritonsillar abs cess. HYPOPHARYNX: Unremarkable. LARYNX: Unremarkable. Normal epiglottis. TRACHEA: Unremarkable. RETROPHARYNGEAL SPACE: Unremarkable. SUBMANDIBULAR/PAROTID GLANDS: Unremarkable. Glands are normal in size. THYROID: Unremarkable. No enlarged or calcified nodules. BONES/JOINTS: No acute fracture. SOFT TISSUES: The soft tissues are normal. VASCULATURE: Unremarkable. Normal in course and caliber. LYMPH NODES: Unremarkable. No enlarged lymph nodes. SINUSES: Mucoperiosteal thickening of the ethmoid air cells is present. Large left maxillary sinu s mucus retention cyst is present. Minimal mucoperiosteal thickening of the right maxillary sinus is noted. LUNG APICES: The lung apices are clear. IMPRESSION: 1. No acute findings on this contrasted CT of the neck to explain the patient's sympto ms. 2. Findings suggest a large left maxillary sinus mucus retention cyst. Electronically signed by: Dipti Caldwell MD 11/29/2020 5:07 AM [employer] Due to temporary technical issues with the PACS/Fluency reporting system, reports are being signed by the in house radiologists without review as a courtesy to insure prompt reporting. The interpreting radiologist is fully responsible for the content of the report
== END 2020-11-29 06:32 | disposition home or self-care (01) ==
LOC: ER 21:56
DX: J02.0 Streptococcal pharyngitis (principal); B34.9 Viral infection, unspecified; I10 Essential (primary) hypertension; Z87.891 Personal history of nicotine dependence
CPT/HCPCS: 85025; 80048; 36415; 81025; 80076; 87081; 81003; 87804 ×2; 70491; 71045; 96372; 96374; 99284; Q9967; J0561; J1100; J7030

== ENCOUNTER 2021-01-25 06:26 | Emergency (ER) | payer OTHER ==
[2021-01-25] MEDS ORDERED: KETOROLAC 30 MG/ML INJ ONE (07:45)
[2021-01-25] MEDS ORDERED: METHYLPREDNISOLONE 125 MG INJ ONE (07:46)
[2021-01-25] MEDS ORDERED: HYDROCODONE/APAP 10/325 TAB ONE (09:07)
--- NOTE | 2021-01-25 11:00 | ER ---
Nurse's Notes [facility] Name: Paradise Colon Age: 40 yrs Sex: Female : 1980 Arrival Date: 01/25/2021 Time: 06:30 Bed 20 Private MD: Diagnosis: Low back pain;Sciatica, left side Presentation: 01/25 06:46 Chief complaint: Patient states: reports stumbling and falling on the hip, states is sg now painful and hard to walk. Coronavirus screen: Client denies travel out of the [place] in the last 14 days. At this time, the client does not indicate any symptoms associated with coronavirus-19. Ebola Screen: Patient negative for fever greater than or equal to 101.5 degrees Fahrenheit, and additional compatible Ebola Virus Disease symptoms Patient denies exposure to infectious person. Patient denies travel to an Ebola-affected area in the 21 days before illness onset. No symptoms or risks identified at this time. Initial Sepsis Screen: Does the patient meet any 2 criteria? No. Patient's initial sepsis screen is negative. Does the patient have a suspected source of infection? No. Patient's initial sepsis screen is negative. Risk Assessment: Do you want to hurt yourself or someone else? Patient reports no desire to harm self or others. Onset of symptoms was January 25, 2021. Care prior to arrival: None. Transition of care: patient was not received from another setting of care. 06:46 Method Of Arrival: Wheelchair 06:46 Acuity: TANA 4 sg VIDEO PRODUCTION INTERN: 11:44 LMP N/A - dm14 Historical: - Allergies: 06:47 No Known Allergies; sg - PMHx: 06:47 Chronic pain; Hypertension; Vertigo; sg - Immunization history:: Adult Immunizations up to date. - Social history:: Smoking status: Patient denies any tobacco usage or history of. Screenin:25 Abuse screen: Denies threats or abuse. Denies injuries from another. Nutritional dm14 screening: No deficits noted. Tuberculosis screening: No symptoms or risk factors identified. Fall Risk None identified. Primary Survey: 11:40 NO uncontrolled hemorrhage observed. A: Airway: patent. Breathing/Chest: Respiratory dm14 pattern: regular, Respiratory effort: spontaneous. Disability Alert. Assessment: 07:25 General: Appears in no apparent distress. comfortable, obese, well groomed, Behavior is dm14 calm, cooperative, appropriate for age. 07:25 Pain: Complains of pain in left gluteus daniel Pain radiates to left hamstring and dm14 posterior aspect of left knee Pain currently is 4 out of 10 on a pain scale. Neuro: No deficits noted. 09:08 Pain: Pain currently is 2 out of 10 on a pain scale. dm14 10:40 Reassessment: Pain remains 2/10. States is fairly comfortable. dm14 Vital Signs: 06:53 BP 174 / 100 LA Supine (auto/); Pulse 74 MON; Resp 20 S; Temp 98.4(O); Pulse Ox 97% on ds4 R/A; Weight 104.33 kg; Height 5 ft. 3 in. (160.02 cm); Pain 10/10; 07:25 BP 132 / 96; Pulse 68; Resp 20; Temp 96.3; Pulse Ox 97% ; dm14 09:07 BP 132 / 87; Pulse 69; Resp 18; Pulse Ox 96% ; dm14 09:08 BP 132 / 87; Pulse 69; Resp 18; Pulse Ox 96% ; dm14 10:40 BP 137 / 83; Pulse 75; Resp 16; Pulse Ox 95% ; dm14 06:53 Body Mass Index 40.74 (104.33 kg, 160.02 cm) ds4 Bagdad Coma Score: 09:08 Eye Response: spontaneous(4). Verbal Response: oriented(5). Motor Response: obeys dm14 commands(6). Total: 15. Trauma Score (Adult): 09:08 Eye Response: spontaneous(1); Verbal Response: oriented(1); Motor Response: obeys dm14 commands(2); Systolic BP: > 89 mm Hg(4); Respiratory Rate: 10 to 29 per min(4); [place] Score: 15; Trauma Score: 12 ED Course: 06:30 Patient arrived in ED. bp1 06:46 Arm band placed on. sg 06:47 Triage completed. sg 06:57 Tamir Hall MD is Attending Physician. kdr 07:17 Mary Ann Oconnor RN is Primary Nurse. dm14 07:25 Patient has correct armband on for positive identification. Bed in low position. Call dm14 light in reach. Side rails up X 1. 07:25 Inserted saline lock: 20 gauge in right antecubital area, using aseptic technique. dm14 10:40 No provider procedures requiring assistance completed. IV discontinued, intact, dm14 bleeding controlled, No redness/swelling at site. Pressure dressing applied. Administered Medications: 07:37 Drug: TORadol - Ketorolac 15 mg Route: IVP; Site: right antecubital; dm14 08:00 Follow up: Response: No adverse reaction; Pain is decreased dm14 07:38 Drug: SOLU-Medrol 125 mg Route: IVP; Site: right antecubital; dm14 08:01 Follow up: Response: No adverse reaction dm14 08:33 Drug: Robaxin 1 grams Route: IVPB; Infused Over: 1 hrs; Site: right antecubital; dm14 08:51 Follow up: Response: No adverse reaction dm14 11:31 Follow up: IV Status: Completed infusion; IV Intake: 100ml dm14 08:51 Drug: Blue Bell 10 mg-325 mg 1 tabs Route: PO; dm14 09:07 Follow up: BP 132 / 87; Pulse 69 bpm; Resp 18 bpm; Pulse Ox 96% dm14 09:08 Follow up: Response: No adverse reaction; Pain is decreased dm14 11:31 Follow up: Response: No adverse reaction; Pain is decreased dm14 Intake: 11:31 IV: 100ml; Total: 100ml. dm14 Outcome: 10:40 Discharged to home ambulatory. dm14 10:40 Condition: stable 10:40 Discharge instructions given to patient, Instructed on discharge instructions, follow up and referral plans. medication usage, Demonstrated understanding of instructions, follow-up care, medications. 10:59 Discharge ordered by . kdr 11:45 Patient left the ED. dm14 Signatures: Angelo Carver RN RN Tamir Hall MD MD kdr Swanson, Donovan ds4 Kamla Johnson Dianne, RN RN dm14
--- NOTE | 2021-01-25 11:00 | EDPHYS ---
Physician Documentation [facility] Name: Paradise Colon Age: 40 yrs Sex: Female : 1980 Arrival Date: 01/25/2021 Time: 06:30 Bed 20 Private MD: ED Physician Tamir Hall HPI: 01/25 07:06 This 40 yrs old Female presents to ER via Wheelchair with complaints of Hip kdr Pain, Hip Injury. 07:07 The patient presents with pain, that is acute. The complaints affect the left gluteal kdr fold, left hamstring, posterior aspect of left knee, left calf and left Achilles. Context: The problem was sustained at home, resulted from an unknown cause, The patient had fallen on her hip years ago while playing on a seesaw. No recent injury and no other obvious cause for the pain. Onset: The symptoms/episode began/occurred suddenly, 3 day(s) ago. Modifying factors: The symptoms are alleviated by remaining still, the symptoms are aggravated by movement, weight bearing, bending knee. Associated signs and symptoms: The patient has no apparent associated signs or symptoms. Treatment prior to arrival includes: no previous treatment. Severity of symptoms: At their worst the symptoms were mild, moderate, just prior to arrival, in the emergency department the symptoms are unchanged. The patient has not experienced similar symptoms in the past. The patient has not recently seen a physician. PRODUCT TESTER: 11:44 [facility] N/A - dm14 Historical: - Allergies: 06:47 No Known Allergies; sg - PMHx: 06:47 Chronic pain; Hypertension; Vertigo; sg - Immunization history:: Adult Immunizations up to date. - Social history:: Smoking status: Patient denies any tobacco usage or history of. ROS: 07:07 Constitutional: Negative for fever, chills, and weight loss, Eyes: Negative for injury, kdr pain, redness, and discharge, ENT: Negative for injury, pain, and discharge, Neck: Negative for injury, pain, and swelling, Cardiovascular: Negative for chest pain, palpitations, and edema, Respiratory: Negative for shortness of breath, cough, wheezing, and pleuritic chest pain, Abdomen/GI: Negative for abdominal pain, nausea, vomiting, diarrhea, and constipation, : Negative for injury, bleeding, discharge, and swelling, MS/Extremity: Negative for injury and deformity, Skin: Negative for injury, rash, and discoloration, Psych: Negative for depression, anxiety, suicide ideation, homicidal ideation, and hallucinations, Allergy/Immunology: Negative for hives, rash, and allergies, Endocrine: Negative for neck swelling, polydipsia, polyuria, polyphagia, and marked weight changes, Hematologic/Lymphatic: Negative for swollen nodes, abnormal bleeding, and unusual bruising. 07:07 Back: Positive for pain at rest, pain with movement, radiated pain, of the low back area, Negative for decreased range of motion. Exam: 07:07 Constitutional: This is a well developed, well nourished patient who is awake, alert, kdr and in no acute distress. Head/Face: Normocephalic, atraumatic. Eyes: Pupils equal round and reactive to light, extra-ocular motions intact. Lids and lashes normal. Conjunctiva and sclera are non-icteric and not injected. Cornea within normal limits. Periorbital areas with no swelling, redness, or edema. Neck: Trachea midline, no thyromegaly or masses palpated, and no cervical lymphadenopathy. Supple, full range of motion without nuchal rigidity, or vertebral point tenderness. No Meningismus. Chest/axilla: Normal chest wall appearance and motion. Nontender with no deformity. No lesions are appreciated. Abdomen/GI: Soft, non-tender, with normal bowel sounds. No distension or tympany. No guarding or rebound. No evidence of tenderness throughout. Back: No spinal tenderness. No costovertebral tenderness. Full range of motion. Skin: Warm, dry with normal turgor. Normal color with no rashes, no lesions, and no evidence of cellulitis. MS/ Extremity: Pulses equal, no cyanosis. Neurovascular intact. Full, normal range of motion. Psych: Awake, alert, with orientation to person, place and time. Behavior, mood, and affect are within normal limits. 07:07 Neuro: With rasing of left leg, she hsa worsening pain down the distribution of the sciatic nerve on the left side. Vital Signs: 06:53 BP 174 / 100 LA Supine (auto/); Pulse 74 MON; Resp 20 S; Temp 98.4(O); Pulse Ox 97% on ds4 R/A; Weight 104.33 kg; Height 5 ft. 3 in. (160.02 cm); Pain 10/10; 07:25 BP 132 / 96; Pulse 68; Resp 20; Temp 96.3; Pulse Ox 97% ; dm14 09:07 BP 132 / 87; Pulse 69; Resp 18; Pulse Ox 96% ; dm14 09:08 BP 132 / 87; Pulse 69; Resp 18; Pulse Ox 96% ; dm14 10:40 BP 137 / 83; Pulse 75; Resp 16; Pulse Ox 95% ; dm14 06:53 Body Mass Index 40.74 (104.33 kg, 160.02 cm) ds4 Tc Coma Score: 09:08 Eye Response: spontaneous(4). Verbal Response: oriented(5). Motor Response: obeys dm14 commands(6). Total: 15. Trauma Score (Adult): 09:08 Eye Response: spontaneous(1); Verbal Response: oriented(1); Motor Response: obeys dm14 commands(2); Systolic BP: > 89 mm Hg(4); Respiratory Rate: 10 to 29 per min(4); Tc Score: 15; Trauma Score: 12 MDM: 10:59 Patient medically screened. kdr 11:03 Data reviewed: vital signs, nurses notes, lab test result(s). Counseling: I had a kdr detailed discussion with the patient and/or guardian regarding: the historical points, exam findings, and any diagnostic results supporting the discharge/admit diagnosis, the need for outpatient follow up. ED course: The patient improved with the interventions given but did not have complete relief. Explained to her that the goal was to make the discomfort tolerable but not necessarily to completely eliminate it. Administered Medications: 07:37 Drug: TORadol - Ketorolac 15 mg Route: IVP; Site: right antecubital; dm14 08:00 Follow up: Response: No adverse reaction; Pain is decreased dm14 07:38 Drug: SOLU-Medrol 125 mg Route: IVP; Site: right antecubital; dm14 08:01 Follow up: Response: No adverse reaction dm14 08:33 Drug: Robaxin 1 grams Route: IVPB; Infused Over: 1 hrs; Site: right antecubital; dm14 08:51 Follow up: Response: No adverse reaction dm14 11:31 Follow up: IV Status: Completed infusion; IV Intake: 100ml dm14 08:51 Drug: [place] 10 mg-325 mg 1 tabs Route: PO; dm14 09:07 Follow up: BP 132 / 87; Pulse 69 bpm; Resp 18 bpm; Pulse Ox 96% dm14 09:08 Follow up: Response: No adverse reaction; Pain is decreased dm14 11:31 Follow up: Response: No adverse reaction; Pain is decreased dm14 Disposition: 01/25/21 10:59 Discharged to Home. Impression: Low back pain, Sciatica, left side. - Condition is Stable. - Discharge Instructions: Musculoskeletal Pain, Back Pain, Adult, [id number], Sciatica, [id number]. - Prescriptions for Ibuprofen 600 mg Oral Tablet - take 1 tablet by ORAL route every 6 hours As needed take with food; 30 tablet. Tylenol- Codeine #3 300-30 mg Oral Tablet - take 1 tablet by ORAL route every 4-6 hours As needed; 16 tablet. Cyclobenzaprine 10 mg Oral Tablet - take 1 tablet by ORAL route every 8 hours As needed; 26 tablet. Medrol (Loy) 4 mg Oral Tablets, Dose Pack - take 1 tablet by ORAL route as directed - follow package instructions; 1 packet. - Medication Reconciliation Form, Thank You Letter, Prescription Opioid Use, Work release form form. - Follow up: Private Physician; When: 2 - 3 days; Reason: If symptoms return, Further diagnostic work-up, Recheck today's complaints, Continuance of care, Re-evaluation by your physician. - Problem is new. - Symptoms have improved. Signatures: Angelo Carver RN RN Tamir Hall MD MD [facility] Mary Ann Oconnor RN RN dm14 Corrections: (The following items were deleted from the chart) 11:45 10:59 01/25/2021 10:59 Discharged to Home. Impression: Low back pain; Sciatica, left dm14 side. Condition is Stable. Forms are Medication Reconciliation Form, Thank You Letter, Antibiotic Education, Prescription Opioid Use. Follow up: Private Physician; When: 2 - 3 days; Reason: If symptoms return, Further diagnostic work-up, Recheck today's complaints, Continuance of care, Re-evaluation by your physician. Problem is new. Symptoms have improved. kdr
[2021-01-25 12:33] VITALS: TEMP 96.3
[2021-01-25 12:36] VITALS: BP 137/83; O2SAT 95
== END 2021-01-25 11:45 | disposition home or self-care (01) ==
LOC: ER 06:26
DX: M54.32 Sciatica, left side (principal); I10 Essential (primary) hypertension
CPT/HCPCS: 96365; 96375; 99283; 96366; J2930; J2800

== ENCOUNTER 2021-04-06 21:14 | Emergency (ER) | payer OTHER ==
--- NOTE | 2021-04-06 22:44 | ER ---
Nurse's Notes [facility] Name: Paradise Colon Age: 41 yrs Sex: Female : 1980 Arrival Date: 04/06/2021 Time: 21:15 Bed 23 Private MD: Diagnosis: Pain in right elbow Presentation: 04/06 21:34 Chief complaint: Patient states: Reports right elbow pain that began yesterday, pain lp1 radiating to right wrist, pain with ROM; Denies any trauma; states hx of tendonitis to right elbow. Coronavirus screen: Client denies travel out of the [place] in the last 14 days. At this time, the client does not indicate any symptoms associated with coronavirus-19. Ebola Screen: No symptoms or risks identified at this time. Risk Assessment: Do you want to hurt yourself or someone else? Patient reports no desire to harm self or others. Onset of symptoms was April 05, 2021. 21:34 Method Of Arrival: Ambulatory lp1 21:34 Acuity: TANA 4 lp1 21:37 Initial Sepsis Screen: Does the patient meet any 2 criteria? No. Patient's initial lp1 sepsis screen is negative. Does the patient have a suspected source of infection? No. Patient's initial sepsis screen is negative. Triage Assessment: 22:34 General: Behavior is calm, cooperative. 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 - Social history:: Smoking status: Reported history of juuling and/or vaping. Screenin:30 Abuse screen: Denies threats or abuse. Nutritional screening: No deficits noted. bb Tuberculosis screening: No symptoms or risk factors identified. Fall Risk None identified. Assessment: 22:30 General: Appears in no apparent distress. uncomfortable. Pain: Complains of pain in bb right arm, elbow, and wrist Pain currently is 2 out of 10 on a pain scale. Neuro: Level of Consciousness is awake, alert, obeys commands, Oriented to person, place, time, situation. Cardiovascular: No deficits noted. Respiratory: Respiratory effort is even, unlabored, Respiratory pattern is regular. GI: No signs and/or symptoms were reported involving the gastrointestinal system. Derm: Skin is pink, warm \T\ dry. Musculoskeletal: Circulation, motion, and sensation intact. Reports pain in right arm. 22:51 Reassessment: Patient is alert, oriented x 3, equal unlabored respirations, skin bb warm/dry/pink. pt verbalized understanding of and agrees to plan of care discharge instructions given pt ambulated with steady gait to exit. Vital Signs: 21:37 BP 146 / 94; Pulse 94; Resp 18; Temp 97.5(TE); Pulse Ox 99% on R/A; Weight 108.86 kg lp1 (R); Height 5 ft. 3 in. (160.02 cm); Pain 8/10; 22:34 BP 136 / 87; Pulse 89; Resp 18 S; Pulse Ox 97% on R/A; Pain 2/10; bb 21:37 Body Mass Index 42.51 (108.86 kg, 160.02 cm) lp1 ED Course: 21:15 Patient arrived in ED. cf2 21:36 Triage completed. lp1 21:36 Arm band placed on. lp1 22:00 Elbow Right 3 View XRAY In Process Unspecified. EDMS 22:26 Pili Prado FNP-C [facility]. kb 22:26 Nelson Mcgraw MD is Attending Physician. kb 22:30 Ewelina Boyce RN is Primary Nurse. bb 22:30 Patient has correct armband on for positive identification. Call light in reach. Side bb rails up X 1. Pulse ox on. NIBP on. 22:52 No provider procedures requiring assistance completed. Patient did not have IV access bb during this emergency room visit. Administered Medications: 22:44 Drug: TORadol (ketorolac) 30 mg Route: IM; Site: right gluteus; bb 22:51 Follow up: Response: No adverse reaction bb Outcome: 22:44 Discharge ordered by . kb 22:52 Discharged to home ambulatory. bb 22:52 Condition: stable 22:52 Discharge instructions given to patient, Instructed on discharge instructions, follow up and referral plans. medication usage, Demonstrated understanding of instructions, follow-up care, medications, Prescriptions given X 2. 22:53 Patient left the ED. bb Signatures: Dispatcher [employer] Pili Sheikh, NUBIAC CHERY-Ewelina Maldonado RN RN bb Dilma Hernandez RN RN lp1 Charles Valderrama 2
--- NOTE | 2021-04-06 22:44 | EDPHYS ---
Physician Documentation [facility] Name: Paradise Colon Age: 41 yrs Sex: Female : 1980 Arrival Date: 04/06/2021 Time: 21:15 Bed 23 Private MD: ED Physician Nelson Mcgraw HPI: 04/06 23:26 This 41 yrs old Female presents to ER via Ambulatory with complaints of RT kb ARM PAIN, ELBOW PAIN, Wrist Pain. 23:26 The patient or guardian complains of decreased range of motion, pain, tenderness. The kb complaints affect the right elbow. Context: The problem was sustained at home, resulted from unknown cause. Onset: The symptoms/episode began/occurred today. Treatment prior to arrival includes: no previous treatment. Modifying factors: The symptoms are alleviated by nothing. the symptoms are aggravated by movement. Associated signs and symptoms: Pertinent positives: decreased range of motion, pain. Severity of symptoms: At their worst the symptoms were moderate, in the emergency department the symptoms are unchanged. The patient has experienced a previous episode. The patient has not recently seen a physician. Pt reports right elbow pain with no injury or trauma. States she had tendonitis in the same elbow in the past and it feels similar. 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 - Social history:: Smoking status: Reported history of juuling and/or vaping. ROS: 23:25 Constitutional: Negative for fever, chills, and weight loss, Skin: Negative for injury, kb rash, and discoloration. 23:25 MS/extremity: Positive for decreased range of motion, pain, tenderness, of the right elbow. 23:25 All other systems are negative. kb Exam: 23:25 Constitutional: This is a well developed, well nourished patient who is awake, alert, kb and in no acute distress. Head/Face: Normocephalic, atraumatic. ENT: Moist Mucous membranes Respiratory: Respirations even and unlabored. No increased work of breathing, no retractions or nasal flaring. Skin: Warm, dry with normal turgor. Normal color. Neuro: Awake and alert, GCS 15, oriented to person, place, time, and situation. Moves all extremities. Normal gait. 23:25 Musculoskeletal/extremity: Extremities: grossly normal except: noted in the right elbow: decreased ROM, pain, tenderness, ROM: limited active range of motion due to pain, in the right elbow, Circulation is intact in all extremities. Sensation intact. Vital Signs: 21:37 BP 146 / 94; Pulse 94; Resp 18; Temp 97.5(TE); Pulse Ox 99% on R/A; Weight 108.86 kg lp1 (R); Height 5 ft. 3 in. (160.02 cm); Pain 8/10; 22:34 BP 136 / 87; Pulse 89; Resp 18 S; Pulse Ox 97% on R/A; Pain 2/10; bb 21:37 Body Mass Index 42.51 (108.86 kg, 160.02 cm) lp1 MDM: 22:26 Patient medically screened. kb 22:39 Data reviewed: vital signs, nurses notes. Data interpreted: Pulse oximetry: on room air kb is 97 %. Interpretation: normal. Counseling: I had a detailed discussion with the patient and/or guardian regarding: the historical points, exam findings, and any diagnostic results supporting the discharge/admit diagnosis, radiology results, the need for outpatient follow up, a orthopedic surgeon, to return to the emergency department if symptoms worsen or persist or if there are any questions or concerns that arise at home. 04/06 21:36 Order name: Elbow Right 3 View XRAY kb Administered Medications: 22:44 Drug: TORadol (ketorolac) 30 mg Route: IM; Site: right gluteus; bb 22:51 Follow up: Response: No adverse reaction bb Disposition: 04/06/21 22:44 Discharged to Home. Impression: Pain in right elbow. - Condition is Stable. - Discharge Instructions: Musculoskeletal Pain. - Prescriptions for Diclofenac Sodium 75 mg Oral Tablet, Delayed Release (E.C.) - take 1 tablet by ORAL route 2 times per day As needed; 30 tablet. Tramadol 50 mg Oral Tablet - take 1 tablet by ORAL route every 8 hours as needed; 12 tablet. - Medication Reconciliation Form, Thank You Letter, Antibiotic Education, Prescription Opioid Use, Work release form form. - Follow up: Emergency Department; When: As needed; Reason: Worsening of condition. Follow up: Private Physician; When: 2 - 3 days; Reason: Recheck today's complaints, Continuance of care, Re-evaluation by your physician. Addendum: 04/23/2021 05:11 Co-signature as Attending Physician, Nelson Mcgraw MD I agree with the assessment and t w4 plan of care. Signatures: Dispatcher [employer] EDMS Pili Prado, CHERY-C DATA WAREHOUSE MANAGER-Ewelina Maldonado, RN RN bb Dilma Hernandez RN RN lp1 Nelson Mcgraw MD MD tw4 Corrections: (The following items were deleted from the chart) 04/06 22:53 22:44 04/06/2021 22:44 Discharged to Home. Impression: Pain in right elbow. Condition bb is Stable. Forms are Medication Reconciliation Form, Thank You Letter, Antibiotic Education, Prescription Opioid Use. Follow up: Emergency Department; When: As needed; Reason: Worsening of condition. Follow up: Private Physician; When: 2 - 3 days; Reason: Recheck today's complaints, Continuance of care, Re-evaluation by your physician. kb
[2021-04-06] MEDS ORDERED: KETOROLAC 30 MG/ML INJ ONE (23:00)
[2021-04-07 03:16] VITALS: TEMP 97.5
[2021-04-07 03:18] VITALS: BP 136/87; O2SAT 97
--- NOTE | 2021-04-07 08:02 | RAD REPORT ---
EXAM DESCRIPTION: RAD - Elbow Right 3 View - 04/06/2021 10:03 pm CLINICAL HISTORY: Elbow FINDINGS: No fracture or dislocation is seen. A small spur extends off of the olecranon
== END 2021-04-06 22:53 | disposition home or self-care (01) ==
LOC: ER 21:14
DX: M25.521 Pain in right elbow (principal); F17.290 Nicotine dependence, other tobacco product, uncomplicated; I10 Essential (primary) hypertension; G89.29 Other chronic pain
CPT/HCPCS: 96372; 99284

== ENCOUNTER 2021-05-30 15:54 | Emergency (ER) | payer OTHER ==
--- NOTE | 2021-05-30 17:04 | ER ---
Nurse's Notes [facility] Name: Paradise Colon Age: 41 yrs Sex: Female : 1980 Arrival Date: 05/30/2021 Time: 15:56 Bed Waiting Private MD: Diagnosis: Rash and other nonspecific skin eruption Presentation: 05/30 16:19 Chief complaint: Patient states: Itchy rash to soy arms, back of neck and groin, ph believes it to be from poison [place]. Coronavirus screen: Client denies travel out of the [place] in the last 14 days. Ebola Screen: No symptoms or risks identified at this time. Onset: The symptoms/episode began/occurred suddenly. Anaphylaxis evaluation, no signs or symptoms of anaphylaxis were noted. Initial Sepsis Screen: Does the patient meet any 2 criteria? No. Patient's initial sepsis screen is negative. Does the patient have a suspected source of infection? No. Patient's initial sepsis screen is negative. Risk Assessment: Do you want to hurt yourself or someone else? Patient reports no desire to harm self or others. Onset of symptoms was May 30, 2021. 16:19 Method Of Arrival: Ambulatory ph 16:19 Acuity: TANA 4 ph Historical: - Allergies: 16:21 No Known Allergies; ph - Home Meds: 16:21 Lisinopril Oral [Active]; ph - PMHx: 16:21 Chronic pain; Hypertension; Vertigo; ph - Immunization history:: Client reports receiving the 2nd dose of the Covid vaccine. - Social history:: Smoking status: Reported history of juuling and/or vaping. Screenin:19 Abuse screen: Denies threats or abuse. Denies injuries from another. Nutritional ph screening: No deficits noted. Tuberculosis screening: No symptoms or risk factors identified. Fall Risk None identified. Assessment: 16:54 General: Appears in no apparent distress. comfortable, Behavior is calm, cooperative, ph appropriate for age. Pain: Denies pain. Neuro: Level of Consciousness is awake, alert, obeys commands, Oriented to person, place, time, situation. Cardiovascular: Capillary refill < 3 seconds in bilateral Patient's skin is warm and dry. Respiratory: Airway is patent Respiratory effort is even, unlabored, Respiratory pattern is regular, symmetrical, Denies shortness of breath. Derm: Skin is intact, is healthy with good turgor, Skin is pink, warm \T\ dry. Rash noted that is itchy, red, raised, on pelvis, right arm, left arm, right posterior aspect of neck and left posterior aspect of neck. Musculoskeletal: Circulation, motion, and sensation intact. Range of motion: intact in all extremities. Vital Signs: 16:19 BP 137 / 89; Pulse 98; Resp 18; Temp 98.6; Pulse Ox 100% on R/A; ph ED Course: 15:56 Patient arrived in ED. wm 16:21 Triage completed. ph 16:21 Arm band placed on Patient placed in waiting room, Patient notified of wait time. ph 16:47 Elder Becerra PA is PHCP. [facility] 16:47 Earl Colon MD is Attending Physician. [facility] 17:19 Yenifer Kaplan, RN is Primary Nurse. ph 17:19 No provider procedures requiring assistance completed. Patient did not have IV access ph during this emergency room visit. 17:20 Patient has correct armband on for positive identification. ph Administered Medications: No medications were administered Outcome: 17:03 Discharge ordered by . [facility] 17:19 Discharged to home ambulatory, with significant other. ph 17:19 Condition: good 17:19 Discharge instructions given to patient, Instructed on discharge instructions, follow up and referral plans. medication usage, Demonstrated understanding of instructions, follow-up care, medications, Prescriptions given X 2. 17:20 Patient left the ED. ph Signatures: Elder Becerra PA PA jmm Hall, Patricia, ALBA RN Abigail Noe
--- NOTE | 2021-05-30 17:04 | EDPHYS ---
Physician Documentation [facility] Name: Paradise Colon Age: 41 yrs Sex: Female : 1980 Arrival Date: 05/30/2021 Time: 15:56 Bed Waiting Private MD: Earl Vann HPI: 05/30 16:59 This 41 yrs old Female presents to ER via Ambulatory with complaints of jmm Allergic Reaction - POISON OAK. 16:59 The patient presents with itching, rash. Onset: The symptoms/episode began/occurred jmm gradually, 2 day(s) ago. Associated signs and symptoms: Pertinent positives: rash, Pertinent negatives: Altered mental status chest pain, dysphagia, fever, headache, hives, Light headed shortness of breath, vomiting. Possible causes: poison oak. The patient has not experienced similar symptoms in the past. Historical: - Allergies: 16:21 No Known Allergies; ph - Home Meds: 16:21 Lisinopril Oral [Active]; ph - PMHx: 16:21 Chronic pain; Hypertension; Vertigo; ph - Immunization history:: Client reports receiving the 2nd dose of the Covid vaccine. - Social history:: Smoking status: Reported history of juuling and/or vaping. ROS: 16:59 Constitutional: Negative for fever, chills, and weight loss, Cardiovascular: Negative jmm for chest pain, palpitations, and edema, Respiratory: Negative for shortness of breath, cough, wheezing, and pleuritic chest pain. 16:59 Skin: Positive for rash. 16:59 All other systems are negative. Exam: 16:59 Constitutional: This is a well developed, well nourished patient who is awake, alert, jmm and in no acute distress. Head/Face: atraumatic. Eyes: EOMI, no conjunctival erythema appreciated ENT: Moist Mucus Membranes Neck: Trachea midline, Supple Chest/axilla: Normal chest wall appearance and motion. Cardiovascular: Regular rate and rhythm. No edema appreciated Respiratory: Normal respirations, no respiratory distress appreciated Abdomen/GI: Non distended, soft Back: Normal ROM 16:59 Skin: contact dermatitis, on the chest, right arm and left arm. 16:59 Neuro: Orientation: is normal, Mentation: is normal, Memory: is normal. 16:59 Psych: Behavior/mood is pleasant, cooperative. Vital Signs: 16:19 BP 137 / 89; Pulse 98; Resp 18; Temp 98.6; Pulse Ox 100% on R/A; ph MDM: 16:59 Patient medically screened. [facility] 17:01 Data reviewed: vital signs, nurses notes. Counseling: I had a detailed discussion with [facility] the patient and/or guardian regarding: the historical points, exam findings, and any diagnostic results supporting the discharge/admit diagnosis, the need for outpatient follow up, to return to the emergency department if symptoms worsen or persist or if there are any questions or concerns that arise at home. ED course: Patient is alert and non toxic in appearance in the ED. No signs of resp distress. Patient is advised to follow up with pcp and otherwise given strict return precautions. Patient understood and agrees with the plan of care. . Administered Medications: No medications were administered Disposition: 05/31 07:32 Co-signature as Attending Physician, Earl Colon MD I agree with the assessment and marleny plan of care. Disposition Summary: 05/30/21 17:03 Discharge Ordered Location: Home [facility] Condition: Stable [facility] Diagnosis - Rash and other nonspecific skin eruption [facility] Followup: [facility] - With: Private Physician - When: 2 - 3 days - Reason: Recheck today's complaints, Continuance of care, Re-evaluation by your physician Discharge Instructions: - Rash, Adult [facility] - Discharge Summary Sheet ph Forms: - Medication Reconciliation Form [facility] - Thank You Letter [facility] - Work release form ph - Antibiotic Education [facility] - Prescription Opioid Use [facility] Prescriptions: - Hydroxyzine HCl 25 mg Oral Tablet - take 1 tablet by ORAL route every 6 hours As needed; 30 tablet; Refills: 0, [facility] Product Selection Permitted - Prednisone 20 mg Oral Tablet - take 1 tablet by ORAL route once daily for 12 days 3 tabs by mouth daily for 3 jmm days then 2 tabs by mouth daily for 3 days then 1 tab by mouth daily for 3 days, then 1/2 tab by mouth daily for 3 days.; 20 tablet; Refills: 0, Product Selection Permitted Signatures: Earl Colon MD MD cha Mickail, Joel, PA PA [facility] Yenifer Kaplan, RN RN
[2021-05-30 17:26] VITALS: BP 137/89; TEMP 98.6; O2SAT 100
== END 2021-05-30 17:20 | disposition home or self-care (01) ==
LOC: ER 15:54
DX: R21 Rash and other nonspecific skin eruption (principal); I10 Essential (primary) hypertension
CPT/HCPCS: 99282

== ENCOUNTER 2021-06-29 12:40 | Emergency (ER) | payer OTHER ==
--- NOTE | 2021-06-29 14:22 | RAD REPORT ---
EXAM DESCRIPTION: RAD - Ankle Right 3 View - 06/29/2021 2:04 pm CLINICAL HISTORY: Pain;Swelling COMPARISON: Ankle Right 2 View dated 05/07/2020 FINDINGS: No fracture or malalignment of the right ankle. Calcaneal spur. IMPRESSION: No right ankle fracture.
--- NOTE | 2021-06-29 14:34 | ER ---
Nurse's Notes [facility] Name: Paradise Colon Age: 41 yrs Sex: Female : 1980 Arrival Date: 06/29/2021 Time: 12:40 Bed DIS7 Private MD: Diagnosis: Pain in ankle and joints of foot Presentation: 06/29 13:25 Chief complaint: Patient states: last night after work she could barely walk on it, she iw was limping, does not know what she did to it, walks a lot at work, was also swollen last night. Coronavirus screen: At this time, the client does not indicate any symptoms associated with coronavirus-19. Ebola Screen: Patient negative for fever greater than or equal to 101.5 degrees Fahrenheit, and additional compatible Ebola Virus Disease symptoms Patient denies exposure to infectious person. Patient denies travel to an Ebola-affected area in the 21 days before illness onset. No symptoms or risks identified at this time. Initial Sepsis Screen: Does the patient meet any 2 criteria? No. Patient's initial sepsis screen is negative. Does the patient have a suspected source of infection? No. Patient's initial sepsis screen is negative. Risk Assessment: Do you want to hurt yourself or someone else? Patient reports no desire to harm self or others. Onset of symptoms was June 28, 2021. 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 - Social history:: Smoking status: Reported history of juuling and/or vaping. Screenin:31 Abuse screen: Denies threats or abuse. Denies injuries from another. Nutritional sv screening: No deficits noted. Tuberculosis screening: No symptoms or risk factors identified. Fall Risk None identified. Assessment: 14:28 General: Appears in no apparent distress. comfortable, obese, well groomed, well sv developed, Behavior is calm, cooperative, appropriate for age. Pain: Complains of pain in right ankle Pain currently is 9 out of 10 on a pain scale. Neuro: Level of Consciousness is awake, alert, obeys commands, Oriented to person, place, time, situation, Moves all extremities. Full function. Respiratory: Respiratory effort is even, unlabored, Respiratory pattern is regular, symmetrical. Musculoskeletal: Range of motion: intact in all extremities. Vital Signs: 13:25 BP 147 / 99; Pulse 88; Resp 16; Temp 97.6; Pulse Ox 98% on R/A; Weight 108.86 kg; iw Height 5 ft. 3 in. (160.02 cm); Pain 9/10; 13:25 Body Mass Index 42.51 (108.86 kg, 160.02 cm) iw ED Course: 12:40 Patient arrived in ED. mr 13:27 Triage completed. iw 13:59 Elder Becerra PA is PHCP. [facility] 13:59 Uri Jay MD is Attending Physician. [facility] 14:04 Ankle Right 3 View XRAY In Process Unspecified. EDMS 14:13 Yani Virgen, RN is Primary Nurse. sv 14:31 Patient has correct armband on for positive identification. sv 14:31 No provider procedures requiring assistance completed. Patient did not have IV access sv during this emergency room visit. Paul wrap to right ankle. 14:33 Bony Moreno DPM is Referral Physician. [facility] Administered Medications: 14:28 Drug: Ketorolac 30 mg Route: IM; Site: left deltoid; sv 14:41 Follow up: Response: No adverse reaction sv Outcome: 14:34 Discharge ordered by MD. [facility] 14:42 Discharged to home via wheelchair. sv 14:42 Condition: stable 14:42 Discharge instructions given to patient, Instructed on discharge instructions, follow up and referral plans. medication usage, paul wrap Demonstrated understanding of instructions, follow-up care, medications, paul wrap Prescriptions given X 2. 14:42 Patient left the ED. sv Signatures: Dispatcher [employer] EDMS Yani Virgen, ALBA WILLIS Elder Becerra PA PA jmm Rivera, Mary Kiki Armas RN RN
--- NOTE | 2021-06-29 14:34 | EDPHYS ---
Physician Documentation [facility] Name: Paradise Colon Age: 41 yrs Sex: Female : 1980 Arrival Date: 06/29/2021 Time: 12:40 Bed DIS7 Private MD: ED Physician Uri Jay HPI: 06/29 14:29 This 41 yrs old Female presents to ER via Wheelchair with complaints of Ankle jmm Injury. 14:29 The patient presents with pain. Onset: The symptoms/episode began/occurred gradually, 1 jmm day(s) ago. Associated signs and symptoms: Pertinent positives: swelling, Pertinent negatives: calf tenderness, fever, numbness, rash, vomiting, warmth, weakness. This is a 41-year-old female with history of chronic pain, hypertension that presents emerged part with complaints of right ankle pain. Symptoms began last night. Patient states that her ankle swells significant amount, denies known injury. Patient states her swelling has decreased after elevation last night. Patient states she does have a remote injury of ankle injury.. 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 - Social history:: Smoking status: Reported history of juuling and/or vaping. ROS: 14:29 Constitutional: Negative for fever, chills, and weight loss, Cardiovascular: Negative jmm for chest pain, palpitations, and edema, Respiratory: Negative for shortness of breath, cough, wheezing, and pleuritic chest pain. 14:29 MS/extremity: Positive for injury or acute deformity. 14:29 All other systems are negative. Exam: 14:29 Constitutional: This is a well developed, well nourished patient who is awake, alert, jmm and in no acute distress. Head/Face: atraumatic. Eyes: EOMI, no conjunctival erythema appreciated ENT: Moist Mucus Membranes Neck: Trachea midline, Supple Chest/axilla: Normal chest wall appearance and motion. Cardiovascular: Regular rate and rhythm. No edema appreciated Respiratory: Normal respirations, no respiratory distress appreciated Abdomen/GI: Non distended, soft Back: Normal ROM Skin: General appearance color normal 14:29 Musculoskeletal/extremity: ROM: intact in all extremities, No swelling is appreciated to the right ankle, mild anterior lateral tenderness on palpation, full dorsalis pedis appreciated, compartments are soft, neurovascular intact. 14:29 Skin: Appearance: Color: normal in color. 14:29 Neuro: Orientation: is normal, Mentation: is normal, Memory: is normal. 14:29 Psych: Behavior/mood is pleasant, cooperative. Vital Signs: 13:25 BP 147 / 99; Pulse 88; Resp 16; Temp 97.6; Pulse Ox 98% on R/A; Weight 108.86 kg; iw Height 5 ft. 3 in. (160.02 cm); Pain 9/10; 13:25 Body Mass Index 42.51 (108.86 kg, 160.02 cm) iw MDM: 14:24 Patient medically screened. [facility] 14:32 Data reviewed: vital signs, nurses notes. Counseling: I had a detailed discussion with [facility] the patient and/or guardian regarding: the historical points, exam findings, and any diagnostic results supporting the discharge/admit diagnosis, radiology results, the need for outpatient follow up, to return to the emergency department if symptoms worsen or persist or if there are any questions or concerns that arise at home. ED course: X-rays, I do not suspect DVT. I do not suspect cellulitis at this time. Patient is advised to follow-up with orthopedics or podiatry for further evaluation and otherwise given strict return precautions for fever, increased pain, increased swelling, etc. Patient understood and agrees with plan of care.. 06/29 13:28 Order name: Ankle Right 3 View XRAY; Complete Time: 14:24 iw 06/29 14:24 Order name: Paul wrap-joint; Complete Time: 14:31 [facility] Administered Medications: 14:28 Drug: Ketorolac 30 mg Route: IM; Site: left deltoid; sv 14:41 Follow up: Response: No adverse reaction sv Disposition: 14:58 Co-signature as Attending Physician, Uri Jay MD. rn Disposition Summary: 06/29/21 14:34 Discharge Ordered Location: Home [facility] Condition: Stable [facility] Diagnosis - Pain in ankle and joints of foot [facility] Followup: [facility] - With: Bony Moreno DPM - When: 2 - 3 days - Reason: Recheck today's complaints, Continuance of care, Re-evaluation by your physician Discharge Instructions: - Discharge Summary Sheet maggi - Ankle Pain shankar Forms: - Medication Reconciliation Form shankar - Thank You Letter maggi - Antibiotic Education maggi - Prescription Opioid Use [facility] Prescriptions: - Ibuprofen 800 mg Oral Tablet - take 1 tablet by ORAL route every 8 hours As needed take with food; 30 tablet; [facility] Refills: 0, Product Selection Permitted - orphenadrine citrate 100 mg Oral Tablet Sustained Release - take 1 tablet by ORAL route 2 times per day As needed; 20 tablet; Refills: 0, [facility] Product Selection Permitted Signatures: Dispatcher [employer] Yani Lee RN RN sv Mickail, Joel, PA PA jmm Williams, Irene, ALBA RN Uri Armstrong MD MD rn
[2021-06-29] MEDS ORDERED: KETOROLAC 30 MG/ML INJ ONE (14:48)
[2021-06-29 14:49] VITALS: BP 147/99; TEMP 97.6; O2SAT 98
== END 2021-06-29 14:42 | disposition home or self-care (01) ==
LOC: ER 12:40
DX: M25.571 Pain in right ankle and joints of right foot (principal); I10 Essential (primary) hypertension
CPT/HCPCS: 96372; 99284

== ENCOUNTER 2021-08-30 14:50 | Emergency (ER) | payer OTHER, SELFPAY ==
[2021-08-30] MEDS ORDERED: ONDANSETRON 4 MG/2 ML VIAL ONE (16:28)
[2021-08-30] MEDS ORDERED: MORPHINE 4 MG/ML SYR ONE ×2 (16:28→21:20)
--- NOTE | 2021-08-30 16:39 | RAD REPORT ---
EXAM DESCRIPTION: RAD - Chest Single View - 08/30/2021 4:20 pm CLINICAL HISTORY: left upper back pain Chest pain. COMPARISON: Chest Single View dated 11/29/2020; Chest Single View dated 02/13/2019; Chest Pa And Lat (2 Views) dated 04/10/2018; Chest Pa And Lat (2 Views) dated 02/23/2017 FINDINGS: Portable technique limits examination quality. The lungs are grossly clear. The heart is normal in size. No displaced fractures.Mild arthritic estrada es involve the left shoulder. IMPRESSION: No acute intrathoracic process suspected.
[2021-08-30 16:40] LABS: Absolute Lymphocytes (CBC) 2.4 K/uL (0.7-4.9); Basophils % 1.2 % (0-1.3); Hematocrit 42.8 % (36.0-45.0); Lymphocytes % 30.9 % (15.3-44.8); MPV 9.1 fL (7.6-11.3); RBC Red Blood Cell Count 4.91 M/uL (3.86-4.86)
--- NOTE | 2021-08-30 16:40 | RAD REPORT ---
EXAM DESCRIPTION: RAD - Shoulder Left 2 View - 08/30/2021 4:20 pm CLINICAL HISTORY: PAIN COMPARISON: No comparisons FINDINGS: [id number] osteoarthritis of the left shoulder is present. No acute fracture or disl ocation is seen.
[2021-08-30 16:43] LABS: Protime INR 0.98
[2021-08-30 16:53] LABS: ALT/SGPT 44 U/L (12-78); AST/SGOT 39 U/L (15-37); Alkaline Phosphatase 64 U/L (45-117); BUN Blood Urea Nitrogen 21 mg/dL (7-18); Bicarbonate 25 mmol/L (21-32); Bilirubin Direct 0.2 mg/dL (0-0.2); Bilirubin Total 0.8 mg/dL (0.2-1.0); Glucose Level 125 mg/dL (74-106); Lipase 43 U/L (73-393); NT PRO-BNP 21 pg/mL (<125); Potassium 4.3 mmol/L (3.5-5.1); Sodium Level 140 mmol/L (136-145); Troponin (Emerg Dept Use Only) < 0.02 ng/mL (0.0-0.045)
--- NOTE | 2021-08-30 18:03 | RAD REPORT ---
EXAM DESCRIPTION: US - Abdomen Exam Limited - 08/30/2021 5:53 pm CLINICAL HISTORY: upper bck pain, elevated liver enzymes Abdominal pain COMPARISON: Chest Single View dated 08/30/2021; Abdomen Exam Limited dated 02/13/2019 FINDINGS: The gallbladder demonstrates no gallstones. No pericholecystic fluid or gallbladder wall t hickening. The common bile duct is normal measuring 4 mm. The liver demonstrates no findings of intrahepatic biliary dilatation. IMPRESSION: Unremarkable examination.
[2021-08-30] MEDS ORDERED: KETOROLAC 30 MG/ML INJ ONE (18:07)
[2021-08-30] MEDS ORDERED: NA CHLORIDE 0.9% 500 ML ONE (18:07)
--- NOTE | 2021-08-30 20:47 | ER ---
Nurse's Notes [facility] Name: Paradise Colon Age: 41 yrs Sex: Female : 1980 Arrival Date: 08/30/2021 Time: 14:51 Bed 10 [facility] MD: Diagnosis: Dorsalgia, unspecified Presentation: 08/30 14:54 Chief complaint: Patient states: Left posterior shoulder pain awoke today in sever ll1 pain, no known trauma or specific injury. PMS inact. Coronavirus screen: Vaccine status: Patient reports receiving the 2nd dose of the covid vaccine. Client denies travel out of the [place] in the last 14 days. At this time, the client does not indicate any symptoms associated with coronavirus-19. Ebola Screen: Patient denies travel to an Ebola-affected area in the 21 days before illness onset. Initial Sepsis Screen: Does the patient meet any 2 criteria? HR > 90 bpm. No. Patient's initial sepsis screen is negative. Does the patient have a suspected source of infection? Yes: Bone or joint infection. Risk Assessment: Do you want to hurt yourself or someone else? Patient reports no desire to harm self or others. Onset of symptoms was August 30, 2021. 14:54 Method Of Arrival: Ambulatory ll1 14:54 Acuity: TANA 3 ll1 Historical: - Allergies: 14:56 No Known Allergies; ll1 - PMHx: 14:56 Hypertension; Vertigo; Chronic pain; ll1 - PSHx: 14:56 None; ll1 - Immunization history:: Client reports receiving the 2nd dose of the Covid vaccine. - Social history:: Smoking status: Reported history of juuling and/or vaping. Screenin:29 Abuse screen: Denies threats or abuse. Nutritional screening: No deficits noted. vg1 Tuberculosis screening: No symptoms or risk factors identified. Fall Risk No fall in past 12 months (0 pts). No secondary diagnosis (0 pts). IV access (20 points). Ambulatory Aid- None/Bed Rest/Nurse Assist (0 pts). Gait- Normal/Bed Rest/Wheelchair (0 pts) Mental Status- Oriented to own ability (0 pts). Total Munoz Fall Scale indicates No Risk (0-24 pts). Assessment: 16:24 General: Appears in no apparent distress. uncomfortable, Behavior is cooperative, vg1 crying. Pain: Complains of pain in Left shoulder Pain currently is 10 out of 10 on a pain scale. Pain began this morning Noted to be crying, grimacing, guarding, moaning. Neuro: Level of Consciousness is awake, alert, obeys commands, Oriented to person, place, time, situation. Cardiovascular: Denies chest pain, Patient's skin is warm and dry. Respiratory: Airway is patent Respiratory effort is even, unlabored. GI: No signs and/or symptoms were reported involving the gastrointestinal system. Abdomen is round obese. : No signs and/or symptoms were reported regarding the genitourinary system. EENT: No signs and/or symptoms were reported regarding the EENT system. Derm: Skin is intact, is healthy with good turgor. Musculoskeletal: Circulation, motion, and sensation intact. Range of motion: limited in left shoulder. 17:47 Reassessment: Patient appears in no apparent distress at this time. No changes from vg1 previously documented assessment. Patient and/or family updated on plan of care and expected duration. Pain level reassessed. Patient is alert, oriented x 3, equal unlabored respirations, skin warm/dry/pink. Pt stated pain is back to 8/10. US at bedside. 19:38 Reassessment: Patient appears in no apparent distress at this time. Patient and/or vg1 family updated on plan of care and expected duration. Pain level reassessed. Patient is alert, oriented x 3, equal unlabored respirations, skin warm/dry/pink. 20:52 Reassessment: Patient appears in no apparent distress at this time. Patient and/or vg1 family updated on plan of care and expected duration. Pain level reassessed. Patient is alert, oriented x 3, equal unlabored respirations, skin warm/dry/pink. Pt states pain level 6/10. Provider notified. 20:53 Reassessment: Received VO from Gail ROTH to administer Morphine 4 mg IVP x1. vg1 Vital Signs: 14:54 BP 170 / 137; Pulse 106; Resp 20; Temp 97.4; Pulse Ox 95% ; Weight 108.86 kg; Height 5 ll1 ft. 3 in. (160.02 cm); Pain 10/10; 16:29 BP 147 / 90; Pulse 88; Resp 20; Pulse Ox 97% ; vg1 18:23 BP 124 / 83; Pulse 80; Resp 16; Pulse Ox 100% ; vg1 19:42 BP 132 / 77; Pulse 89; Resp 20; Temp 98.1; Pulse Ox 96% ; Pain 5/10; wr 20:52 BP 129 / 83; Pulse 76; Resp 16; Pulse Ox 100% ; vg1 14:54 Body Mass Index 42.51 (108.86 kg, 160.02 cm) ll1 ED Course: 14:51 Patient arrived in ED. am2 14:56 Triage completed. ll1 14:57 Arm band placed on. ll1 15:40 Earl Reynolds PA is PHCP. cp 15:40 Uri Jay MD is Attending Physician. cp 15:52 Naa Bhakta, RN is Primary Nurse. vg1 16:19 EKG done, by ED staff, reviewed by Earl ROTH. dh3 16:20 Shoulder Left (2 View) XRAY In Process Unspecified. EDMS 16:20 XRAY Chest (1 view) In Process Unspecified. EDMS 16:23 COVID swab sent to lab. Inserted saline lock: 20 gauge in right antecubital area, using vg1 aseptic technique. Blood collected. 16:29 Patient has correct armband on for positive identification. Placed in gown. Bed in low vg1 position. Call light in reach. Side rails up X 1. 17:53 US Abdomen Limited: RUQ In Process Unspecified. EDMS 19:30 Troponin I: repeat \T\1900 Sent. wr 19:43 Naa Bhakta, RN is Primary Nurse. vg1 21:05 No provider procedures requiring assistance completed. IV discontinued, intact, vg1 bleeding controlled, No redness/swelling at site. Pressure dressing applied. Administered Medications: 16:17 Drug: Zofran (Ondansetron) 4 mg Route: IVP; Site: right antecubital; vg1 17:12 Follow up: Response: No adverse reaction vg1 16:18 Drug: morphine 4 mg Route: IVP; Site: right antecubital; vg1 17:12 Follow up: Response: No adverse reaction; Marked relief of symptoms vg1 17:43 Drug: NS 0.9% 500 ml Route: IV; Rate: bolus; Site: right antecubital; vg1 18:24 Follow up: IV Status: Completed infusion; IV Intake: 500ml vg1 17:46 Drug: Ketorolac 15 mg Route: IVP; Site: right antecubital; vg1 18:24 Follow up: Response: No adverse reaction; Pain is decreased vg1 21:00 Drug: Lidoderm Patch 5 % (700 mg/patch) 1 patches Route: Topical; Site: affected area; vg1 21:04 Follow up: Response: Medication administered at discharge. vg1 21:01 Drug: morphine 4 mg Route: IVP; Site: right antecubital; vg1 21:05 Follow up: Response: Medication administered at discharge. vg1 Intake: 18:24 IV: 500ml; Total: 500ml. vg1 Outcome: 20:47 Discharge ordered by MD. cp 21:05 Discharged to home ambulatory, with family. vg1 21:05 Condition: stable 21:05 Discharge instructions given to patient, Instructed on discharge instructions, follow up and referral plans. medication usage, Demonstrated understanding of instructions, follow-up care, medications, Prescriptions given X 3. 21:05 Patient left the ED. vg1 Signatures: Dispatcher [employer] EDMS Earl Reynolds PA PA cp Moreno, Amanda am2 Herrera, Deanna 3 Naa Bhakta RN RN vg1 Brianna Rebolledo RN RN ll1 Susie Hua
--- NOTE | 2021-08-30 20:47 | EDPHYS ---
Physician Documentation [facility] Name: Paradise Colon Age: 41 yrs Sex: Female : 1980 Arrival Date: 08/30/2021 Time: 14:51 Bed 10 Private MD: ED Physician Uri Jay HPI: 08/30 15:45 This 41 yrs old Female presents to ER via Ambulatory with complaints of cp Shoulder Pain - left, Arm Pain. 15:45 The patient or guardian complains of pain, that is acute. posterior aspect of left cp shoulder and left upper back. Context: resulted from an unknown reason, The patient reports no decreased range of motion. The patient reports no obvious deformity. 15:45 Onset: The symptoms/episode began/occurred suddenly, today, awoke patient from sleep. cp 15:45 Modifying factors: The symptoms are aggravated by movement, rotation of arm. Associated cp signs and symptoms: Pertinent negatives: chest pain, diaphoresis, neck pain, Numbness in left arm. Treatment prior to arrival includes: no previous treatment. Historical: - Allergies: 14:56 No Known Allergies; ll1 - PMHx: 14:56 Hypertension; Vertigo; Chronic pain; ll1 - PSHx: 14:56 None; ll1 - Immunization history:: Client reports receiving the 2nd dose of the Covid vaccine. - Social history:: Smoking status: Reported history of juuling and/or vaping. ROS: 15:50 Constitutional: Negative for body aches, chills, fever, poor PO intake. cp 15:50 Eyes: Negative for injury, pain, redness, and discharge. cp Exam: 15:55 Constitutional: The patient appears in no acute distress, alert, awake, cp non-diaphoretic, non-toxic, well developed, well nourished, obese, uncomfortable. 15:55 Head/Face: Normocephalic, atraumatic. cp 15:55 Eyes: Periorbital structures: appear normal, Conjunctiva: normal, no exudate, no injection, Sclera: no appreciated abnormality, Lids and lashes: appear normal, bilaterally. 15:55 ENT: External ear(s): are unremarkable, Nose: is normal, Mouth: Lips: moist, Oral mucosa: moist, Posterior pharynx: Airway: no evidence of obstruction, patent. 15:55 Neck: C-spine: vertebral tenderness, is not appreciated, crepitus, is not appreciated, ROM/movement: is normal, is supple, without pain, no range of motions limitations, no nuchal rigidity. 15:55 Chest/axilla: Inspection: normal, Palpation: is normal, no crepitus, no tenderness. 15:55 Cardiovascular: Rate: tachycardic, Rhythm: regular, Pulses: Pulses are 2+ in right radial artery and left radial artery. Edema: is not appreciated, JVD: is not appreciated. 15:55 Respiratory: the patient does not display signs of respiratory distress, Respirations: normal, no use of accessory muscles, no retractions, labored breathing, is not present, Breath sounds: are clear throughout, no decreased breath sounds, no stridor, no wheezing. 15:55 Abdomen/GI: Inspection: abdomen appears normal, Palpation: abdomen is soft and non-tender, in all quadrants. 15:55 Back: pain, that is severe, of the left scapular area and left subscapular area, vertebral tenderness, is not appreciated, muscle spasm, is not present. 15:55 Skin: no rash present. 15:55 Neuro: Orientation: to person, place \T\ time. Mentation: is normal, Cerebellar function: is grossly normal, Motor: moves all fours, strength is normal, Sensation: is normal. 16:22 ECG was reviewed by the Attending Physician. cp Vital Signs: 14:54 BP 170 / 137; Pulse 106; Resp 20; Temp 97.4; Pulse Ox 95% ; Weight 108.86 kg; Height 5 ll1 ft. 3 in. (160.02 cm); Pain 10/10; 16:29 BP 147 / 90; Pulse 88; Resp 20; Pulse Ox 97% ; vg1 18:23 BP 124 / 83; Pulse 80; Resp 16; Pulse Ox 100% ; vg1 19:42 BP 132 / 77; Pulse 89; Resp 20; Temp 98.1; Pulse Ox 96% ; Pain 5/10; wr 20:52 BP 129 / 83; Pulse 76; Resp 16; Pulse Ox 100% ; vg1 14:54 Body Mass Index 42.51 (108.86 kg, 160.02 cm) ll1 MDM: 15:42 Patient medically screened. cp 16:00 Differential diagnosis: musculoskeletal pain, cholecystitis, acute MN, pneumothorax, cp pulmonary embolism. 20:45 Data reviewed: vital signs, nurses notes, lab test result(s), EKG, radiologic studies, cp plain films, ultrasound. 20:45 Test interpretation: by ED physician or midlevel provider: ECG, plain radiologic cp studies. Counseling: I had a detailed discussion with the patient and/or guardian regarding: the historical points, exam findings, and any diagnostic results supporting the discharge/admit diagnosis, lab results, radiology results, the need for outpatient follow up, a family practitioner, to return to the emergency department if symptoms worsen or persist or if there are any questions or concerns that arise at home. Response to treatment: the patient's symptoms have markedly improved after treatment. 20:47 ED course: VSS. Pain markedly improved with meds. Labs, EKG and radiology studies cp reviewed. Will treat fo musculoskeletal pain and discharge to home for continued monitoring. 08/30 15:53 Order name: Basic Metabolic Panel; Complete Time: 17:25 cp 08/30 17:25 Interpretation: Normal except: GLUC 125; BUN 21; GFR 89. cp 08/30 15:53 Order name: CBC with Diff; Complete Time: 17:25 cp 08/30 17:25 Interpretation: Normal except: RBC 4.91; EOSINOPHIL % 5.6. cp 08/30 15:53 Order name: LFT's; Complete Time: 17:25 cp 08/30 15:53 Order name: Magnesium; Complete Time: 17:25 cp 08/30 15:53 Order name: NT PRO-BNP; Complete Time: 17:25 cp 08/30 15:53 Order name: PT-INR; Complete Time: 17:25 cp 08/30 14:57 Order name: Shoulder Left (2 View) XRAY; Complete Time: 17:25 ll1 08/30 15:53 Order name: Troponin (emerg Dept Use Only); Complete Time: 17:25 cp 08/30 15:53 Order name: D-Dimer; Complete Time: 17:25 cp 08/30 15:53 Order name: Lipase; Complete Time: 17:25 cp 08/30 18:17 Order name: SARS-COV-2 RT PCR EDMS 08/30 18:47 Order name: Troponin I: repeat \T\1900 cp 08/30 18:48 Order name: Troponin I EDMS 08/30 15:53 Order name: XRAY Chest (1 view); Complete Time: 17:25 cp 08/30 15:53 Order name: EKG; Complete Time: 15:54 cp 08/30 15:53 Order name: Cardiac monitoring; Complete Time: 16:23 cp 08/30 15:53 Order name: EKG - Nurse/Tech; Complete Time: 16:19 cp 08/30 15:53 Order name: IV Saline Lock; Complete Time: 16:23 cp 08/30 15:53 Order name: Labs collected and sent; Complete Time: 16:23 cp 08/30 15:53 Order name: O2 Per Protocol; Complete Time: 16:01 cp 08/30 15:53 Order name: O2 Sat Monitoring; Complete Time: 16:01 cp 08/30 17:27 Order name: US Abdomen Limited: RUQ; Complete Time: 18:08 cp 08/30 18:08 Interpretation: Report reviewed. 08/30 17:27 Order name: NPO; Complete Time: 17:41 cp EC:22 Rate is 87 beats/min. Rhythm is regular. WI interval is normal. QRS interval is normal. cp QT interval is normal. T waves are Inverted in lead aVR. Interpreted by me. Reviewed by me. Administered Medications: 16:17 Drug: Zofran (Ondansetron) 4 mg Route: IVP; Site: right antecubital; vg1 17:12 Follow up: Response: No adverse reaction vg1 16:18 Drug: morphine 4 mg Route: IVP; Site: right antecubital; vg1 17:12 Follow up: Response: No adverse reaction; Marked relief of symptoms vg1 17:43 Drug: NS 0.9% 500 ml Route: IV; Rate: bolus; Site: right antecubital; vg1 18:24 Follow up: IV Status: Completed infusion; IV Intake: 500ml vg1 17:46 Drug: Ketorolac 15 mg Route: IVP; Site: right antecubital; vg1 18:24 Follow up: Response: No adverse reaction; Pain is decreased vg1 21:00 Drug: Lidoderm Patch 5 % (700 mg/patch) 1 patches Route: Topical; Site: affected area; vg1 21:04 Follow up: Response: Medication administered at discharge. vg1 21:01 Drug: morphine 4 mg Route: IVP; Site: right antecubital; vg1 21:05 Follow up: Response: Medication administered at discharge. vg1 Disposition Summary: 08/30/21 20:47 Discharge Ordered Location: Home cp Problem: new cp Symptoms: have improved cp Condition: Stable cp Diagnosis - Dorsalgia, unspecified cp Followup: cp - With: Private Physician - When: 2 - 3 days - Reason: Recheck today's complaints Discharge Instructions: - Discharge Summary Sheet cp - Acute Back Pain, Adult cp Forms: - Medication Reconciliation Form cp - Thank You Letter cp - Antibiotic Education cp - Prescription Opioid Use cp - Work release form vg1 Prescriptions: - Lidoderm 5 % Topical adhesive patch,medicated - apply 1 patch by TOPICAL route once daily; 1 box; Refills: 0, Product Selection cp Permitted - Cyclobenzaprine 10 mg Oral Tablet - take 1 tablet by ORAL route every 8 hours As needed; 20 tablet; Refills: 0, cp Product Selection Permitted - Diclofenac Sodium 75 mg Oral Tablet Sustained Release - take 1 tablet by ORAL route 2 times per day; 30 tablet; Refills: 0, Product cp Selection Permitted Addendum: 09/02/2021 07:01 Co-signature as Attending Physician, Uri Jay MD I agree with the assessment and r n plan of care. Attestation: The patient's history, exam findings, diagnostics, and a summary of any interventions or procedures was reviewed in detail with Earl ROTH. Signatures: Dispatcher [employer] EDUri Cat MD MD rn Page, Corey, PA PA cp Garcia, Victoria, RN RN vg1 Brianna Rebolledo RN RN ll1 Corrections: (The following items were deleted from the chart) 08/30 17:12 15:53 CORONAVIRUS+MR.LAB.BRZ ordered. EDRI EDMS
[2021-08-30] MEDS ORDERED: LIDOCAINE 4% PATCH ONE (21:20)
[2021-08-30 21:23] VITALS: TEMP 98.1
[2021-08-30 21:24] VITALS: BP 129/83; O2SAT 100
== END 2021-08-30 21:05 | disposition home or self-care (01) ==
LOC: ER 14:50
DX: M54.9 Dorsalgia, unspecified (principal); Z20.822 Contact with and (suspected) exposure to COVID-19
CPT/HCPCS: 36415; 71045; 76705; 80048; 80076; 83690; 83735; 83880; 84484; 85025; 85379; 85610; 96361; 96374; 96375; 99284; J2405; J7040; U0003

== ENCOUNTER 2021-09-08 12:47 | Emergency (ER) | payer SELFPAY ==
[2021-09-08] MEDS ORDERED: CYCLOBENZAPRINE 10 MG TAB ONE (14:32)
[2021-09-08] MEDS ORDERED: KETOROLAC 30 MG/ML INJ ONE (14:33)
[2021-09-08 14:52] LABS: Absolute Lymphocytes (CBC) 2.3 K/uL (0.7-4.9); Basophils % 0.8 % (0-1.3); Hematocrit 37.2 % (36.0-45.0); Lymphocytes % 22.5 % (15.3-44.8); MPV 8.6 fL (7.6-11.3); RBC Red Blood Cell Count 4.22 M/uL (3.86-4.86)
[2021-09-08 14:55] LABS: Protime INR 0.97
[2021-09-08 15:11] LABS: ALT/SGPT 26 U/L (12-78); AST/SGOT 19 U/L (15-37); Albumin 3.2 g/dL (3.4-5.0); Alkaline Phosphatase 60 U/L (45-117); BUN Blood Urea Nitrogen 16 mg/dL (7-18); Bicarbonate 27 mmol/L (21-32); Bilirubin Direct < 0.1 mg/dL (0-0.2); Bilirubin Total 0.4 mg/dL (0.2-1.0); Glucose Level 105 mg/dL (74-106); Magnesium 1.9 mg/dL (1.8-2.4); NT PRO-BNP 223 pg/mL (<125); Potassium 4.4 mmol/L (3.5-5.1); Protein, Total 6.9 g/dL (6.4-8.2); Sodium Level 139 mmol/L (136-145); Troponin (Emerg Dept Use Only) < 0.02 ng/mL (0.0-0.045)
--- NOTE | 2021-09-08 15:35 | RAD REPORT ---
EXAM DESCRIPTION: RAD - Chest Single View - 09/08/2021 3:12 pm CLINICAL HISTORY: CHEST PAIN COMPARISON: August 30 TECHNIQUE: AP portable chest image was obtained 09/08/2021 3:12 pm . FINDINGS: Lung volumes are low. No acute or new lung parenchymal process. Heart and vasculature are normal. No measurable pleural effusion and no pneumothorax. No acute bony abnormality seen. No acute aortic findings suspected. IMPRESSION: No acute cardiopulmonary process.
--- NOTE | 2021-09-08 15:53 | EDPHYS ---
Physician Documentation [facility] Name: Paradise Colon Age: 41 yrs Sex: Female : 1980 Arrival Date: 09/08/2021 Time: 12:49 Bed 28 Private MD: ED Physician Uri Jay HPI: 09/08 14:09 This 41 yrs old Female presents to ER via Ambulatory with complaints of pm1 Numbness Of Arm, Arm Pain, Shoulder Pain. 14:09 The patient or guardian complains of Left shoulder pain and numbness and tingling to pm1 left hand. The complaints affect the left hand and posterior aspect of left shoulder. Context: The problem was sustained at an unknown location, resulted from unknown cause, Patient woke up with symptoms about 1 week ago. Onset: The symptoms/episode began/occurred 1 week(s) ago. Treatment prior to arrival includes: no previous treatment. Modifying factors: The symptoms are alleviated by remaining still, the symptoms are aggravated by movement. Associated signs and symptoms: Pertinent negatives: decreased range of motion, deformity. Severity of symptoms: in the emergency department the symptoms are unchanged. The patient has been recently seen at the [facility] Emergency Department, last week, for similar complaints labs were performed, X-rays were performed. 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 - Social history:: Smoking status: Reported history of juuling and/or vaping. ROS: 14:09 Constitutional: Negative for fever, chills, and weight loss, Respiratory: Negative for pm1 shortness of breath, cough, wheezing, and pleuritic chest pain. 14:09 Abdomen/GI: Negative for abdominal pain, nausea, vomiting, diarrhea, and constipation. 14:09 MS/Extremity: Negative for injury and deformity, Skin: Negative for injury, rash, and discoloration. 14:09 Neck: Positive for tenderness, of the left trapezius. 14:09 Cardiovascular: Positive for chest pain, of the anterior aspect of left upper chest, Negative for edema, palpitations. 14:09 Neuro: Positive for numbness, tingling, of the left middle finger, left index finger and left thumb. 14:09 All other systems are negative. Exam: 14:09 Constitutional: This is a well developed, well nourished patient who is awake, alert, pm1 and in no acute distress. Head/Face: Normocephalic, atraumatic. 14:09 Skin: Warm, dry with normal turgor. Normal color with no rashes, no lesions, and no evidence of cellulitis. MS/ Extremity: Pulses equal, no cyanosis. Neurovascular intact. Full, normal range of motion. 14:09 Cardiovascular: Exam negative for acute changes, Rate: normal, Rhythm: regular, Pulses: no pulse deficits are appreciated, Heart sounds: normal, normal S1and S2. 14:09 Respiratory: Exam negative for acute changes, respiratory distress, shortness of breath, Breath sounds: are clear throughout. 14:09 Abdomen/GI: Inspection: obese Palpation: abdomen is soft and non-tender, in all quadrants. 14:09 Back: muscle spasm, is appreciated in the left trapezius. 14:09 Neuro: Exam negative for acute changes, Orientation: is normal, Mentation: is normal, Motor: is normal, moves all fours. Vital Signs: 13:05 BP 149 / 86; Pulse 87; Resp 18; Temp 97.5; Pulse Ox 97% ; Weight 108.86 kg; Height 5 vg1 ft. 3 in. (160.02 cm); Pain 6/10; 13:05 Body Mass Index 42.51 (108.86 kg, 160.02 cm) vg1 MDM: 13:39 Patient medically screened. pm1 15:29 Data reviewed: vital signs. Data interpreted: Pulse oximetry: on room air is 97 %. pm1 Interpretation: normal. 15:52 Counseling: I had a detailed discussion with the patient and/or guardian regarding: the pm1 historical points, exam findings, and any diagnostic results supporting the discharge/admit diagnosis, lab results, radiology results, the need for outpatient follow up, to return to the emergency department if symptoms worsen or persist or if there are any questions or concerns that arise at home. 16:56 ED course: With muscle spasm present to left trapezius and knot present left of pm1 cervical spine. Deep massage to area along with medications given in the ER relieved patient's pain and paresthesia significantly, recommended patient to use medications, heating pad, and massage from significant other for continued management of muscle spasm/strain to left trapezius. 09/08 13:57 Order name: Basic Metabolic Panel; Complete Time: 15:29 pm1 09/08 13:57 Order name: CBC with Diff; Complete Time: 15:29 pm1 09/08 13:57 Order name: LFT's; Complete Time: 15:29 pm1 09/08 13:57 Order name: Magnesium; Complete Time: 15:29 pm1 09/08 13:57 Order name: NT PRO-BNP; Complete Time: 15:29 pm1 09/08 13:57 Order name: PT-INR; Complete Time: 15:29 pm1 09/08 13:57 Order name: Troponin (emerg Dept Use Only); Complete Time: 15:29 pm1 09/08 13:57 Order name: XRAY Chest (1 view); Complete Time: 15:46 pm1 09/08 13:57 Order name: EKG; Complete Time: 13:58 pm1 09/08 13:57 Order name: Cardiac monitoring; Complete Time: 14:54 pm1 09/08 13:57 Order name: EKG - Nurse/Tech; Complete Time: 15:02 pm1 09/08 13:57 Order name: IV Saline Lock; Complete Time: 14:54 pm1 09/08 13:57 Order name: Labs collected and sent; Complete Time: 14:54 pm1 09/08 13:57 Order name: O2 Per Protocol; Complete Time: 14:41 pm1 09/08 13:57 Order name: O2 Sat Monitoring; Complete Time: 14:41 pm1 Administered Medications: 14:54 Drug: Ketorolac 30 mg Route: IVP; Site: right forearm; tr6 15:21 Follow up: Response: No adverse reaction; Pain is decreased tr6 14:54 Drug: Flexeril (cyclobenzaprine) 10 mg Route: PO; tr6 15:21 Follow up: Response: No adverse reaction; Pain is decreased tr6 Disposition Summary: 09/08/21 15:53 Discharge Ordered Location: Home pm1 Problem: new pm1 Symptoms: have improved pm1 Condition: Stable pm1 Diagnosis - Strain of muscle, fascia and tendon at neck level pm1 - Paresthesia of skin pm1 Followup: pm1 - With: Emergency Department - When: As needed - Reason: Worsening of condition Followup: pm1 - With: Private Physician - When: 2 - 3 days - Reason: Recheck today's complaints, Continuance of care, Re-evaluation by your physician Discharge Instructions: - Discharge Summary Sheet pm1 - Muscle Strain pm1 - Paresthesia pm1 Forms: - Medication Reconciliation Form pm1 - Thank You Letter pm1 - Antibiotic Education pm1 - Prescription Opioid Use pm1 - Work release form eb Prescriptions: - Cyclobenzaprine 10 mg Oral Tablet - take 1 tablet by ORAL route every 8 hours As needed; 30 tablet; Refills: 0, pm1 Product Selection Permitted - Medrol (Loy) 4 mg Oral Tablets, Dose Pack - take 1 tablet by ORAL route as directed - follow package instructions; 1 pm1 packet; Refills: 0, Product Selection Permitted Addendum: 09/12/2021 00:02 Co-signature as Attending Physician, Uri Jay MD I agree with the assessment and r n plan of care. Attestation: The patient's history, exam findings, diagnostics, and a summary of any interventions or procedures was reviewed in detail with Constantino Segal NP. Signatures: Dispatcher [employer] EDUri Cat MD MD rn Marinas, Patrick, NP MANAGER SALES SUPPORT pm1 Naa Bhakta RN RN vg1 Roya Acuña RN RN tr6
--- NOTE | 2021-09-08 15:53 | ER ---
Nurse's Notes [facility] Name: Paradise Colon Age: 41 yrs Sex: Female : 1980 Arrival Date: 09/08/2021 Time: 12:49 Bed 28 Private MD: Diagnosis: Strain of muscle, fascia and tendon at neck level;Paresthesia of skin Presentation: 09/08 13:05 Chief complaint: Patient states: States Left shoulder pain that radiates into Left vg1 hand. Stated was seen in ED about a week ago for same issue, and wants to be seen again bc now is having tingling and numbness in left hand. Coronavirus screen: Vaccine status: Patient reports receiving the 2nd dose of the covid vaccine. Ebola Screen: Patient negative for fever greater than or equal to 101.5 degrees Fahrenheit, and additional compatible Ebola Virus Disease symptoms. Initial Sepsis Screen: Does the patient meet any 2 criteria? No. Patient's initial sepsis screen is negative. Does the patient have a suspected source of infection? No. Patient's initial sepsis screen is negative. Risk Assessment: Do you want to hurt yourself or someone else? Patient reports no desire to harm self or others. Onset of symptoms was September 06, 2021. 13:05 Method Of Arrival: Ambulatory vg1 13:05 Acuity: TANA 3 vg1 Triage Assessment: 13:07 General: Appears in no apparent distress. uncomfortable, Behavior is calm, cooperative. vg1 Pain: Complains of pain in Left shoulder, left arm, left hand. 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 - Social history:: Smoking status: Reported history of juuling and/or vaping. Screenin:03 Abuse screen: Denies threats or abuse. Denies injuries from another. Nutritional tr6 screening: No deficits noted. Tuberculosis screening: No symptoms or risk factors identified. Fall Risk None identified. Assessment: 14:25 General: Appears in no apparent distress. obese, Behavior is calm, cooperative, tr6 appropriate for age. Pain: Complains of pain in left shoulder Pain radiates to left hand and left arm. Neuro: No deficits noted. Cardiovascular: No deficits noted. Respiratory: No deficits noted. GI: Abdomen is obese. : No deficits noted. EENT: No deficits noted. Derm: No deficits noted. Musculoskeletal: No deficits noted. Vital Signs: 13:05 BP 149 / 86; Pulse 87; Resp 18; Temp 97.5; Pulse Ox 97% ; Weight 108.86 kg; Height 5 vg1 ft. 3 in. (160.02 cm); Pain 6/10; 13:05 Body Mass Index 42.51 (108.86 kg, 160.02 cm) vg1 ED Course: 12:49 Patient arrived in ED. rg4 13:07 Triage completed. vg1 13:07 Arm band placed on. vg1 13:13 Constantino Segal NP is PHCP. pm1 13:13 Uri Jay MD is Attending Physician. pm1 13:19 Roya Acuña RN is Primary Nurse. tr6 15:12 XRAY Chest (1 view) In Process Unspecified. EDMS 16:03 Patient has correct armband on for positive identification. Bed in low position. Call tr6 light in reach. Side rails up X 1. Pulse ox on. NIBP on. 16:03 No provider procedures requiring assistance completed. IV discontinued, intact, tr6 bleeding controlled, No redness/swelling at site. Pressure dressing applied. Administered Medications: 14:54 Drug: Ketorolac 30 mg Route: IVP; Site: right forearm; tr6 15:21 Follow up: Response: No adverse reaction; Pain is decreased tr6 14:54 Drug: Flexeril (cyclobenzaprine) 10 mg Route: PO; tr6 15:21 Follow up: Response: No adverse reaction; Pain is decreased tr6 Outcome: 15:53 Discharge ordered by . pm1 16:03 Discharged to home ambulatory. tr6 16:03 Condition: stable 16:03 Discharge instructions given to patient, family, Instructed on discharge instructions, follow up and referral plans. medication usage, safety practices, Demonstrated understanding of instructions, Following a medical screening exam, the patient was provided information regarding alternative care sites and resources available per registration personnel. 16:12 Patient left the ED. tr6 Signatures: Dispatcher [employer] EDMS Constantino Segal, KAMILLE HOTEL SECURITY OFFICER pm1 Radha Bhakta rg4 Naa Bhakta, ALBA RN vg1 Roya Acuña RN RN tr6
[2021-09-08 16:24] VITALS: BP 149/86; TEMP 97.5; O2SAT 97
--- NOTE | 2021-09-09 07:06 | EKG ---
Test Date: 2021-09-08 Test Time: 15:57:00 Rn Private Duty: QUINTEN MEASUREMENT RESULTS: Intervals: Rate: 66 NC: 130 QRSD: 88 QT: 430 QTc: 450 [place]: P: 16 NC: 130 QRS: 38 T: 41 INTERPRETIVE STATEMENTS: Normal sinus rhythm Normal ECG Compared to ECG 09/08/2021 15:02:50 No significant changes Electronically Signed On 09-09-21 07:04:33 CDT by José Hubbard
--- NOTE | 2021-09-09 07:06 | EKG ---
Test Date: 2021-09-08 Test Time: 15:02:50 Roll Trucker: QUINTEN MEASUREMENT RESULTS: Intervals: Rate: 82 WV: 132 QRSD: 76 QT: 382 QTc: 446 [place]: P: 21 WV: 132 QRS: 24 T: 43 INTERPRETIVE STATEMENTS: Normal sinus rhythm Normal ECG Compared to ECG 10/09/2020 22:59:22 No significant changes Electronically Signed On 09-09-21 07:04:34 CDT by José Hubbard
== END 2021-09-08 16:12 | disposition home or self-care (01) ==
LOC: ER 12:47
DX: S16.1XXA Strain of muscle, fascia and tendon at neck level, initial encounter (principal); R20.2 Paresthesia of skin; G89.29 Other chronic pain; I10 Essential (primary) hypertension; R42 Dizziness and giddiness; Z87.891 Personal history of nicotine dependence
CPT/HCPCS: 36415; 71045; 80048; 80076; 83735; 83880; 84484; 85025; 85610; 93005; 96374; 99283

== ENCOUNTER 2022-02-22 13:53 | Emergency (ER) | payer OTHER, SELFPAY ==
--- OUTSIDE RECORDS SUMMARY | 2022-02-22 13:55 | XMS REPORT | Continuity of Care Document ---
:1980 Author Organization [facility] t Address [address] [place] [address] Care Team Providers Name Role Phone Pcp, Does Not Have A Primary Care Physician Ebrahim CLINICAL ACCOUNT MANAGER Attending Clinician EBRAHIM Attending Clinician Unavailable Problems This patient has no known problems. Allergies, Adverse Reactions, Alerts Allergy Allergy Status Severity Reaction(s) Onset Inactive Treating Comm ents Source Name Type Date Date Clinician NO KNOWN Drug Active Univers ALLERGIE Class ity of S [facility] Social History Social Habit Start Date Stop Date Quantity Comments Source Exposure to Not sure [facility] SARS-CoV-2 (event) Medica l Branch Sex Assigned At [birth year] [facility] 00:00:00 00:00:00 [facility] Smoking Status Start Date Stop Date Source Unknown if ever smoked [facility] Medications Ordered Filled Start Stop Current Ordering Indication Dosage Frequency Signature Comments Components Source Medication Medication Date Date Medication? Clinician (SIG) Name Name HYDROcodone 2020-11- No 1{tbl} 1 tablet, Univers -acetaminop 0-04 10-03 Oral, ity of hen (NORCO) 00:00: 22:55 [place] 10-325 mg 00 :00 dose, On Medica l tablet 1 [place] tablet 09/01/21 at 1900, Routine ketorolac 2020-11- No 30mg 30 mg, Unive rs (TORADOL) 0-04 10-03 Intramuscu ity of injection 00:00: 22:55 lar, ONCE, [place] 30 mg 00 :00 1 dose, On Medical [place] 09/01/21 at 1900, LITO
Fa [facility] member approving Restricted medication : SUSI HOWE diazePAM 2020-11 No 5mg 5 mg, Univers (VALIUM) 0-04 10-03 Intramuscu ity of injection 5 00:00: 22:56 lar, ONCE, [place] mg 00 :00 1 dose, On Medical [place] Branch 09/01/21 at 1900, STAT methocarbam 2020-11- No [id number] 750mg Take 1 Univers oL 0-03 10-14 9104 tablet by ity of (ROBAXIN-75 00:00: 04:59 mouth 4 [place] 0[place] 750 mg 00 :00 (four) Medical tablet times Branch daily for 10 days. meloxicam 2020-11- No [id number] 15mg Take 1 Univers (MOBIC) 15 0-02 06- 9104 tablet by ity of mg tablet 00:00: 04:59 mouth [place] 00 :00 daily for Medical 10 days. Branch ibuprofen Yes [id number] 600mg Take 1 U nivers 600 mg 9-22 tablet by ity of tablet 00:00: mouth [place] 00 every 6 Medical (six) Branch hours as needed for Pain (scale 4-6). methocarbam 2020- No [id number] 500mg Take 1 Univers oL 500 mg 9-20 09- tablet by ity of tablet 00:00: 00:00 mouth 4 [place] 00 :00 (four) Medical times Branch daily. traMADOL Yes 50mg Take 1 Tab Uni vers (ULTRAM) 50 7-28 by mouth ity of mg tablet 00:00: every 6 [place] 00 (six) Medical hours as Branch needed for Pain. ibuprofen Yes 600mg Take 1 Tab U nivers (MOTRIN) 7-28 by mouth 3 ity o f 600 mg 00:00: (three) [place] tablet 00 times Medical daily with Branch meals. ALBUTEROL Yes Nebulize Univ ers SULFATE 2.5 4-26 one every ity of MG /3 ML 00:00: four [place] (0.083 %) 00 hours, may Medi jenelle INHALE NEBU also Branch nebulize one extra one every six hours ZOFRAN 4 MG Yes take 2 Univ ers ORAL TAB 4-26 tablets by ity o f 00:00: mouth [place] 00 every 12 Medical hours for Branch nausea Vital Signs Vital Name Observation Time Observation Value Comments Source Oxygen saturation in 2021-09-01 23:57:00 99 /min [facility] Arterial blood by [facility] Pulse oximetry Branch Systolic blood 2021-09-01 22:40:45 161 mm[Hg] Univer sity of pressure [facility] Diastolic blood 2021-09-01 22:40:45 108 mm[Hg] Unive rsity of [facility] Heart rate 2021-09-01 22:40:45 79 /min [facility] Body temperature 2021-09-01 22:40:45 36.78 Kimberly [facility] Respiratory rate 2021-09-01 22:40:45 16 /min [facility] Body weight 2021-09-01 22:26:00 108.863 kg [facility] Procedures Procedure Date / Time Performed Performing Clinician Sourc e CONSENT/REFUSAL FOR 2021-09-01 22:18:40 Doctor Unassigned, No Un [facility] DIAGNOSIS AND Name [facility] TREATMENT Encounters Start End Encounter Admission Attending Care Care Encounter Source Date/Time Date/Time Type Type Clinicians Facility Department ID 2021-09-01 2021-09-01 Emergency [facility] [id number] Univers 17:28:00 18:58:00 Susi Ho [id number] i [facility] [id number] [facility] [id number] [facility] 084 Branch 2021-09-01 2021-09-01 [facility] [id number] Univers 17:18:00 17:18:00 SUSI leblanc [facility] 2021-08-21 2021-08-21 Emergency X [facility] ERT [id number] Univers 13:01:00 13:01:00 [facility] Results This patient has no known results.
[2022-02-22] MEDS ORDERED: NA CHLORIDE 0.9% 1,000 ML ONE (14:43)
[2022-02-22] MEDS ORDERED: ONDANSETRON 4 MG/2 ML VIAL ONE (14:43)
[2022-02-22] MEDS ORDERED: FAMOTIDINE 20 MG/2 ML VIAL IV ONE (14:43)
[2022-02-22 14:57] LABS: Absolute Lymphocytes (CBC) 0.7 K/uL (0.7-4.9); Hematocrit 42.7 % (36.0-45.0); Lymphocytes % 5.3 % (15.3-44.8); MPV 8.7 fL (7.6-11.3); RBC Red Blood Cell Count 4.96 M/uL (3.86-4.86)
[2022-02-22 15:18] LABS: Albumin 3.9 g/dL (3.4-5.0); Bilirubin Total 1.1 mg/dL (0.2-1.0); Potassium 4.2 mmol/L (3.5-5.1); Protein, Total 8.3 g/dL (6.4-8.2)
[2022-02-22 16:14] LABS: Urine Blood Negative (Negative); Urine Glucose Negative (Negative); Urine Protein Trace (Negative); Urine Specific Gravity 1.025 (1.005-1.030); Urine pH 6.5 (5.0-7.0)
[2022-02-22 16:37] LABS: Urine Specific Gravity/Preg 1.025 (1.005-1.030)
[2022-02-22 17:04] LABS: Urine Bacteria >50 /HPF (<20); Urine RBC NONE SEEN /HPF (NONE SEEN)
[2022-02-22 17:12] LABS: Blood Morphology Comment NOT SEEN (NOT SEEN); Platelet Estimate ADEQ; White Blood Cell Scan OK (OK)
--- NOTE | 2022-02-22 17:34 | EDPHYS ---
Physician Documentation [facility] Name: Paradise Colon Age: 42 yrs Sex: Female : 1980 Arrival Date: 02/22/2022 Time: 13:55 Bed 18 Private MD: Earl Vann HPI: 02/22 17:26 This 42 yrs old Female presents to ER via Ambulatory with complaints of marleny Vomiting. 17:26 The patient presents to the emergency department with nausea, vomiting, diarrhea. marleny Onset: The symptoms/episode began/occurred just prior to arrival. Possible causes: unknown. The symptoms are aggravated by nothing. The symptoms are alleviated by nothing. Associated signs and symptoms: Pertinent positives: abdominal pain, diarrhea, nausea, vomiting. Severity of symptoms: At their worst the symptoms were mild in the emergency department the symptoms are unchanged. The patient has not experienced similar symptoms in the past. Historical: - Allergies: 14:04 No Known Allergies; ab2 - PMHx: 14:04 Chronic pain; Hypertension; Vertigo; ab2 - Immunization history:: Adult Immunizations up to date. - Social history:: Smoking status: Reported history of juuling and/or vaping. - Family history:: not pertinent. ROS: 17:26 Constitutional: Negative for fever, chills, and weight loss, Eyes: Negative for injury, marleny pain, redness, and discharge, ENT: Negative for injury, pain, and discharge, Neck: Negative for injury, pain, and swelling, Cardiovascular: Negative for chest pain, palpitations, and edema, Respiratory: Negative for shortness of breath, cough, wheezing, and pleuritic chest pain, Back: Negative for injury and pain, : Negative for injury, bleeding, discharge, and swelling, MS/Extremity: Negative for injury and deformity, Skin: Negative for injury, rash, and discoloration, Neuro: Negative for headache, weakness, numbness, tingling, and seizure, Psych: Negative for depression, anxiety, suicide ideation, homicidal ideation, and hallucinations, Allergy/Immunology: Negative for hives, rash, and allergies, Endocrine: Negative for neck swelling, polydipsia, polyuria, polyphagia, and marked weight changes, Hematologic/Lymphatic: Negative for swollen nodes, abnormal bleeding, and unusual bruising. 17:26 Abdomen/GI: Positive for abdominal pain, nausea and vomiting, diarrhea, abdominal cramps. Exam: 17:26 Constitutional: This is a well developed, well nourished patient who is awake, alert, marleny and in no acute distress. Head/Face: Normocephalic, atraumatic. Eyes: Pupils equal round and reactive to light, extra-ocular motions intact. Lids and lashes normal. Conjunctiva and sclera are non-icteric and not injected. Cornea within normal limits. Periorbital areas with no swelling, redness, or edema. ENT: Nares patent. No nasal discharge, no septal abnormalities noted. Tympanic membranes are normal and external auditory canals are clear. Oropharynx with no redness, swelling, or masses, exudates, or evidence of obstruction, uvula midline. Mucous membranes moist. Neck: Trachea midline, no thyromegaly or masses palpated, and no cervical lymphadenopathy. Supple, full range of motion without nuchal rigidity, or vertebral point tenderness. No Meningismus. Chest/axilla: Normal chest wall appearance and motion. Nontender with no deformity. No lesions are appreciated. Cardiovascular: Regular rate and rhythm with a normal S1 and S2. No gallops, murmurs, or rubs. Normal PMI, no JVD. No pulse deficits. Respiratory: Lungs have equal breath sounds bilaterally, clear to auscultation and percussion. No rales, rhonchi or wheezes noted. No increased work of breathing, no retractions or nasal flaring. Back: No spinal tenderness. No costovertebral tenderness. Full range of motion. Skin: Warm, dry with normal turgor. Normal color with no rashes, no lesions, and no evidence of cellulitis. MS/ Extremity: Pulses equal, no cyanosis. Neurovascular intact. Full, normal range of motion. Neuro: Awake and alert, GCS 15, oriented to person, place, time, and situation. Cranial nerves II-XII grossly intact. Motor strength 5/5 in all extremities. Sensory grossly intact. Cerebellar exam normal. Normal gait. Psych: Awake, alert, with orientation to person, place and time. Behavior, mood, and affect are within normal limits. 17:26 Abdomen/GI: Inspection: distension, that is mild, Bowel sounds: normal, Palpation: mild abdominal tenderness, in the right upper quadrant and left upper quadrant, Liver: no appreciated palpable abnormalities, Hernia: not appreciated. Vital Signs: 14:05 BP 142 / 97; Pulse 118; Resp 17; Temp 98.1(TE); Pulse Ox 97% on R/A; Weight 108.86 kg; ab2 Height 5 ft. 3 in. (160.02 cm); Pain 6/10; 16:17 BP 129 / 75; Pulse 93; Resp 18 S; Pulse Ox 95% on R/A; jd3 17:51 BP 126 / 78; Pulse 90; Resp 17 S; Pulse Ox 96% on R/A; jd3 14:05 Body Mass Index 42.51 (108.86 kg, 160.02 cm) ab2 MDM: 14:10 Patient medically screened. [facility] 17:32 Differential diagnosis: Nonspecific abd pain, gastritis, cholecystitis, pancreatitis, marleny appendicitis, diverticulitis, viral gastroenteritis, gastroenteritis. Data reviewed: vital signs, nurses notes, lab test result(s). Data interpreted: desk monitor: rate is 93 beats/min, rhythm is regular, Pulse oximetry: on room air. Counseling: I had a detailed discussion with the patient and/or guardian regarding: the historical points, exam findings, and any diagnostic results supporting the discharge/admit diagnosis, lab results, radiology results, the need for outpatient follow up, for definitive care, a family practitioner. 02/22 14:11 Order name: CBC with Diff; Complete Time: 17:20 [facility] 02/22 14:11 Order name: CMP; Complete Time: 16:01 [facility] 02/22 14:11 Order name: Lipase; Complete Time: 16:01 [facility] 02/22 14:11 Order name: Urine Microscopic Only; Complete Time: 17:20 [facility] 02/22 16:14 Order name: Urine Dipstick-Ancillary; Complete Time: 17:20 [facility] 02/22 16:27 Order name: Urine --Ancillary (enter results); Complete Time: 17:20 02/22 14:11 Order name: IV Saline Lock; Complete Time: 14:48 [facility] 02/22 14:11 Order name: Labs collected and sent; Complete Time: 14:48 [facility] 02/22 14:11 Order name: Urine Dipstick-Ancillary (obtain specimen); Complete Time: 16:16 [facility] 02/22 17:07 Order name: Urine Culture [facility] 02/22 17:13 Order name: CBC Smear Scan; Complete Time: 17:20 [facility] 02/22 14:11 Order name: Urine Test (obtain specimen); Complete Time: 16:16 [facility] Administered Medications: 14:48 Drug: NS 0.9% 1000 ml Route: IV; Rate: 1 bolus; Site: right antecubital; jd3 15:48 Follow up: Response: No adverse reaction; IV Status: Completed infusion; IV Intake: jd3 1000ml 14:49 Drug: Pepcid (famotidine) 20 mg Route: IVP; Site: right antecubital; jd3 15:49 Follow up: Response: No adverse reaction jd3 14:49 Drug: Zofran (Ondansetron) 4 mg Route: IVP; Site: right antecubital; jd3 15:49 Follow up: Response: No adverse reaction jd3 Disposition Summary: 02/22/22 17:34 Discharge Ordered Location: Home marleny Problem: new marleny Symptoms: have improved marleny Condition: Stable marleny Diagnosis - Vomiting marleny - Diarrhea, unspecified marleny - Abdominal pain, Generalized marleny Followup: [facility] - With: Private Physician - When: 2 - 3 days - Reason: Recheck today's complaints, Re-evaluation by your physician Discharge Instructions: - Discharge Summary Sheet marleny - Abdominal Pain, Adult marleny - Food Choices to Help Relieve Diarrhea, Adult marleny - Diarrhea, Adult marleny - Abdominal Pain, Adult, [id number]-[id number] marleny - Diarrhea, Adult, [id number] [facility] Forms: - Medication Reconciliation Form [facility] - Thank You Letter [facility] - Antibiotic Education [facility] - Work release form [facility] - Prescription Opioid Use [facility] Prescriptions: - Pepcid 20 mg Oral Tablet - take 1 tablet by ORAL route every 12 hours for 10 days; 20 tablet; Refills: 0, [facility] Product Selection Permitted - Zofran 4 mg Oral Tablet - take 1 tablet by ORAL route every 12 hours As needed; 20 tablet; Refills: 0, [facility] Product Selection Permitted - promethazine 25 mg Oral Tablet - take 1 tablet by ORAL route every 6 hours As needed; 20 tablet; Refills: 0, [facility] Product Selection Permitted - dicyclomine 20 mg Oral Tablet - take 1 tablet by ORAL route 4 times per day; 28 tablet; Refills: 0, Product [facility] Selection Permitted Signatures: Dispatcher [employer] [facility] Earl Colon MD MD cha Davies, Jonathon, RN RN jd3 Bleininger, Magnus ab2
--- NOTE | 2022-02-22 17:34 | ER ---
Nurse's Notes [facility] Name: Paradise Colon Age: 42 yrs Sex: Female : 1980 Arrival Date: 02/22/2022 Time: 13:55 Bed 18 Private MD: Diagnosis: Vomiting;Diarrhea, unspecified;Abdominal pain, Generalized Presentation: 02/22 14:03 Chief complaint: Patient states: "I've had sever n/v/d since 7 am, im not able to keep ab2 anything down." Pt c/o epigastric and upper abdominal pain. Coronavirus screen: Vaccine status: Patient reports receiving the 2nd dose of the covid vaccine. Client denies travel out of the [place] in the last 14 days. diarrhea, fatigue, nausea, vomiting. Client presents with at least one sign or symptom that may indicate coronavirus-19. Standard/surgical mask placed on the client. Provider contacted for isolation considerations. Ebola Screen: Patient negative for fever greater than or equal to 101.5 degrees Fahrenheit, and additional compatible Ebola Virus Disease symptoms Patient denies exposure to infectious person. Patient denies travel to an Ebola-affected area in the 21 days before illness onset. No symptoms or risks identified at this time. Initial Sepsis Screen: Does the patient meet any 2 criteria? No. Patient's initial sepsis screen is negative. Does the patient have a suspected source of infection? No. Patient's initial sepsis screen is negative. Risk Assessment: Do you want to hurt yourself or someone else? Patient reports no desire to harm self or others. Onset of symptoms is unknown. 14:03 Method Of Arrival: Ambulatory ab2 14:03 Acuity: TANA 3 ab2 Triage Assessment: 14:05 General: Appears in no apparent distress. uncomfortable, Behavior is calm, cooperative, ab2 appropriate for age. Pain: Complains of pain in epigastric area, right upper quadrant and left upper quadrant. Respiratory: Airway is patent Respiratory pattern is regular, symmetrical. GI: Reports diarrhea, intolerance of fluids, intolerance of food, nausea, vomiting. Historical: - Allergies: 14:04 No Known Allergies; ab2 - PMHx: 14:04 Chronic pain; Hypertension; Vertigo; ab2 - Immunization history:: Adult Immunizations up to date. - Social history:: Smoking status: Reported history of juuling and/or vaping. - Family history:: not pertinent. Screenin:50 Abuse screen: Denies threats or abuse. Nutritional screening: No deficits noted. jd3 Tuberculosis screening: No symptoms or risk factors identified. Fall Risk Ambulatory Aid- None/Bed Rest/Nurse Assist (0 pts). Gait- Normal/Bed Rest/Wheelchair (0 pts) Mental Status- Oriented to own ability (0 pts). Total Munoz Fall Scale indicates No Risk (0-24 pts). Assessment: 14:49 General: Appears in no apparent distress. comfortable, Behavior is calm, cooperative, jd3 appropriate for age. Pain: Complains of pain in epigastric area Quality of pain is described as sharp, tender. Neuro: Level of Consciousness is awake, alert, obeys commands, Oriented to person, place, time, situation. Cardiovascular: Denies chest pain, Capillary refill < 3 seconds Patient's skin is warm and dry. Respiratory: Airway is patent Respiratory effort is even, unlabored, Respiratory pattern is regular, symmetrical. GI: Abdomen is round Abd is soft X 4 quads Abdomen is tender to palpation in epigastric area, right upper quadrant and left upper quadrant Reports diarrhea, nausea, vomiting. : No signs and/or symptoms were reported regarding the genitourinary system. EENT: No signs and/or symptoms were reported regarding the EENT system. Derm: Skin is intact, Skin is dry, Skin is normal, Skin temperature is warm. Musculoskeletal: Circulation, motion, and sensation intact. Range of motion: intact in all extremities. 15:33 Reassessment: Patient appears in no apparent distress at this time. Patient and/or jd3 family updated on plan of care and expected duration. Pain level reassessed. Patient is alert, oriented x 3, equal unlabored respirations, skin warm/dry/pink. warm blanket provided to pt. resting in bed. awaiting results. 16:16 Reassessment: Patient appears in no apparent distress at this time. No changes from jd3 previously documented assessment. Patient and/or family updated on plan of care and expected duration. Pain level reassessed. Patient is alert, oriented x 3, equal unlabored respirations, skin warm/dry/pink. 17:25 Reassessment: Patient appears in no apparent distress at this time. Patient and/or jd3 family updated on plan of care and expected duration. Pain level reassessed. Patient is alert, oriented x 3, equal unlabored respirations, skin warm/dry/pink. provider at bedside discussing plan of care. 17:45 Reassessment: Patient appears in no apparent distress at this time. Patient and/or jd3 family updated on plan of care and expected duration. Pain level reassessed. Patient is alert, oriented x 3, equal unlabored respirations, skin warm/dry/pink. pt singed for discharge paperwork. awaiting ride. Vital Signs: 14:05 BP 142 / 97; Pulse 118; Resp 17; Temp 98.1(TE); Pulse Ox 97% on R/A; Weight 108.86 kg; ab2 Height 5 ft. 3 in. (160.02 cm); Pain 6/10; 16:17 BP 129 / 75; Pulse 93; Resp 18 S; Pulse Ox 95% on R/A; jd3 17:51 BP 126 / 78; Pulse 90; Resp 17 S; Pulse Ox 96% on R/A; jd3 14:05 Body Mass Index 42.51 (108.86 kg, 160.02 cm) ab2 ED Course: 13:55 Patient arrived in ED. rg4 14:04 Triage completed. ab2 14:05 Arm band placed on left wrist. ab2 14:10 Earl Colon MD is Attending Physician. marleny 14:35 Bentley Ventura, RN is Primary Nurse. jd3 14:51 Patient has correct armband on for positive identification. Bed in low position. Call jd3 light in reach. Side rails up X 1. Pulse ox on. NIBP on. 14:51 Door closed. Noise minimized. Warm blanket given. mb7 14:51 Inserted saline lock: 22 gauge in right antecubital area, using aseptic technique. mb7 18:00 No provider procedures requiring assistance completed. IV discontinued, intact, jd3 bleeding controlled, No redness/swelling at site. Pressure dressing applied. Administered Medications: 14:48 Drug: NS 0.9% 1000 ml Route: IV; Rate: 1 bolus; Site: right antecubital; jd3 15:48 Follow up: Response: No adverse reaction; IV Status: Completed infusion; IV Intake: jd3 1000ml 14:49 Drug: Pepcid (famotidine) 20 mg Route: IVP; Site: right antecubital; jd3 15:49 Follow up: Response: No adverse reaction jd3 14:49 Drug: Zofran (Ondansetron) 4 mg Route: IVP; Site: right antecubital; jd3 15:49 Follow up: Response: No adverse reaction jd3 Intake: 15:48 IV: 1000ml; Total: 1000ml. jd3 Outcome: 17:34 Discharge ordered by MD. farmer 18:00 Discharged to home via wheelchair, with family. jd3 18:00 Condition: stable 18:00 Discharge instructions given to patient, Instructed on discharge instructions, follow up and referral plans. Demonstrated understanding of instructions, follow-up care. 18:07 Patient left the ED. jd3 Signatures: Earl Colon MD MD cha Garcia, Rubi rg4 Bentley Ventura RN RN jd3 Kimberley Arora mb7 Magnus Manzo2
[2022-02-22 18:48] VITALS: TEMP 98.1
[2022-02-22 18:50] VITALS: BP 126/78; O2SAT 96
== END 2022-02-22 18:07 | disposition home or self-care (01) ==
LOC: ER 13:53
DX: R11.2 Nausea with vomiting, unspecified (principal); R19.7 Diarrhea, unspecified; R10.84 Generalized abdominal pain; I10 Essential (primary) hypertension
CPT/HCPCS: 36415; 80053; 81003; 81015; 81025; 83690; 85025; 87086; 87088; 96361; 96374; 96375; 99283; J2405; J7030

== ENCOUNTER 2022-04-09 20:39 | Emergency (ER) | payer SELFPAY ==
--- OUTSIDE RECORDS SUMMARY | 2022-04-09 20:42 | XMS REPORT | Continuity of Care Document ---
:1980 Author Organization [facility] t Address [address] [place] [address] Care Team Providers Name Role Phone Pcp, Does Not Have A Primary Care Physician Ebrahim QUOTATION CHECKER Attending Clinician EBRAHIM Attending Clinician Unavailable Problems This patient has no known problems. Allergies, Adverse Reactions, Alerts Allergy Allergy Status Severity Reaction(s) Onset Inactive Treating Comm ents Source Name Type Date Date Clinician NO KNOWN Drug Active Univers ALLERGIE Class ity of S [facility] Social History Social Habit Start Date Stop Date Quantity Comments Source Exposure to Not sure [facility] SARS-CoV-2 (event) Medica l Branch Sex Assigned At [birth year] [facility] 00:00:00 00:00:00 [facility] Smoking Status Start Date Stop Date Source Unknown if ever smoked [facility] Medications Ordered Filled Start Stop Current [...] [place] Branch 09/01/21 at 1900, LITO
Fa formerly [facility] member approving Restricted medication : SUSI HOWE diazePAM 2020-11 No 5mg 5 mg, Univers (VALIUM) 0-04 10-03 Intramuscu ity of injection 5 00:00: 22:56 lar, ONCE, [place] mg 00 :00 1 dose, On Medical [place] 09/01/21 at 1900, STAT methocarbam 2020-11- No [id number] 750mg Take 1 Univers oL 0-03 10-14 9104 tablet by ity of (ROBAXIN-75 00:00[place] 04:59 [place] 750 mg 00 :00 (four) Medical tablet times Branch daily for 10 days. meloxicam 2020-11- No [id number] 15mg Take 1 Univers (MOBIC) 15 0-02 06- 9104 tablet by ity of mg tablet 00:00: 04:59 mouth [place] 00 :00 daily for Medical 10 days. Branch ibuprofen Yes [id number] 600mg Take 1 U nivers 600 mg 9-22 tablet by ity of tablet 00:00: mouth [place] 00 every 6 Medical (six) Branch hours as needed for Pain (scale 4-6). methocarbam 2020- No [id number] 500mg Take 1 Univers oL 500 mg [...] tablets by ity o f 00:00: mouth [place] 00 every 12 Medical hours for Branch nausea Vital Signs Vital Name Observation Time Observation Value Comments Source Oxygen saturation in 2021-09-01 23:57:00 99 /min [facility] Arterial blood by [facility] Pulse oximetry Branch Systolic blood 2021-09-01 22:40:45 161 mm[Hg] Univer sity of pressure [facility] Diastolic blood 2021-09-01 22:40:45 108 mm[Hg] Unive rsity of [facility] Heart rate 2021-09-01 22:40:45 79 /min [facility] Body temperature 2021-09-01 22:40:45 36.78 Kimberly [facility] Respiratory rate 2021-09-01 22:40:45 16 /min [facility] Body weight 2021-09-01 22:26:00 108.863 kg [facility] Procedures Procedure Date / Time Performed Performing Clinician Sourc e CONSENT/REFUSAL FOR 2021-09-01 22:18:40 Doctor Unassigned, No Un [facility] DIAGNOSIS AND Name [facility] TREATMENT Encounters Start End Encounter Admission Attending Care Care Encounter Source Date/Time Date/Time Type Type Clinicians Facility Department ID 2021-09-01 2021-09-01 Emergency [facility] [id number] Univers 17:28:00 18:58:00 Susi Ho [id number] i [facility] [id number] [facility] [id number] [facility] 084 Branch 2021-09-01 2021-09-01 Emergency [facility] ERT [id number] Univers 17:18:00 17:18:00 SUSI leblanc [facility] 2021-08-21 2021-08-21 Emergency X [facility] ERT [id number] Univers 13:01:00 13:01:00 [facility] Results This patient has no known results.
[2022-04-09] MEDS ORDERED: NA CHLORIDE 0.9% 1,000 ML ONE (22:06)
[2022-04-09] MEDS ORDERED: ONDANSETRON 4 MG/2 ML VIAL ONE (22:06)
[2022-04-09] MEDS ORDERED: MORPHINE 2 MG/ML SYR ONE (22:06)
[2022-04-09 22:09] LABS: Urine Blood Negative (Negative); Urine Glucose Negative (Negative); Urine Protein Negative (Negative)
[2022-04-09 22:23] LABS: Absolute Lymphocytes (CBC) 2.2 K/uL (0.7-4.9); Hematocrit 39.7 % (36.0-45.0); Lymphocytes % 23.3 % (15.3-44.8); MPV 9.1 fL (7.6-11.3); RBC Red Blood Cell Count 4.65 M/uL (3.86-4.86)
[2022-04-09 22:40] LABS: Albumin 3.5 g/dL (3.4-5.0); Bilirubin Total 0.4 mg/dL (0.2-1.0); Potassium 4.1 mmol/L (3.5-5.1); Protein, Total 7.3 g/dL (6.4-8.2)
[2022-04-09 23:35] LABS: Urine Bacteria <20 /HPF (<20); Urine RBC <5 /HPF (NONE SEEN)
--- NOTE | 2022-04-10 00:55 | ER ---
Nurse's Notes [facility] Name: Paradise Colon Age: 42 yrs Sex: Female : 1980 Arrival Date: 04/09/2022 Time: 20:49 Bed 6 Private MD: Diagnosis: Abdominal pain, unspecified;Obesity, unspecified Presentation: 04/09 20:57 Chief complaint: Patient states: Lower abdomen cramping since 1700 this evening. C/O ld1 nausea. Coronavirus screen: At this time, the client does not indicate any symptoms associated with coronavirus-19. Ebola Screen: No symptoms or risks identified at this time. Initial Sepsis Screen: Does the patient meet any 2 criteria? No. Patient's initial sepsis screen is negative. Does the patient have a suspected source of infection? No. Patient's initial sepsis screen is negative. Risk Assessment: Do you want to hurt yourself or someone else? Patient reports no desire to harm self or others. Onset of symptoms was April 09, 2022. 20:57 Method Of Arrival: Ambulatory ld1 20:57 Acuity: TANA 3 ld1 Triage Assessment: 20:58 General: Appears in no apparent distress. comfortable, Behavior is calm, cooperative, ld1 appropriate for age. Pain: Complains of pain in right lower quadrant and left lower quadrant Pain does not radiate. Pain currently is 4 out of 10 on a pain scale. at worst was 10 out of 10 on a pain scale. EENT: No signs and/or symptoms were reported regarding the EENT system. Neuro: Level of Consciousness is awake, alert, obeys commands, Oriented to person, place, time, situation, Appropriate for age. Cardiovascular: Capillary refill < 3 seconds Patient's skin is warm and dry. Respiratory: Airway is patent Respiratory effort is even, unlabored. GI: Abdomen is round non-distended, obese, Reports upper abdominal pain. 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 - Social history:: Smoking status: Reported history of juuling and/or vaping. Patient uses alcohol, occasionally. Screenin:52 Abuse screen: Denies threats or abuse. Nutritional screening: No deficits noted. jb4 Tuberculosis screening: No symptoms or risk factors identified. Fall Risk None identified. Assessment: 21:52 General: Appears in no apparent distress. comfortable, Behavior is calm, cooperative, jb4 appropriate for age. Pain: Complains of pain in suprapubic area, right lower quadrant and left lower quadrant Pain does not radiate. Pain currently is 4 out of 10 on a pain scale. Neuro: Level of Consciousness is awake, alert, obeys commands, Oriented to person, place, time, situation. Cardiovascular: Patient's skin is warm and dry. Respiratory: Airway is patent Respiratory effort is even, unlabored, Respiratory pattern is regular, symmetrical. GI: Abdomen is non-distended, obese, Reports lower abdominal pain, cramping, nausea. : No signs and/or symptoms were reported regarding the genitourinary system. EENT: No signs and/or symptoms were reported regarding the EENT system. Derm: Skin is intact, Skin is pink, warm \T\ dry. Musculoskeletal: Circulation, motion, and sensation intact. Range of motion: intact in all extremities. 23:31 Reassessment: Patient appears in no apparent distress at this time. Patient and/or jb4 family updated on plan of care and expected duration. Pain level reassessed. Patient is alert, oriented x 3, equal unlabored respirations, skin warm/dry/pink. Vital Signs: 20:57 BP 161 / 91; Pulse 83; Resp 18; Temp 98.2(TE); Pulse Ox 99% on R/A; Weight 113.4 kg; ld1 Height 5 ft. 2 in. (157.48 cm); Pain 4/10; 21:52 BP 145 / 87; Pulse 85; Resp 16; Pulse Ox 97% on R/A; jb4 23:30 BP 122 / 75; Pulse 76; Resp 16; Pulse Ox 100% on R/A; jb4 05 01:07 BP 134 / 76; Pulse 67; Resp 18 S; Pulse Ox 96% on R/A; as6 04/09 20:57 Body Mass Index 45.73 (113.40 kg, 157.48 cm) ld1 ED Course: 04/09 20:49 Patient arrived in ED. kz 20:58 Triage completed. ld1 20:58 Arm band placed on right wrist. ld1 21:31 Kamran Sue, RN is Primary Nurse. as6 21:34 Earl Colon MD is Attending Physician. marleny 21:52 Patient has correct armband on for positive identification. Bed in low position. Call jb4 light in reach. Side rails up X 1. Client placed on continuous cardiac and pulse oximetry monitoring. NIBP monitoring applied. 22:00 Initial lab(s) drawn, by mt, sent to lab. Inserted saline lock: 18 gauge in right jb4 antecubital area, using aseptic technique. Blood collected. 22:39 Reji Torres, RN is Primary Nurse. [facility] 23:56 CT Abd/Pelvis - IV Contrast Only In Process Unspecified. [facility] 04/10 01:07 No provider procedures requiring assistance completed. IV discontinued, intact, as6 bleeding controlled, No redness/swelling at site. Pressure dressing applied. Administered Medications: 04/09 22:18 Drug: morphine 2 mg Route: IVP; Site: right antecubital; [facility] 04/10 01:06 Follow up: Response: No adverse reaction; RASS: Alert and Calm (0) as6 04/09 22:19 Drug: NS 0.9% 1000 ml Route: IV; Rate: 1 bolus; Site: right antecubital; [facility] 04/10 01:07 Follow up: Response: No adverse reaction; IV Status: Completed infusion; IV Intake: as6 1000ml 04/09 22:19 Drug: Zofran (Ondansetron) 4 mg Route: IVP; Site: right antecubital; [facility] 04/10 01:07 Follow up: Response: No adverse reaction as6 Medication: 01:07 VIS not applicable for this client. as6 Intake: 01:07 IV: 1000ml; Total: 1000ml. as6 Outcome: 00:55 Discharge ordered by . marleny 01:07 Discharged to home ambulatory. as6 01:07 Condition: stable 01:07 Discharge instructions given to patient, Instructed on discharge instructions, follow up and referral plans. medication usage, Demonstrated understanding of instructions, follow-up care, medications, Prescriptions given X 2. 01:08 Patient left the ED. as6 Signatures: Dispatcher [employer] EDMN Earl Colon MD MD cha Brian, Reji, RN RN jb4 Amisha Gruber RN RN ld1 Kamran Sue, ALBA RN as6 Katharina Da Silva Corrections: (The following items were deleted from the chart) 04/09 20:59 20:58 Social history: Smoking status: Reported history of juuling and/or vaping. ld1 Patient uses alcohol, occasionally. patient/guardian reports recent binge of alcohol consumption. ld1
--- NOTE | 2022-04-10 00:55 | EDPHYS ---
Physician Documentation [facility] Name: Paradise Colon Age: 42 yrs Sex: Female : 1980 Arrival Date: 04/09/2022 Time: 20:49 Bed 6 Private MD: RODRICK Physician Earl Colon HPI: 04/10 00:36 This 42 yrs old Female presents to ER via Ambulatory with complaints of marleny Pelvic Pain, Nausea. 00:36 The patient presents to the emergency department with nausea, that is mild. Onset: The marleny symptoms/episode began/occurred yesterday. Possible causes: unknown. The symptoms are aggravated by nothing. The symptoms are alleviated by nothing. Associated signs and symptoms: The patient has no apparent associated signs or symptoms. Severity of symptoms: At their worst the symptoms were mild moderate. The patient has experienced a previous episode. 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 - Social history:: Smoking status: Reported history of juuling and/or vaping. Patient uses alcohol, occasionally. ROS: 04/10 00:37 Constitutional: Negative for fever, chills, and weight loss, Eyes: Negative for injury, marleny pain, redness, and discharge, ENT: Negative for injury, pain, and discharge, Neck: Negative for injury, pain, and swelling, Cardiovascular: Negative for chest pain, palpitations, and edema, Respiratory: Negative for shortness of breath, cough, wheezing, and pleuritic chest pain, Back: Negative for injury and pain, : Negative for injury, bleeding, discharge, and swelling, MS/Extremity: Negative for injury and deformity, Skin: Negative for injury, rash, and discoloration, Neuro: Negative for headache, weakness, numbness, tingling, and seizure, Psych: Negative for depression, anxiety, suicide ideation, homicidal ideation, and hallucinations, Allergy/Immunology: Negative for hives, rash, and allergies, Endocrine: Negative for neck swelling, polydipsia, polyuria, polyphagia, and marked weight changes, Hematologic/Lymphatic: Negative for swollen nodes, abnormal bleeding, and unusual bruising. Abdomen/GI: Positive for abdominal pain, nausea, of the right lower quadrant and left lower quadrant. Exam: 00:37 Constitutional: This is a well developed, well nourished patient who is awake, alert, marleny and in no acute distress. Head/Face: Normocephalic, atraumatic. Eyes: Pupils equal round and reactive to light, extra-ocular motions intact. Lids and lashes normal. Conjunctiva and sclera are non-icteric and not injected. Cornea within normal limits. Periorbital areas with no swelling, redness, or edema. ENT: Nares patent. No nasal discharge, no septal abnormalities noted. Tympanic membranes are normal and external auditory canals are clear. Oropharynx with no redness, swelling, or masses, exudates, or evidence of obstruction, uvula midline. Mucous membranes moist. Neck: Trachea midline, no thyromegaly or masses palpated, and no cervical lymphadenopathy. Supple, full range of motion without nuchal rigidity, or vertebral point tenderness. No Meningismus. Chest/axilla: Normal chest wall appearance and motion. Nontender with no deformity. No lesions are appreciated. Cardiovascular: Regular rate and rhythm with a normal S1 and S2. No gallops, murmurs, or rubs. Normal PMI, no JVD. No pulse deficits. Respiratory: Lungs have equal breath sounds bilaterally, clear to auscultation and percussion. No rales, rhonchi or wheezes noted. No increased work of breathing, no retractions or nasal flaring. Back: No spinal tenderness. No costovertebral tenderness. Full range of motion. Female : Normal external genitalia. Skin: Warm, dry with normal turgor. Normal color with no rashes, no lesions, and no evidence of cellulitis. MS/ Extremity: Pulses equal, no cyanosis. Neurovascular intact. Full, normal range of motion. Neuro: Awake and alert, GCS 15, oriented to person, place, time, and situation. Cranial nerves II-XII grossly intact. Motor strength 5/5 in all extremities. Sensory grossly intact. Cerebellar exam normal. Normal gait. Psych: Awake, alert, with orientation to person, place and time. Behavior, mood, and affect are within normal limits. 00:37 Abdomen/GI: Inspection: abdomen appears normal, Bowel sounds: normal, Palpation: mild abdominal tenderness, in the suprapubic area, right lower quadrant and left lower quadrant, Liver: no appreciated palpable abnormalities, Hernia: not appreciated. Vital Signs: 04/09 20:57 BP 161 / 91; Pulse 83; Resp 18; Temp 98.2(TE); Pulse Ox 99% on R/A; Weight 113.4 kg; ld1 Height 5 ft. 2 in. (157.48 cm); Pain 4/10; 21:52 BP 145 / 87; Pulse 85; Resp 16; Pulse Ox 97% on R/A; jb4 23:30 BP 122 / 75; Pulse 76; Resp 16; Pulse Ox 100% on R/A; jb4 04/10 01:07 BP 134 / 76; Pulse 67; Resp 18 S; Pulse Ox 96% on R/A; as6 04/09 20:57 Body Mass Index 45.73 (113.40 kg, 157.48 cm) ld1 MDM: 04/09 21:34 Patient medically screened. [facility] 04/10 00:38 Differential diagnosis: Nonspecific abd pain, gastritis, diverticulitis, viral marleny gastroenteritis. Data reviewed: vital signs, nurses notes, lab test result(s), radiologic studies, CT scan. 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 rate is 76 beats/min, rhythm is regular, Pulse oximetry: on room air. Test interpretation: by ED physician or midlevel provider: ECG. Counseling: I had a detailed discussion with the patient and/or guardian regarding: the historical points, exam findings, and any diagnostic results supporting the discharge/admit diagnosis, lab results, radiology results. 04/09 21:53 Order name: CBC with Diff; Complete Time: 00:33 [facility] 04/09 21:53 Order name: CMP; Complete Time: 00:33 marleny 04/09 21:53 Order name: Lipase; Complete Time: 00:33 marleny 04/09 21:53 Order name: Urine Microscopic Only; Complete Time: 00:33 [facility] 04/09 22:09 Order name: Urine Dipstick-Ancillary; Complete Time: 00:33 EDMS 04/09 23:08 Order name: Urine --Ancillary (enter results); Complete Time: 00:33 mw2 04/09 21:53 Order name: CT Abd/Pelvis - IV Contrast Only [facility] 04/09 21:53 Order name: IV Saline Lock; Complete Time: 22:19 [facility] 04/09 21:53 Order name: Labs collected and sent; Complete Time: 22:19 [facility] 04/09 23:05 Order name: Urine Test (obtain specimen); Complete Time: 23:08 mw2 04/09 23:05 Order name: Urine Dipstick-Ancillary (obtain specimen); Complete Time: 23:08 mw2 Administered Medications: 04/09 22:18 Drug: morphine 2 mg Route: IVP; Site: right antecubital; [facility] 04/10 01:06 Follow up: Response: No adverse reaction; RASS: Alert and Calm (0) as6 04/09 22:19 Drug: NS 0.9% 1000 ml Route: IV; Rate: 1 bolus; Site: right antecubital; [facility] 04/10 01:07 Follow up: Response: No adverse reaction; IV Status: Completed infusion; IV Intake: as6 1000ml 04/09 22:19 Drug: Zofran (Ondansetron) 4 mg Route: IVP; Site: right antecubital; [facility] 04/10 01:07 Follow up: Response: No adverse reaction as6 Disposition Summary: 04/10/22 00:55 Discharge Ordered Location: Home [facility] Problem: new marleny Symptoms: have improved marleny Condition: Stable marleny Diagnosis - Abdominal pain, unspecified marleny - Obesity, unspecified marleny Followup: marleny - With: Private Physician - When: 2 - 3 days - Reason: Recheck today's complaints, Continuance of care, Re-evaluation by your physician Discharge Instructions: - Discharge Summary Sheet marleny - Abdominal Pain, Adult marleny - Obesity, Adult marleny Forms: - Medication Reconciliation Form [facility] - Thank You Letter [facility] - Antibiotic Education marleny - Prescription Opioid Use [facility] Prescriptions: - dicyclomine 20 mg Oral Tablet - take 1 tablet by ORAL route 4 times per day; 28 tablet; Refills: 0, Product [facility] Selection Permitted - Zofran 4 mg Oral Tablet - take 1 tablet by ORAL route every 12 hours As needed; 20 tablet; Refills: 0, marleny Product Selection Permitted Signatures: Dispatcher [employer] Earl Copeland MD MD cha Bryson, James RN RN jb4 Chip Cortez mw2 Amisha Gruber RN RN ld1 Kamran Sue RN as6 Corrections: (The following items were deleted from the chart) 04/09 20:59 20:58 Social history: Smoking status: Reported history of juuling and/or vaping. ld1 Patient uses alcohol, occasionally. patient/guardian reports recent binge of alcohol consumption. ld1
[2022-04-10 03:30] VITALS: TEMP 98.2
[2022-04-10 03:34] VITALS: BP 134/76; O2SAT 96
--- NOTE | 2022-04-10 15:07 | RAD REPORT ---
EXAM DESCRIPTION: CT - Abdomen Pelvis W Contrast - 04/10/2022 5:39 am CLINICAL HISTORY: LUQ abdominal pain COMPARISON: None. TECHNIQUE: CT ABDOMEN PELVIS WITH IV CONTRAST on 04/09/2022 9:53 PM CDT This exam was performed according to our departmental dose-optimization program, which includes autom ated exposure control, adjustment of the mA and/or kV according to patient size and/or use of iterati ve reconstruction technique. FINDINGS: Lower lungs are clear. Abdomen: The liver is normal in appearance. There is no biliary dilatation. Gallbladder is normal in appearance. The pancreas and spleen are normal in appearance. The adrenal glands and kidneys are unre markable. Abdominal aorta is normal in course and caliber without aneurysm. There is no free air. There is no r etroperitoneal adenopathy. Pelvis: There is no bowel obstruction. Urinary bladder is unremarkable. There is small amount of free pelvic fluid. Uterus is normal in size. Appendix is normal. Skeleton: There are no acute osseous findings. No suspicious bony lesions. IMPRESSION: No acute process. Electronically signed by: Giles Zamudio MD 04/10/2022 12:18 AM CDT Due to temporary technical issues with the PACS/Fluency reporting system, reports are being signed by the in house radiologists without review as a courtesy to insure prompt reporting. The interpreting radiologist is fully responsible for the content of the report.
== END 2022-04-10 01:08 | disposition home or self-care (01) ==
LOC: ER 20:39
DX: R10.30 Lower abdominal pain, unspecified (principal); E66.9 Obesity, unspecified; Z68.42 Body mass index [BMI] 45.0-49.9, adult; R11.0 Nausea; I10 Essential (primary) hypertension; G89.29 Other chronic pain
CPT/HCPCS: 36415; 74177; 80053; 81003; 81015; 81025; 83690; 85025; 96361; 96374; 96375; 99284; J2270; J2405; J7030; Q9967

== ENCOUNTER 2022-08-15 17:38 | Emergency (ER) | payer SELFPAY ==
--- OUTSIDE RECORDS SUMMARY | 2022-08-15 17:41 | XMS REPORT | Continuity of Care Document ---
:1980 Author Organization [facility] t Address [address] [place] [address] Care Team Providers Name Role Phone Pcp, Patient Does Not Have A Primary Care Physician +[phone] 00-0000 Susi Hebert Attending Clinician SUSI HOWE Attending Clinician Unavailable Problems This patient has no known problems. Allergies, Adverse Reactions, Alerts Allergy Allergy Status Severity Reaction(s) Onset Inactive Treating Comm ents Source Name Type Date Date Clinician NO KNOWN Drug Active Univers ALLERGIE Class ity of [facility] Social History Social Habit Start Date Stop Date Quantity Comments Source Exposure to Not sure [facility] SARS-CoV-2 (event) Medica l Branch Sex Assigned At [birth year] [facility] 00:00:00 00:00:00 [facility] Smoking Status Start Date Stop Date Source Unknown if ever smoked [facility] Medications Ordered Filled Start Stop Current Ordering Indication Dosage Frequency Signature Comments Components Source Medication Medication Date Date Medication? Clinician (SIG) Name Name HYDROcodone 2020-11- No 1{tbl} 1 tablet, Univers -acetaminop 0-04 09-01 Oral, ity of hen (NORCO) 00:00: 22:55 [place]CE[place] 10-325 mg 00 :00 dose, On Medica l tablet 1 [place] tablet 09/01/21 at 1900, Routine ketorolac 2020-11- No 30mg 30 mg, Unive rs (TORADOL) 0-04 09-01 Intramuscu ity of injection 00:00: 22:55 lar, ONCE, [place] 30 mg 00 :00 1 dose, On Medical [place] 09/01/21 at 1900, LITO
Fa [facility] member approving Restricted medication : SUSI HOWE diazePAM 2020-11- No 5mg 5 mg, Univers (VALIUM) 0-03 09- Intramuscu ity of injection 5 00:00: 22:56 lar, ONCE, [place] mg 00 :00 1 dose, On Medical [place] 09/01/21 at 1900, STAT methocarbam 2020-11- No [id number] 750mg Take 1 Univers oL 0-03 10-14 9104 tablet by ity of (ROBAXIN-75 00:00: 04:59 mouth 4 [place] 0[place] 750 mg 00 :00 (four) Medical tablet times Branch daily for 10 days. meloxicam 2020-11- No [id number] 15mg Take 1 Univers (MOBIC) 15 0- 10- 9104 tablet by ity of mg tablet 00:00: 04:59 mouth [place] 00 :00 daily for Medical 10 days. Branch ibuprofen Yes [id number] 600mg Take 1 U nivers 600 mg 9-22 tablet by ity of tablet 00:00: mouth [place] 00 every 6 Medical (six) Branch hours as needed for Pain (scale 4-6). methocarbam 2020- No [id number] 500mg Take 1 Univers oL 500 mg -20 09- tablet by ity of tablet 00:00: [...] 00:00: four [place] (0.083 %) 00 hours, march [facility] INHALE NEBU also Branch nebulize one extra one every six hours ZOFRAN 4 MG Yes take 2 Univ ers ORAL TAB 4-26 tablets by ity o f 00:00: mouth [place] 00 every 12 Medical hours for Branch nausea Vital Signs Vital Name Observation Time Observation Value Comments Source Oxygen saturation in 2021-09-01 23:57:00 99 /min [facility] Arterial blood by [facility] Pulse oximetry Branch Systolic blood 2021-09-01 22:40:45 161 mm[Hg] Univer sity of pressure [facility] Diastolic blood 2021-09-01 22:40:45 108 mm[Hg] Unive rsity of [facility] Heart rate 2021-09-01 22:40:45 79 /min [facility] Body temperature 2021-09-01 22:40:45 36.78 [facility] Respiratory rate 2021-09-01 22:40:45 16 /min [facility] Body weight 2021-09-01 22:26:00 108.863 kg [facility] Procedures Procedure Date / Time Performed Performing Clinician [facility] e CONSENT/REFUSAL FOR 2021-09-01 22:18:40 Doctor Unassigned, No Un [facility] DIAGNOSIS AND Name Medical [address] TREATMENT Encounters Start End Encounter Admission Attending Care Care Encounter Source Date/Time Date/Time Type Type Clinicians Facility Department ID 2021-09-01 2021-09-01 [facility] [id number] Univers 17:28:00 18:58:00 Susi Ho [id number] i ty [facility] [id number] [facility] [id number] [facility] 084 Branch 2021-09-01 2021-09-01 Emergency X EBRAHIM, [facility] ERT [id number] Univers 17:18:00 17:18:00 SUSI leblanc [facility] 2021-08-21 2021-08-21 Emergency X [facility] ERT [id number] Univers 13:01:00 13:01:00 [facility] Results This patient has no known results.
[2022-08-15 18:22] LABS: Urine Blood Negative (Negative); Urine Glucose Negative (Negative); Urine Protein Negative (Negative); Urine Specific Gravity 1.015 (1.005-1.030); Urine pH 5.5 (5.0-7.0)
[2022-08-15] MEDS ORDERED: CEFTRIAXONE 1000 MG/VIAL ONE (18:34)
[2022-08-15] MEDS ORDERED: ONDANSETRON 4 MG/2 ML VIAL ONE (18:34)
[2022-08-15] MEDS ORDERED: ACETAMINOPHEN 500 MG TAB ONE (18:34)
[2022-08-15 18:57] LABS: Absolute Lymphocytes (CBC) 1.4 K/uL (0.7-4.9); Hematocrit 39.8 % (36.0-45.0); Lymphocytes % 14.7 % (15.3-44.8); MCV 85.5 fL (80-100); MPV 8.7 fL (7.6-11.3); RBC Red Blood Cell Count 4.65 M/uL (3.86-4.86)
[2022-08-15 19:00] LABS: Protime INR 1.11
[2022-08-15] MEDS ORDERED: NA CHLORIDE 0.9% 1,000 ML ONE (19:02)
[2022-08-15 19:17] LABS: Potassium 3.9 mmol/L (3.5-5.1)
[2022-08-15 19:18] LABS: Albumin 3.5 g/dL (3.4-5.0); Bilirubin Total 0.5 mg/dL (0.2-1.0)
[2022-08-15] MEDS ORDERED: NA CHLORIDE 0.9% 500 ML ONE (20:29)
[2022-08-15] MEDS ORDERED: NA CHLORIDE 0.9% 2,000 ML ONE (20:29)
--- NOTE | 2022-08-15 21:06 | RAD REPORT ---
EXAM DESCRIPTION: CTChest Abdomen Pelvis W Cont - 08/15/2022 8:49 pm CLINICAL HISTORY: fever, abdominal pain COMPARISON: No comparisons TECHNIQUE: CT of the chest, abdomen, and pelvis was performed. All CT scans are performed using dose optimization technique as appropriate and may include automated exposure control or mA/KV adjustment according to patient size. FINDINGS: Thorax: Chest Wall: No abnormal mass Lungs: No acute abnormality. Pleura: No effusions or pneumothorax. Keturah/Mediastinum: No lymphadenopathy. Aorta/Pulmonary Arteries: Unremarkable Heart: Normal size. Abdomen/Pelvis: Liver: No acute abnormality or suspicious lesions. Hepatomegaly. Biliary: No biliary ductal dilatation. Stomach: No significant focal abnormality. Duodenum: No significant focal abnormality. Pancreas: No significant abnormality. Spleen: No significant abnormality. Adrenal: No suspicious lesions. Kidney/ureter: No hydronephrosis. No renal calculi. Subtle urothelial thickening bilaterally. Questio n subtle renal striations. No abscess. Retroperitoneum: No retroperitoneal adenopathy. Vascular: No aneurysm. Bowel: No significant focal abnormality. Normal appendix. Peritoneum: No ascites or free air. Bladder: Very mild circumferential thickened bladder. Reproductive: Right adnexal cyst which is likely physiologic. Bones: No acute fracture. Scattered degenerative changes are present in the spine. Other: n/a IMPRESSION: Mild bilateral urothelial thickening and heterogeneous attenuation of the kidneys could reflect bilateral pyelonephritis. No abscess or hydronephrosis. Correlate with urinalysis.
[2022-08-15 22:14] LABS: Urine Specific Gravity/Preg 1.015 (1.005-1.030)
--- NOTE | 2022-08-15 22:38 | EDPHYS ---
Physician Documentation [facility] Name: Paradise Colon Age: 42 yrs Sex: Female : 1980 Arrival Date: 08/15/2022 Time: 17:41 Bed 6 Private MD: ED Physician Tamir Hall HPI: 08/15 19:55 This 42 yrs old Female presents to ER via Ambulatory with complaints of Urinary jmm Problem, Dizziness, Fever. 19:55 Onset: The symptoms/episode began/occurred gradually, 1 week(s) ago. Modifying factors: jmm The symptoms are alleviated by nothing, the symptoms are aggravated by nothing. Associated signs and symptoms: Pertinent positives: dysuria, fever. This is a 42-year-old female with history of hypertension the presents emerged part with complaints of dysuria beginning approximately a week ago. Patient has used Azo with little relief. Yesterday developed body aches, fever. Patient now has a headache along with the dysuria. Denies cough, congestion, shortness of breath, vomiting, diarrhea.. Historical: - Allergies: 17:53 No Known Allergies; kr3 - PMHx: 17:53 Chronic pain; Hypertension; Vertigo; kr3 - Immunization history:: Adult Immunizations. - Social history:: Smoking status: Reported history of juuling and/or vaping. Patient/guardian denies using tobacco, the patient reports quitting approximately 2 years ago. ROS: 19:55 Cardiovascular: Negative for chest pain, palpitations, and edema, Respiratory: Negative jmm for shortness of breath, cough, wheezing, and pleuritic chest pain. 19:55 Constitutional: Positive for body aches, fatigue. 19:55 Abdomen/GI: Positive for 19:55 : Positive for urinary symptoms. 19:55 All other systems are negative. Exam: 19:55 Constitutional: This is a well developed, well nourished patient who is awake, alert, jmm and in no acute distress. Head/Face: atraumatic. Eyes: EOMI, no conjunctival erythema appreciated ENT: Moist Mucus Membranes Neck: Trachea midline, Supple Chest/axilla: Normal chest wall appearance and motion. 19:55 Back: Normal ROM Skin: General appearance color normal MS/ Extremity: Moves all extremities, no obvious deformities appreciated, no edema noted to the lower extremities Neuro: Awake and alert Psych: Behavior is normal, Mood is normal, Patient is cooperative and pleasant 19:55 Cardiovascular: Rate: normal, Rhythm: regular. 19:55 Respiratory: the patient does not display signs of respiratory distress, Respirations: normal, Breath sounds: are clear throughout. 19:55 Abdomen/GI: Inspection: abdomen appears normal, Bowel sounds: normal, Palpation: abdomen is soft and non-tender, in all quadrants. Vital Signs: 17:48 BP 153 / 89; Pulse 130; Resp 20; Temp 102.3; Pulse Ox 98% on R/A; Weight 117.93 kg; kr3 Height 5 ft. 2 in. (157.48 cm); Pain 4/10; 19:00 BP 134 / 89; Pulse 107; Resp 20; Pulse Ox 94% on R/A; jb4 20:00 BP 114 / 66; Pulse 103; Resp 19; Pulse Ox 95% on R/A; jb4 21:00 BP 102 / 59; Pulse 99; Resp 14; Pulse Ox 96% on R/A; jb4 22:41 BP 114 / 67; Pulse 88; Resp 20; Temp 99(O); Pulse Ox 100% on R/A; Pain 0/10; ke1 17:48 Body Mass Index 47.55 (117.93 kg, 157.48 cm) kr3 MDM: 17:52 Patient medically screened. [facility] 18:00 Differential diagnosis: appendicitis, urinary tract infection, pyelonephritis, sepsis. 18:04 Data reviewed: vital signs, nurses notes. Counseling: I had a detailed discussion with [facility] the patient and/or guardian regarding: the historical points, exam findings, and any diagnostic results supporting the discharge/admit diagnosis, lab results. 08/15 17:47 Order name: CBC with Diff; Complete Time: 19:04 [facility] 08/15 21:13 Interpretation: Reviewed. 08/15 17:47 Order name: CMP; Complete Time: 19:20 [facility] 08/15 21:13 Interpretation: Normal except: GLUC 111; GFR 72; GLOB 4.5; A/G 0.8. 08/15 17:47 Order name: Lipase; Complete Time: 19:20 [facility] 08/15 17:51 Order name: Blood Culture Adult (2) [facility] 08/15 17:51 Order name: Lactate; Complete Time: 19:25 [facility] 08/15 17:51 Order name: Protime (+inr); Complete Time: 19:04 [facility] 08/15 17:51 Order name: Ptt, Activated; Complete Time: 19:04 [facility] 08/15 17:51 Order name: Influenza Screen (a \\T\\ B); Complete Time: 19:36 [facility] 08/15 18:22 Order name: Urine --Ancillary (enter results) [facility] 08/15 18:23 Order name: Urine Dipstick-Ancillary; Complete Time: 18:24 [facility] 08/15 19:26 Order name: SARS-COV-2 RT PCR (Document "Date of Onset" if Symptomatic) [facility] 08/15 19:54 Order name: CT Chest, Abdomen, Pelvis - W/Contrast; Complete Time: 21:12 [facility] 08/15 21:13 Interpretation: Report reviewed. 08/15 17:47 Order name: IV Saline Lock; Complete Time: 18:44 [facility] 08/15 17:47 Order name: Labs collected and sent; Complete Time: 18:44 [facility] 08/15 17:47 Order name: Urine Dipstick-Ancillary (obtain specimen); Complete Time: 18:44 [facility] 08/15 17:51 Order name: Accucheck; Complete Time: 18:56 [facility] 08/15 17:51 Order name: Cardiac monitoring; Complete Time: 18:30 [facility] 08/15 17:51 Order name: EKG - Nurse/Tech; Complete Time: 18:30 [facility] 08/15 17:51 Order name: IV Saline Lock - Large Bore; Complete Time: 18:44 [facility] 08/15 17:51 Order name: O2 Per Protocol; Complete Time: 18:30 [facility] 08/15 17:51 Order name: O2 Sat Monitoring; Complete Time: 18:30 [facility] 08/15 21:37 Order name: Vital Signs: please update to include temp; Complete Time: 22:27 cp Administered Medications: 18:30 Drug: Acetaminophen 1000 mg Route: PO; jh6 18:40 Drug: Zofran (Ondansetron) 4 mg Route: IVP; Site: right forearm; bp 18:40 Drug: Rocephin (cefTRIAXone) 1 grams Route: IV; Rate: calculated rate; Site: right bp forearm; 18:55 Drug: NS 0.9% (30 ml/kg) 30 ml/kg Route: IV; Rate: bolus; Site: right forearm; bp 21:03 Drug: NS 0.9% (30 ml/kg) 30 ml/kg Route: IV; Rate: bolus; Site: right forearm; ke1 Disposition Summary: 08/15/22 22:37 Discharge Ordered Location: Home cp Condition: Stable cp Diagnosis - Fever, unspecified cp - UTI/ Urinary tract infection, site not specified cp Followup: [facility] - With: Private Physician - When: 2 - 3 days - Reason: Recheck today's complaints, Continuance of care, Re-evaluation by your physician Discharge Instructions: - Discharge Summary Sheet [facility] - Fever, Adult jm - Urinary Tract Infection, Adult [facility] Forms: - Medication Reconciliation Form cp - Thank You Letter cp - Antibiotic Education cp - Prescription Opioid Use cp Prescriptions: - cefpodoxime 200 mg Oral Tablet - take 1 tablet by ORAL route every 12 hours for 10 days with food; 20 tablet; jmm Refills: 0, Product Selection Permitted - Zofran 4 mg Oral Tablet - take 1 tablet by ORAL route every 12 hours As needed; 20 tablet; Refills: 0, cp Product Selection Permitted Signatures: Dispatcher [employer] EDMS Elder Becerra PA PA jmm Page, Corey, PA PA cp Bony Barahona, RN RN Summer Kevin RN RN jh6 Lynn García RN RN ke1 Inessa Tim RN RN kr3 Corrections: (The following items were deleted from the chart) 21:13 21:13 Normal except: GLUC 111; GFR 72. cp cp
--- NOTE | 2022-08-15 22:38 | ER ---
Nurse's Notes [facility] Name: Pardaise Colon Age: 42 yrs Sex: Female : 1980 Arrival Date: 08/15/2022 Time: 17:41 Bed 6 Private MD: Diagnosis: Fever, unspecified;UTI/ Urinary tract infection, site not specified Presentation: 08/15 17:48 Chief complaint: Patient states: burning sensation during urination, pressure in pelvic kr3 area since thu08/06/22, started running fever yesterday 08/14/22. Coronavirus screen: Vaccine status: Patient reports receiving the 2nd dose of the covid vaccine. Client denies travel out of the [place] in the last 14 days. Ebola Screen: Patient denies travel to an Ebola-affected area in the 21 days before illness onset. Initial Sepsis Screen: Does the patient meet any 2 criteria? Temp <36.0*C (96.8*F)) or > 38.3*C (100.9*F). HR > 90 bpm. Does the patient have a suspected source of infection? Yes: Dysuria/Frequency/Urgency/UTI. Risk Assessment: Do you want to hurt yourself or someone else? Patient reports no desire to harm self or others. Onset of symptoms was August 14, 2022. 17:48 Method Of Arrival: Ambulatory kr3 17:48 Acuity: TANA 3 kr3 Triage Assessment: 17:55 General: Appears distressed, uncomfortable, Behavior is calm, cooperative, appropriate kr3 for age. Pain: Complains of pain in left low back and right low back. Historical: - Allergies: 17:53 No Known Allergies; kr3 - PMHx: 17:53 Chronic pain; Hypertension; Vertigo; kr3 - Immunization history:: Adult Immunizations. - Social history:: Smoking status: Reported history of juuling and/or vaping. Patient/guardian denies using tobacco, the patient reports quitting approximately 2 years ago. Screenin:00 Abuse screen: Denies threats or abuse. Denies injuries from another. Nutritional bp screening: No deficits noted. Tuberculosis screening: No symptoms or risk factors identified. Fall Risk None identified. Assessment: 18:00 Reassessment: SEE TRIAGE NOTE. bp 19:00 Reassessment: Patient appears in no apparent distress at this time. Patient and/or jb4 family updated on plan of care and expected duration. Pain level reassessed. Patient is alert, oriented x 3, equal unlabored respirations, skin warm/dry/pink. 20:00 Reassessment: Patient appears in no apparent distress at this time. Patient and/or jb4 family updated on plan of care and expected duration. Pain level reassessed. Patient is alert, oriented x 3, equal unlabored respirations, skin warm/dry/pink. 21:00 Reassessment: Patient appears in no apparent distress at this time. Patient and/or jb4 family updated on plan of care and expected duration. Pain level reassessed. Patient is alert, oriented x 3, equal unlabored respirations, skin warm/dry/pink. 22:00 Reassessment: Patient appears in no apparent distress at this time. Patient and/or jb4 family updated on plan of care and expected duration. Pain level reassessed. Patient is alert, oriented x 3, equal unlabored respirations, skin warm/dry/pink. Vital Signs: 17:48 BP 153 / 89; Pulse 130; Resp 20; Temp 102.3; Pulse Ox 98% on R/A; Weight 117.93 kg; kr3 Height 5 ft. 2 in. (157.48 cm); Pain 4/10; 19:00 BP 134 / 89; Pulse 107; Resp 20; Pulse Ox 94% on R/A; jb4 20:00 BP 114 / 66; Pulse 103; Resp 19; Pulse Ox 95% on R/A; jb4 21:00 BP 102 / 59; Pulse 99; Resp 14; Pulse Ox 96% on R/A; jb4 22:41 BP 114 / 67; Pulse 88; Resp 20; Temp 99(O); Pulse Ox 100% on R/A; Pain 0/10; ke1 17:48 Body Mass Index 47.55 (117.93 kg, 157.48 cm) kr3 ED Course: 17:41 Patient arrived in ED. mr 17:48 Elder Becerra PA is PHCP. kr3 17:48 Tamir Hall MD is Attending Physician. kr3 17:53 Triage completed. kr3 17:56 Arm band placed on left wrist. kr3 17:58 Bony Barahona, ALBA is Primary Nurse. bp 18:00 Patient has correct armband on for positive identification. Bed in low position. Call bp light in reach. Side rails up X2. 18:40 Inserted saline lock: 22 gauge in right forearm, using aseptic technique. Blood bp collected. 19:58 PHCP role handed off by Elder Becerra PA cp 19:58 Earl Reynolds PA is PHCP. cp 20:51 CT Chest, Abdomen, Pelvis - W/Contrast In Process Unspecified. EDMS 21:03 SARS-COV-2 RT PCR (Document "Date of Onset" if Symptomatic) Sent. ke1 22:59 No provider procedures requiring assistance completed. IV discontinued, intact, vc1 bleeding controlled, No redness/swelling at site. Pressure dressing applied. Administered Medications: 18:30 Drug: Acetaminophen 1000 mg Route: PO; jh6 18:40 Drug: Zofran (Ondansetron) 4 mg Route: IVP; Site: right forearm; bp 18:40 Drug: Rocephin (cefTRIAXone) 1 grams Route: IV; Rate: calculated rate; Site: right bp forearm; 18:55 Drug: NS 0.9% (30 ml/kg) 30 ml/kg Route: IV; Rate: bolus; Site: right forearm; bp 21:03 Drug: NS 0.9% (30 ml/kg) 30 ml/kg Route: IV; Rate: bolus; Site: right forearm; ke1 Medication: 18:00 VIS not applicable for this client. bp Outcome: 22:37 Discharge ordered by MD. cp 22:59 Discharged to home ambulatory. vc1 22:59 Condition: good 22:59 Discharge instructions given to patient, Instructed on discharge instructions, follow up and referral plans. medication usage, Demonstrated understanding of instructions, follow-up care, medications, Prescriptions given X 2. 23:00 Patient left the ED. vc1 Signatures: Dispatcher [employer] EDMS Elder Becerra PA PA jmKimberley Carrera mr Earl Reynolds PA PA cp Bryson, James, Bony Cedeno RN, RN RN bp Hastedt, Jennifer, RN RN jh6 Ofelia Dennis RN RN vc1 Lynn García RN RN ke1 Inessa Tim RN RN kr3 Corrections: (The following items were deleted from the chart) 22:05 21:00 BP 102 / 59; Pulse 99bpm; Resp 96bpm; Pulse Ox 14% RA; jb4 jb4
[2022-08-17 06:38] VITALS: BP 153/89; TEMP 102.3; O2SAT 98
== END 2022-08-15 23:00 | disposition home or self-care (01) ==
LOC: ER 17:38
DX: N39.0 Urinary tract infection, site not specified (principal); I10 Essential (primary) hypertension
CPT/HCPCS: 36415; 71260; 74177; 80053; 81003; 81025; 83605; 83690; 85025; 85610; 85730; 87040; 87804; 93005; 96374; 96375; 99284; J2405; J7030; J7040; Q9967; U0003

== ENCOUNTER 2022-09-22 14:08 | Emergency (ER) | payer SELFPAY ==
--- OUTSIDE RECORDS SUMMARY | 2022-09-22 14:36 | XMS REPORT | Continuity of Care Document ---
:1980 Author Organization [facility] t Address [address] [place] [address] Care Team Providers Name Role Phone Pcp, Patient Does Not Have A Primary Care Physician +1-000-0 00-0000 Susi Hebert Attending Clinician SUSI HOWE Attending Clinician Unavailable Problems This patient has no known problems. Allergies, Adverse Reactions, Alerts Allergy Allergy Status Severity Reaction(s) Onset Inactive Treating Comm ents Source Name Type Date Date Clinician NO KNOWN Drug Active Univers ALLERGIE Class ity of [facility] Social History Social Habit Start Date Stop Date Quantity Comments Source Exposure to Not sure [facility] SARS-CoV-2 (event) Medica l Branch Sex Assigned At [birth year] [facility] 00:00:00 00:00:00 [facility] Smoking Status Start Date Stop Date Source Unknown if ever smoked [facility] Medications Ordered Filled Start Stop Current Ordering [...] [place] 09/01/21 at 1900, LITO
Fa [facility] member approving Restricted medication : SUSI HOWE diazePAM 2020-11- No 5mg 5 mg, Univers (VALIUM) 0-03 09- Intramuscu ity of injection 5 00:00: 22:56 lar, ONCE, [place] mg 00 :00 1 dose, On Medical [place] 09/01/21 at 1900, STAT methocarbam 2020-11- No [id number] 750mg Take 1 Univers oL 0-03 10-14 9104 tablet by ity of (ROBAXIN-75 00:00: 04:59 mouth 4 [place] 0[place] 750 mg 00 :00 (four) Medical tablet times Branch daily for 10 days. meloxicam 2020-11- No [id number] 15mg Take 1 Univers (MOBIC) 15 0- 10- 9104 tablet by ity of mg tablet 00:00: 04:59 mouth [place] 00 :00 daily for Medical 10 days. Branch ibuprofen Yes [id number] 600mg Take 1 U nivers 600 mg 9-22 tablet by ity of tablet 00:00: mouth [place] 00 every 6 Medical (six) Branch hours as needed for Pain (scale 4-6). methocarbam 2020- No [id number] 500mg Take 1 Univers oL 500 mg [...] four [place] (0.083 %) 00 hours, march [facility] INHALE NEBU also Branch nebulize one extra one every six hours ZOFRAN 4 MG Yes take 2 Univ ers ORAL TAB 4-26 tablets by ity o f 00:00: mouth [place] 00 every 12 Medical hours for Branch nausea Vital Signs Vital Name Observation Time Observation Value Comments Source Oxygen saturation in 2021-09-01 23:57:00 99 /min [facility] Arterial blood by [facility] Pulse oximetry Branch Systolic blood 2021-09-01 22:40:45 161 mm[Hg] Univer sity of pressure [facility] Diastolic blood 2021-09-01 22:40:45 108 mm[Hg] Unive rsity of [facility] Heart rate 2021-09-01 22:40:45 79 /min [facility] Body temperature 2021-09-01 22:40:45 36.78 Kimberly [facility] Respiratory rate 2021-09-01 22:40:45 16 /min [facility] Body weight 2021-09-01 22:26:00 108.863 kg [facility] Procedures Procedure Date / Time Performed Performing Clinician [facility] e CONSENT/REFUSAL FOR 2021-09-01 22:18:40 Doctor Unassigned, No Un [facility] DIAGNOSIS AND Name Medical [place] TREATMENT Encounters Start End Encounter Admission Attending Care Care Encounter Source Date/Time Date/Time Type Type Clinicians Facility Department ID 2021-09-01 2021-09-01 Emergency [facility], [facility] [id number] Univers 17:28:00 18:58:00 Susi Ho [id number] i ty [facility] [id number] [facility] [id number] [facility] 084 Branch 2021-09-01 2021-09-01 Emergency X EBRAHIM, [facility] ERT [id number] Univers 17:18:00 17:18:00 SUSI leblanc [facility] [place] 2021-08-21 2021-08-21 Emergency X [facility] ERT [id number] Univers 13:01:00 13:01:00 [facility] Results This patient has no known results.
--- NOTE | 2022-09-22 15:52 | RAD REPORT ---
EXAM DESCRIPTION: Lotus Loya Left09/22/2022 3:35 pm CLINICAL HISTORY: Left leg pain status post injury FINDINGS: No fracture is seen
--- NOTE | 2022-09-22 16:16 | ER ---
Nurse's Notes [facility] Name: Paradise Colon Age: 42 yrs Sex: Female : 1980 Arrival Date: 09/22/2022 Time: 14:09 Bed 20 Private MD: Diagnosis: Contusion of left foot Presentation: 09/22 14:43 Chief complaint: Patient states: was moving on Thursday and accidently kicked a metal ss shelf; bruising and swelling to Left storey. Coronavirus screen: Vaccine status: Patient reports receiving the 2nd dose of the covid vaccine. Client denies travel out of the [place] in the last 14 days. Ebola Screen: Patient negative for fever greater than or equal to 101.5 degrees Fahrenheit, and additional compatible Ebola Virus Disease symptoms Patient denies exposure to infectious person. Initial Sepsis Screen: Does the patient meet any 2 criteria? No. Patient's initial sepsis screen is negative. Does the patient have a suspected source of infection? No. Patient's initial sepsis screen is negative. Risk Assessment: Do you want to hurt yourself or someone else? Patient reports no desire to harm self or others. Onset of symptoms was September 19, 2022. 14:43 Method Of Arrival: Ambulatory ss 14:43 Acuity: TANA 4 ss Triage Assessment: 14:46 General: Appears in no apparent distress. uncomfortable, Behavior is calm, cooperative. ss Pain: Complains of pain in left storey Pain currently is 0 out of 10 on a pain scale. at worst was 10 out of 10 on a pain scale. Derm: Bruising that is on left storey. LODE MINER: 14:46 LMP 09/01/2022 ss Historical: - Allergies: 14:46 No Known Allergies; ss - PMHx: 14:46 Chronic pain; Hypertension; Vertigo; ss - Immunization history:: Client reports receiving the 2nd dose of the Covid vaccine. - Social history:: Smoking status: Reported history of juuling and/or vaping. Screenin:31 Abuse screen: Denies threats or abuse. Nutritional screening: No deficits noted. ll1 Tuberculosis screening: No symptoms or risk factors identified. Fall Risk Total Munoz Fall Scale indicates No Risk (0-24 pts). Assessment: 16:31 Reassessment: No changes from previously documented assessment. Patient and/or family ll1 updated on plan of care and expected duration. Pain level reassessed. Patient is alert, oriented x 3, equal unlabored respirations, skin warm/dry/pink. Vital Signs: 14:43 BP 156 / 96; Pulse 76; Resp 15; Temp 97.9; Pulse Ox 100% ; Weight 108.86 kg; Height 5 ss ft. 2 in. (157.48 cm); Pain 10/10; 16:30 BP 148 / 79; Pulse 70; Resp 16; ll1 14:43 Body Mass Index 43.90 (108.86 kg, 157.48 cm) ED Course: 14:09 Patient arrived in ED. am2 14:46 Triage completed. 14:46 Arm band placed on. 14:56 Dandre Salmon is PHCP. 9 14:56 Uri Jay MD is Attending Physician. jl9 15:16 Brianna Rebolledo, ALBA is Primary Nurse. ll1 15:37 XRAY Tib Fib LEFT In Process Unspecified. EDMS 16:31 Patient has correct armband on for positive identification. Bed in low position. Call ll1 light in reach. Side rails up X 1. Cardiac monitoring not applicable on this patient. 16:31 No provider procedures requiring assistance completed. Patient did not have IV access ll1 during this emergency room visit. Administered Medications: 16:30 Drug: Acetaminophen 1000 mg Route: PO; ll1 16:31 Follow up: Response: No adverse reaction ll1 Medication: 16:31 VIS not applicable for this client. ll1 Outcome: 16:15 Discharge ordered by . jl9 16:31 Discharged to home ambulatory. ll1 16:31 Condition: stable 16:31 Discharge instructions given to patient, Instructed on discharge instructions, follow up and referral plans. Demonstrated understanding of instructions, follow-up care. 16:32 Patient left the ED. ll1 Signatures: Dispatcher [employer] EDSC Bessie Norris RN RN Sherly Castro [facility] Brianna Rebolledo RN RN 1 Dandre Salmon jl9
--- NOTE | 2022-09-22 16:16 | EDPHYS ---
Physician Documentation [facility] Name: Paradise Colon Age: 42 yrs Sex: Female : 1980 Arrival Date: 09/22/2022 Time: 14:09 Bed 20 Private MD: ED Physician Uri Jay HPI: 09/22 16:13 This 42 yrs old Female presents to ER via Ambulatory with complaints of Leg jl9 Swelling - storey. Patient reports kicking an object while moving 3 days ago. . 16:13 Onset: The symptoms/episode began/occurred 3 day(s) ago. Severity of symptoms: Pain is jl9 currently a / 10. The patient has not experienced similar symptoms in the past. 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 - Social history:: Smoking status: Reported history of juuling and/or vaping. ROS: 16:13 Constitutional: Negative for fever, chills, and weight loss, Eyes: Negative for injury, jl9 pain, redness, and discharge, ENT: Negative for injury, pain, and discharge, Neck: Negative for injury, pain, and swelling, Cardiovascular: Negative for chest pain, palpitations, and edema, Respiratory: Negative for shortness of breath, cough, wheezing, and pleuritic chest pain, Abdomen/GI: Negative for abdominal pain, nausea, vomiting, diarrhea, and constipation, Back: Negative for injury and pain. 16:13 Skin: Negative for injury, rash, and discoloration, Neuro: Negative for headache, weakness, numbness, tingling, and seizure, Psych: Negative for depression, anxiety, suicide ideation, homicidal ideation, and hallucinations, Allergy/Immunology: Negative for hives, rash, and allergies, Endocrine: Negative for neck swelling, polydipsia, polyuria, polyphagia, and marked weight changes, Hematologic/Lymphatic: Negative for swollen nodes, abnormal bleeding, and unusual bruising. 16:13 MS/extremity: Positive for contusion, 2x2cm contusion to left storey. . Exam: 16:14 Constitutional: This is a well developed, well nourished patient who is awake, alert, jl9 and in no acute distress. Head/Face: Normocephalic, atraumatic. Eyes: Pupils equal round and reactive to light, extra-ocular motions intact. Lids and lashes normal. Conjunctiva and sclera are non-icteric and not injected. Cornea within normal limits. Periorbital areas with no swelling, redness, or edema. ENT: Mucous membranes moist. Neck: Trachea midline, no thyromegaly or masses palpated, and no cervical lymphadenopathy. Supple, full range of motion without nuchal rigidity, or vertebral point tenderness. No Meningismus. Chest/axilla: Normal chest wall appearance and motion. Nontender with no deformity. No lesions are appreciated. Cardiovascular: Regular rate and rhythm with a normal S1 and S2. No gallops, murmurs, or rubs. Normal PMI, no JVD. No pulse deficits. Respiratory: Lungs have equal breath sounds bilaterally, clear to auscultation and percussion. No rales, rhonchi or wheezes noted. No increased work of breathing, no retractions or nasal flaring. Abdomen/GI: Soft, non-tender, with normal bowel sounds. No distension or tympany. No guarding or rebound. No evidence of tenderness throughout. Back: No spinal tenderness. No costovertebral tenderness. Full range of motion. Skin: Warm, dry with normal turgor. Normal color with no rashes, no lesions, and no evidence of cellulitis. 16:14 Neuro: Awake and alert, GCS 15, oriented to person, place, time, and situation. Cranial nerves II-XII grossly intact. Motor strength 5/5 in all extremities. Sensory grossly intact. Cerebellar exam normal. Normal gait. Psych: Awake, alert, with orientation to person, place and time. Behavior, mood, and affect are within normal limits. 16:14 Musculoskeletal/extremity: Extremities: 2x2cm contusion to left storey.. Vital Signs: 14:43 BP 156 / 96; Pulse 76; Resp 15; Temp 97.9; Pulse Ox 100% ; Weight 108.86 kg; Height 5 ss ft. 2 in. (157.48 cm); Pain 10/10; 16:30 BP 148 / 79; Pulse 70; Resp 16; ll1 14:43 Body Mass Index 43.90 (108.86 kg, 157.48 cm) ss MDM: 15:05 Patient medically screened. jl9 16:14 Data reviewed: vital signs, nurses notes. Counseling: I had a detailed discussion with jl9 the patient and/or guardian regarding: the historical points, exam findings, and any diagnostic results supporting the discharge/admit diagnosis, radiology results, the need for outpatient follow up, to return to the emergency department if symptoms worsen or persist or if there are any questions or concerns that arise at home. 09/22 14:56 Order name: XRAY Tib Fib LEFT; Complete Time: 16:12 jl9 Administered Medications: 16:30 Drug: Acetaminophen 1000 mg Route: PO; ll1 16:31 Follow up: Response: No adverse reaction ll1 Disposition: 18:54 Co-signature as Attending Physician, Uri Jay MD. rn Disposition Summary: 09/22/22 16:15 Discharge Ordered Location: Home jl9 Condition: Stable jl9 Diagnosis - Contusion of left foot jl9 Followup: jl9 - With: Private Physician - When: 1 - 2 days - Reason: Recheck today's complaints, Continuance of care, Re-evaluation by your physician Discharge Instructions: - Discharge Summary Sheet jl9 - Contusion, [id number] jl9 Forms: - Medication Reconciliation Form jl9 - Thank You Letter jl9 - Antibiotic Education jl9 - Prescription Opioid Use jl9 Signatures: Dispatcher [employer] EDUri Cat MD MD rn Smirch, Shelby, RN RN Brianna Sanders RN RN [facility] Dandre Salmon jl9
[2022-09-22] MEDS ORDERED: ACETAMINOPHEN 500 MG TAB ONE (16:25)
[2022-09-22 17:15] VITALS: TEMP 97.9; O2SAT 100
[2022-09-22 17:16] VITALS: BP 148/79
== END 2022-09-22 16:32 | disposition home or self-care (01) ==
LOC: ER 14:08
DX: S80.12XA Contusion of left lower leg, initial encounter (principal)
CPT/HCPCS: 99283

== ENCOUNTER 2023-01-06 04:55 | Observation (INO) | payer OTHER, SELFPAY ==
--- OUTSIDE RECORDS SUMMARY | 2023-01-06 04:59 | XMS REPORT | Continuity of Care Document ---
:1980 Author Organization [facility] t Address [address] [place] [address] Care Team Providers Name Role Phone Pcp, Patient Does Not Have A Primary Care Physician [id number] Susi Hebert Attending Clinician SUSI HOWE Attending Clinician Unavailable Problems This patient has no known problems. Allergies, Adverse Reactions, Alerts Allergy Allergy Status Severity Reaction(s) Onset Inactive Treating Comm ents Source Name Type Date Date Clinician NO KNOWN Drug Active Univers ALLERGIE Class ity of [facility] Social History Social Habit Start Date Stop Date Quantity Comments Source Exposure to Not sure [facility] SARS-CoV-2 (event) Medica l Branch Sex Assigned At [birth year] [facility] 00:00:00 00:00:00 [facility] Smoking Status Start Date Stop Date [...] [place] 09/01/21 at 1900, LITO
Fa [facility] member approving Restricted medication : SUSI HOWE diazePAM 2020-11- No 5mg 5 mg, Univers (VALIUM) 0-03 09- Intramuscu ity of injection 5 00:00: 22:56 lar, ONCE, [place] mg 00 :00 1 dose, On Medical [place] 09/01/21 at 1900, STAT methocarbam 2020-11- No [id number] 750mg Take 1 Univers oL 0-03 10-14 9104 tablet by ity of (ROBAXIN-75 00:00[place] 04:59 [place] 750 mg 00 :00 (four) Medical tablet times Branch daily for 10 days. meloxicam 2020-11- No [id number] 15mg Take 1 Univers (MOBIC) 15 0- 10- 9104 tablet by ity of mg tablet 00:00: 04:59 mouth [place] 00 :00 daily for Medical 10 days. Branch ibuprofen Yes [id number] 600mg Take 1 U nivers 600 mg 9-22 tablet by ity of tablet 00:00: mouth [place] 00 every 6 Medical (six) Branch hours as needed for Pain (scale 4-6). methocarbam 2020- No [id number] 500mg Take 1 Univers oL 500 mg [...] four [place] (0.083 %) 00 hours, march [facility] INHALE NEBU also Branch nebulize one extra one every six hours ZOFRAN 4 MG Yes take 2 Univ ers ORAL TAB 4-26 tablets by ity o f 00:00: mouth [place] 00 every 12 Medical hours for Branch nausea Vital Signs Vital Name Observation Time Observation Value Comments Source Oxygen saturation in 2021-09-01 23:57:00 99 /min [facility] Arterial blood by [facility] Pulse oximetry Branch Systolic blood 2021-09-01 22:40:45 161 mm[Hg] Univer sity of pressure [facility] Diastolic blood 2021-09-01 22:40:45 108 mm[Hg] Unive rsity of [facility] Heart rate 2021-09-01 22:40:45 79 /min [facility] Body temperature 2021-09-01 22:40:45 36.78 [facility] Respiratory rate 2021-09-01 22:40:45 16 /min [facility] Body weight 2021-09-01 22:26:00 108.863 kg [facility] Procedures Procedure Date / Time Performed Performing Clinician [facility] Branch e CONSENT/REFUSAL FOR 2021-09-01 22:18:40 Doctor Unassigned, No Un [facility] DIAGNOSIS AND Name Medical [place] TREATMENT Encounters Start End Encounter Admission Attending Care Care Encounter Source Date/Time Date/Time Type Type Clinicians Facility Department ID 2021-09-01 2021-09-01 [facility] [id number] Univers 17:28:00 18:58:00 Susi Ho [id number] i ty [facility] [id number] [facility] [id number] [facility] 084 Branch 2021-09-01 2021-09-01 Emergency X EBRAHIM, [facility] ERT [id number] Univers 17:18:00 17:18:00 SUSI leblanc [facility] 2021-08-21 2021-08-21 Emergency X [facility] ERT [id number] Univers 13:01:00 13:01:00 [facility] Results This patient has no known results.
[2023-01-06 05:29] LABS: Absolute Lymphocytes (CBC) 2.5 K/uL (0.7-4.9); Hematocrit 38.8 % (36.0-45.0); Lymphocytes % 29.2 % (15.3-44.8); MCV 87.4 fL (80-100); MPV 8.6 fL (7.6-11.3); RBC Red Blood Cell Count 4.43 M/uL (3.86-4.86)
[2023-01-06 05:30] LABS: Protime INR 1.04
[2023-01-06] MEDS ORDERED: NA CHLORIDE 0.9% 1,000 ML ONE (05:33)
[2023-01-06 05:39] LABS: SARS-CoV-2 Antigen Rapid Res Negative (Negative)
[2023-01-06] MEDS ORDERED: METOPROLOL TAR 50 MG TAB ONE (05:45)
[2023-01-06 05:46] LABS: Albumin 3.2 g/dL (3.4-5.0); Bilirubin Direct 0.1 mg/dL (0-0.2); Bilirubin Total 0.5 mg/dL (0.2-1.0); Potassium 3.6 mmol/L (3.5-5.1); Protein, Total 7.1 g/dL (6.4-8.2)
--- NOTE | 2023-01-06 06:15 | ER ---
Nurse's Notes [facility] Name: Paradise Colon Age: 42 yrs Sex: Female : 1980 Arrival Date: 01/06/2023 Time: 04:56 Bed 19 Private MD: Diagnosis: Chest pain, unspecified;Morbid (severe) obesity due to excess calories;Essential (primary) hypertension Presentation: 01/06 04:58 Chief complaint: Patient states: Patient C/O mid-back pain 10 that radiates to pf1 bilateral chest,onset 0230 while trying to go to sleep. EMS gave patient ASA 324mg and Nitro x 1 tab SL and Nitro paste 1 inch to right anterior chest wall. 04:58 Coronavirus screen: Vaccine status: Patient reports receiving the 2nd dose of the covid pf1 vaccine. Moderna Client denies travel out of the [place] in the last 14 days. At this time, the client does not indicate any symptoms associated with coronavirus-19. Ebola Screen: Patient negative for fever greater than or equal to 101.5 degrees Fahrenheit, and additional compatible Ebola Virus Disease symptoms. Initial Sepsis Screen: Does the patient meet any 2 criteria? No. Patient's initial sepsis screen is negative. Does the patient have a suspected source of infection? No. Patient's initial sepsis screen is negative. Risk Assessment: Do you want to hurt yourself or someone else? Patient reports no desire to harm self or others. Onset of symptoms was January 06, 2023. 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 It has been more than one year since last vaccine. - Social history:: Smoking status: Reported history of juuling and/or vaping. Patient uses alcohol, occasionally. Patient/guardian denies using street drugs. - Family history:: not pertinent. Screenin:00 [facility] ED Fall Risk Assessment (Adult) History of falling in the last 3 months, pf1 including since admission No falls in past 3 months (0 pts) Confusion or Disorientation No (0 pts) Intoxicated or Sedated No (0 pts) Impaired Gait No (0 pts) Mobility Assist Device Used No (0 pt) Altered Elimination No (0 pt) Score/Fall Risk Level 0 - 2 = Low Risk Oriented to surroundings, Maintained a safe environment, Educated pt \T\ family on fall prevention, incl call for assistance when getting out of bed, Assessed \T\ reinforced patient's understanding of fall precautions, Provided non-skid footwear, Hourly rounding (assess needs \T\ fall precautionary measures) done, Used ambulatory aids as needed (educated on \T\ assisted with), Used gait belt as appropriate. 05:00 Abuse screen: Denies threats or abuse. Nutritional screening: No deficits noted. pf1 Tuberculosis screening: No symptoms or risk factors identified. Assessment: 05:00 General: Appears in no apparent distress. comfortable, obese, well groomed, well pf1 developed, Behavior is calm, cooperative, appropriate for age, quiet. 05:00 Pain: Complains of pain in back and chest Pain currently is 4 out of 10 on a pain pf1 scale. Pain began 3 hours ago. Neuro: No deficits noted. Level of Consciousness is awake, alert, obeys commands, Oriented to person, place, time, situation. Cardiovascular: Reports chest pain, Capillary refill < 3 seconds Patient's skin is warm and dry. Respiratory: No deficits noted. Airway is patent Trachea midline Respiratory effort is even, unlabored, Respiratory pattern is regular, symmetrical, Breath sounds are clear bilaterally. GI: No deficits noted. Abdomen is round non-distended, obese, Bowel sounds present X 4 quads. Abd is soft and non tender X 4 quads. : No deficits noted. No signs and/or symptoms were reported regarding the genitourinary system. EENT: No deficits noted. No signs and/or symptoms were reported regarding the EENT system. Derm: Reports rosacea symptoms. Musculoskeletal: No deficits noted. No signs and/or symptoms reported regarding the musculoskeletal system. Circulation, motion, and sensation intact. Capillary refill < 3 seconds, Range of motion: intact in all extremities. 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 pf1 06:00 Reassessment: Patient appears in no apparent distress at this time. Patient and/or pf1 family updated on plan of care and expected duration. Pain level reassessed. Patient is alert, oriented x 3, equal unlabored respirations, skin warm/dry/pink. Patient states feeling better. Patient states symptoms have improved. 06:54 Reassessment: Patient appears in no apparent distress at this time. Patient and/or pf1 family updated on plan of care and expected duration. Pain level reassessed. Patient is alert, oriented x 3, equal unlabored respirations, skin warm/dry/pink. Patient states feeling better. Patient states symptoms have improved. Patient C/O mid-back to bilateral chest wall pain of 4 at this time. Patient pending catscan results. . 08:18 Reassessment: attempted report to receiving nurse. was informed she would return my ap3 call. 08:39 Reassessment: Patient states feeling better. patient reports headache pain has ap3 decreased from a 9 to a 6. Vital Signs: 04:58 BP 167 / 81; Pulse 105; Resp 20; Temp 99(O); Pulse Ox 97% on R/A; Weight 108.86 kg; pf1 Height 5 ft. 2 in. (157.48 cm); Pain 4/10; 05:15 BP 148 / 75; Pulse 91; Resp 20; Pulse Ox 95% on R/A; Pain 4/10; pf1 05:45 BP 134 / 64; Pulse 92; Resp 17; Pulse Ox 97% on R/A; Pain 4/10; pf1 06:45 BP 123 / 60; Pulse 76; Resp 17; Pulse Ox 97% on R/A; Pain 4/10; pf1 04:58 Body Mass Index 43.90 (108.86 kg, 157.48 cm) pf1 ED Course: 04:56 Patient arrived in ED. la1 05:00 Naima hu, ALBA is Primary Nurse. pf1 05:00 No provider procedures requiring assistance completed. Maintain EMS IV. Dressing pf1 intact. Good blood return noted. Site clean \T\ dry. Gauge \T\ site: 20 gauge to right hand. 05:00 Arm band placed on. pf1 05:04 Earl Colon MD is Attending Physician. marleny 05:05 IV discontinued, intact, bleeding controlled, No redness/swelling at site. Pressure pf1 dressing applied, 20 gauge removed from right hand. 05:10 Inserted saline lock: 20 gauge in right antecubital area, using aseptic technique. pf1 Blood collected. 05:20 Basic Metabolic Panel Sent. pf1 05:20 CBC with Diff Sent. pf1 05:20 LFT's Sent. pf1 05:20 Magnesium Sent. pf1 05:20 NT PRO-BNP Sent. pf1 05:20 PT-INR Sent. pf1 05:20 Troponin HS Sent. pf1 05:25 Triage completed. pf1 05:28 XRAY Chest (1 view) In Process Unspecified. EDMS 06:13 Derrick Quintana MD is Hospitalizing Provider. marleny 06:14 CT Aorta for Dissection In Process Unspecified. EDMS 08:19 Patient has correct armband on for positive identification. Bed in low position. Call ap3 light in reach. Side rails up X2. Pulse ox on. NIBP on. Door closed. Noise minimized. Administered Medications: 05:30 Drug: NS 0.9% 1000 ml Route: IV; Rate: 75 ml/hr; Site: right antecubital; pf1 06:34 Follow up: Response: No adverse reaction; Marked relief of symptoms pf1 05:40 Drug: Lopressor (metoprolol TARTRATE) 50 mg Route: PO; pf1 06:34 Follow up: Response: No adverse reaction; Marked relief of symptoms pf1 06:52 Drug: Pepcid (famotidine) 20 mg Route: IVP; Site: right antecubital; pf1 06:56 Follow up: Response: No adverse reaction pf1 07:21 Drug: Tylenol 1000 mg Route: PO; ap3 08:39 Follow up: Response: Pain is decreased ap3 08:44 Not Given (CT results not resulted prior to admissionn): Lovenox (enoxaparin) 100 mg ap3 Sub-Q once; give when ct dissection negative Medication: 08:19 VIS not applicable for this client. ap3 Outcome: 06:14 Decision to Hospitalize by Provider. marleny 08:19 Admitted to Tele ap3 08:19 Condition: good 08:19 Instructed on the need for admit. 08:59 Patient left the ED. ap3 Signatures: Dispatcher [employer] EDMS Isaiah, Earl, MD MD marleny Attema, Flavio, ORTHOPAEDIC DOCTOR-C ORTHOPAEDIC DOCTOR-Cla1 Sherly Castaneda, RN RN ap3 Naima hu RN RN pf1
--- NOTE | 2023-01-06 06:15 | EDPHYS ---
Physician Documentation [facility] Name: Paradise Colon Age: 42 yrs Sex: Female : 1980 Arrival Date: 01/06/2023 Time: 04:56 Bed 19 Private MD: RODRICK Physician Earl Colon HPI: 01/06 05:33 This 42 yrs old Female presents to ER via EMS with complaints of chest pain. marleny 05:33 The patient has shortness of breath at rest, with light activity. Onset: The marleny symptoms/episode began/occurred just prior to arrival. Duration: The symptoms are continuous, but are steadily getting better. The patient's shortness of breath is aggravated by nothing, is alleviated by nothing. The patient or guardian reports chest pain that is located primarily in the anterior chest wall. Onset: this morning. The pain radiates to Associated signs and symptoms: Pertinent positives: chest pain. Severity of symptoms: At their worst the symptoms were moderate in the emergency department the symptoms are unchanged. The chest pain is described as a pressure, sharp. 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 It has been more than one year since last vaccine. - Social history:: Smoking status: Reported history of juuling and/or vaping. Patient uses alcohol, occasionally. Patient/guardian denies using street drugs. - Family history:: not pertinent. ROS: 05:33 Constitutional: Negative for fever, chills, and weight loss, Eyes: Negative for injury, marleny pain, redness, and discharge, ENT: Negative for injury, pain, and discharge, Neck: Negative for injury, pain, and swelling, Cardiovascular: Negative for chest pain, palpitations, and edema, Respiratory: Negative for shortness of breath, cough, wheezing, and pleuritic chest pain, Abdomen/GI: Negative for abdominal pain, nausea, vomiting, diarrhea, and constipation, Back: Negative for injury and pain, : Negative for injury, bleeding, discharge, and swelling, MS/Extremity: Negative for injury and deformity, Skin: Negative for injury, rash, and discoloration, Neuro: Negative for headache, weakness, numbness, tingling, and seizure, Psych: Negative for depression, anxiety, suicide ideation, homicidal ideation, and hallucinations, Allergy/Immunology: Negative for hives, rash, and allergies, Endocrine: Negative for neck swelling, polydipsia, polyuria, polyphagia, and marked weight changes, Hematologic/Lymphatic: Negative for swollen nodes, abnormal bleeding, and unusual bruising. 05:33 MS/extremity: Negative for acute changes, decreased range of motion, pain, swelling, tenderness. Exam: 05:33 Constitutional: This is a well developed, well nourished patient who is awake, alert, marleny and in no acute distress. Head/Face: Normocephalic, atraumatic. Eyes: Pupils equal round and reactive to light, extra-ocular motions intact. Lids and lashes normal. Conjunctiva and sclera are non-icteric and not injected. Cornea within normal limits. Periorbital areas with no swelling, redness, or edema. ENT: Nares patent. No nasal discharge, no septal abnormalities noted. Tympanic membranes are normal and external auditory canals are clear. Oropharynx with no redness, swelling, or masses, exudates, or evidence of obstruction, uvula midline. Mucous membranes moist. Neck: Trachea midline, no thyromegaly or masses palpated, and no cervical lymphadenopathy. Supple, full range of motion without nuchal rigidity, or vertebral point tenderness. No Meningismus. Chest/axilla: Normal chest wall appearance and motion. Nontender with no deformity. No lesions are appreciated. Cardiovascular: Regular rate and rhythm with a normal S1 and S2. No gallops, murmurs, or rubs. Normal PMI, no JVD. No pulse deficits. Respiratory: Lungs have equal breath sounds bilaterally, clear to auscultation and percussion. No rales, rhonchi or wheezes noted. No increased work of breathing, no retractions or nasal flaring. Abdomen/GI: Soft, non-tender, with normal bowel sounds. No distension or tympany. No guarding or rebound. No evidence of tenderness throughout. Back: No spinal tenderness. No costovertebral tenderness. Full range of motion. Skin: Warm, dry with normal turgor. Normal color with no rashes, no lesions, and no evidence of cellulitis. MS/ Extremity: Pulses equal, no cyanosis. Neurovascular intact. Full, normal range of motion. Neuro: Awake and alert, GCS 15, oriented to person, place, time, and situation. Cranial nerves II-XII grossly intact. Motor strength 5/5 in all extremities. Sensory grossly intact. Cerebellar exam normal. Normal gait. Psych: Awake, alert, with orientation to person, place and time. Behavior, mood, and affect are within normal limits. 05:33 ECG was reviewed by the Attending Physician. Vital Signs: 04:58 BP 167 / 81; Pulse 105; Resp 20; Temp 99(O); Pulse Ox 97% on R/A; Weight 108.86 kg; pf1 Height 5 ft. 2 in. (157.48 cm); Pain 4/10; 05:15 BP 148 / 75; Pulse 91; Resp 20; Pulse Ox 95% on R/A; Pain 4/10; pf1 05:45 BP 134 / 64; Pulse 92; Resp 17; Pulse Ox 97% on R/A; Pain 4/10; pf1 06:45 BP 123 / 60; Pulse 76; Resp 17; Pulse Ox 97% on R/A; Pain 4/10; pf1 04:58 Body Mass Index 43.90 (108.86 kg, 157.48 cm) pf1 MDM: 05:05 Patient medically screened. marleny 05:38 Differential diagnosis: CHF exacerbation, abnormal EKG, acute pericarditis, anxiety, marleny Cholelithiasis esophagitis, gastritis, pancreatitis, pneumonia, pulmonary embolus, stable angina, thoracic aortic disection, unstable angina, Myocardial Infarction pulmonary edema, Pulmonary Embolism reactive airway disease. Antibiotic administration: Not indicated. HEART Score: History: Moderately Suspicious (1), ECG: Normal (0), Age: < or = 45 years (0), Risk Factors: > or = 3 Risk factors for atherosclerotic disease (2), [Hypercholesterolemia] [+ Family HX] [Obesity] Troponin: < or = 1 x Normal Limit (0). The patient was given aspirin in the Emergency Department. BRUNA Risk Score: 1 - Three or more CAD risk factors, TOTAL SCORE = 1. Immunization status:. Data reviewed: vital signs, nurses notes, EMS record, lab test result(s), EKG, radiologic studies, plain films. Consideration of Admission/Observation Patient was admitted/placed on observation. Escalation of care including admission/observation considered. Independent interpretation of the following test(s) in the Emergency Department Rhythm Strip Interpretation Rate: 91BPM Rhythm: regular. Test considered but Not performed: Ultrasound le bilaterally. Care significantly affected by the following chronic conditions: Hypertension, Obesity. 01/06 05:05 Order name: Basic Metabolic Panel; Complete Time: 06:10 marleny 01/06 05:05 Order name: CBC with Diff; Complete Time: 05:32 marleny 01/06 05:05 Order name: LFT's; Complete Time: 06:10 marleny 01/06 05:05 Order name: Magnesium; Complete Time: 06:10 marleny 01/06 05:05 Order name: NT PRO-BNP; Complete Time: 06:10 marleny 01/06 05:05 Order name: PT-INR; Complete Time: 05:32 marleny 01/06 05:05 Order name: Troponin HS; Complete Time: 06:10 marleny 01/06 05:05 Order name: Lipase; Complete Time: 06:10 marleny 01/06 05:05 Order name: SARS RAPID; Complete Time: 06:10 marleny 01/06 07:50 Order name: Basic Metabolic Panel EDMS 01/06 07:50 Order name: Basic Metabolic Panel EDMS 01/06 07:50 Order name: CBC with Automated Diff EDMS 01/06 07:50 Order name: CBC with Automated Diff EDMS 01/06 07:50 Order name: Lipid Profile EDMS 01/06 05:05 Order name: XRAY Chest (1 view) marleny 01/06 05:05 Order name: EKG; Complete Time: 05:06 marleny 01/06 05:05 Order name: Cardiac monitoring; Complete Time: 05:07 marleny 01/06 05:05 Order name: EKG - Nurse/Tech; Complete Time: 05:07 marleny 01/06 05:05 Order name: IV Saline Lock; Complete Time: 05:07 marleny 01/06 05:05 Order name: Labs collected and sent; Complete Time: 05:20 marleny 01/06 05:33 Order name: CT Aorta for Dissection marleny 01/06 07:50 Order name: Echo with Doppler EDMS 01/06 07:50 Order name: Echo with Doppler EDMS 01/06 07:50 Order name: Lipid Profile [facility] 01/06 07:50 Order name: Troponin High Sensitivity [facility] 01/06 05:05 Order name: O2 Per Protocol; Complete Time: 05:07 marleny 01/06 05:05 Order name: O2 Sat Monitoring; Complete Time: : marleny EC:33 Rate is 93 beats/min. Rhythm is regular. QRS [place] is Normal. DC interval is normal. QRS marleny interval is normal. QT interval is normal. No Q waves. T waves are Normal. No ST changes noted. Clinical impression: Normal ECG and No evidence of ischemia. Interpreted by me. Reviewed by me. Administered Medications: 05:30 Drug: NS 0.9% 1000 ml Route: IV; Rate: 75 ml/hr; Site: right antecubital; pf1 06:34 Follow up: Response: No adverse reaction; Marked relief of symptoms pf1 05:40 Drug: Lopressor (metoprolol TARTRATE) 50 mg Route: PO; pf1 06:34 Follow up: Response: No adverse reaction; Marked relief of symptoms pf1 06:52 Drug: Pepcid (famotidine) 20 mg Route: IVP; Site: right antecubital; pf1 06:56 Follow up: Response: No adverse reaction pf1 07:21 Drug: Tylenol 1000 mg Route: PO; ap3 08:39 Follow up: Response: Pain is decreased ap3 08:44 Not Given (CT results not resulted prior to admissionn): Lovenox (enoxaparin) 100 mg ap3 Sub-Q once; give when ct dissection negative Disposition Summary: 01/06/23 06:14 Hospitalization Ordered Hospitalization Status: Observation marleny Provider: Derrick Quintana cha [facility] marleny Condition: Stable marleny Problem: new marleny Symptoms: have improved marleny Bed/Room Type: Standard marleny Room Assignment: 409(01/06/23 07:56) ja1 Diagnosis - Chest pain, unspecified marleny - Morbid (severe) obesity due to excess calories marleny - Essential (primary) hypertension marleny Forms: - Medication Reconciliation Form marleny - SBAR form marleny Signatures: Dispatcher [employer] EDAZ Earl Colon MD MD cha Aguilar, Jose, RN RN ja1 Sherly Castaneda RN RN ap3 hu, Naima, RN RN pf1 Corrections: (The following items were deleted from the chart) 07:56 06:14 marleny peñaloza
[2023-01-06] MEDS ORDERED: FAMOTIDINE 20 MG/2 ML VIAL IV ONE (06:54)
[2023-01-06] MEDS ORDERED: ACETAMINOPHEN 500 MG TAB ONE (07:20)
[2023-01-06] MEDS ORDERED: ACETAMINOPHEN 500 MG TAB PO PRN (07:45)
[2023-01-06] MEDS ORDERED: ALPRAZOLAM 0.25 MG TABLET PO PRN (07:45)
[2023-01-06] MEDS ORDERED: MORPHINE 2 MG/ML SYR IV PRN (07:45)
[2023-01-06 09:15] VITALS: BMI 42.5
[2023-01-06] MEDS: METOPROLOL TAR 50 MG TAB PO SCH ×2 (09:23→20:55)
[2023-01-06] MEDS: ENOXAPARIN 40 MG/0.4 ML SQ SCH (09:23)
[2023-01-06] MEDS: ASPIRIN EC 81 MG TAB PO SCH (09:23)
[2023-01-06 09:30] VITALS: O2SAT 97
[2023-01-06 09:35] LABS: Troponin High Sensitivity 20.2 pg/mL (<58.9)
[2023-01-06] MEDS ORDERED: INFLUENZA VACCINE (for 6+ mo) 0.5 ML DOSE IMVAC ONE (10:00)
--- NOTE | 2023-01-06 15:08 | RAD REPORT ---
EXAM DESCRIPTION: RAD - Chest Single View - 01/06/2023 5:26 am CLINICAL HISTORY: The patient is 42 years old and is Female; Cough TECHNIQUE: Frontal view of the chest. COMPARISON: No relevant prior studies available. FINDINGS: Lungs: Unremarkable. No consolidation. Pleural space: Unremarkable. No pneumothorax. Heart: Unremarkable. Mediastinum: Unremarkable. Bones/joints: Unremarkable. IMPRESSION: No acute findings in the chest. Electronically signed by: Tanvir Cao MD 01/06/2023 5:37 AM STARCH DUMPER Due to temporary technical issues with the PACS/Fluency reporting system, reports are being signed by the in house radiologists without review as a courtesy to insure prompt reporting. The interpreting radiologist is fully responsible for the content of the report.
--- NOTE | 2023-01-06 15:12 | RAD REPORT ---
EXAM DESCRIPTION: CT - Angio Aorta For Dissection - 01/06/2023 7:08 am CLINICAL HISTORY: The patient is 42 years old and is Female; dissection cough TECHNIQUE: Axial computed tomographic angiography images of the chest, abdomen and pelvis with intra venous contrast. Sagittal and coronal reformatted images were created and reviewed. This CT exam was performed using one or more of the following dose reduction techniques: automated exposure cont rol, adjustment of the mA and/or kV according to patient size, and/or use of iterative reconstruction technique. MIP reconstructed images were created and reviewed. COMPARISON: CT chest abdomen pelvis August 15, 2022. FINDINGS: VASCULATURE: Aorta: No thoracic or abdominal aortic aneurysm or dissection. Pulmonary arteries: No PE visualized. Great vessels of aortic arch: No acute findings. No dissection. No arterial occlusion or sig nificant stenosis. Celiac trunk and mesenteric arteries: No acute findings. No occlusion or significant stenosis. Renal arteries: No acute findings. No occlusion or significant stenosis. Iliac arteries: No acute findings. No occlusion or significant stenosis. 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 CHEST: Lungs: No pulmonary consolidation or groundglass opacities to suggest pneumonia. Pleural space: No pleural effusion or pneumothorax. Heart: Unremarkable. No cardiomegaly. No significant pericardial effusion. ABDOMEN: Liver: Mild fatty liver. Gallbladder and bile ducts: Unremarkable. No calcified stones. No ductal dilation. Pancreas: Unremarkable. No ductal dilation. No mass. Spleen: Unremarkable. No splenomegaly. Adrenals: Unremarkable. No mass. Kidneys and ureters: Unremarkable. No hydronephrosis. No solid mass. Stomach and bowel: No bowel dilatation or obstruction. No bowel wall thickening. PELVIS: Appendix: The visualized appendix is normal. No pericecal inflammation to suggest acute appendic itis. Bladder: Unremarkable. No mass. Reproductive: Possible small anterior uterine fibroid. No adnexal mass. CHEST, ABDOMEN and PELVIS: Intraperitoneal space: Unremarkable. No significant fluid collection. No free air. Bones/joints: No acute fracture visualized. Degenerative changes in the lower lumbar facet joints. No acute fracture visualized. No dislocation. Soft tissues: Umbilical and left inguinal hernias containing fat only. Lymph nodes: Unremarkable. No enlarged lymph nodes. IMPRESSION: 1. No thoracic or abdominal aortic aneurysm or dissection. 2. No acute obstructive or inflammatory process identified. Electronically signed by: Yani Tapia MD 01/06/2023 6:57 AM INDEPENDENT BEAUTY CONSULTANT Due to temporary technical issues with the PACS/Fluency reporting system, reports are being signed by the in house radiologists without review as a courtesy to insure prompt reporting. The interpreting radiologist is fully responsible for the content of the report.
[2023-01-07 06:03] LABS: Absolute Lymphocytes (CBC) 2.9 K/uL (0.7-4.9); Hematocrit 40.8 % (36.0-45.0); Lymphocytes % 35.2 % (15.3-44.8); MCV 87.8 fL (80-100); MPV 8.7 fL (7.6-11.3); RBC Red Blood Cell Count 4.65 M/uL (3.86-4.86)
[2023-01-07 06:17] LABS: Potassium 4.2 mmol/L (3.5-5.1)
[2023-01-07] MEDS ORDERED: REGADENOSON 0.4 MG/5 ML SYR IV ONE (08:19)
[2023-01-07] MEDS: ENOXAPARIN 40 MG/0.4 ML SQ SCH (09:00)
[2023-01-07 09:01] VITALS: BP 120/69; TEMP 97.3
[2023-01-07] MEDS: METOPROLOL TAR 50 MG TAB PO SCH (10:43)
[2023-01-07] MEDS: ASPIRIN EC 81 MG TAB PO SCH (10:43)
--- NOTE | 2023-01-07 11:54 | RAD REPORT ---
EXAM DESCRIPTION: NM - Rest Stress Cardiac Imaging - 01/07/2023 11:48 am CLINICAL HISTORY: CP Chest pain. COMPARISON: No comparisons TECHNIQUE: The patient was administered approximately 10mCi of Tc 99m Sestamibi prior to resting SPE CT imaging of the heart. The patient was then administered approximately 30 mCi of Tc 99m Sestamibi f ollowing exercise or pharmacologic stress. Multiplanar SPECT images were reviewed. FINDINGS: No stress induced ischemic defect is seen to suggest stress induced ischemia. No fixed def ect is seen to suggest hibernating myocardium or scarred myocardium. The end diastolic volume is 88 ml, the end systolic volume is 39 ml, and the ejection fraction is 56 %. IMPRESSION: No stress induced ischemia.
--- NOTE | 2023-01-08 08:03 | EKG ---
Test Date: 2023-01-06 Test Time: 05:03:42 Infectious Disease Physician: LUCIO MEASUREMENT RESULTS: Intervals: Rate: 93 NM: 144 QRSD: 78 QT: 336 QTc: 417 [place]: P: 68 NM: 144 QRS: 20 T: 62 INTERPRETIVE STATEMENTS: Normal sinus rhythm Normal ECG Compared to ECG 08/15/2022 18:15:35 Sinus tachycardia no longer present Electronically Signed On 01-08-23 07:57:29 BACKUP ADMINISTRATOR by Nam Lui
--- NOTE | 2023-01-08 09:02 | ECHO ---
HEIGHT: 5 ft 3 in WEIGHT: 240 lb 0 oz DATE OF STUDY: 01/07/[address]: Derrick Quintana MD 2-DIMENSIONAL: YES M.MODE: YES DOPPLER: YES COLOR FLOW: YES TDS: PORTABLE: YES DEFINITY: BUBBLE STUDY: DIAGNOSIS: CHEST PAIN, RULE OUT ACUTE CORONARY SYNDROME CARDIAC HISTORY: CATHERIZATION: NO SURGERY: NO PROSTHETIC VALVE: NO PACEMAKER: NO MEASUREMENTS (cm) DIASTOLIC (NORMALS) SYSTOLIC (NORMALS) IVSd 1.1 (0.6-1.2) LA Diam 2.1 (1.9-4.0) LVEF 54% LVIDd 3.4 (3.5-5.7) LVIDs 2.4 (2.0-3.5) %FS 27% LVPWd 1.1 (0.6-1.2) Ao Diam 2.5 (2.0-3.7) 2 DIMENSIONAL ASSESSMENT: RIGHT ATRIUM: NORMAL LEFT ATRIUM: NORMAL RIGHT VENTRICLE: NORMAL LEFT VENTRICLE: NORMAL TRICUSPID VALVE: MILD TRICUSPID REGURGITAITON MITRAL VALVE: NORMAL PULMONIC VALVE: NORMAL AORTIC VALVE: NORMAL PERICARDIAL EFFUSION: NONE AORTIC ROOT: NORMAL LEFT VENTRICULAR WALL MOTION: NORMAL DOPPLER/COLOR FLOW: SEE BELOW COMMENTS: 1. NORMAL LEFT VENTRICULAR EJECTION FRACTION 55-60% 2. NORMAL WALL MOTION 3. MILD MITRAL REGURGITATION 4. MILD TRICUSPID REGURGITATION TECHNOLOGIST: VICKY STALEY
--- NOTE | 2023-01-08 09:06 | TREADPHA ---
DX: CHEST PAIN Date of Study: 01/07/2023 Ht: 5' 3 " Wt: 240 lb 0 oz Consulting Physician: LOS MEDICATIONS: TYLENOL, XANAX, ASPIRIN, LOVENOX, LOPRESSOR, MORPHINE HISTORY: 42 YEAR OLD FEMALE WITH COMPLAINTS OF CHEST PAIN. HISTORY OF HYPERTENSION, VAPERS, DENIES ALCOHOL, DRUG USE, OR PREVIOUS HEART SURGERIES PHYSICIAL EXAMINATION: RESTING B.P.: 140/84 RESTING H.R.: 70 RESTING EKG: NORMAL SINUS [facility] PROTOCOL: PHARMACOLOGIC EXERCISE TIME: 3:30 B.P. AT [place] STRESS: 174/95 IMPRESSION: LEXISCAN INJECTED. CARDIOLITE GIVEN PER PROTOCOL. SEE NUCLEAR MEDICINE REPORT. OCCASIONAL PREMATURE VENTRICULAR COMPLEXES NOTD. NO SUPRAVENTRICULAR TACHYCARIA, VENTRICULAR TACHYCARDIA, PREMATURE ATRIAL COMPLEXES NOTED. COMPLAINTS OF ABDMONIAL PAIN. DENIES CHEST PAIN. NO ELECTROCARDIOGRAM CHANGES WITH LEXISCAN.
--- NOTE | 2023-01-29 20:36 | P.HP ---
Certification for Inpatient Patient admitted to: Observation With expected LOS: <2 Midnights Patient will require the following post-hospital care: None Practitioner: I am a practitioner with admitting privileges, knowledge of patient current condition, hospital course, and medical plan of care. Services: Services provided to patient in accordance with Admission requirements found in Title 42 Section 412.3 of the Code of Federal Regulations Patient History Date of Service: 01/06/23 Reason for admission: Chest pain rule out acute coronary syndrome History of Present Illness: Patient is a 42 yrs old female presents to ER with complaints of chest pain. Patient has also been short of breath. She states that the pain was not improving so came into the hospital for further evaluation. In the emergency room EKGs and troponins have been negative. Patient will be admitted to be ruled out for acute coronary syndrome. Will do serial troponins and EKG. If troponins are negative will do echocardiogram and stress test for the a.m.. Patient will be admitted for observation. Allergies No Known Allergies Allergy (Verified 02/15/13 13:51) Home Medications: NK [No Home Meds] 01/06/23 - Past Medical/Surgical History Diabetic: No -: Hypertension -: Chronic pain - Social History Smoking Status: Current every day smoker Alcohol use: Yes CD- Drugs: No Caffeine use: Yes Place of Residence: Home Review of Systems 10-point ROS is otherwise unremarkable Physical Examination - Vital Signs Temperature: 97.3 F Blood Pressure: 120/69 Pulse: 61 Respirations: 14 Pulse Ox (%): 97 - Physical Exam General: Alert, In no apparent distress, Oriented x3 HEENT: Atraumatic Neck: Supple, 2+ carotid pulse no bruit, JVD not distended Respiratory: Clear to auscultation bilaterally, Normal air movement Cardiovascular: Regular rate/rhythm, Normal S1 S2, No murmurs Gastrointestinal: Normal bowel sounds, Hypoactive, Soft and benign, Non- distended Musculoskeletal: No clubbing, No swelling Integumentary: No rashes Neurological: Normal gait, Normal speech, Normal strength at 5/5 x4 extr, Normal tone, Sensation intact, Cranial nerves 3-12 intact Assessment & Plan - Problems (Diagnosis) (1) Chest pain, rule out acute myocardial infarction Status: Acute - Plan 1. Serial troponins and EKG 2. Appreciate Cardiology consultation 3. Echocardiogram and stress test if cardiology is agreeable 4. Anti-platelet therapy, anti coagulation, beta-nick, statin, and O2 as needed 5. IV morphine for pain 6. Nitro p.r.n. Discharge Plan: Home Plan to discharge in: Greater than 2 days - Advance Directives Does patient have a Living Will: No Does patient have a Durable POA for Healthcare: No - Code Status/Comfort Care Code Status Assessed: Yes Code Status: Full Code Critical Care: No Time Spent Managing PTS Care (In Minutes): 45
--- NOTE | 2023-01-29 20:42 | P.DS ---
Discharge Date: 01/07/23 Disposition: ROUTINE DISCHARGE Discharge Condition: GOOD Reason for Admission: Chest pain rule out acute coronary syndrome - Problems (1) Chest pain, rule out acute myocardial infarction Status: Acute Brief History of Present Illness: Patient is a 42 yrs old female presents to ER with complaints of chest pain. Patient has also been short of breath. She states that the pain was not improving so came into the hospital for further evaluation. In the emergency room EKGs and troponins have been negative. Patient will be admitted to be ruled out for acute coronary syndrome. Will do serial troponins and EKG. If troponins are negative will do echocardiogram and stress test for the a.m.. Patient will be admitted for observation. Hospital Course: Patient's cardiac workup was negative. Stress test echocardiogram a marble. At this time patient is stable for discharge with outpatient follow-up. Vital Signs/Physical Exam: Temp Pulse Resp BP Pulse Ox 97.3 F 61 14 120/69 97 01/29/23 20:39 01/29/23 20:39 01/29/23 20:39 01/29/23 20:39 01/29/23 20:39 General: Alert, In no apparent distress, Oriented x3 Laboratory Data at Discharge: WBC 8.40 K/uL (4.3-10.9) 01/07/23 05:38 Hgb 13.4 g/dL (12.0-15.0) 01/07/23 05:38 Hct 40.8 % (36.0-45.0) 01/07/23 05:38 Plt Count 242 K/uL (152-406) 01/07/23 05:38 PT 11.4 SECONDS (9.5-12.5) 01/06/23 05:15 INR 1.04 01/06/23 05:15 Sodium 136 mmol/L (136-145) 01/07/23 05:38 Potassium 4.2 mmol/L (3.5-5.1) D 01/07/23 05:38 BUN 12 mg/dL (7-18) 01/07/23 05:38 Creatinine 0.70 mg/dL (0.55-1.02) 01/07/23 05:38 Glucose 121 mg/dL (74-106) H 01/07/23 05:38 Magnesium 2.0 mg/dL (1.6-2.4) 01/06/23 05:15 Total Bilirubin 0.5 mg/dL (0.2-1.0) 01/06/23 05:15 AST 36 U/L (15-37) 01/06/23 05:15 ALT 38 U/L (13-56) 01/06/23 05:15 Alkaline Phosphatase 79 U/L (45-117) 01/06/23 05:15 Triglycerides 87 mg/dL (<150) 01/06/23 09:00 Cholesterol 131 mg/dL (<200) 01/06/23 09:00 HDL Cholesterol 36 mg/dL (40-60) L 01/06/23 09:00 Cholesterol/HDL Ratio 3.64 01/06/23 09:00 Lipase 68 U/L (73-393) L 01/06/23 05:15 Home Medications: NK [No Home Meds] 01/06/23 Physician Discharge Instructions: OK TO DC IV AND DC HOME FOLLOW-UP WITH PRIMARY CARE PROVIDER IN 1-2 WEEKS FOLLOW-UP WITH CARDIOLOGY IN 1-2 WEEKS RETURN TO THE ER IF symptoms worsens CALL DR. MARTINEZ AT [phone] IF ANY QUESTIONS REGARDING HOSPITAL STAY. PLEASE CALL THE FLOOR AT [phone] IF ANY MEDICATION OR NURSING QUESTIONS. Diet: AHA Activity: Fall precautions Followup: Nam Lui MD [ACTIVE - CAN ADMIT] - Unknown,U [Primary Care Provider] - Time spent managing pt's care (in minutes): 35
== END 2023-01-07 15:12 | disposition home or self-care (01) ==
LOC: ER 04:55 → ERHOLD 07:45 → 4TH 08:20
PROVIDERS: ADMIT Hospitalist; ATTEND Hospitalist
DX: R07.9 Chest pain, unspecified (principal); R06.02 Shortness of breath; I10 Essential (primary) hypertension; G89.29 Other chronic pain; Z20.822 Contact with and (suspected) exposure to COVID-19
CPT/HCPCS: 93005; 93017; 93306; 85025 ×2; 80048 ×2; 36415 ×2; 83735; 85610; 80061; 80076; 84484 ×2; 83690; 83880; 71275; 74175; 71045; 78452; 96374; 99285; 87811; Q9967; J1650; J2270; J2785; J7030; A9500; G0378 ×3

== ENCOUNTER 2023-04-30 21:10 | Emergency (ER) | payer OTHER ==
--- OUTSIDE RECORDS SUMMARY | 2023-04-30 21:13 | XMS REPORT | Continuity of Care Document ---
:1980 Author Organization [facility] t Address [address] [facility] [address] [place] [id number] Care Team Providers Name Role Phone Pcp, Patient Does Not Have A Primary Care Physician [phone] Susi Hebert Attending Clinician SUSI HOWE Attending Clinician Unavailable Problems This patient has no known problems. Allergies, Adverse Reactions, Alerts Allergy Allergy Status Severity Reaction(s) Onset Inactive Treating Comm ents Source Name Type Date Date Clinician NO KNOWN Drug Active Univers ALLERGIE Class ity of [facility] Social History Social Habit Start Date Stop Date Quantity Comments Source Exposure to Not sure [facility] SARS-CoV-2 (event) Medica l Branch Sex Assigned At [birth year] [facility] 00:00:00 00:00:00 [facility] Smoking Status Start Date Stop Date Source Unknown if ever smoked [facility] Medications Ordered Filled Start Stop Current Ordering [...] [place] 09/01/21 at 1900, LITO
Fa [facility] member approving Restricted medication : SUSI HOWE diazePAM 2020-11- No 5mg 5 mg, Univers (VALIUM) 0-03 09- Intramuscu ity of injection 5 00:00: 22:56 lar, ONCE, [place] mg 00 :00 1 dose, On Medical [place] 09/01/21 at 1900, STAT methocarbam 2020-11- No [id number] 750mg Take 1 Univers oL 0-03 10-14 9104 tablet by ity of (ROBAXIN-75 00:00[place] 04:59 [place] 750 mg 00 :00 (four) Medical tablet times Branch daily for 10 days. meloxicam 2020-11- No [id number] 15mg Take 1 Univers (MOBIC) 15 0- 10- 9104 tablet by ity of mg tablet 00:00: 04:59 mouth [place] 00 :00 daily for Medical 10 days. Branch ibuprofen Yes [id number] 600mg Take 1 U nivers 600 mg 9-22 tablet by ity of tablet 00:00: mouth [place] 00 every 6 Medical (six) Branch hours as needed for Pain (scale 4-6). methocarbam 2020- No [id number] 500mg Take 1 Univers oL 500 mg [...] four [place] (0.083 %) 00 hours, march [facility] INHALE NEBU also Branch nebulize one extra one every six hours ZOFRAN 4 MG Yes take 2 Univ ers ORAL TAB 4-26 tablets by ity o f 00:00: mouth [place] 00 every 12 Medical hours for Branch nausea Vital Signs Vital Name Observation Time Observation Value Comments Source Oxygen saturation in 2021-09-01 23:57:00 99 /min [facility] Arterial blood by [facility] Pulse oximetry Branch Systolic blood 2021-09-01 22:40:45 161 mm[Hg] Univer sity of pressure [facility] Diastolic blood 2021-09-01 22:40:45 108 mm[Hg] Unive rsity of [facility] Heart rate 2021-09-01 22:40:45 79 /min [facility] Body temperature 2021-09-01 22:40:45 36.78 Kimberly [facility] Respiratory rate 2021-09-01 22:40:45 16 /min [facility] Body weight 2021-09-01 22:26:00 108.863 kg [facility] Procedures Procedure Date / Time Performed Performing Clinician [facility] e CONSENT/REFUSAL FOR 2021-09-01 22:18:40 Doctor Unassigned, No Un [facility] DIAGNOSIS AND Name Medical [place] TREATMENT Encounters Start End Encounter Admission Attending Care Care Encounter Source Date/Time Date/Time Type Type Clinicians Facility Department ID 2021-09-01 2021-09-01 Emergency [facility], [facility] [id number] Univers 17:28:00 18:58:00 Susi Ho [id number] i ty [facility] [id number] [facility] [id number] [facility] 084 Branch 2021-09-01 2021-09-01 Emergency X EBRAHIM, [facility] ERT [id number] Univers 17:18:00 17:18:00 SUSI leblanc [facility] 2021-08-21 2021-08-21 Emergency X [facility] ERT [id number] Univers 13:01:00 13:01:00 [facility] Results This patient has no known results.
[2023-04-30 22:58] LABS: Urine Bacteria None Seen /HPF (<20); Urine Bilirubin NEGATIVE (Negative); Urine Blood 1+ (Negative); Urine Clarity Clear (Clear); Urine Color Light-Yellow (Yellow); Urine Glucose NEGATIVE (Negative); Urine Mucus 1+ /HPF (None Seen); Urine Protein TRACE (Negative); Urine RBC <5 /HPF (None Seen); Urine Urobilinogen Normal (Normal)
[2023-05-01 00:33] LABS: Absolute Lymphocytes (CBC) 2.5 K/uL (0.7-4.9); Hematocrit 39.8 % (36.0-45.0); Lymphocytes % 25.3 % (15.3-44.8); MCV 88.4 fL (80-100); MPV 8.5 fL (7.6-11.3)
[2023-05-01 00:36] LABS: Protime INR 1.1
[2023-05-01 00:52] LABS: Albumin 3.4 g/dL (3.4-5.0); Bilirubin Direct 0.1 mg/dL (0-0.2); Bilirubin Indirect, Calculated 0.4 mg/dL (0.2-0.8); Bilirubin Total 0.5 mg/dL (0.2-1.0); Magnesium 1.9 mg/dL (1.6-2.4); Protein, Total 7.5 g/dL (6.4-8.2); Troponin High Sensitivity 16.8 pg/mL (<58.9)
--- NOTE | 2023-05-01 01:04 | ER ---
Nurse's Notes [facility] Name: Pardaise Colon Age: 43 yrs Sex: Female : 1980 Arrival Date: 04/30/2023 Time: 21:10 Bed 19 Private MD: Diagnosis: Hypertensive heart disease without heart failure Presentation: 04/30 21:50 Chief complaint: Patient states: my BP has been high sine 2000 tonight. complaints of lg3 headache and dizziness. Coronavirus screen: Client denies travel out of the [place] in the last 14 days. At this time, the client does not indicate any symptoms associated with coronavirus-19. Ebola Screen: No symptoms or risks identified at this time. Initial Sepsis Screen: Does the patient meet any 2 criteria? No. Patient's initial sepsis screen is negative. Does the patient have a suspected source of infection? No. Patient's initial sepsis screen is negative. Risk Assessment: Do you want to hurt yourself or someone else? Patient reports no desire to harm self or others. Onset of symptoms was April 30, 2023. 21:50 Method Of Arrival: Ambulatory lg3 21:50 Acuity: TANA 3 lg3 Triage Assessment: 21:52 General: Appears in no apparent distress. comfortable, Behavior is calm, cooperative. lg3 Pain: Denies pain. EENT: No deficits noted. No signs and/or symptoms were reported regarding the EENT system. Neuro: No deficits noted. [place] Agitation-Sedation Scale (RASS): 0 - Alert and Calm Level of Consciousness is awake, alert, obeys commands, Oriented to person, place, time, situation, Reports dizziness, headache. Cardiovascular: No deficits noted. Denies chest pain, shortness of breath. Respiratory: No deficits noted. Airway is patent Respiratory effort is even, unlabored, Respiratory pattern is regular, symmetrical. GI: No deficits noted. No signs and/or symptoms were reported involving the gastrointestinal system. : No deficits noted. No signs and/or symptoms were reported regarding the genitourinary system. Derm: No deficits noted. No signs and/or symptoms reported regarding the dermatologic system. Skin is intact, is healthy with good turgor, Skin is dry, Skin is normal, Skin temperature is warm. Musculoskeletal: No deficits noted. No signs and/or symptoms reported regarding the musculoskeletal system. Circulation, motion, and sensation intact. Range of motion: intact in all extremities. 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 - Social history:: Smoking status: Reported history of juuling and/or vaping. Patient uses alcohol, occasionally. Screenin:49 [facility] ED Fall Risk Assessment (Adult) History of falling in the last 3 months, kl including since admission No falls in past 3 months (0 pts) Confusion or Disorientation No (0 pts) Intoxicated or Sedated No (0 pts) Impaired Gait Yes (1 pt) Mobility Assist Device Used No (0 pt) Altered Elimination No (0 pt) Score/Fall Risk Level 0 - 2 = Low Risk Oriented to surroundings, Maintained a safe environment. Abuse screen: Denies threats or abuse. Nutritional screening: No deficits noted. Tuberculosis screening: No symptoms or risk factors identified. Assessment: 22:48 General: Appears in no apparent distress. comfortable, Behavior is calm, cooperative. kl Pain: Complains of pain in head Pain currently is 4 out of 10 on a pain scale. Neuro: No deficits noted. Level of Consciousness is awake, alert, obeys commands, Oriented to person, place, time, situation, Charge Rn are equal bilaterally Moves all extremities. Full function Gait is steady, Speech is normal, Facial symmetry appears normal. Cardiovascular: No deficits noted. Cardiovascular: Rhythm is sinus rhythm. Respiratory: No deficits noted. GI: No deficits noted. : No deficits noted. No signs and/or symptoms were reported regarding the genitourinary system. EENT: No deficits noted. No signs and/or symptoms were reported regarding the EENT system. 05/01 00:00 Reassessment: Patient appears in no apparent distress at this time. Patient is alert, kl oriented x 3, equal unlabored respirations, skin warm/dry/pink. Patient states symptoms have improved. 01:57 Reassessment: Patient appears in no apparent distress at this time. Patient states kl feeling better. Patient states symptoms have improved. Vital Signs: 04/30 21:50 BP 174 / 95; Pulse 97; Resp 18 S; Temp 99.4(O); Pulse Ox 100% on R/A; Weight 108.86 kg lg3 (R); Height 5 ft. 3 in. (R); 22:50 BP 157 / 93; Pulse 78; Resp 18; kl 23:30 BP 156 / 90; Pulse 80; kl 05/01 00:30 BP 140 / 77; Pulse 71; Resp 19; Pulse Ox 100% ; kl 01:57 BP 129 / 67; Pulse 78; Resp 18; Pulse Ox 98% on R/A; kl 04/30 21:50 Body Mass Index 42.51 (108.86 kg, 160.02 cm) lg3 ED Course: 04/30 21:14 Patient arrived in ED. jj6 21:52 Triage completed. lg3 21:52 Arm band placed on left wrist. lg3 21:54 Earl Reynolds PA is PHCP. cp 21:54 Earl Colon MD is Attending Physician. cp 22:48 No provider procedures requiring assistance completed. Inserted saline lock: 20 gauge kl in right antecubital area, using aseptic technique. Blood collected. 22:48 PREGU Sent. kl 22:48 Urinalysis W/Microscopic Sent. kl 22:48 Basic Metabolic Panel Sent. kl 22:48 CBC with Diff Sent. kl 22:48 LFT's Sent. kl 22:48 Magnesium Sent. kl 22:48 PT-INR Sent. kl 22:48 Troponin HS Sent. kl 22:50 Patient has correct armband on for positive identification. Bed in low position. Call kl light in reach. Side rails up X2. Client placed on continuous cardiac and pulse oximetry monitoring. NIBP monitoring applied. 22:56 XRAY Chest (1 view) In Process Unspecified. EDMS 23:16 CT Head Brain wo Cont In Process Unspecified. EDMS 05/01 01:58 IV discontinued, intact, bleeding controlled, No redness/swelling at site. Pressure kl dressing applied. Administered Medications: 01:50 Drug: Lisinopril PO 20 mg Route: PO; kl 01:55 Follow up: Response: No adverse reaction kl Outcome: 01:04 Discharge ordered by . cp 01:58 Discharged to home ambulatory, with family. kl 01:58 Condition: improved 01:58 Discharge instructions given to patient, Instructed on discharge instructions, follow up and referral plans. medication usage, Demonstrated understanding of instructions, follow-up care, Prescriptions given X 1. 01:58 Patient left the ED. Signatures: Dispatcher [employer] EDAraceli Jacobs RN RN Earl Mahoney PA PA cp Gibson, Lacie RN RN lg3 Summer Reyna [email or web address]
--- NOTE | 2023-05-01 01:05 | EDPHYS ---
Physician Documentation [facility] Name: Paradise Colon Age: 43 yrs Sex: Female : 1980 Arrival Date: 04/30/2023 Time: 21:10 Bed 19 Private MD: RODRICK Physician Earl Colon HPI: 04/30 22:30 This 43 yrs old Female presents to ER via Ambulatory with complaints of High Blood cp Pressure. 22:30 The patient has elevated blood pressure and discovered this at home. Onset: The cp symptoms/episode began/occurred today. Associated signs and symptoms: Pertinent positives: dizziness, headache, Pertinent negatives: chest pain, vomiting, abdominal pain. Severity of symptoms: in the emergency department the blood pressure is unchanged, despite home interventions. Patient with HX of HTN. Not currently taking any medications and unsure what medication taken in the past. 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 - Social history:: Smoking status: Reported history of juuling and/or vaping. Patient uses alcohol, occasionally. ROS: 22:35 Constitutional: Negative for body aches, chills, fever, poor PO intake. cp 22:35 Eyes: Negative for injury, pain, redness, and discharge. cp 22:35 ENT: Negative for drainage from ear(s), ear pain, sore throat, difficulty swallowing, difficulty handling secretions. 22:35 Cardiovascular: Negative for chest pain, edema, palpitations. 22:35 Respiratory: Negative for cough, shortness of breath, wheezing. 22:35 Abdomen/GI: Negative for abdominal pain, vomiting, diarrhea, constipation. 22:35 Back: Negative for pain at rest, pain with movement. 22:35 Neuro: Positive for dizziness, headache, Negative for altered mental status, numbness, speech changes, tingling, weakness. 22:35 All other systems are negative. Exam: 22:40 Constitutional: The patient appears in no acute distress, alert, awake, cp non-diaphoretic, non-toxic, well developed, well nourished, obese. 22:40 Head/Face: Normocephalic, atraumatic. cp 22:40 Eyes: Periorbital structures: appear normal, Pupils: equal, round, and reactive to light and accomodation, Extraocular movements: intact throughout, Conjunctiva: normal, no exudate, no injection, Sclera: no appreciated abnormality, Lids and lashes: appear normal, bilaterally. 22:40 ENT: External ear(s): are unremarkable, Nose: is normal, Mouth: Lips: moist, Oral mucosa: pink and intact, moist, Posterior pharynx: is normal, airway is patent, no erythema, no exudate. 22:40 Neck: ROM/movement: is normal, is supple, without pain, no range of motions limitations. 22:40 Chest/axilla: Inspection: normal. 22:40 Cardiovascular: Rate: normal, Rhythm: regular. 22:40 Respiratory: the patient does not display signs of respiratory distress, Respirations: normal, no use of accessory muscles, no retractions, labored breathing, is not present, Breath sounds: are clear throughout, no decreased breath sounds, no stridor, no wheezing. 22:40 Abdomen/GI: Exam negative for discomfort, distension, guarding, Inspection: obese 22:40 Back: pain, is absent, ROM is normal. 22:40 Neuro: Orientation: to person, place \T\ time. Mentation: is normal, Motor: moves all fours, strength is normal, Sensation: is normal, Gait: is steady, at a normal pace, without difficulty. Vital Signs: 21:50 BP 174 / 95; Pulse 97; Resp 18 S; Temp 99.4(O); Pulse Ox 100% on R/A; Weight 108.86 kg lg3 (R); Height 5 ft. 3 in. (R); 22:50 BP 157 / 93; Pulse 78; Resp 18; kl 23:30 BP 156 / 90; Pulse 80; kl 05/01 00:30 BP 140 / 77; Pulse 71; Resp 19; Pulse Ox 100% ; kl 01:57 BP 129 / 67; Pulse 78; Resp 18; Pulse Ox 98% on R/A; kl 04/30 21:50 Body Mass Index 42.51 (108.86 kg, 160.02 cm) lg3 MDM: 04/30 21:54 Patient medically screened. 23:00 Differential diagnosis: hypertensive crisis, Malignant HTN, CVA, intracerebral cp hemorrhage. 05/01 01:00 Independent interpretation of the following test(s) in the Emergency Department X-Ray: My interpretation is chest image negative for infiltrates. 01:02 Data reviewed: vital signs, nurses notes, lab test result(s), EKG, radiologic studies, cp CT scan, plain films. 01:02 I considered the following discharge prescriptions or medication management in the emergency department Medications were administered in the Emergency Department. See MAR. Counseling: I had a detailed discussion with the patient and/or guardian regarding: the historical points, exam findings, and any diagnostic results supporting the discharge/admit diagnosis, lab results, radiology results, the need for outpatient follow up, a family practitioner, to return to the emergency department if symptoms worsen or persist or if there are any questions or concerns that arise at home. Response to treatment: the patient's symptoms have markedly improved after treatment, and as a result, I will discharge patient. 04/30 22:23 Order name: Basic Metabolic Panel; Complete Time: 00:59 05/01 00:59 Interpretation: Normal except: CL 108; GLUC 109. 04/30 22:23 Order name: CBC with Diff; Complete Time: 00:59 04/30 22:23 Order name: LFT's; Complete Time: 00:59 05/01 00:59 Interpretation: Normal except: AST 43; GLOB 4.1; A/G 0.8. 04/30 22:23 Order name: Magnesium; Complete Time: 00:59 04/30 22:23 Order name: PT-INR; Complete Time: 00:59 04/30 22:23 Order name: Troponin HS; Complete Time: 00:59 04/30 22:23 Order name: Urinalysis W/Microscopic; Complete Time: 00:12 05/01 00:59 Interpretation: Normal except: UBLD 1+; UPROT TRACE; UESTR 25; Reviewed. 04/30 22:23 Order name: PREGU; Complete Time: 00:12 04/30 22:23 Order name: XRAY Chest (1 view) 04/30 22:24 Order name: CT Head Brain wo Cont cp 04/30 22:23 Order name: EKG; Complete Time: 22:24 cp 04/30 22:23 Order name: Cardiac monitoring cp 04/30 22:23 Order name: EKG - Nurse/Tech cp 04/30 22:23 Order name: IV Saline Lock; Complete Time: 22:48 cp 04/30 22:23 Order name: Labs collected and sent; Complete Time: 22:48 cp 04/30 22:23 Order name: O2 Per Protocol; Complete Time: 22:48 cp 04/30 22:23 Order name: O2 Sat Monitoring; Complete Time: 22:48 cp 04/30 23:06 Order name: Misc. Order: recollect blood, all tubes hemolyzed; Complete Time: 01:06 sb4 Administered Medications: 01:50 Drug: Lisinopril PO 20 mg Route: PO; kl 01:55 Follow up: Response: No adverse reaction kl Disposition Summary: 05/01/23 01:04 Discharge Ordered Location: Home cp Problem: chronic cp Symptoms: have improved cp Condition: Stable cp Diagnosis - Hypertensive heart disease without heart failure cp Followup: cp - With: Private Physician - When: 2 - 3 days - Reason: Recheck today's complaints Discharge Instructions: - Discharge Summary Sheet cp - Hypertension, Adult cp - Aspirin and Your Heart cp - Form - Blood Pressure Record Sheet cp - How to Take Your Blood Pressure cp Forms: - Work release form kl - Medication Reconciliation Form cp - Thank You Letter cp - Antibiotic Education cp - Prescription Opioid Use cp Prescriptions: - Lisinopril 20 mg Oral Tablet - take 1 tablet by ORAL route once daily; 30 tablet; Refills: 0, Product cp Selection Permitted Signatures: Dispatcher [employer] Araceli Hill RN RN Earl Mahoney PA PA cp Gibson, Lacie, RN RN [email or web address] Rosamaria Albrecht PA-Della PA-C sb4 Corrections: (The following items were deleted from the chart) 00:59 00:13 Reviewed. cp cp 01:04 01:04 Obesity, unspecified cp cp
[2023-05-01] MEDS ORDERED: lisinopriL 20 MG TAB ONE (01:50)
[2023-05-01 02:30] VITALS: TEMP 99.4
[2023-05-01 02:39] VITALS: BP 129/67; O2SAT 98
--- NOTE | 2023-05-01 11:02 | RAD REPORT ---
EXAM DESCRIPTION: RAD - Chest Single View - 04/30/2023 10:54 pm CLINICAL HISTORY: The patient is 43 years old and is Female; elevated blood pressure TECHNIQUE: Frontal view of the chest. COMPARISON: XR Chest dated January 06 2023 FINDINGS: LUNGS: Unremarkable. No consolidation. PLEURAL SPACE: Unremarkable. No pneumothorax. HEART: Unremarkable. No cardiomegaly. MEDIASTINUM: Unremarkable. BONES/JOINTS: Unremarkable. UPPER ABDOMEN: Unremarkable as visualized. IMPRESSION: No acute cardiopulmonary process. Electronically signed by: Dipti Caldwell MD 04/30/2023 11:23 PM CDT Due to temporary technical issues with the PACS/Fluency reporting system, reports are being signed by the in house radiologist without review as a courtesy to ensure prompt reporting. The interpreting r adiologist is fully responsible for the content of the report.
--- NOTE | 2023-05-01 11:32 | RAD REPORT ---
EXAM DESCRIPTION: CT - Head Brain Wo Cont - 05/01/2023 2:57 am CLINICAL HISTORY: The patient is 43 years old and is Female; HEADACHE TECHNIQUE: Axial computed tomography images of the head/brain without intravenous contrast. Sagitt al and coronal reformatted images were created and reviewed. This CT exam was performed using one o r more of the following dose reduction techniques: automated exposure control, adjustment of the mA and/or kV according to patient size, and/or use of iterative reconstruction technique. COMPARISON: No relevant prior studies available. FINDINGS: BRAIN: Unremarkable. The hu-white matter differentiation is preserved . No hemorrhag e. No significant white matter disease. No edema. No extra-axial fluid collections. VENTRICLES: Unremarkable. No ventriculomegaly. BONES/JOINTS: No acute fracture. SOFT TISSUES: Unremarkable. SINUSES: Unremarkable as visualized. No acute sinusitis. MASTOID AIR CELLS: Unremarkable as visualized. No mastoid effusion. ORBITS: Unremarkable as visualized. IMPRESSION: No acute intracranial findings. Electronically signed by: Dipti Caldwell MD 04/30/2023 11:42 PM CDT Due to temporary technical issues with the PACS/Fluency reporting system, reports are being signed by the in house radiologist without review as a courtesy to ensure prompt reporting. The interpreting r adiologist is fully responsible for the content of the report.
== END 2023-05-01 01:58 | disposition home or self-care (01) ==
LOC: ER 21:10
DX: I11.9 Hypertensive heart disease without heart failure (principal); I10 Essential (primary) hypertension
CPT/HCPCS: 36415; 70450; 71045; 80048; 80076; 81001; 81025; 83735; 84484; 85025; 85610; 99284

== ENCOUNTER 2023-05-27 22:46 | Emergency (ER) | payer OTHER ==
--- OUTSIDE RECORDS SUMMARY | 2023-05-27 22:49 | XMS REPORT | Continuity of Care Document ---
:1980 Author Organization [facility] t Address [address] [facility] [address] [place] [id number] Care Team Providers Name Role Phone Pcp, Patient Does Not Have A Primary Care Physician +[phone] 00-0000 Susi Hebert Attending Clinician SUSI HOWE Attending Clinician Unavailable Problems This patient has no known problems. Allergies, Adverse Reactions, Alerts Allergy Allergy Status Severity Reaction(s) Onset Inactive Treating Comm ents Source Name Type Date Date Clinician NO KNOWN Drug Active Univers ALLERGIE Class ity of S [facility] Social History Social Habit Start Date Stop Date Quantity Comments Source Exposure to Not sure [facility] SARS-CoV-2 (event) Medica l Branch Sex Assigned At [birth year] [facility] 00:00:00 00:00:00 [facility] Smoking Status Start Date Stop Date Source Unknown if ever smoked [facility] Medications Ordered Filled Start Stop Current [...] Branch 09/01/21 at 1900, LITO
Fa [facility] member approving Restricted medication : SUSI HOWE diazePAM 2020-11- No 5mg 5 mg, Univers (VALIUM) 009-01 Intramuscu ity of injection 5 00:00: 22:56 lar, ONCE, [place] mg 00 :00 1 dose, On Medical [place] 09/01/21 at 1900, STAT methocarbam 2020-11- No [id number] 750mg Take 1 Univers oL 0- 10- 9104 tablet by ity of (ROBAXIN-75 00:00: 04:59 [place] 4 [place] 750 mg 00 :00 (four) Medical tablet times Branch daily for 10 days. meloxicam 2020-11- No [id number] 15mg Take 1 Univers (MOBIC) 15 0-02 06- 9104 tablet by ity of mg tablet 00:00: 04:59 mouth [place] 00 :00 daily for Medical 10 days. Branch ibuprofen Yes [id number] 600mg Take 1 U nivers 600 mg 9-22 tablet by ity of tablet 00:00: mouth [place] 00 every 6 Medical (six) Branch hours as needed for Pain (scale 4-6). methocarbam 2020- No [id number] 500mg Take 1 Univers oL 500 mg 08-21 tablet by ity of tablet 00:00: 00:00 [...] four [place] (0.083 %) 00 hours, march [place] INHALE NEBU also Branch nebulize one extra one every six hours ZOFRAN 4 MG Yes take 2 Univ ers ORAL TAB 4-26 tablets by ity o f 00:00: mouth [place] 00 every 12 Medical hours for Branch nausea Vital Signs Vital Name Observation Time Observation Value Comments Source Oxygen saturation in 2021-09-01 23:57:00 99 /min [facility] Arterial blood by [facility] Pulse oximetry Branch Systolic blood 2021-09-01 22:40:45 161 mm[Hg] Univer sity of pressure [facility] Diastolic blood 2021-09-01 22:40:45 108 mm[Hg] [facility] 2021-09-01 22:40:45 79 /min [facility] Body temperature 2021-09-01 22:40:45 36.78 Kimberly [facility] Respiratory rate 2021-09-01 22:40:45 16 /min [facility] Body weight 2021-09-01 22:26:00 108.863 kg [facility] Procedures Procedure Date / Time Performed Performing Clinician Sour e CONSENT/REFUSAL FOR 2021-09-01 22:18:40 Doctor Unassigned, No Un [facility] DIAGNOSIS AND Name Medical [place] TREATMENT Encounters Start End Encounter Admission Attending Care Care Encounter Source Date/Time Date/Time Type Type Clinicians Facility Department ID 2021-09-01 2021-09-01 Emergency [facility] [id number] Univers 17:28:00 18:58:00 Susi Ho [id number] i [facility] [id number] [facility] [id number] [place] 084 Branch 2021-09-01 2021-09-01 Emergency X EBRAUTM, [facility] ERT [id number] Univers 17:18:00 17:18:00 SUSI leblanc [facility] 2021-08-21 2021-08-21 Emergency X [facility] ERT [id number] Univers 13:01:00 13:01:00 [facility] Results This patient has no known results.
[2023-05-27 23:54] LABS: SARS-CoV-2 Antigen Rapid Res Negative (Negative)
[2023-05-27] MEDS ORDERED: DIPHENHYDRAMINE 25 MG TAB/CAP ONE (23:55)
[2023-05-27] MEDS ORDERED: IBUPROFEN 400 MG TAB ONE (23:56)
[2023-05-27] MEDS ORDERED: LIDOCAINE 1% MPF 2 ML AMPULE ONE (23:56)
[2023-05-27] MEDS ORDERED: CEFTRIAXONE 1000 MG/VIAL ONE (23:56)
[2023-05-27] MEDS ORDERED: CODEINE 30MG/APAP 300MG TAB ONE (23:56)
[2023-05-27] MEDS ORDERED: guaiFENesin 100 MG/5 ML UCUP ONE (23:57)
[2023-05-27] MEDS ORDERED: ONDANSETRON 4 MG (ODT) TAB ONE (23:57)
--- NOTE | 2023-05-28 03:40 | EDPHYS ---
Physician Documentation [facility] Name: Paradise Colon Age: 43 yrs Sex: Female : 1980 Arrival Date: 05/27/2023 Time: 22:46 Bed 18 Private MD: ED Physician Stephen Clark HPI: 05/27 23:15 This 43 yrs old Female presents to ER via Ambulatory with complaints of Ear sp4 Pain, Cold Symptoms. 23:28 43-year-old female with history of angina, chronic pain, hypertension, vertigo presents sp4 with 3 weeks of cough, congestion, low-grade fever, sore throat, flulike symptoms as well, feeling unwell, and the right ear pain. Historical: - Allergies: 23:08 No Known Allergies; as6 - PMHx: 23:08 angina pectoris; Chronic pain; Hypertension; Vertigo; as6 - PSHx: 23:08 None; as6 - Immunization history:: Client reports receiving the 2nd dose of the Covid vaccine, 0moderna. - Social history:: Smoking status: Reported history of juuling and/or vaping. - Family history:: not pertinent. ROS: 23:28 Constitutional: Positive for fever, chills, positive for feeling unwell Eyes: Negative sp4 for injury, pain, redness, and discharge, ENT: Positive for nasal congestion, right ear pain, sore throat, cough. Neck: Negative for injury, pain, and swelling, Respiratory: Negative for shortness of breath, wheezing, and pleuritic chest pain, positive for productive cough. 23:28 All other systems are negative. Exam: 23:28 Constitutional: This is a well developed, well nourished patient who is awake, alert, sp4 and in no acute distress. Head/Face: Normocephalic, atraumatic. Eyes: Pupils equal round and reactive to light, extra-ocular motions intact. Lids and lashes normal. Conjunctiva and sclera are not injected. Cornea within normal limits. Periorbital areas with no swelling, redness, or edema. ENT: Nares patent. Positive for nasal congestion, nasal discharge, upper respiratory congestion, bilateral pharyngeal erythema, right ear canal is filled with purulent debris, there is right ear canal swelling, right tympanic membrane not visualized, left ear canal has cerumen obstruction left ear the tympanic membrane is not visualized Neck: Trachea midline, no thyromegaly or masses palpated, and no cervical lymphadenopathy. Supple, full range of motion without nuchal rigidity, or vertebral point tenderness. Chest/axilla: Normal chest wall appearance and motion. Nontender with no deformity. No lesions are appreciated. Cardiovascular: Regular rate and rhythm with a normal S1 and S2. No gallops, murmurs, or rubs. Normal PMI, no JVD. No pulse deficits. Respiratory: Lungs have equal breath sounds bilaterally, clear to auscultation and percussion. No rales, rhonchi or wheezes noted. No increased work of breathing, no retractions or nasal flaring. Abdomen/GI: Soft, non-tender, with normal bowel sounds. No distension or tympany. No guarding or rebound. No evidence of tenderness throughout. Back: No spinal tenderness. No costovertebral tenderness. Skin: Warm, dry with normal turgor. Normal color with no rashes, no lesions, and no evidence of cellulitis. MS/ Extremity: Pulses equal, no cyanosis. Neurovascular intact. Full, normal range of motion. Neuro: Awake and alert, GCS 15, oriented to person, place, time, and situation. Cranial nerves II-XII grossly intact. Motor strength 5/5 in all extremities. Sensory grossly intact. Psych: Awake, alert, with orientation to person, place and time. Behavior, mood, and affect are within normal limits Vital Signs: 23:08 BP 154 / 94; Pulse 105; Resp 18 S; Temp 99.6(O); Pulse Ox 98% on R/A; Weight 111.13 kg as6 (R); Height 5 ft. 3 in. (R); Pain 5/10; 05/28 00:16 BP 125 / 80; Pulse 92; Resp 18 S; Pulse Ox 96% on R/A; as6 00:57 BP 126 / 77; Pulse 88; Resp 18 S; Pulse Ox 96% on R/A; as6 02:27 BP 101 / 76; Pulse 86; Resp 18 S; Pulse Ox 95% on R/A; as6 03:32 BP 120 / 80; Pulse 67; Resp 18 S; Pulse Ox 97% on R/A; as6 05/27 23:08 Body Mass Index 43.40 (111.13 kg, 160.02 cm) 6 05/27 23:08 Pain Scale: Adult as6 MDM: 05/27 23:24 Patient medically screened. sp4 05/28 03:36 Differential diagnosis: otitis media, otitis externa, foreign body, acute otalgia, sp4 cerumen impaction, serotympanum. Data reviewed: vital signs, nurses notes, lab test result(s), Flu: negative. Consideration of Admission/Observation Escalation of care including admission/observation considered. ED course: Patient is positive for strep, will prescribe cefdinir, high-dose ibuprofen, dextromethorphan and ondansetron.. 05/27 23:10 Order name: Strep; Complete Time: 03:25 05/27 23:10 Order name: Influenza Screen (a \T\ B); Complete Time: 03:25 05/27 23:10 Order name: SARS RAPID; Complete Time: 03:25 Administered Medications: 05/27 23:59 Drug: Rocephin (cefTRIAXone) IM 1 grams Route: IM; Site: right ventrogluteal; 05/28 03:33 Follow up: Response: No adverse reaction 05/27 23:59 Drug: diphenhydrAMINE PO 50 mg Route: PO; 05/28 03:33 Follow up: Response: No adverse reaction 05/27 23:59 Drug: Acetaminophen-Codeine PO (300 mg-30 mg) 2 tabs Route: PO; 05/28 03:32 Follow up: Response: No adverse reaction 05/27 23:59 Drug: Ondansetron PO 4 mg Route: PO; 05/28 03:32 Follow up: Response: No adverse reaction 05/27 23:59 Drug: Ibuprofen PO 800 mg Route: PO; 05/28 03:32 Follow up: Response: No adverse reaction 05/27 23:59 Drug: guaiFENesin PO Liquid 15 ml Route: PO; 05/28 03:32 Follow up: Response: No adverse reaction Disposition Summary: 05/28/23 03:39 Discharge Ordered Location: Home sp4 Problem: new sp4 Symptoms: have improved sp4 Condition: Stable sp4 Diagnosis - Acute suppurative otitis media without spontaneous rupture of ear drum, right ear sp4 - Acute streptococcal tonsillitis, unspecified sp4 Followup: sp4 - With: Private Physician - When: 5 - 6 days - Reason: Recheck today's complaints Discharge Instructions: - Discharge Summary Sheet sp4 - Otitis Media, Adult sp4 Forms: - [facility][email or web address] sp4 Prescriptions: - cefdinir 300 mg Oral capsule - take 2 capsule by ORAL route daily for 10 days; 20 capsule; Refills: 0, Product sp4 Selection Permitted - Ibuprofen 600 mg Oral Tablet - take 1 tablet by ORAL route every 6 hours As needed take with food; 30 tablet; sp4 Refills: 0, Product Selection Permitted - Zofran 4 mg Oral Tablet - take 1 tablet by ORAL route every 6 hours As needed PRN nausea; 20 tablet; sp4 Refills: 0, Product Selection Permitted - Tramadol 50 mg Oral Tablet - take 1 tablet by ORAL route every 8 hours as needed; 12 tablet; Refills: 0, sp4 Product Selection Permitted Signatures: Dispatcher [facility] Kamran Nowak RN RN as6 Stephen Clark MD MD sp4
--- NOTE | 2023-05-28 03:40 | ER ---
Nurse's Notes [facility] Name: Paradise Colon Age: 43 yrs Sex: Female : 1980 Arrival Date: 05/27/2023 Time: 22:46 Bed 18 Private MD: Diagnosis: Acute suppurative otitis media without spontaneous rupture of ear drum, right ear;Acute streptococcal tonsillitis, unspecified Presentation: 05/27 23:08 Chief complaint: Patient states: congestion x3 weeks, now pt c/o sore throat and right as6 ear pain. Coronavirus screen: At this time, the client does not indicate any symptoms associated with coronavirus-19. Ebola Screen: No symptoms or risks identified at this time. Initial Sepsis Screen: Does the patient meet any 2 criteria? No. Patient's initial sepsis screen is negative. Does the patient have a suspected source of infection? No. Patient's initial sepsis screen is negative. Risk Assessment: Do you want to hurt yourself or someone else? Patient reports no desire to harm self or others. Onset of symptoms is unknown. 23:08 Acuity: TANA 4 as6 23:08 Method Of Arrival: Ambulatory as6 Historical: - Allergies: 23:08 No Known Allergies; as6 - PMHx: 23:08 angina pectoris; Chronic pain; Hypertension; Vertigo; as6 - PSHx: 23:08 None; as6 - Immunization history:: Client reports receiving the 2nd dose of the Covid vaccine, 0moderna. - Social history:: Smoking status: Reported history of juuling and/or vaping. - Family history:: not pertinent. Screenin/29 00:15 [facility] ED Fall Risk Assessment (Adult) Score/Fall Risk Level 0 - 2 = Low Risk. Abuse as6 screen: Denies threats or abuse. Denies injuries from another. Nutritional screening: No deficits noted. Tuberculosis screening: No symptoms or risk factors identified. Assessment: 05/27 23:15 General: Appears ill, Behavior is calm, cooperative. General: Reports feeling ill for. as6 Pain: Complains of pain in right ear. Neuro: Level of Consciousness is awake, alert, obeys commands, Oriented to person, place, time, situation. Cardiovascular: Capillary refill < 3 seconds Patient's skin is warm and dry. Respiratory: Reports cough that is Respiratory effort is even, unlabored, Respiratory pattern is regular, symmetrical. EENT: Tympanic membrane reddened on right ear Throat is reddened Reports nasal congestion sore throat. 05/28 02:27 Reassessment: Patient appears in no apparent distress at this time. as6 Vital Signs: 05/27 23:08 BP 154 / 94; Pulse 105; Resp 18 S; Temp 99.6(O); Pulse Ox 98% on R/A; Weight 111.13 kg as6 (R); Height 5 ft. 3 in. (R); Pain 5/10; 05/28 00:16 BP 125 / 80; Pulse 92; Resp 18 S; Pulse Ox 96% on R/A; as6 00:57 BP 126 / 77; Pulse 88; Resp 18 S; Pulse Ox 96% on R/A; as6 02:27 BP 101 / 76; Pulse 86; Resp 18 S; Pulse Ox 95% on R/A; as6 03:32 BP 120 / 80; Pulse 67; Resp 18 S; Pulse Ox 97% on R/A; as6 05/27 23:08 Body Mass Index 43.40 (111.13 kg, 160.02 cm) as6 05/27 23:08 Pain Scale: Adult as6 ED Course: 05/27 22:49 Patient arrived in ED. es 23:07 Kamran Sue, ALBA is Primary Nurse. as6 23:07 Arm band placed on. as6 23:09 Triage completed. as6 23:15 Stephen Clark MD is Attending Physician. sp4 23:26 Strep Sent. rv1 23:26 SARS RAPID Sent. rv1 23:26 Influenza Screen (a \T\ B) Sent. rv1 05/28 00:16 Bed in low position. Call light in reach. as6 03:32 No provider procedures requiring assistance completed. Patient did not have IV access as6 during this emergency room visit. Administered Medications: 05/27 23:59 Drug: Rocephin (cefTRIAXone) IM 1 grams Route: IM; Site: right ventrogluteal; as6 05/28 03:33 Follow up: Response: No adverse reaction as6 05/27 23:59 Drug: diphenhydrAMINE PO 50 mg Route: PO; as6 05/28 03:33 Follow up: Response: No adverse reaction as6 05/27 23:59 Drug: Acetaminophen-Codeine PO (300 mg-30 mg) 2 tabs Route: PO; 05/28 03:32 Follow up: Response: No adverse reaction as6 05/27 23:59 Drug: Ondansetron PO 4 mg Route: PO; 05/28 03:32 Follow up: Response: No adverse reaction as6 05/27 23:59 Drug: Ibuprofen PO 800 mg Route: PO; 05/28 03:32 Follow up: Response: No adverse reaction as6 05/27 23:59 Drug: guaiFENesin PO Liquid 15 ml Route: PO; 05/28 03:32 Follow up: Response: No adverse reaction as6 Medication: 00:16 VIS not applicable for this client. as6 Outcome: 03:39 Discharge ordered by sp4 03:46 Discharged to home ambulatory. as6 03:46 Condition: stable 03:46 Discharge instructions given to patient, Instructed on discharge instructions, follow up and referral plans. medication usage, Demonstrated understanding of instructions, follow-up care, medications, Prescriptions given X 4. 03:47 Patient left the ED. as6 Signatures: Diana Quinteros Ashby, RN RN as6 Cynthia Gomez rv1 Stephen Clark MD MD sp4
[2023-05-28 04:01] VITALS: TEMP 99.6
[2023-05-28 04:08] VITALS: BP 120/80; O2SAT 97
== END 2023-05-28 03:47 | disposition home or self-care (01) ==
LOC: ER 22:46
DX: H66.001 Acute suppurative otitis media without spontaneous rupture of ear drum, right ear (principal); J03.80 Acute tonsillitis due to other specified organisms; B95.8 Unspecified staphylococcus as the cause of diseases classified elsewhere
CPT/HCPCS: 36415; 87081; 87804 ×2; 87811; Q0162; J0696

== ENCOUNTER 2023-06-13 00:34 | Inpatient (IN) | payer OTHER ==
--- OUTSIDE RECORDS SUMMARY | 2023-06-13 00:36 | XMS REPORT | Continuity of Care Document ---
:1980 Author Organization [facility] t Address [address] [facility] [address] [place] [id number] Care Team Providers Name Role Phone Pcp, Patient Does Not Have A Primary Care Physician +1-000-0 00-0000 Susi Hebert Attending Clinician SUSI HOWE Attending Clinician Unavailable Problems This patient has no known problems. Allergies, Adverse Reactions, Alerts Allergy Allergy Status Severity Reaction(s) Onset Inactive Treating Comm ents Source Name Type Date Date Clinician NO KNOWN Drug Active Univers ALLERGIE Class ity of S [facility] Social History Social Habit Start Date Stop Date Quantity Comments Source Exposure to Not sure [facility] SARS-CoV-2 (event) Medica l Branch Sex Assigned At [birth year] [facility] 00:00:00 00:00:00 [facility] Smoking Status Start Date Stop Date Source Unknown if ever smoked [facility] Medications Ordered Filled Start Stop [...] Sun Branch 09/01/21 at 1900, LITO
Fa [facility] member approving Restricted medication : SUSI HOWE diazePAM 2020-11- No 5mg 5 mg, Univers (VALIUM) 009-01 Intramuscu ity of injection 5 00:00: 22:56 lar, ONCE, [place] mg 00 :00 1 dose, On Medical [place] 09/01/21 at 1900, STAT methocarbam 2020-11- No [id number] 750mg Take 1 Univers oL 0- 10- 9104 tablet by ity of (ROBAXIN-75 00:00: 04:59 mouth 4 [place] 0[place] 750 mg 00 :00 (four) Medical tablet times Branch daily for 10 days. meloxicam 2020-11- No [id number] 15mg Take 1 Univers (MOBIC) 15 0-02 06- 9104 tablet by ity of mg tablet 00:00: 04:59 mouth [place] 00 :00 daily for Medical 10 days. Branch ibuprofen Yes [id number] 600mg Take 1 U nivers 600 mg 9-22 tablet by ity of tablet 00:00: mouth [place] 00 every 6 Medical (six) Branch hours as needed for Pain (scale 4-6). methocarbam 2020- No [id number] 500mg Take 1 Univers oL 500 mg [...] four [place] (0.083 %) 00 hours, march [facility] INHALE NEBU also Branch nebulize one extra one every six hours ZOFRAN 4 MG Yes take 2 Univ ers ORAL TAB 4-26 tablets by ity o f 00:00: mouth [place] 00 every 12 Medical hours for Branch nausea Vital Signs Vital Name Observation Time Observation Value Comments Source Oxygen saturation in 2021-09-01 23:57:00 99 /min [facility] Arterial blood by [facility] Pulse oximetry Branch Systolic blood 2021-09-01 22:40:45 161 mm[Hg] Univer sity of pressure [facility] Diastolic blood 2021-09-01 22:40:45 108 mm[Hg] [facility] rate 2021-09-01 22:40:45 79 /min [facility] Body temperature 2021-09-01 22:40:45 36.78 Kimberly [facility] Respiratory rate 2021-09-01 22:40:45 16 /min [facility] Body weight 2021-09-01 22:26:00 108.863 kg [facility] Procedures Procedure Date / Time Performed Performing Clinician Sour e CONSENT/REFUSAL FOR 2021-09-01 22:18:40 Doctor Unassigned, No Un [facility] DIAGNOSIS AND Name Medical [place] TREATMENT Encounters Start End Encounter Admission Attending Care Care Encounter Source Date/Time Date/Time Type Type Clinicians Facility Department ID 2021-09-01 2021-09-01 Emergency [facility] [id number] Univers 17:28:00 18:58:00 Susi Ho [id number] i [facility] [id number] [facility] [id number] [facility] 084 Branch 2021-09-01 2021-09-01 Emergency X EBRAMEM, [facility] ERT [id number] Univers 17:18:00 17:18:[address] [facility] 2021-08-21 2021-08-21 Emergency X [facility] ERT [id number] Univers 13:01:00 13:01:00 [facility] Results This patient has no known results.
[2023-06-13 01:10] LABS: Absolute Lymphocytes (CBC) 2.2 K/uL (0.7-4.9); Hematocrit 41.2 % (36.0-45.0); Lymphocytes % 22.7 % (15.3-44.8); MCV 88.3 fL (80-100); MPV 8.9 fL (7.6-11.3); RBC Red Blood Cell Count 4.66 M/uL (3.86-4.86)
[2023-06-13] MEDS ORDERED: NA CHLORIDE 0.9% 1,000 ML ONE (01:18)
[2023-06-13 01:29] LABS: Potassium 3.8 mEq/L (3.5-5.1)
[2023-06-13 01:32] LABS: Troponin High Sensitivity 61.9 pg/mL (<58.9)
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
--- NOTE | 2023-06-13 02:08 | EDPHYS ---
Physician Documentation [facility] Name: Paradise Colon Age: 43 yrs Sex: Female : 1980 Arrival Date: 06/13/2023 Time: 00:34 Bed 14 Private MD: ED Physician Yani Lau HPI: 06/13 00:43 This 43 yrs old Female presents to ER via Unassigned with complaints of POSSIBLE sd2 DEHYDRATION. 00:43 43 yo F presents via EMS with CC of possible dehydration and near syncope. EMS reports sd2 patient was out riding her bike in the heat tonight which she does not normally do and was trying to go up a bridge when she began to feel exhausted, nauseous and lightheaded and thought she might pass out. No LOC and no preceding CP or SOB. Pt states has drank only maybe 1 cup of water today but has had sweet tea, green tea and been drinking Gatorade. Pt is now feeling improved but complains of muscle cramps to both sides of her ribs. . Historical: - PMHx: 00:49 angina pectoris; Chronic pain; Hypertension; Vertigo; rv - Immunization history:: Adult Immunizations up to date. - Social history:: Smoking status: Patient denies any tobacco usage or history of. ROS: 00:43 Constitutional: Negative for fever, chills, and weight loss, Eyes: Negative for injury, sd2 pain, redness, and discharge, Cardiovascular: Negative for chest pain, palpitations, and edema, Respiratory: Negative for shortness of breath, cough, wheezing. Abdomen/GI: Negative for abdominal pain, vomiting, diarrhea. Positive for nausea. : Negative for dysuria, urinary frequency, hesitancy, urgency and hematuria. MS/Extremity: Negative for injury and deformity, Positive for muscle cramps Skin: Negative for injury, rash, and discoloration, Neuro: Negative for headache, numbness and tingling. Exam: 00:43 Constitutional: This is a well developed, well nourished patient who is awake, alert, sd2 and in no acute distress. Head/Face: Normocephalic, atraumatic. Eyes: EOMI, normal conjunctiva bilaterally Chest/axilla: Normal chest wall appearance and motion. Nontender with no deformity. Cardiovascular: Regular rate and rhythm with a normal S1 and S2. No gallops, murmurs, or rubs. 2+ distal pulses. Respiratory: Lungs have equal breath sounds bilaterally, clear to auscultation and percussion. No rales, rhonchi or wheezes noted. No increased work of breathing, no retractions or nasal flaring. Abdomen/GI: Soft, non-tender, with normal bowel sounds. No guarding or rebound. No evidence of tenderness throughout. Skin: Warm, dry with normal turgor. Normal color with no rashes, no lesions, and no evidence of cellulitis. MS/ Extremity: Pulses equal, no cyanosis. Neurovascular intact. Full, normal range of motion. Ambulatory without difficulty. Psych: Awake, alert, with orientation to person, place and time. Behavior, mood, and affect are within normal limits. 02:08 ECG was reviewed by the Attending Physician. NSR, rate 97, no STEMI criteria sd2 Vital Signs: 00:47 BP 149 / 89; Pulse 111; Resp 20; Temp 98.8; Pulse Ox 96% on R/A; Weight 121 kg; Height rv 5 ft. 3 in. ; 02:24 BP 135 / 91; Pulse 90; Resp 18; Pulse Ox 99% ; rv 00:47 Body Mass Index 47.25 (121.00 kg, 160.02 cm) rv Tc Coma Score: 03:05 Eye Response: spontaneous(4). Motor Response: obeys commands(6). Verbal Response: rv oriented(5). Total: 15. MDM: 00:43 Differential Diagnosis Heat exhaustion, near syncope, vasovagal, orthostatic, sd2 dehydration, electrolyte abnormality among others. Data reviewed: vital signs, nurses notes, EMS record, lab test result(s), EKG. I considered the following discharge prescriptions or medication management in the emergency department Medications were administered in the Emergency Department. See MAR. Historians other than the Patient: EMS: provides initial report. 00:46 Patient medically screened. sd2 02:06 Counseling: I had a detailed discussion with the patient and/or guardian regarding: the sd2 historical points, exam findings, and any diagnostic results supporting the discharge/admit diagnosis, lab results, the need for further work-up and treatment in the hospital. ED course: Labs reviewed with slightly elevated troponin. EKG with no acute changes. Pt feeling improved after IVFs with improved VS as well. Suspect dehydration and heat exhaustion but with near syncope and elevated troponin, will admit and continue to trend. . 06/13 00:43 Order name: CBC with Diff; Complete Time: 01:43 sd2 06/13 00:43 Order name: BMP; Complete Time: 01:43 sd2 06/13 00:43 Order name: CK; Complete Time: 01:43 sd2 06/13 00:43 Order name: Troponin High Sensitivity; Complete Time: 01:43 sd2 06/13 02:32 Order name: NT PRO-BNP EDMS 06/13 02:32 Order name: Urinalysis w/ reflexes EDMS 06/13 02:32 Order name: CBC with Automated Diff EDMS 06/13 02:32 Order name: CBC with Automated Diff EDMS 06/13 02:32 Order name: CBC with Automated Diff EDMS 06/13 02:32 Order name: Comprehensive Metabolic Panel EDMS 06/13 02:32 Order name: Comprehensive Metabolic Panel EDMS 06/13 02:32 Order name: Comprehensive Metabolic Panel EDMS 06/13 02:32 Order name: Magnesium EDMS 06/13 02:32 Order name: Magnesium EDMS 06/13 02:32 Order name: Magnesium EDMS 06/13 02:32 Order name: Phosphorus EDMS 06/13 02:32 Order name: Phosphorus EDMS 06/13 02:32 Order name: Phosphorus EDMS 06/13 02:32 Order name: Troponin High Sensitivity EDMS 06/13 02:32 Order name: Troponin High Sensitivity EDMS 06/13 02:32 Order name: Troponin High Sensitivity EDMS 06/13 02:32 Order name: Troponin High Sensitivity EDMS 06/13 02:43 Order name: Lipid Profile EDMS 06/13 02:42 Order name: EKG Electrocardiogram EDMS 06/13 02:43 Order name: NPO EDMS 06/13 00:43 Order name: EKG - Nurse/Tech; Complete Time: 01:08 sd2 Administered Medications: 01:10 Drug: NS 0.9% IV 1000 ml Route: IV; Rate: 1 bolus; Site: right forearm; rv Disposition Summary: 06/13/23 02:08 Hospitalization Ordered Hospitalization Status: Observation sd2 Provider: Nader Denis Location: Telemetry/MedSurg (observation) sd2 Condition: Stable sd2 Problem: new sd2 Symptoms: have improved sd2 Bed/Room Type: Standard sd2 Room Assignment: 421(06/13/23 02:30) mw Diagnosis - Syncope Near sd2 - Heat exhaustion, unspecified sd2 - Elevated troponin sd2 Forms: - Medication Reconciliation Form sd2 - SBAR form sd2 Signatures: Dispatcher [employer] EDLourdes Mccracken RN RN mw Vicente, Ronaldo, RN RN Yani Lau MD MD sd2 Corrections: (The following items were deleted from the chart) 02:30 02:08 sd2 mw 02:43 02:32 Heart Healthy ordered. EDGA EDMS
[2023-06-13] MEDS ORDERED: ONDANSETRON 4 MG/2 ML VIAL IV PRN (02:31)
[2023-06-13] MEDS ORDERED: ACETAMINOPHEN 500 MG TAB PO PRN (02:31)
--- NOTE | 2023-06-13 02:35 | P.HP ---
Certification for Inpatient Patient admitted to: Observation With expected LOS: <2 Midnights Patient will require the following post-hospital care: None Practitioner: I am a practitioner with admitting privileges, knowledge of patient current condition, hospital course, and medical plan of care. Services: Services provided to patient in accordance with Admission requirements found in Title 42 Section 412.3 of the Code of Federal Regulations Patient History Date of Service: 06/13/23 Reason for admission: near syncope History of Present Illness: 43-year-old female with a past medical history of vertigo, morbid obesity, chronic pain, hyperlipidemia, angina presents to the emergency room with near syncope. Reports associated chest pain and shortness of breath. She reports chest pain is substernal nonradiating, shortness of breath is worse with exertion while riding a bike home from work. She reports bike ride about 1 hour from home, she reports shortness of breath is currently resolved with rest, chest pain is 2 out of 10 mild pressure, nonradiating. She reported poor p.o. intake, muscle cramps, probable dehydration, generalized weakness, lightheaded while riding her bike. She denies abdominal pain, cough, fever, chills, edema. She has been admitted for-chest pain rule out [place], EKG syncope Near, Heat exhaustion, unspecified, Elevated troponin, acute kidney injury Laboratory evaluation Troponin 61.9, BNP ordered, lipid panel ordered for the a.m. blood glucose 172, A1c ordered in the morning, acute kidney injury BUN 19, creatinine 1.09, sodium potassium normal, Allergies No Known Allergies Allergy (Verified 02/15/13 13:51) Home Medications: NK [No Home Meds] 01/06/23 - Past Medical/Surgical History Diabetic: No -: Hypertension -: Chronic pain - Social History Alcohol use: Yes CD- Drugs: No Caffeine use: Yes Review of Systems 10-point ROS is otherwise unremarkable Physical Examination - Physical Exam General: Alert, In no apparent distress, Oriented x3, Other (morbid obesity) HEENT: Atraumatic, Normocephalic, PERRLA Neck: Supple, 2+ carotid pulse no bruit, JVD not distended Respiratory: Clear to auscultation bilaterally, Normal air movement Cardiovascular: No edema, Normal pulses, Normal S1 S2, Irregular heart rate/rhythm (sinus tachycardia) Capillary refill: <2 Seconds Gastrointestinal: Normal bowel sounds, Other (obese abdomen) Musculoskeletal: No clubbing, No swelling Integumentary: No rashes, No breakdown Neurological: Normal speech, Normal strength at 5/5 x4 extr, Cranial nerves 3-12 intact - Studies Laboratory Data (last 24 hrs) 06/13/23 01:00: Sodium 136, Potassium 3.8, BUN 19 H, Creatinine 1.05 H, Glucose 172 H 06/13/23 01:00: WBC 9.60, Hgb 13.3, Hct 41.2, Plt Count 307 Assessment and Plan - Plan Assessment/plan chest pain rule out [place] NSTEMI-this elevated troponin syncope Near Heat exhaustion unspecified acute kidney injury ukn baseline Assessment/plan chest pain rule out [place] Cardiology consult, trend troponins, Lovenox 1 mg/kg Elevated troponin Troponin 61.9, BNP ordered, Trend troponins cardiology consult, aspirin, antilipid, l ipid panel in the a.m. syncope Near likely secondary to heat exhaustion IV fluids, orthostatics Heat exhaustion unspecified IV fluids, trend electrolytes trend kidney function acute kidney injury ukn baseline IV fluids, trend kidney function acute kidney injury BUN 19, creatinine 1.09, sodium potassium normal, DVT Lovenox 1 mg/kg Diet n.p.o. until cardiology eval Full code Discharge Plan: Home - Advance Directives Does patient have a Living Will: No Does patient have a Durable POA for Healthcare: No - Code Status/Comfort Care Code Status Assessed: Yes Code Status: Full Code Physician Review: Patient Assessed, Agree with Above Assessment and Plan Critical Care: No Time Spent Managing Pts Care (In Minutes): 55
[2023-06-13] MEDS ORDERED: NA CHLORIDE 0.9% 1,000 ML IV SCH (03:00)
[2023-06-13] MEDS: ASPIRIN 325 MG TAB PO SCH ×2 (04:19→08:40)
[2023-06-13] MEDS: ENOXAPARIN 100 MG/ML SYR SQ SCH ×2 (04:20→15:01)
[2023-06-13 04:28] LABS: Absolute Lymphocytes (CBC) 2.8 K/uL (0.7-4.9); Hematocrit 39.5 % (36.0-45.0); Lymphocytes % 25.1 % (15.3-44.8); MCV 88.5 fL (80-100); MPV 9.1 fL (7.6-11.3); RBC Red Blood Cell Count 4.46 M/uL (3.86-4.86)
[2023-06-13 04:44] LABS: Albumin 3.4 g/dL (3.4-5.0); Bilirubin Total 0.6 mg/dL (0.2-1.0); Magnesium 2.1 mg/dL (1.6-2.4); Phosphorus 2.5 mg/dL (2.5-4.9); Potassium 3.9 mEq/L (3.5-5.1); Protein, Total 7.3 g/dL (6.4-8.2)
[2023-06-13 05:31] VITALS: O2SAT 99
[2023-06-13] MEDS: METOPROLOL XL 25 MG TAB PO SCH ×4 (06:00→22:01)
[2023-06-13] MEDS: POTASS/SODIUM PHOSPHATE 1 PKT POWD.PACK PO SCH ×3 (07:22→10:52)
[2023-06-13] MEDS: ATORVASTATIN 40 MG TAB PO SCH ×2 (08:40→22:01)
[2023-06-13] MEDS ORDERED: POTASSIUM CL SA 10 MEQ TAB PO ONE (09:00)
[2023-06-13 09:33] LABS: Specific Gravity 1.015 (1.005-1.030); Urine Bacteria None Seen /HPF (<20); Urine Bilirubin NEGATIVE (Negative); Urine Blood Negative (Negative); Urine Clarity Turbid (Clear); Urine Color Light-Yellow (Yellow); Urine Glucose NEGATIVE (Negative); Urine Mucus Slight /HPF (None Seen); Urine Protein NEGATIVE (Negative); Urine RBC <5 /HPF (None Seen); Urine Urobilinogen Normal (Normal); Urine pH 6.5 (5.0-7.0)
[2023-06-14] MEDS: ENOXAPARIN 100 MG/ML SYR SQ SCH ×2 (03:33→14:54)
[2023-06-14 04:17] LABS: Absolute Lymphocytes (CBC) 3.6 K/uL (0.7-4.9); Hematocrit 38.9 % (36.0-45.0); MCV 88.9 fL (80-100); MPV 9.2 fL (7.6-11.3); RBC Red Blood Cell Count 4.38 M/uL (3.86-4.86)
[2023-06-14 04:34] LABS: Albumin 3.1 g/dL (3.4-5.0); Bilirubin Total 0.6 mg/dL (0.2-1.0); Magnesium 2.3 mg/dL (1.6-2.4); Phosphorus 2.8 mg/dL (2.5-4.9); Potassium 4.4 mEq/L (3.5-5.1); Protein, Total 6.9 g/dL (6.4-8.2)
[2023-06-14 07:46] VITALS: BMI 47.2
[2023-06-14] MEDS: ASPIRIN 325 MG TAB PO SCH (08:29)
[2023-06-14] MEDS: METOPROLOL XL 25 MG TAB PO SCH ×2 (08:29→20:52)
--- NOTE | 2023-06-14 09:49 | P.PN ---
Subjective Date of Service: 06/14/23 Chief Complaint: Non-STEMI Subjective: Improving (Patient denies any complaints no chest pain no shortness of breath no dizziness) Review of Systems Unremarkable Physical Examination - Vital Signs Temperature: 98.6 F Blood Pressure: 106/61 Pulse: 77 Respirations: 18 Pulse Ox (%): 97 - Physical Exam General: Alert, Oriented x3 Neck: Supple Respiratory: Clear to auscultation bilaterally Cardiovascular: No edema, Regular rate/rhythm Assessment And Plan - Current Problems (Diagnosis) (1) Non-STEMI (non-ST elevated myocardial infarction) Current Visit: Yes Status: Acute Plan: Patient is 43 years of age admitted with non-STEMI better denies any shortness of breath or chest pain troponins are declining we have reordered again neurology consult is pending repeat EKG ordered of ordered a stress test for tomorrow possible discharge Physician Review: Patient Assessed, Agree with Above Assessment and Plan
[2023-06-14] MEDS: ATORVASTATIN 40 MG TAB PO SCH (20:53)
[2023-06-15] MEDS: ENOXAPARIN 100 MG/ML SYR SQ SCH ×2 (03:00→15:21)
[2023-06-15 07:56] LABS: Potassium 4.2 mEq/L (3.5-5.1)
[2023-06-15 07:57] LABS: Magnesium 2.1 mg/dL (1.6-2.4)
[2023-06-15] MEDS ORDERED: REGADENOSON 0.4 MG/5 ML SYR IV ONE (08:00)
[2023-06-15] MEDS: ASPIRIN 325 MG TAB PO SCH (09:00)
[2023-06-15] MEDS: METOPROLOL XL 25 MG TAB PO SCH (09:00)
--- NOTE | 2023-06-15 11:49 | EKG ---
Test Date: 2023-06-13 Test Time: 01:11:10 Medical Imaging Technologist: LUCIO MEASUREMENT RESULTS: Intervals: Rate: 97 WA: 148 QRSD: 70 QT: 322 QTc: 408 [place]: P: 62 WA: 148 QRS: 47 T: 59 INTERPRETIVE STATEMENTS: Normal sinus rhythm Normal ECG Compared to ECG 01/06/2023 05:03:42 No significant changes Electronically Signed On 06-15-23 11:45:55 CDT by Nam Lui
--- NOTE | 2023-06-15 13:57 | TREADPHA ---
DX: NON ST ELEVATION MYOCARDIAL INFARCTION Date of Study: 06/15/2023 Ht: 5' 3 " Wt: 266 lb 12.8 oz Consulting Physician: LOS MEDICATIONS: LOVENOX HISTORY: 43 YEAR OLD FEMALE WITH COMPLAINTS OF DEHYDRATION. PATIENT STATES NO KNOWN DRUG ALLERGY. HISTORY OF HYPERTENSION. PHYSICIAL EXAMINATION: RESTING B.P.: 116/82 RESTING H.R.: 67 RESTING EKG: SINUS RHYTHM, WITHIN NORMAL LIMITS PROTOCOL: PHARMACOLOGIC EXERCISE TIME: 3:30 B.P. AT [place] STRESS: 145/80 IMPRESSION: LEXISCAN INJECTED. CARDIOLITE INJECTED - SEE NUCLEAR MEDICINE REPORT. PATIENT DENIES CHEST PAIN. NO SUPRAVENTRICULAR TACHYCARDIA, VENTRICULAR TACHCARDIA, PREMATURE VENTRICULAR COMPLEXES OR PREMATURE ATRIAL COMPLEXES NOTED. PATIENT COMPLAINTS OF NAUSEA. NO ELECTROCARDIOGRAM CHANGES WITH LEXISCAN.
[2023-06-15 14:11] VITALS: BP 126/70; TEMP 97.5
--- NOTE | 2023-06-15 15:09 | RAD REPORT ---
EXAM DESCRIPTION: NM - Rest Stress Cardiac Imaging - 06/15/2023 12:56 pm CLINICAL HISTORY: NSTEMI Chest pain. COMPARISON: Rest Stress Cardiac Imaging dated 01/07/2023 TECHNIQUE: The patient was administered approximately 10mCi of Tc 99m Sestamibi prior to resting SPE CT imaging of the heart. The patient was then administered approximately 30 mCi of Tc 99m Sestamibi f ollowing exercise or pharmacologic stress. Multiplanar SPECT images were reviewed. FINDINGS: No stress induced ischemic defect is seen to suggest stress induced ischemia. No fixed def ect is seen to suggest hibernating myocardium or scarred myocardium. The end diastolic volume is 65 ml, the end systolic volume is 22 ml, and the ejection fraction is 66 %. IMPRESSION: No stress induced ischemia.
--- NOTE | 2023-06-15 16:40 | P.DS ---
Admission Date: 06/15/23 Discharge Date: 06/15/23 Disposition: ROUTINE DISCHARGE Discharge Condition: FAIR Reason for Admission: Non-STEMI - Problems (1) Near syncope Current Visit: Yes Status: Acute (2) Non-STEMI (non-ST elevated myocardial infarction) Current Visit: Yes Status: Acute Brief History of Present Illness: 43-year-old female with a past medical history of vertigo, morbid obesity, chronic pain, hyperlipidemia, angina presented to the emergency room with near syncope. Reports associated chest pain and shortness of breath. She reported substernal chest pain, shortness of breath worse with exertion while riding a bike home from work. She reported poor p.o. intake, muscle cramps, probable dehydration, generalized weakness, lightheaded while riding her bike. Initial troponin in the ED mildly elevated. Patient hospitalized for further evaluation and management. Hospital Course: Patient was admitted to the medical floor. Troponin trended up to 322 before trending down. She was diagnosed with NSTEMI and treated with full dose Loveno x, aspirin, metoprolol and Lipitor. Patient was seen and evaluated by cardiology Dr. Lui. Nuclear stress test was done which did not show any stress-induced ischemia. ACS ruled out. Elevated troponin likely secondary to demand ischemia. Patient has been deemed stable for discharge by cardiology. Vital Signs/Physical Exam: Temp Pulse Resp BP Pulse Ox 97.5 F 64 16 126/70 94 06/15/23 12:00 06/15/23 12:00 06/15/23 12:00 06/15/23 12:00 06/15/23 12:00 General: Alert, In no apparent distress, Oriented x3 HEENT: Mucous membr. moist/pink Neck: JVD not distended Respiratory: Clear to auscultation bilaterally, Normal air movement Cardiovascular: Regular rate/rhythm, Normal S1 S2 Gastrointestinal: Soft and benign, Non-distended Musculoskeletal: No swelling Neurological: Normal strength at 5/5 x4 extr Laboratory Data at Discharge: WBC 7.50 thou/uL (4.3-10.9) 06/14/23 03:39 Hgb 12.8 g/dL (12.0-15.0) 06/14/23 03:39 Hct 38.9 % (36.0-45.0) 06/14/23 03:39 Plt Count 267 thou/uL (152-406) 06/14/23 03:39 Sodium 139 mEq/L (136-145) 06/15/23 06:57 Potassium 4.2 mEq/L (3.5-5.1) 06/15/23 06:57 BUN 12 mg/dL (7-18) 06/15/23 06:57 Creatinine 0.70 mg/dL (0.55-1.02) 06/15/23 06:57 Glucose 140 mg/dL (74-106) H 06/15/23 06:57 Phosphorus 3.0 mg/dL (2.5-4.9) 06/15/23 06:57 Magnesium 2.1 mg/dL (1.6-2.4) 06/15/23 06:57 Total Bilirubin 0.6 mg/dL (0.2-1.0) 06/14/23 03:39 AST 57 U/L (15-37) H 06/14/23 03:39 ALT 55 U/L (13-56) 06/14/23 03:39 Alkaline Phosphatase 66 U/L (45-117) 06/14/23 03:39 Triglycerides Cancelled 06/13/23 03:42 Cholesterol Cancelled 06/13/23 03:42 HDL Cholesterol Cancelled 06/13/23 03:42 Cholesterol/HDL Ratio Cancelled 06/13/23 03:42 Home Medications: Aspirin [Aspirin EC 81 MG] 81 mg PO DAILY #30 tab 06/15/23 New Medications: Aspirin [Aspirin EC 81 MG] 81 mg PO DAILY #30 tab Diet: AHA Activity: Ad [place] Followup: NONE,NONE [Primary Care Provider] - 1-2 Weeks Time spent managing pt's care (in minutes): 32
--- NOTE | 2023-06-15 18:47 | CON ---
Date of Consultation: 06/14/2023 Reason For Consultation: Elevated troponin. History Of Present Illness: This is a 43-year-old female with obesity, hypertension, who presented a fter new syncopal episodes. She rides a bike going from home to work and it was hot outside and then riding the bike she felt nauseated with shortness of breath and also generalized fatigue and almost passed out, so presented to the emergency room. Troponin was borderline elevated. No chest pain. Past Medical History: As outlined above in HPI. Medications: Refer to reconciliation sheet for detailed list. Allergies: NO KNOWN DRUG ALLERGIES. Family History: No premature coronary artery disease or cancer. Social History: Does not smoke or drink. Does not use any drugs. Review of Systems: All systems reviewed and they were negative except what mentioned in HPI. Physical Examination: Vital Signs: Reviewed. Head and Neck: Pupils are equal, reactive to light. Intact eye movements. No JVD. No cervical lym phadenopathy. Neck is supple. Thyroid is not enlarged. Lungs: Clear to auscultation bilaterally. No rhonchi, wheezing, or crackles. No accessory muscle u se. Heart: Regular rate and rhythm. No extra sounds. Abdomen: Soft, nontender. Bowel sounds positive. No organomegaly. No masses or hernia. No rigidi ty or rebound. Extremities: No edema, clubbing, or cyanosis. Intact pulses. Skin: No rash. Neurologic: Alert, awake, oriented x3. No acute focal deficits appreciated. Lymph Nodes: No cervical or axillary lymphadenopathy. Investigations: Labs were reviewed. Assessment And Recommendations: 1.Elevated troponin. No chest pain. I believe that she had a significant heat exposure and that ca used her symptoms. Check CK level and if CPK is normal, then plan to do an echo and a stress test in the morning tomorrow to further evaluate given her young age. 2.Hypertension. Blood pressure is controlled. Continue current management. 3.Near syncope probably due to dehydration. Hydrate with IV fluids. Monitor on telemetry. Obtain echo and further plan accordingly. /MEGHNAL Voice ID: [id number] Report ID: [id number]
--- NOTE | 2023-06-15 19:32 | PN ---
Date of Progress Note: 06/15/2023 Subjective: Seen by bedside. The patient doing well. No chest pain. Review of Systems: No chest pain, shortness of breath, orthopnea, cough. No nausea, vomiting, diarrhea. All other syst ems reviewed and they were negative. Physical Examination: Vital Signs: Reviewed. Head and Neck: Pupils are equal, reactive to light. Intact eye movements. No JVD. No cervical lym phadenopathy. Neck is supple. Thyroid is not enlarged. Lungs: Clear to auscultation bilaterally. No rhonchi, wheezing, or crackles. No accessory muscle u se. Heart: Regular rate and rhythm. No extra sounds. Abdomen: Soft, nontender. Bowel sounds positive. No organomegaly. No masses or hernia. No rigidi ty or rebound. Extremities: No edema, clubbing, or cyanosis. Intact pulses. Skin: No rash. Neurologic: Alert, awake, oriented x3. No acute focal deficits appreciated. Investigations: BUN 12, creatinine 0.7, and troponin 147. Stress test is negative and echo with nor mal ejection fraction. Assessment And Recommendations: 1.Elevated troponin. This is demand ischemia with normal stress test and normal ejection fraction. No further cardiac workup is recommended. The patient can be released from Cardizem standpoint. Fo llow up as an outpatient. 2.Dehydration, resolved. 3.Dyslipidemia. Continue statin. 4.Hypertension. Blood pressure is controlled. Continue current management. SR/MODL Voice ID: [id number] Report ID: [id number]
--- NOTE | 2023-06-16 06:52 | ECHO ---
HEIGHT: 5 ft 3 in WEIGHT: 266 lb 12.8 oz DATE OF STUDY: 06/15/[address]: Nam Lui 2-DIMENSIONAL: YES M.MODE: YES DOPPLER: YES COLOR FLOW: YES TDS: YES PORTABLE: YES DEFINITY: BUBBLE STUDY: DIAGNOSIS: ELEVATED TROPONIN CARDIAC HISTORY: CATHERIZATION: NO SURGERY: NO PROSTHETIC VALVE: NO PACEMAKER: NO MEASUREMENTS (cm) DIASTOLIC (NORMALS) SYSTOLIC (NORMALS) IVSd 1.2 (0.6-1.2) LA Diam 2.9 (1.9-4.0) LVEF 51% LVIDd 4.0 (3.5-5.7) LVIDs 3.0 (2.0-3.5) %FS 26% LVPWd 1.3 (0.6-1.2) Ao Diam 1.9 (2.0-3.7) 2 DIMENSIONAL ASSESSMENT: RIGHT ATRIUM: NORMAL LEFT ATRIUM: NORMAL RIGHT VENTRICLE: NORMAL LEFT VENTRICLE: NORMAL TRICUSPID VALVE: NORMAL MITRAL VALVE: NORMAL PULMONIC VALVE: NOT SEEN AORTIC VALVE: NORMAL PERICARDIAL EFFUSION: NONE AORTIC ROOT: NORMAL LEFT VENTRICULAR WALL MOTION: APPEARS NORMAL DOPPLER/COLOR FLOW: SEE BELOW COMMENTS: 1. POOR WINDOWS 2. LEFT VENTRICULAR EJECTION FRACTION APPEARS NORMAL 55% TECHNOLOGIST: VICKY STALEY
== END 2023-06-15 17:30 | disposition home or self-care (01) | DRG 281 ==
LOC: ER 00:34 → 4TH 02:46 → OBSVTOIN 06-15 14:28
PROVIDERS: ADMIT Internal Medicine Sleep Medicine; ATTEND Internal Medicine
DX: I21.4 Non-ST elevation (NSTEMI) myocardial infarction (principal); N17.9 Acute kidney failure, unspecified; Z68.41 Body mass index [BMI] 40.0-44.9, adult; E66.01 Morbid (severe) obesity due to excess calories; E86.0 Dehydration; E78.5 Hyperlipidemia, unspecified; I10 Essential (primary) hypertension; G89.29 Other chronic pain; T67.5XXA Heat exhaustion, unspecified, initial encounter; R42 Dizziness and giddiness; R77.8 Other specified abnormalities of plasma proteins; Z79.82 Long term (current) use of aspirin; Z79.899 Other long term (current) drug therapy
CPT/HCPCS: 36415; 78452; 80048; 80053; 81001; 82550; 83036; 83735; 83880; 84100; 84484; 85025; 93005; 93017; 93306; 99285; A9500; J1650; J2785; J7030

== ENCOUNTER 2023-09-04 21:19 | Emergency (ER) | payer OTHER ==
--- OUTSIDE RECORDS SUMMARY | 2023-09-04 21:22 | XMS REPORT | Continuity of Care Document ---
:1980 Author Organization [facility] t Address [address] [facility] [address] [place] [id number] Care Team Providers Name Role Phone Pcp, Patient Does Not Have A Primary Care Physician [phone] Susi Hebert Attending Clinician SUSI HOWE Attending Clinician Unavailable Problems This patient has no known problems. Allergies, Adverse Reactions, Alerts Allergy Allergy Status Severity Reaction(s) Onset Inactive Treating Comm ents Source Name Type Date Date Clinician NO KNOWN Drug Active Univers ALLERGIE Class ity of S [facility] Social History Social Habit Start Date Stop Date Quantity Comments Source Exposure to Not sure [facility] SARS-CoV-2 (event) Medica l Branch Sex Assigned At [birth year] [facility] 00:00:00 00:00:00 [facility] Smoking Status Start Date Stop Date Source Unknown if ever smoked [facility] Medications Ordered Filled Start Stop Current Ordering [...] Branch 09/01/21 at 1900, LITO
Fa [facility] member approving Restricted medication : SUSI HOWE diazePAM 2020-11- No 5mg 5 mg, Univers (VALIUM) 009-01 Intramuscu ity of injection 5 00:00: 22:56 lar, ONCE, [place] mg 00 :00 1 dose, On Medical [place] 09/01/21 at 1900, STAT methocarbam 2020-11- No [id number] 750mg Take 1 Univers oL 0- 10- 9104 tablet by ity of (ROBAXIN-75 00:00[place] 04[place]59 [place] 750 mg 00 :00 (four) Medical tablet times Branch daily for 10 days. meloxicam 2020-11- No [id number] 15mg Take 1 Univers (MOBIC) 15 0-02 06- 9104 tablet by ity of mg tablet 00:00: 04:59 mouth [place] 00 :00 daily for Medical 10 days. Branch ibuprofen Yes [id number] 600mg Take 1 U nivers 600 mg 9-22 tablet by ity of tablet 00:00: mouth [place] 00 every 6 Medical (six) Branch hours as needed for Pain (scale 4-6). methocarbam 2020- No [id number] 500mg Take 1 Univers oL 500 mg [...] four [place] (0.083 %) 00 hours, march [facility] INHALE NEBU also Branch nebulize one extra one every six hours ZOFRAN 4 MG Yes take 2 Univ ers ORAL TAB 4-26 tablets by ity o f 00:00: mouth [place] 00 every 12 Medical hours for Branch nausea Vital Signs Vital Name Observation Time Observation Value Comments Source Oxygen saturation in 2021-09-01 23:57:00 99 /min [facility] Arterial blood by [facility] Pulse oximetry Branch Systolic blood 2021-09-01 22:40:45 161 mm[Hg] Univer sity of pressure [facility] Diastolic blood 2021-09-01 22:40:45 108 mm[Hg] [facility] rate 2021-09-01 22:40:45 79 /min [facility] Body temperature 2021-09-01 22:40:45 36.78 [facility] Respiratory rate 2021-09-01 22:40:45 16 /min [facility] Body weight 2021-09-01 22:26:00 108.863 kg [facility] Procedures Procedure Date / Time Performed Performing Clinician Sour e CONSENT/REFUSAL FOR 2021-09-01 22:18:40 Doctor Unassigned, No Un [facility] DIAGNOSIS AND Name Medical [place] TREATMENT Encounters Start End Encounter Admission Attending Care Care Encounter Source Date/Time Date/Time Type Type Clinicians Facility Department ID 2021-09-01 2021-09-01 Emergency [facility] [id number] Univers 17:28:00 18:58:00 Susi Ho [id number] i [facility] [id number] [facility] [id number] [facility] 084 Branch 2021-09-01 2021-09-01 Emergency X EBRAINM, [facility] ERT [id number] Univers 17:18:00 17:18:00 SUSI leblanc [facility] 2021-08-21 2021-08-21 Emergency X [facility] ERT [id number] Univers 13:01:00 13:01:00 [facility] Results This patient has no known results.
[2023-09-04] MEDS ORDERED: dexAMETHasone 10 MG/ML VIAL ONE (21:54)
[2023-09-04] MEDS ORDERED: KETOROLAC 30 MG/ML INJ ONE (21:55)
[2023-09-04] MEDS ORDERED: GABAPENTIN 300 MG CAP ONE (21:55)
--- NOTE | 2023-09-04 22:32 | EDPHYS ---
Physician Documentation [facility] Name: Paradise Colon Age: 43 yrs Sex: Female : 1980 Arrival Date: 09/04/2023 Time: 21:19 Bed 12 Private MD: ED Physician Stephen Clark HPI: 09/05 00:48 This 43 yrs old Female presents to ER via Ambulatory with complaints of Arm Pain. sb4 00:48 Patient presents with 3 days of right arm pain. She states that she has known right sb4 shoulder degeneration/prior injury however she states that the pain is now in her right elbow and right wrist and is concerned. She rates her pain as a 5 out of 10. She has been taking Tylenol and ibuprofen without relief in symptoms. She denies any numbness, tingling, decreased perfusion. 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 - Social history:: Smoking status: unknown. ROS: 09/05 00:48 Constitutional: Negative for fever, chills, and weight loss, sb4 MS/extremity: Positive for pain, of the right arm, All other systems are negative, Exam: 00:48 Constitutional: This is a well developed, well nourished patient who is awake, alert, sb4 and in no acute distress. Head/Face: Normocephalic, atraumatic. Eyes: Extra-ocular motions intact. Periorbital areas with no swelling, redness, or edema. ENT: Mucous membranes moist. Cardiovascular: Regular rate and rhythm with a normal S1 and S2. Respiratory: Lungs have equal breath sounds bilaterally, clear to auscultation and percussion. No rales, rhonchi or wheezes noted. No increased work of breathing, no retractions or nasal flaring. Abdomen/GI: Soft, non-tender, no distension. Skin: Warm, dry with normal turgor. Normal color with no rashes, no lesions, and no evidence of cellulitis. MS/ Extremity: Pulses equal, no cyanosis. Neurovascular intact. Full, normal range of motion. Neuro: Awake and alert, GCS 15, oriented to person, place, time, and situation. Motor strength 5/5 in all extremities. Sensory grossly intact. Vital Signs: 09/04 21:28 BP 152 / 102; Pulse 85; Resp 16; Temp 98.1; Pulse Ox 98% on R/A; Weight 111.13 kg; iw Height 5 ft. 3 in. ; Pain 5/10; 21:28 Body Mass Index 43.40 (111.13 kg, 160.02 cm) iw 21:28 Pain Scale: Adult iw MDM: 21:29 Patient medically screened. sb4 09/05 00:48 Differential diagnosis: tendonitis, Neuropathy, osteoarthritis, sprain, strain. Data sb4 reviewed: vital signs, nurses notes, and as a result, I will discharge patient. Test considered but Not performed: X-ray: Arm imaging considered but not indicated as there is no injury. This is a flareup of an existing injury with referred pain/possibly nerve related. Historians other than the Patient: Spouse/Significant Other: Significant other. 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 Administered Medications: 09/04 21:52 Drug: Ketorolac IM 30 mg IM once Route: IM; Site: right deltoid; ap3 22:41 Follow up: Response: No adverse reaction ap3 21:52 Drug: Gabapentin PO 300 mg PO once Route: PO; ap3 22:40 Follow up: Response: No adverse reaction ap3 21:53 Drug: Dexamethasone IM 10 mg IM once Route: IM; Site: right deltoid; ap3 22:41 Follow up: Response: No adverse reaction ap3 Disposition: 09/05 04:19 Co-signature as Attending Physician, Stephen Clark MD I agree with the assessment sp4 and plan of care. I reviewed the patient's care provided by the Advanced Practice Provider and agree with the diagnosis and treatment plan. Disposition Summary: 09/04/23 22:32 Discharge Ordered Notes: Location: Home sb4 Problem: new sb4 Symptoms: have improved sb4 Condition: Stable sb4 Diagnosis - Pain in right shoulder sb4 - Pain in right elbow sb4 - Pain in right wrist sb4 Followup: sb4 - With: Private Physician - When: As needed - Reason: Recheck today's complaints, Re-evaluation by your physician Discharge Instructions: - Discharge Summary Sheet sb4 - Musculoskeletal Pain sb4 Forms: - Medication Reconciliation Form sb4 - Thank You Letter sb4 - Antibiotic Education sb4 - Prescription Opioid Use sb4 - Patient Portal Instructions sb4 - Leadership Thank You Letter sb4 Prescriptions: - gabapentin 300 mg Oral capsule - take 1 capsule ORAL route 3 times per day; 15 capsule; Refills: 0, Product sb4 Selection Permitted - Diclofenac Sodium 75 mg Oral Tablet Sustained Release - take 1 tablet ORAL route 2 times per day; 30 tablet; Refills: 0, Product sb4 Selection Permitted - Medrol (Loy) 4 mg Oral Tablets, Dose Pack - take 1 tablet ORAL route as directed - follow package instructions; 1 packet; sb4 Refills: 0, Product Selection Permitted Signatures: Kiki Armas RN ALBA iw Sherly Castaneda RN RN ap3 Rosamaria Albrecht, PAJeanie PAJeanie sb4 Stephen Clark MD MD sp4
--- NOTE | 2023-09-04 22:32 | ER ---
Nurse's Notes [facility] Name: Paradise Colon Age: 43 yrs Sex: Female : 1980 Arrival Date: 09/04/2023 Time: 21:19 Bed 12 Private MD: Diagnosis: Pain in right shoulder;Pain in right elbow;Pain in right wrist Presentation: 09/04 21:27 Chief complaint: Patient states: right shoulder, elbow and wrist has been hurting off iw and on for about two weeks, has previous injury to right shoulder. Coronavirus screen: At this time, the client does not indicate any symptoms associated with coronavirus-19. Ebola Screen: Patient negative for fever greater than or equal to 101.5 degrees Fahrenheit, and additional compatible Ebola Virus Disease symptoms Patient denies exposure to infectious person. Patient denies travel to an Ebola-affected area in the 21 days before illness onset. No symptoms or risks identified at this time. Initial Sepsis Screen: Does the patient meet any 2 criteria? No. Patient's initial sepsis screen is negative. Does the patient have a suspected source of infection? No. Patient's initial sepsis screen is negative. Risk Assessment: Do you want to hurt yourself or someone else? Patient reports no desire to harm self or others. Onset of symptoms was August 19, 2023. 21:27 Method Of Arrival: Ambulatory iw 21:27 Acuity: TANA 4 iw GUIDE: 22:04 LMP N/A - Irregular menses, Not ap3 Historical: - Allergies: 21:28 No Known Allergies; iw - PMHx: 21:28 angina pectoris; Chronic pain; Hypertension; Vertigo; iw - Immunization history:: Adult Immunizations unknown. - Social history:: Smoking status: unknown. Screenin:03 [facility] ED Fall Risk Assessment (Adult) History of falling in the last 3 months, ap3 including since admission No falls in past 3 months (0 pts). Abuse screen: Denies threats or abuse. Nutritional screening: No deficits noted. Tuberculosis screening: No symptoms or risk factors identified. Assessment: 22:03 General: Appears in no apparent distress. Behavior is calm, cooperative, appropriate ap3 for age. Pain: Complains of pain in right arm Pain currently is 5 out of 10 on a pain scale. Neuro: Level of Consciousness is awake, alert, obeys commands, Oriented to person, place, time, situation. Cardiovascular: Patient's skin is warm and dry. Respiratory: Airway is patent Respiratory effort is even, unlabored, Respiratory pattern is regular, symmetrical. Vital Signs: 21:28 BP 152 / 102; Pulse 85; Resp 16; Temp 98.1; Pulse Ox 98% on R/A; Weight 111.13 kg; iw Height 5 ft. 3 in. ; Pain 5/10; 21:28 Body Mass Index 43.40 (111.13 kg, 160.02 cm) iw 21:28 Pain Scale: Adult iw ED Course: 21:21 Patient arrived in ED. ag3 21:22 Rosamaria Albrecht PA-C is PHCP. sb4 21:22 Stephen Clark MD is Attending Physician. sb4 21:28 Triage completed. iw 21:29 Arm band placed on. iw 21:37 Sherly Castaneda, RN is Primary Nurse. ap3 22:04 Patient has correct armband on for positive identification. Bed in low position. Call ap3 light in reach. Side rails up X 1. Adult w/ patient. Pulse ox on. NIBP on. 22:04 Provided Education on: medications prior to administration . ap3 22:04 No provider procedures requiring assistance completed. ap3 22:42 Patient did not have IV access during this emergency room visit. ap3 Administered Medications: 21:52 Drug: Ketorolac IM 30 mg IM once Route: IM; Site: right deltoid; ap3 22:41 Follow up: Response: No adverse reaction ap3 21:52 Drug: Gabapentin PO 300 mg PO once Route: PO; ap3 22:40 Follow up: Response: No adverse reaction ap3 21:53 Drug: Dexamethasone IM 10 mg IM once Route: IM; Site: right deltoid; ap3 22:41 Follow up: Response: No adverse reaction ap3 Medication: 22:03 VIS not applicable for this client. ap3 Outcome: 22:32 Discharge ordered by . sb4 22:41 Discharged to home ambulatory, with family, ap3 22:41 Discharge instructions given to patient, Instructed on discharge instructions, follow up and referral plans. medication usage, Demonstrated understanding of instructions, follow-up care, medications, Prescriptions given X 3, 22:41 Condition: good ap3 22:42 Patient left the ED. ap3 Signatures: Kiki Armas, RN RN iw Sherly Castaneda RN RN ap3 Cuca Salas3 Rosamaria Albrecht PA-C PA-C sb4
[2023-09-04 22:50] VITALS: BP 152/102; TEMP 98.1; O2SAT 98
== END 2023-09-04 22:42 | disposition home or self-care (01) ==
LOC: ER 21:19
DX: M25.511 Pain in right shoulder (principal); M25.521 Pain in right elbow; M25.531 Pain in right wrist
CPT/HCPCS: 96372; 99284; J1100

== ENCOUNTER 2023-10-08 20:12 | Emergency (ER) | payer OTHER ==
--- OUTSIDE RECORDS SUMMARY | 2023-10-08 20:16 | XMS REPORT | Continuity of Care Document ---
:1980 Author Organization [facility] t Address [address] [facility] [address] [place] [address] Care Team Providers Name Role Phone Pcp, Patient Does Not Have A Primary Care Physician +[phone] 00-0000 Susi Hebert Attending Clinician SUSI HOWE Attending Clinician Unavailable Problems This patient has no known problems. Allergies, Adverse Reactions, Alerts Allergy Allergy Status Severity Reaction(s) Onset Inactive Treating Comm ents Source Name Type Date Date Clinician NO KNOWN Drug Active Univers ALLERGIE Class ity of S [facility] Social History Social Habit Start Date Stop Date Quantity Comments Source Exposure to Not sure [facility] SARS-CoV-2 (event) Medica l Branch Sex Assigned At [birth year] [facility] 00:00:00 00:00:00 [facility] Smoking Status Start Date Stop Date Source Unknown if ever smoked [facility] Medications Ordered Filled Start Stop Current [...] Sun Branch 09/01/21 at 1900, LITO
Fa [facility] member approving Restricted medication : SUSI HOWE diazePAM 2020-11- No 5mg 5 mg, Univers (VALIUM) 009-01 Intramuscu ity of injection 5 00:00: 22:56 lar, ONCE, [place] mg 00 :00 1 dose, On Medical [place] 09/01/21 at 1900, STAT methocarbam 2020-11- No [id number] 750mg Take 1 Univers oL 0- 10- 9104 tablet by ity of (ROBAXIN-75 00:00: 04:59 mouth 4 [place] 0[place] 750 mg 00 :00 (four) Medical tablet times Branch daily for 10 days. meloxicam 2020-11- No [id number] 15mg Take 1 Univers (MOBIC) 15 0-02 06- 9104 tablet by ity of mg tablet 00:00: 04:59 mouth [place] 00 :00 daily for Medical 10 days. Branch ibuprofen Yes [id number] 600mg Take 1 U nivers 600 mg 9-22 tablet by ity of tablet 00:00: mouth [place] 00 every 6 Medical (six) Branch hours as needed for Pain (scale 4-6). methocarbam 2020- No [id number] 500mg Take 1 Univers oL 500 mg [...] four [place] (0.083 %) 00 hours, march [facility] INHALE NEBU also Branch nebulize one extra one every six hours ZOFRAN 4 MG Yes take 2 Univ ers ORAL TAB 4-26 tablets by ity o f 00:00: mouth [place] 00 every 12 Medical hours for Branch nausea Vital Signs Vital Name Observation Time Observation Value Comments Source Oxygen saturation in 2021-09-01 23:57:00 99 /min [facility] Arterial blood by [facility] Pulse oximetry Branch Systolic blood 2021-09-01 22:40:45 161 mm[Hg] Univer sity of pressure [facility] Diastolic blood 2021-09-01 22:40:45 108 mm[Hg] [facility] Heart rate 2021-09-01 22:40:45 79 /min [facility] Body temperature 2021-09-01 22:40:45 36.78 [facility] Respiratory rate 2021-09-01 22:40:45 16 /min [facility] Body weight 2021-09-01 22:26:00 108.863 kg [facility] Procedures Procedure Date / Time Performed Performing Clinician Sour e CONSENT/REFUSAL FOR 2021-09-01 22:18:40 Doctor Unassigned, No Un [facility] DIAGNOSIS AND Name Medical [place] TREATMENT Encounters Start End Encounter Admission Attending Care Care Encounter Source Date/Time Date/Time Type Type Clinicians Facility Department ID 2021-09-01 2021-09-01 Emergency [facility] [id number] Univers 17:28:00 18:58:00 Susi Ho [id number] i [facility] [id number] [facility] [id number] [facility] 084 Branch 2021-09-01 2021-09-01 Emergency X EBRATNM, [facility] ERT [id number] Univers 17:18:00 17:18:00 SUSI [facility] 2021-08-21 2021-08-21 Emergency X [facility] ERT [id number] Univers 13:01:00 13:01:00 [facility] Results This patient has no known results.
[2023-10-08] MEDS ORDERED: NA CHLORIDE 0.9% 1,000 ML ONE (20:46)
[2023-10-08] MEDS ORDERED: MECLIZINE HCL 12.5 MG TAB ONE (20:46)
[2023-10-08 20:56] LABS: Absolute Lymphocytes (CBC) 2.1 K/uL (0.7-4.9); Hematocrit 40.9 % (36.0-45.0); Lymphocytes % 23.5 % (15.3-44.8); MCV 88.2 fL (80-100); MPV 9.1 fL (7.6-11.3); Platelets 279 thou/uL (152-406); RBC Red Blood Cell Count 4.64 M/uL (3.86-4.86)
[2023-10-08 21:18] LABS: Albumin 3.4 g/dL (3.4-5.0); Bilirubin Total 0.8 mg/dL (0.2-1.0); Potassium 3.4 mEq/L (3.5-5.1); Protein, Total 7.2 g/dL (6.4-8.2); Troponin High Sensitivity 12.7 pg/mL (<58.9)
--- NOTE | 2023-10-08 23:28 | EDPHYS ---
Physician Documentation [facility] Name: Paradise Colon Age: 43 yrs Sex: Female : 1980 Arrival Date: 10/08/2023 Time: 20:12 Bed 5 Private MD: ED Physician Bob Barajas HPI: 10/08 20:47 This 43 yrs old Female presents to ER via EMS with complaints of Nausea/Vomiting, rt Dizziness. 20:47 Patient presents to the ED with nausea, vomiting, dizziness described as vertigo. rt Patient reports having room spinning. This occurred about 20 minutes prior to arrival. He denies other acute complaints at this time. States the pain vertigo is worse when she turns her head. Symptoms are moderate in severity, no other aggravating alleviating factors.. Historical: - PMHx: 20:25 angina pectoris; Hypertension; Chronic pain; Vertigo; kd3 - Immunization history:: Adult Immunizations up to date. - Social history:: Smoking status: unknown. - Family history:: not pertinent. ROS: 20:47 Constitutional: Negative for fever, chills, and weight loss, Cardiovascular: Negative rt for chest pain, palpitations, and edema, Respiratory: Negative for shortness of breath, cough, wheezing, and pleuritic chest pain, MS/Extremity: Negative for injury and deformity, Skin: Negative for injury, rash, and discoloration, Psych: Negative for depression, anxiety, suicide ideation, homicidal ideation, and hallucinations, 20:47 Abdomen/GI: Positive for nausea and vomiting, Negative for diarrhea, 20:47 Neuro: Positive for dizziness, Negative for altered mental status, Exam: 20:47 Constitutional: This is a well developed, well nourished patient who is awake, alert, rt and in no acute distress. Head/Face: Normocephalic, atraumatic. Chest/axilla: Normal chest wall appearance and motion. Nontender with no deformity. No lesions are appreciated. Cardiovascular: Regular rate and rhythm with a normal S1 and S2. No gallops, murmurs, or rubs. Normal PMI, no JVD. No pulse deficits. Respiratory: Lungs have equal breath sounds bilaterally, clear to auscultation and percussion. No rales, rhonchi or wheezes noted. No increased work of breathing, no retractions or nasal flaring. Abdomen/GI: Soft, non-tender, with normal bowel sounds. No distension or tympany. No guarding or rebound. No evidence of tenderness throughout. Skin: Warm, dry with normal turgor. Normal color with no rashes, no lesions, and no evidence of cellulitis. MS/ Extremity: Pulses equal, no cyanosis. Neurovascular intact. Full, normal range of motion. Neuro: Awake and alert, GCS 15, oriented to person, place, time, and situation. Cranial nerves II-XII grossly intact. Motor strength 5/5 in all extremities. Sensory grossly intact. Cerebellar exam normal. Normal gait. Psych: Awake, alert, with orientation to person, place and time. Behavior, mood, and affect are within normal limits. 20:57 ECG was reviewed by the Attending Physician. rt Vital Signs: 20:23 BP 125 / 82; Pulse 90; Resp 20; Temp 98.4(O); Pulse Ox 95% on R/A; kd3 20:27 BP 128 / 82; Pulse 93; Resp 16; Temp 97.9(TE); Pulse Ox 96% ; Weight 111.13 kg; kd3 23:10 BP 155 / 96; Pulse 83; Resp 17 S; Pulse Ox 100% on R/A; jw7 10/09 00:00 BP 112 / 71; Pulse 85; Resp 16 S; Pulse Ox 98% on R/A; jw7 MDM: 10/08 20:29 Patient medically screened. rt 10/09 01:02 Differential diagnosis: Peripheral vertigo, central vertigo, dehydration. Data rt reviewed: vital signs, nurses notes, lab test result(s), EKG. Consideration of Admission/Observation Escalation of care including admission/observation considered. I considered the following discharge prescriptions or medication management in the emergency department Medications were administered in the Emergency Department. See MAR. Test considered but Not performed: CT: Symptoms are most consistent with peripheral vertigo, lower suspicion for central vertigo, CT scan not indicated. Care significantly affected by the following chronic conditions: Hypertension. Counseling: I had a detailed discussion with the patient and/or guardian regarding the historical points, exam findings, and any diagnostic results supporting the discharge/admit diagnosis, lab results, the need for outpatient follow up. Response to treatment: the patient's symptoms have markedly improved after treatment. 10/08 20:30 Order name: CBC with Diff; Complete Time: 21:24 rt 10/08 20:30 Order name: CMP; Complete Time: 21:24 rt 10/08 20:30 Order name: Troponin High Sensitivity; Complete Time: 21:24 rt 10/08 20:30 Order name: EKG; Complete Time: 20:30 rt 10/08 20:30 Order name: EKG - Nurse/Tech; Complete Time: 20:47 rt EC/09 20:57 Rate is 87 beats/min. Rhythm is regular, Normal Sinus Rhythm with No ectopy. QRS [place] rt is Normal. UT interval is normal. QRS interval is normal. QT interval is normal. No Q waves. T waves are Normal. No ST changes noted. Interpreted by me. Administered Medications: 20:40 Drug: NS 0.9% IV 1000 ml IV at 1 bolus Per protocol; 1000 mL bolus Route: IV; Rate: 1 kd3 bolus; Site: right hand; 10/09 00:16 Follow up: Response: No adverse reaction; IV Status: Completed infusion; IV Intake: jw7 1000ml 10/08 20:40 Drug: Meclizine PO 50 mg PO once Route: PO; kd3 10/09 00:16 Follow up: Response: No adverse reaction; Marked relief of symptoms jw7 10/08 23:29 Drug: Promethazine IVP 12.5 mg IVP once Route: IVP; Site: left hand; [facility] 10/09 00:16 Follow up: Response: No adverse reaction; Marked relief of symptoms jw7 Disposition Summary: 10/08/23 23:27 Discharge Ordered Notes: Location: Home rt Problem: new rt Symptoms: have improved rt Condition: Stable rt Diagnosis - Other peripheral vertigo rt Followup: rt - With: Private Physician - When: 2 - 3 days - Reason: Discharge Instructions: - Discharge Summary Sheet rt - Benign Positional Vertigo rt Forms: - Medication Reconciliation Form rt - Thank You Letter rt - Antibiotic Education rt - Prescription Opioid Use rt - Patient Portal Instructions rt - Leadership Thank You Letter rt Prescriptions: - Meclizine 25 mg Oral tablet - take 2 tablet ORAL route every 8 hours As needed; 30 tablet; Refills: 0, rt Product Selection Permitted Signatures: Dispatcher [employer] Sylvia Teran RN RN 3 Deja Quintero RN RN 1 Bob Barajas MD MD rt Waits, Jodi RN jw7
--- NOTE | 2023-10-08 23:28 | ER ---
Nurse's Notes [facility] Name: Paradise Colon Age: 43 yrs Sex: Female : 1980 Arrival Date: 10/08/2023 Time: 20:12 Bed 5 Private MD: Diagnosis: Other peripheral vertigo Presentation: 10/08 20:23 Chief complaint: EMS states: Pt presents with vertigo and nausea and vomiting. Pt has a kd3 history of vertigo and angina. Pt denies pain other than abdominal pain due to vomiting, rates it a /. Pt was administered 4 mg of Zofran in route. Coronavirus screen: unknown. Ebola Screen: No symptoms or risks identified at this time. Initial Sepsis Screen: Does the patient meet any 2 criteria? No. Patient's initial sepsis screen is negative. Does the patient have a suspected source of infection? No. Patient's initial sepsis screen is negative. Risk Assessment: Do you want to hurt yourself or someone else? Patient reports no desire to harm self or others. Onset of symptoms was October 08, 2023. 20:23 Method Of Arrival: EMS kd3 20:23 Acuity: TANA 3 kd3 Triage Assessment: 20:25 General: Appears uncomfortable, Behavior is calm, cooperative. Pain: Complains of pain kd3 in abdomen. GI: Reports nausea, vomiting. Historical: - PMHx: 20:25 angina pectoris; Hypertension; Chronic pain; Vertigo; kd3 - Immunization history:: Adult Immunizations up to date. - Social history:: Smoking status: unknown. - Family history:: not pertinent. Screenin:00 [facility] ED Fall Risk Assessment (Adult) History of falling in the last 3 months, jw7 including since admission No falls in past 3 months (0 pts) Score/Fall Risk Level 0 - 2 = Low Risk. Abuse screen: Denies threats or abuse. Denies injuries from another. Nutritional screening: No deficits noted. Tuberculosis screening: No symptoms or risk factors identified. Assessment: 21:00 General: Appears in no apparent distress. uncomfortable, Behavior is calm, cooperative. jw7 21:00 Pain: Denies pain. Neuro: Rojas Agitation-Sedation Scale (RASS): 0 - Alert and Calm jw7 Level of Consciousness is awake, alert, obeys commands, Oriented to person, place, time, situation. Cardiovascular: Heart tones S1 S2 present Capillary refill < 3 seconds Clubbing of nail beds is absent JVD is absent Patient's skin is warm and dry. Respiratory: Airway is patent Trachea midline Respiratory effort is even, unlabored, Respiratory pattern is regular, symmetrical. GI: Abdomen is round non-distended, Bowel sounds present X 4 quads. Reports lower abdominal pain, upper abdominal pain, nausea, vomiting. : No deficits noted. No signs and/or symptoms were reported regarding the genitourinary system. EENT: No deficits noted. No signs and/or symptoms were reported regarding the EENT system. Derm: No deficits noted. No signs and/or symptoms reported regarding the dermatologic system. Musculoskeletal: No deficits noted. No signs and/or symptoms reported regarding the musculoskeletal system. 22:00 Reassessment: Patient appears in no apparent distress at this time. No changes from [facility] previously documented assessment. Patient and/or family updated on plan of care and expected duration. Pain level reassessed. Patient is alert, oriented x 3, equal unlabored respirations, skin warm/dry/pink. 23:00 Reassessment: Patient appears in no apparent distress at this time. No changes from [facility] previously documented assessment. Patient and/or family updated on plan of care and expected duration. Pain level reassessed. Patient is alert, oriented x 3, equal unlabored respirations, skin warm/dry/pink. 10/09 00:00 Reassessment: Patient appears in no apparent distress at this time. Patient and/or jw7 family updated on plan of care and expected duration. Pain level reassessed. Patient is alert, oriented x 3, equal unlabored respirations, skin warm/dry/pink. Patient states symptoms have improved. Vital Signs: 10/08 20:23 BP 125 / 82; Pulse 90; Resp 20; Temp 98.4(O); Pulse Ox 95% on R/A; kd3 20:27 BP 128 / 82; Pulse 93; Resp 16; Temp 97.9(TE); Pulse Ox 96% ; Weight 111.13 kg; kd3 23:10 BP 155 / 96; Pulse 83; Resp 17 S; Pulse Ox 100% on R/A; jw7 10/09 00:00 BP 112 / 71; Pulse 85; Resp 16 S; Pulse Ox 98% on R/A; jw7 ED Course: 10/08 20:17 Patient arrived in ED. jj6 20:19 Bob Barajas MD is Attending Physician. rt 20:25 Triage completed. kd3 20:25 Arm band placed on. kd3 20:40 Troponin High Sensitivity Sent. kd3 20:40 CMP Sent. kd3 20:40 CBC with Diff Sent. kd3 22:00 Patient has correct armband on for positive identification. Bed in low position. Call jw7 light in reach. 23:27 No provider procedures requiring assistance completed. jw7 10/09 00:15 Provided Education on: discharge instructions and medication usage. jw7 00:15 IV discontinued, intact, bleeding controlled, No redness/swelling at site. Pressure jw7 dressing applied. Administered Medications: 10/08 20:40 Drug: NS 0.9% IV 1000 ml IV at 1 bolus Per protocol; 1000 mL bolus Route: IV; Rate: 1 kd3 bolus; Site: right hand; 10/09 00:16 Follow up: Response: No adverse reaction; IV Status: Completed infusion; IV Intake: jw7 1000ml 10/08 20:40 Drug: Meclizine PO 50 mg PO once Route: PO; kd3 10/09 00:16 Follow up: Response: No adverse reaction; Marked relief of symptoms jw7 10/08 23:29 Drug: Promethazine IVP 12.5 mg IVP once Route: IVP; Site: left hand; [facility] 10/09 00:16 Follow up: Response: No adverse reaction; Marked relief of symptoms jw7 Medication: 10/08 23:27 VIS not applicable for this client. jw7 Intake: 10/09 00:16 IV: 1000ml; Total: 1000ml. jw7 Outcome: 10/08 23:27 Discharge ordered by . rt 10/09 00:14 Discharged to home via wheelchair, jw7 Condition: stable Discharge instructions given to patient, Instructed on discharge instructions, follow up and referral plans. medication usage, Demonstrated understanding of instructions, follow-up care, medications, Prescriptions given X 1, 00:17 Patient left the ED. jw7 Signatures: Summer Reyna jj6 Sylvia Tapia RN RN 3 Maryjane Abrams RN RN 7 Deja Quintero RN RN [facility] Bob Barajas MD MD rt Corrections: (The following items were deleted from the chart) 10/08 23:18 20:30 General: see triage assessment. jw7 jw7
[2023-10-08] MEDS ORDERED: PROMETHAZINE INJ 25 MG/ML AMP ONE (23:38)
[2023-10-09 00:48] VITALS: TEMP 97.9
[2023-10-09 00:50] VITALS: BP 112/71; O2SAT 98
--- NOTE | 2023-10-10 14:11 | EKG ---
Test Date: 2023-10-08 Test Time: 21:44:51 Restaurant Lead: JULITA MEASUREMENT RESULTS: Intervals: Rate: 87 OK: 152 QRSD: 78 QT: 376 QTc: 452 Idanha: P: 47 OK: 152 QRS: -11 T: 57 INTERPRETIVE STATEMENTS: Normal sinus rhythm Normal ECG Compared to ECG 06/13/2023 01:11:10 No significant changes Electronically Signed On 10-10-23 14:07:40 [employer]CH[employer] by Nam Lui
== END 2023-10-09 00:17 | disposition home or self-care (01) ==
LOC: ER 20:12
DX: H81.399 Other peripheral vertigo, unspecified ear (principal); I10 Essential (primary) hypertension
CPT/HCPCS: 96361; 93005; 85025; 36415; 84484; 80053; 96374; 99284; J2550; J8597; J7030

== ENCOUNTER 2023-11-03 08:38 | Emergency (ER) | payer OTHER ==
--- OUTSIDE RECORDS SUMMARY | 2023-11-03 08:45 | XMS REPORT | Continuity of Care Document ---
:1980 Author Organization [facility] t Address [address] [place] [address] Care Team Providers Name Role Phone Pcp, Patient Does Not Have A Primary Care Physician +[phone] Susi Hebert Attending Clinician SUSI HOWE Attending Clinician Unavailable Problems This patient has no known problems. Allergies, Adverse Reactions, Alerts Allergy Allergy Status Severity Reaction(s) Onset Inactive Treating Comm ents Source Name Type Date Date Clinician NO KNOWN Drug Active Univers ALLERGIE Class ity of [facility] Social History Social Habit Start Date Stop Date Quantity Comments Source Exposure to Not sure [facility] SARS-CoV-2 (event) Medica l Branch Sex Assigned At [birth year] [facility] 00:00:00 00:00:00 [facility] Smoking Status Start Date Stop Date Source Unknown if ever smoked General acute hospital Medications Ordered Filled Start Stop Current Ordering [...] [place] 09/01/21 at 1900, LITO
Fa [facility] member approving Restricted medication : SUSI HOWE diazePAM 2020-11- No 5mg 5 mg, Univers (VALIUM) 009-01 Intramuscu ity of injection 5 00:00: 22:56 lar, ONCE, [place] mg 00 :00 1 dose, On Medical [place] 09/01/21 at 1900, STAT methocarbam 2020-11- No [id number] 750mg Take 1 Univers oL 0- 10- 9104 tablet by ity of (ROBAXIN-75 00:00[place] 04:59 [place] 750 mg 00 :00 (four) Medical tablet times Branch daily for 10 days. meloxicam 2020-11- No [id number] 15mg Take 1 Univers (MOBIC) 15 0-02 06- 9104 tablet by ity of mg tablet 00:00: 04:59 mouth [place] 00 :00 daily for Medical 10 days. Branch ibuprofen Yes [id number] 600mg Take 1 U nivers 600 mg 9-22 tablet by ity of tablet 00:00: mouth [place] 00 every 6 Medical (six) Branch hours as needed for Pain (scale 4-6). methocarbam 2020- No [id number] 500mg Take 1 Univers oL 500 mg [...] (0.083 %) 00 hours, march [facility] INHALE NEBU also Branch nebulize one extra one every six hours ZOFRAN 4 MG Yes take 2 Univ ers ORAL TAB 4-26 tablets by ity o f 00:00: mouth [place] 00 every 12 Medical hours for Branch nausea Vital Signs Vital Name Observation Time Observation Value Comments Source Oxygen saturation in 2021-09-01 23:57:00 99 /min [facility] Arterial blood by [facility] Pulse oximetry Branch Systolic blood 2021-09-01 22:40:45 161 mm[Hg] Univer sity of pressure [facility] Diastolic blood 2021-09-01 22:40:45 108 mm[Hg] [facility] 2021-09-01 22:40:45 79 /min [facility] Body temperature 2021-09-01 22:40:45 36.78 Kimberly [facility] Respiratory rate 2021-09-01 22:40:45 16 /min [facility] Body weight 2021-09-01 22:26:00 108.863 kg [facility] Procedures Procedure Date / Time Performed Performing Clinician Sour e CONSENT/REFUSAL FOR 2021-09-01 22:18:40 Doctor Unassigned, No Un [facility] DIAGNOSIS AND Name Medical [place] TREATMENT Encounters Start End Encounter Admission Attending Care Care Encounter Source Date/Time Date/Time Type Type Clinicians Facility Department ID 2021-09-01 2021-09-01 Emergency [facility] [id number] Univers 17:28:00 18:58:00 Susi Ho [id number] i [facility] [id number] [facility] [id number] [facility] 084 Branch 2021-09-01 2021-09-01 Emergency X EBRATXM, [facility] ERT [id number] Univers 17:18:00 17:18:00 SUSI leblanc [facility] 2021-08-21 2021-08-21 Emergency X [facility] ERT [id number] Univers 13:01:00 13:01:00 [facility] Results This patient has no known results.
--- NOTE | 2023-11-03 09:56 | RAD REPORT ---
EXAM DESCRIPTION: RAD - Foot Left 3 View - 11/03/2023 9:38 am CLINICAL HISTORY: PAIN COMPARISON: Foot Left 3 View dated 03/16/2017 TECHNIQUE: Left foot, 3 views. FINDINGS: No fracture, dislocation or periosteal reaction. No air or foreign body in the soft tissues. Enthesopathy at the Achilles tendon attachment with annabella tional ossific focus in the distal tendon noted today. Small calcaneal spur. IMPRESSION: No acute osseous abnormality. Chronic findings as above.
--- NOTE | 2023-11-03 10:28 | ER ---
Nurse's Notes [facility] Name: Paradise Colon Age: 43 yrs Sex: Female : 1980 Arrival Date: 11/03/2023 Time: 08:38 Bed 13 Private MD: Diagnosis: Pain in left foot Presentation: 11/03 08:53 Chief complaint: Patient states: Severe L heel pain since Thursday. No known specific ll1 injury. Coronavirus screen: Vaccine status: Patient reports receiving the 2nd dose of the covid vaccine. Client denies travel out of the [place] in the last 14 days. At this time, the client does not indicate any symptoms associated with coronavirus-19. Ebola Screen: Patient denies travel to an Ebola-affected area in the 21 days before illness onset. Initial Sepsis Screen: Does the patient meet any 2 criteria? No. Patient's initial sepsis screen is negative. Does the patient have a suspected source of infection? Yes: Bone or joint infection. Risk Assessment: Do you want to hurt yourself or someone else? Patient reports no desire to harm self or others. Onset of symptoms was November 01, 2023. 08:53 Method Of Arrival: Wheelchair ll1 08:53 Acuity: TANA 4 ll1 Triage Assessment: 08:53 General: Appears in no apparent distress. Behavior is calm, cooperative, appropriate ll1 for age. Pain: Complains of pain in left foot Quality of pain is described as aching. Musculoskeletal: Circulation, motion, and sensation intact. Capillary refill < 3 seconds, Reports pain in left foot. Historical: - Allergies: 08:52 No Known Allergies; ll1 - PMHx: 08:52 angina pectoris; Chronic pain; Hypertension; Vertigo; ll1 - PSHx: 08:52 None; ll1 - Immunization history:: Adult Immunizations up to date. - Social history:: Smoking status: unknown. Screenin:[address] [facility] ED Fall Risk Assessment (Adult) Score/Fall Risk Level 0 - 2 = Low Risk nj1 Oriented to surroundings, Maintained a safe environment, Hourly rounding (assess needs \T\ fall precautionary measures) done. Abuse screen: Denies threats or abuse. Denies injuries from another. Nutritional screening: No deficits noted. Tuberculosis screening: No symptoms or risk factors identified. Assessment: 10:11 Reassessment: No changes from previously documented assessment. Patient and/or family ll1 updated on plan of care and expected duration. Pain level reassessed. 10:40 Reassessment: Patient appears in no apparent distress at this time. No changes from nj1 previously documented assessment. Patient and/or family updated on plan of care and expected duration. Pain level reassessed. Patient is alert, oriented x 3, equal unlabored respirations, skin warm/dry/pink. Vital Signs: 08:53 BP 154 / 104; Pulse 83; Resp 17; Temp 98.2; Pulse Ox 97% on R/A; Pain 5/10; ll1 10:40 BP 161 / 102; Pulse 72; Resp 16; Pulse Ox 96% on R/A; Pain 4/10; nj1 08:53 Pain Scale: Adult ll1 10:40 Pain Scale: Adult nj1 ED Course: 08:47 Patient arrived in ED. mg5 08:52 Bob Barajas MD is Attending Physician. rt 08:52 Arm band placed on. ll1 08:54 Triage completed. ll1 09:39 Foot Left 3 View XRAY In Process Unspecified. EDMS 10:12 Patient placed in an exam room, on a stretcher. ll1 10:28 Corie Barrios, ALBA is Primary Nurse. nj1 10:40 Patient has correct armband on for positive identification. Bed in low position. Call nj1 light in reach. Provided Education on: discharge instructions. 10:52 No provider procedures requiring assistance completed. Patient did not have IV access mary during this emergency room visit. Administered Medications: 10:35 Drug: Ketorolac IM 30 mg IM once Route: IM; Site: left deltoid; nj1 10:40 Follow up: Response: No adverse reaction nj1 Medication: 10:40 VIS not applicable for this client. nj1 Outcome: 10:28 Discharge ordered by MD. rt 10:52 Discharged to home via wheelchair, with family, mary 10:52 Condition: stable 10:52 Discharge instructions given to patient, Instructed on discharge instructions, follow up and referral plans. Demonstrated understanding of instructions, follow-up care, 10:53 Patient left the ED. mary Signatures: Dispatcher [employer] EDMS Brianna Rebolledo RN RN ll1 Kimberley Arora RN RN [id number] Bob Barajas MD MD rt Corie Barrios, RN RN nj1 Jose, Tonya 5
--- NOTE | 2023-11-03 10:28 | EDPHYS ---
Physician Documentation [facility] Name: Paradise Colon Age: 43 yrs Sex: Female : 1980 Arrival Date: 11/03/2023 Time: 08:38 Bed 13 Private MD: ED Physician Bob Barajas HPI: 11/03 09:21 This 43 yrs old Female presents to ER via Wheelchair with complaints of Foot Pain. rt 09:21 Patient presents to the ED with a sharp, burning pain to the left heel started on rt Thursday. States that hurts to walk. Denies any discrete injury. Denies of acute complaints, symptoms are mild in severity, nonradiating, no other aggravating or elevating factors.. Historical: - Allergies: 08:52 No Known Allergies; ll1 - PMHx: 08:52 angina pectoris; Chronic pain; Hypertension; Vertigo; ll1 - PSHx: 08:52 None; ll1 - Immunization history:: Adult Immunizations up to date. - Social history:: Smoking status: unknown. ROS: 09:21 Constitutional: Negative for fever, chills, and weight loss, Cardiovascular: Negative rt for chest pain, palpitations, and edema, Respiratory: Negative for shortness of breath, cough, wheezing, and pleuritic chest pain, Abdomen/GI: Negative for abdominal pain, nausea, vomiting, diarrhea, and constipation, Skin: Negative for injury, rash, and discoloration, Neuro: Negative for headache, weakness, numbness, tingling, and seizure, 09:21 MS/extremity: Positive for pain, Negative for injury or acute deformity, Exam: 09:21 Constitutional: This is a well developed, well nourished patient who is awake, alert, rt and in no acute distress. Head/Face: Normocephalic, atraumatic. Chest/axilla: Normal chest wall appearance and motion. Nontender with no deformity. No lesions are appreciated. Cardiovascular: Regular rate and rhythm with a normal S1 and S2. No gallops, murmurs, or rubs. Normal PMI, no JVD. No pulse deficits. Respiratory: Lungs have equal breath sounds bilaterally, clear to auscultation and percussion. No rales, rhonchi or wheezes noted. No increased work of breathing, no retractions or nasal flaring. Abdomen/GI: Soft, non-tender, with normal bowel sounds. No distension or tympany. No guarding or rebound. No evidence of tenderness throughout. Skin: Warm, dry with normal turgor. Normal color with no rashes, no lesions, and no evidence of cellulitis. Neuro: Awake and alert, GCS 15, oriented to person, place, time, and situation. Cranial nerves II-XII grossly intact. Motor strength 5/5 in all extremities. Sensory grossly intact. Cerebellar exam normal. Normal gait. Psych: Awake, alert, with orientation to person, place and time. Behavior, mood, and affect are within normal limits. 09:21 Musculoskeletal/extremity: Minimal tenderness to the left heel, no appreciable swelling, bruising, erythema. Pulses, motor, sensation intact. Vital Signs: 08:53 BP 154 / 104; Pulse 83; Resp 17; Temp 98.2; Pulse Ox 97% on R/A; Pain 5/10; ll1 10:40 BP 161 / 102; Pulse 72; Resp 16; Pulse Ox 96% on R/A; Pain 4/10; nj1 08:53 Pain Scale: Adult ll1 10:40 Pain Scale: Adult nj1 MDM: 08:53 Patient medically screened. rt 10:29 Differential diagnosis: Arthritis, tendinitis, heel spur. Data reviewed: vital signs, rt nurses notes, radiologic studies. Independent interpretation of the following test(s) in the Emergency Department X-Ray: My interpretation is No fracture seen on interpretation of x-ray images. Test considered but Not performed: Labs: No signs or symptoms to suggest septic arthritis, arthrocentesis, labs not indicated. Counseling: I had a detailed discussion with the patient and/or guardian regarding the historical points, exam findings, and any diagnostic results supporting the discharge/admit diagnosis, radiology results, the need for outpatient follow up. 11/03 08:57 Order name: Foot Left 3 View XRAY; Complete Time: 10:01 rt Administered Medications: 10:35 Drug: Ketorolac IM 30 mg IM once Route: IM; Site: left deltoid; nj1 10:40 Follow up: Response: No adverse reaction nj1 Disposition Summary: 11/03/23 10:28 Discharge Ordered Notes: Location: Home rt Problem: new rt Symptoms: are unchanged rt Condition: Stable rt Diagnosis - Pain in left foot rt Followup: rt - With: Private Physician - When: 2 - 3 days - Reason: Discharge Instructions: - Discharge Summary Sheet rt - Heel Spur rt - Musculoskeletal Pain rt Forms: - Medication Reconciliation Form rt - Thank You Letter rt - Antibiotic Education rt - Prescription Opioid Use rt - Patient Portal Instructions rt - Leadership Thank You Letter rt - Work release form nj1 Signatures: Dispatcher [employer] Brianna Hill RN RN ll1 Bob Barajas MD MD rt Corie Barrios RN RN nj1
[2023-11-03] MEDS ORDERED: KETOROLAC 30 MG/ML INJ ONE (10:46)
[2023-11-03 10:57] VITALS: BP 154/104; TEMP 98.2; O2SAT 97
== END 2023-11-03 10:53 | disposition home or self-care (01) ==
LOC: ER 08:38
DX: M79.672 Pain in left foot (principal)
CPT/HCPCS: 96372; 99284

== ENCOUNTER → 2023-12-18 | Emergency (ER) | payer OTHER ==
[~2023-12-18] MED LIST: ACETAMINOPHEN 500 MG TAB ONE; HYDROCODONE/CHLORPHEN 5 ML/OSYR ONE; ONDANSETRON 4 MG (ODT) TAB ONE
--- OUTSIDE RECORDS SUMMARY | 2023-12-18 12:49 | XMS REPORT | Continuity of Care Document ---
Author Name Unknown Address [address] [facility] [address] [place] [address] [facility] thconnect Address [address] [facility] [address] [place] [address] Care Team Providers Care Registered Nurse Maternity Name Role Phone Pcp, Patient Does Not Have A Primary Care Physic ignacio Susi Hebert Attending Clinician SUSI HOWE Attending Clinician Unavailable Allergies, Adverse Reactions, Alerts Allergy Name Allergy Type Status Severity Reaction(s) Onset Date Inactive Date Treating Clinician Comments Source NO KNOWN ALLERGIE S Drug Class Active [facility] Social History Social Habit Start Date Stop Date Quantity Comments Source Exposure to SARS-CoV-2 (event) Not sure [facility] Sex Assigned At 1980 00:00:00 1980 00:00:00 [facility] Smoking Status Start Date Stop Date Source Unknown if ever smoked [facility] Medications Ordered Medication Name Filled Medication Name Start Date Stop Date Current Medication? Ordering Clinician Indication Dosage Frequency Signature (SIG) Comments Components Source HYDROcodone -acetaminop hen (NORCO) 10-325 mg tablet 1 tablet 2020-11 0-04 00:00: 00 09-01 22:55 :00 No 1{tbl} 1 tablet, Oral, ONCE, 1 dose, On 09/01/21 at 1900, Routine [facility] ketorolac (TORADOL) injection 30 mg 2020-11 0-04 00:00: 09-01 22:55 :00 No 30mg 30 mg, Intramuscu lar, ONCE, 1 dose, On 09/01/21 at 1900, LITO
[facility] member approving Restricted medication : SUSI HOWE [facility] diazePAM (VALIUM) injection 5 mg 2020-11 0- 00:00: 00 09-01 22:56 :00 No 5mg 5 mg, Intramuscu lar, ONCE, 1 dose, On 09/01/21 at 1900, STAT [facility] methocarbam oL (ROBAXIN-75 0) 750 mg tablet 2020-11 00:00: 00 09-12 04:59 :00 No [id number] 750mg Take 1 tablet by mouth 4 (four) times daily for 10 days. [facility] meloxicam (MOBIC) 15 mg tablet 2020-11 00:00: 00 09-12 04:59 :00 No [id number] 15mg Take 1 tablet by mouth daily for 10 days. [facility] ibuprofen 600 mg tablet 08-21 00:00: 00 Yes [id number] 600mg Take 1 tablet by mouth every 6 (six) hours as needed for Pain (scale 4-6). [facility] methocarbam oL 500 mg tablet 08-21 00:00: 00 09-01 00:00 :00 No [id number] 500mg Take 1 tablet by mouth 4 (four) times daily. [facility] traMADOL (ULTRAM) 50 mg tablet 06-26 00:00: 00 Yes 50mg Take 1 Tab by mouth every 6 (six) hours as needed for Pain. [facility] ibuprofen (MOTRIN) 600 mg tablet 06-26 00:00: 00 Yes 600mg Take 1 Tab by mouth 3 (three) times daily with meals. [facility] ALBUTEROL SULFATE 2.5 MG /3 ML (0.083 %) INHALE NEBU 03-25 00:00: 00 Yes Nebulize one every four hours, may also nebulize one extra one every six hours [facility] ZOFRAN 4 MG ORAL TAB 03-25 00:00: 00 Yes take 2 tablets by mouth every 12 hours for nausea [facility] Vital Signs Vital Name Observation Time Observation Value Comments S ource Oxygen saturation in Arterial blood by Pulse oximetry 2021-09-01 23:57:00 99 /min [facility] Systolic blood pressure 2021-09-01 22:40:45 161 mm[Hg] [facility] Diastolic blood pressure 2021-09-01 22:40:45 108 mm[Hg] [facility] Heart rate 2021-09-01 22:40:45 79 /min [facility] Body temperature 2021-09-01 22:40:45 36.78 [facility] Respiratory rate 2021-09-01 22:40:45 16 /min [facility] Body weight 2021-09-01 22:26:00 108.863 kg [facility] Procedures Procedure Date / Time Performed Performing Clinicia n Source CONSENT/REFUSAL FOR DIAGNOSIS AND TREATMENT 2021-09-01 22:18:40 Doctor Unassigned, [place] [facility] Encounters Start Date/Time End Date/Time Encounter Type Admission Type Attending Clinicians Care Facility Care Department Encounter ID Source 2021-09-01 17:28:00 2021-09-01 18:58:00 Emergency Susi Howe [facility] [id number] [facility] 2021-09-01 17:18:00 2021-09-01 17:18:00 Emergency X SUSI HOWE [facility] [[email or web address] ERT [id number] [facility] 2021-08-21 13:01:00 2021-08-21 13:01:00 Emergency X [facility] [[email or web address]] ERT [id number] [facility]
[2023-12-18 14:01] LABS: SARS-CoV-2 Antigen Rapid Res Negative (Negative)
--- NOTE | 2023-12-18 15:04 | EDPHYS ---
Physician Documentation [facility] Name: Paradise Colon Age: 43 yrs Sex: Female : 1980 Arrival Date: 12/18/2023 Time: 12:47 Bed DX4 Private MD: ED Physician Uri Jay HPI: 12/18 13:40 This 43 yrs old Female presents to ER via Wheelchair with complaints of Flu Symptoms. cp 13:40 The patient or guardian reports cough, flu symptoms, low-grade fever, body aches, cp headache. Onset: The symptoms/episode began/occurred yesterday. Associated signs and symptoms: Pertinent positives: nausea, Pertinent negatives: chest pain, diarrhea, vomiting. Severity of symptoms: in the emergency department the symptoms are unchanged despite home interventions. 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 - Social history:: Smoking status: Reported history of juuling and/or vaping. Patient uses alcohol, occasionally. ROS: 13:45 Eyes: Negative for injury, pain, redness, and discharge, cp 13:45 Constitutional: Positive for body aches, chills, Negative for fever, poor PO intake, 13:45 ENT: Positive for sore throat, Negative for drainage from ear(s), ear pain, difficulty swallowing, difficulty handling secretions, 13:45 Cardiovascular: Negative for chest pain, 13:45 Respiratory: Positive for cough, Negative for wheezing, 13:45 Abdomen/GI: Positive for nausea, Negative for abdominal pain, vomiting, diarrhea, 13:45 Neuro: Positive for headache, 13:45 All other systems are negative, Exam: 13:50 Constitutional: The patient appears in no acute distress, alert, awake, non-toxic, well cp developed, well nourished, obese, 13:50 Head/Face: Normocephalic, atraumatic. cp 13:50 Eyes: Periorbital structures: appear normal, Conjunctiva: normal, no exudate, no injection, Lids and lashes: appear normal, bilaterally, 13:50 ENT: External ear(s): are unremarkable, Ear canal(s): are normal, clear, TM's: bulging, is not appreciated, bilaterally, dullness, bilaterally, erythema, is not appreciated, bilaterally, Nose: is normal, Mouth: Lips: moist, Oral mucosa: moist, Posterior pharynx: Airway: no evidence of obstruction, patent, Tonsils: with erythema, no enlargement, no exudate, erythema, that is mild, exudate, is not appreciated, 13:50 Neck: ROM/movement: is normal, is supple, no meningismus, no nuchal rigidity, 13:50 Chest/axilla: Inspection: normal, 13:50 Cardiovascular: Rate: tachycardic, 13:50 Respiratory: the patient does not display signs of respiratory distress, Respirations: normal, no use of accessory muscles, no retractions, labored breathing, is not present, Breath sounds: decreased breath sounds, are not appreciated, stridor, is not appreciated, + upper airway congestion. wheezing: is not appreciated, 13:50 Abdomen/GI: Exam negative for discomfort, distension, guarding, Inspection: abdomen appears normal, Vital Signs: 13:25 BP 141 / 88; Pulse 119; Resp 17; Temp 99.8; Pulse Ox 96% ; Weight 113.4 kg; Height 5 ap3 ft. 2 in. ; Pain 10/10; 13:25 Body Mass Index 45.73 (113.40 kg, 157.48 cm) ap3 13:25 Pain Scale: Adult ap3 MDM: 13:36 Patient medically screened. cp 15:02 Data reviewed: vital signs, nurses notes, lab test result(s), and as a result, I will cp discharge patient. 15:02 Differential diagnosis: bronchitis, flu, COVID-19, pneumonia. I considered the cp following discharge prescriptions or medication management in the emergency department Medications were administered in the Emergency Department. See MAR. Counseling: I had a detailed discussion with the patient and/or guardian regarding the historical points, exam findings, and any diagnostic results supporting the discharge/admit diagnosis, lab results, to return to the emergency department if symptoms worsen or persist or if there are any questions or concerns that arise at home. 12/18 13:29 Order name: SARS RAPID ap3 12/18 13:29 Order name: Flu ap3 Administered Medications: 15:38 Drug: Ondansetron PO 4 mg PO once Route: PO; hb 15:39 Follow up: Response: Medication administered at discharge. hb 15:38 Drug: Acetaminophen PO 1000 mg PO once Route: PO; hb 15:39 Follow up: Response: Medication administered at discharge. hb 15:38 Drug: Tussionex Pennkinetic ER PO Suspension 5 ml PO once Route: PO; hb 15:38 Follow up: Response: Medication administered at discharge. hb Disposition Summary: 12/18/23 15:03 Discharge Ordered Notes: Location: Home cp Problem: new cp Symptoms: have improved cp Condition: Stable cp Diagnosis - Influenza due to unidentified influenza virus with other respiratory manifestations cp Followup: cp - With: Private Physician - When: 2 - 3 days - Reason: Worsening of condition Discharge Instructions: - Discharge Summary Sheet cp - Influenza, Adult cp - Influenza Tests cp Forms: - Medication Reconciliation Form cp - Thank You Letter cp - Antibiotic Education cp - Prescription Opioid Use cp - Patient Portal Instructions cp - Leadership Thank You Letter cp - Work release form eb Prescriptions: - Bromfed DM 2-30-10 mg/5 mL Oral syrup - administer 10 milliliter ORAL route every 6 hours as needed for cold symptoms; cp 240 milliliter; Refills: 0, Product Selection Permitted - Ibuprofen 800 mg Oral Tablet - take 1 tablet ORAL route every 8 hours As needed take with food; 30 tablet; cp Refills: 0, Product Selection Permitted - Zofran 4 mg Oral Tablet - take 1 tablet ORAL route every 12 hours As needed; 20 tablet; Refills: 0, cp Product Selection Permitted - Tamiflu 75 mg Oral capsule - take 1 tablet ORAL route every 12 hours for 5 days; 10 tablet; Refills: 0, cp Product Selection Permitted Addendum: 12/20/2023 07:17 Co-signature as Attending Physician, Uri Jay MD I reviewed the patient's care r n provided by the Advanced Practice Provider and agree with the diagnosis and treatment plan. Signatures: Dispatcher [employer] Uri Childress MD MD rn Page, Corey, PA PA cp Sultana Brown RN RN Sherly Castaneda RN RN ap3
--- NOTE | 2023-12-18 15:04 | ER ---
Nurse's Notes [facility] Name: Paradise Colon Age: 43 yrs Sex: Female : 1980 Arrival Date: 12/18/2023 Time: 12:47 Bed DX4 Private MD: Diagnosis: Influenza due to unidentified influenza virus with other respiratory manifestations Presentation: 12/18 13:25 Chief complaint: Patient states: she has been having flu-like symptoms since yesterday ap3 12/17/2023. Patient complains of body aches, fever, chills, nausea and cough/congestion since that time. Coronavirus screen: Client presents with at least one sign or symptom that may indicate coronavirus-19. Ebola Screen: No symptoms or risks identified at this time. Initial Sepsis Screen: Does the patient meet any 2 criteria? HR > 90 bpm. Does the patient have a suspected source of infection? No. Patient's initial sepsis screen is negative. Risk Assessment: Do you want to hurt yourself or someone else? Patient reports no desire to harm self or others. Onset of symptoms was December 17, 2023. 13:25 Method Of Arrival: Wheelchair ap3 13:25 Acuity: TANA 3 ap3 Triage Assessment: 13:27 General: Appears ill, Behavior is calm, cooperative, Reports chills for fever for ap3 feeling ill for fatigue for. Pain: Complains of pain in generalized body aches. EENT: Reports nasal congestion. Neuro: Level of Consciousness is awake, alert, obeys commands, Oriented to person, place, time, situation. Cardiovascular: Patient's skin is warm and dry. Respiratory: Reports cough that is Airway is patent Respiratory effort is even, unlabored, Respiratory pattern is regular, symmetrical. 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 - Social history:: Smoking status: Reported history of juuling and/or vaping. Patient uses alcohol, occasionally. Screenin:28 [facility] ED Fall Risk Assessment (Adult) History of falling in the last 3 months, ap3 including since admission No falls in past 3 months (0 pts). Abuse screen: Denies threats or abuse. Nutritional screening: No deficits noted. Tuberculosis screening: No symptoms or risk factors identified. Vital Signs: 13:25 BP 141 / 88; Pulse 119; Resp 17; Temp 99.8; Pulse Ox 96% ; Weight 113.4 kg; Height 5 ap3 ft. 2 in. ; Pain 10/10; 13:25 Body Mass Index 45.73 (113.40 kg, 157.48 cm) ap3 13:25 Pain Scale: Adult ap3 ED Course: 12:50 Patient arrived in ED. im 13:15 Earl Reynolds PA is PHCP. cp 13:15 Uri Jay MD is Attending Physician. cp 13:27 Triage completed. ap3 13:28 Arm band placed on right wrist. ap3 13:38 Flu Sent. ap3 13:38 SARS RAPID Sent. ap3 Administered Medications: 15:38 Drug: Ondansetron PO 4 mg PO once Route: PO; hb 15:39 Follow up: Response: Medication administered at discharge. hb 15:38 Drug: Acetaminophen PO 1000 mg PO once Route: PO; hb 15:39 Follow up: Response: Medication administered at discharge. hb 15:38 Drug: Tussionex Pennkinetic ER PO Suspension 5 ml PO once Route: PO; hb 15:38 Follow up: Response: Medication administered at discharge. hb Outcome: 15:03 Discharge ordered by . cp 15:39 Patient left the ED. hb Signatures: Earl Reynolds PA PA cp Baxter, Heather RN RN Sherly Castaneda RN RN ap3 Cesilia Shaw im
[2023-12-18 16:57] VITALS: BP 141/88; TEMP 99.8; O2SAT 96
== END ==
LOC: ER 12:47
DX: J11.1 Influenza due to unidentified influenza virus with other respiratory manifestations (principal); I10 Essential (primary) hypertension; G89.29 Other chronic pain; Z87.891 Personal history of nicotine dependence; Z11.52 Encounter for screening for COVID-19
CPT/HCPCS: 36415; 87804 ×2; 99283; 87811; Q0162

== ENCOUNTER 2024-03-20 21:09 | Emergency (ER) | payer OTHER, SELFPAY ==
[2024-03-20 21:56] LABS: Absolute Basophils 0.1 K/uL (0-0.5); Absolute Eosinophils 0.4 K/uL (0-0.5); Absolute Lymphocytes (CBC) 2.8 K/uL (0.7-4.9); Absolute Monocytes 0.4 K/uL (0.1-1.3); Basophils % 1.1 % (0-1.3); Eosinophils % 4.9 % (0-4.4); Hematocrit 39.7 % (36.0-45.0); Hemoglobin 13.4 g/dL (12.0-15.0); Lymphocytes % 31.7 % (15.3-44.8); MCH 29.7 pg (27.0-35.0); MCHC 33.8 g/dL (32.0-36.0); MCV 87.9 fL (80-100); MPV 8.9 fL (7.6-11.3); Monocytes % 4.6 % (3.3-12.3); Neutrophils % 57.7 % (41.7-73.7); Nucleated Red Blood Cells % 0.1 % (0-0); Platelets 279 thou/uL (152-406); RBC Red Blood Cell Count 4.52 M/uL (3.86-4.86); Red Cell Distribution Width 13.8 % (12.1-15.2)
[2024-03-20 21:57] LABS: Specific Gravity 1.012 (1.005-1.030)
[2024-03-20 22:00] LABS: Specific Gravity 1.012 (1.005-1.030); Sqamous Epithelial <5 /HPF (None Seen); Urine Bacteria <20 /HPF (<20); Urine Bilirubin NEGATIVE (Negative); Urine Blood Negative (Negative); Urine Clarity Turbid (Clear); Urine Color Light-Yellow (Yellow); Urine Culture Reflex Order NOT NEEDED; Urine Glucose NEGATIVE (Negative); Urine Ketones NEGATIVE (Negative); Urine Microscopic Reflex YN ORDER UMIC; Urine Mucus Slight /HPF (None Seen); Urine Nitrite NEGATIVE (Negative); Urine Protein NEGATIVE (Negative); Urine RBC None Seen /HPF (None Seen); Urine Urobilinogen Normal (Normal); Urine WBC <5 /HPF (<5); Urine pH 5.5 (5.0-7.0)
[2024-03-20 22:13] LABS: PT Prothrombin Time 11.8 SECONDS (9.5-12.5); PTT, Activated Partial Thromb 34.3 SECONDS (24.3-36.9); Protime INR 1.07
[2024-03-20 22:15] LABS: Albumin 3.5 g/dL (3.4-5.0); Albumin/Globulin Ratio 0.9 (1.1-1.8); Bilirubin Direct 0.2 mg/dL (0-0.2); Bilirubin Indirect, Calculated 0.6 mg/dL (0.2-0.8); Bilirubin Total 0.8 mg/dL (0.2-1.0); Magnesium 1.9 mg/dL (1.6-2.4); Protein, Total 7.5 g/dL (6.4-8.2); Troponin High Sensitivity 10.9 pg/mL (<58.9)
[2024-03-20] MEDS ORDERED: MECLIZINE HCL 12.5 MG TAB ONE (22:45)
[2024-03-20] MEDS ORDERED: NA CHLORIDE 0.9% 1,000 ML ONE (22:45)
--- NOTE | 2024-03-21 00:04 | ER ---
Nurse's Notes [facility] Name: Paradise Colon Age: 44 yrs Sex: Female : 1980 Arrival Date: 03/20/2024 Time: 21:09 Bed 8 Private MD: Diagnosis: Dizziness and giddiness Presentation: 03/20 21:32 Chief complaint: Patient states: intermittent dizziness starting at about 0900 this km8 morning; denies CP or SOB. Coronavirus screen: Client denies travel out of the [place] in the last 14 days. Ebola Screen: No symptoms or risks identified at this time. Risk Assessment: Do you want to hurt yourself or someone else? Patient reports no desire to harm self or others. Onset of symptoms was March 20, 2024 at 09:00. 21:32 Method Of Arrival: Ambulatory km8 21:32 Acuity: TANA 3 km8 21:32 Initial Sepsis Screen: Does the patient meet any 2 criteria? No. Patient's initial lg3 sepsis screen is negative. Does the patient have a suspected source of infection? No. Patient's initial sepsis screen is negative. Triage Assessment: 21:33 General: Appears in no apparent distress. comfortable, Behavior is calm, cooperative, km8 appropriate for age. Pain: Denies pain. EENT: No signs and/or symptoms were reported regarding the EENT system. Neuro: Level of Consciousness is awake, alert, obeys commands, Oriented to person, place, time, situation, Reports dizziness, since 0900. Cardiovascular: Denies chest pain, shortness of breath, Patient's skin is warm and dry. Respiratory: Airway is patent Respiratory effort is even, unlabored, Respiratory pattern is regular, symmetrical. GI: No signs and/or symptoms were reported involving the gastrointestinal system. : No signs and/or symptoms were reported regarding the genitourinary system. Derm: No signs and/or symptoms reported regarding the dermatologic system. Skin is intact, is healthy with good turgor, Skin is dry, Skin is pink, warm \T\ dry. normal, Skin temperature is warm. Musculoskeletal: No signs and/or symptoms reported regarding the musculoskeletal system. Range of motion: intact in all extremities. Historical: - Allergies: 21:33 No Known Allergies; km8 - Home Meds: 21:33 None [Active]; km8 - PMHx: 21:33 angina pectoris; Chronic pain; Hypertension; Vertigo; km8 - PSHx: 21:33 None; km8 - Immunization history:: Adult Immunizations up to date. - Infectious Disease History:: Denies. - Social history:: Smoking status: Reported history of juuling and/or vaping. Patient uses alcohol, but reports only rare drinking. Patient/guardian denies using street drugs. Screenin:10 [facility] ED Fall Risk Assessment (Adult) History of falling in the last 3 months, lg3 including since admission No falls in past 3 months (0 pts) Confusion or Disorientation No (0 pts) Intoxicated or Sedated No (0 pts) Impaired Gait No (0 pts) Mobility Assist Device Used No (0 pt) Altered Elimination No (0 pt) Score/Fall Risk Level 0 - 2 = Low Risk Oriented to surroundings, Maintained a safe environment, Educated pt \T\ family on fall prevention, incl call for assistance when getting out of bed, Assessed \T\ reinforced patient's understanding of fall precautions. Abuse screen: Denies threats or abuse. Denies injuries from another. Nutritional screening: No deficits noted. Tuberculosis screening: No symptoms or risk factors identified. Assessment: 23:10 General: Appears in no apparent distress. comfortable, Behavior is calm, cooperative. lg3 Pain: Denies pain. Neuro: No deficits noted. Rojas Agitation-Sedation Scale (RASS): 0 - Alert and Calm Level of Consciousness is awake, alert, obeys commands, Oriented to person, place, time, situation, Reports dizziness. Cardiovascular: No deficits noted. Denies chest pain, shortness of breath, Heart tones S1 S2 present Capillary refill < 3 seconds Clubbing of nail beds is absent JVD is absent Patient's skin is warm and dry. Respiratory: No deficits noted. Airway is patent Respiratory effort is even, unlabored, Respiratory pattern is regular, symmetrical. GI: No deficits noted. No signs and/or symptoms were reported involving the gastrointestinal system. Abdomen is round non-distended, obese. : No deficits noted. No signs and/or symptoms were reported regarding the genitourinary system. EENT: No deficits noted. No signs and/or symptoms were reported regarding the EENT system. Derm: No deficits noted. No signs and/or symptoms reported regarding the dermatologic system. Skin is intact, is healthy with good turgor, Skin is dry, Skin is normal, Skin temperature is warm. Musculoskeletal: No deficits noted. No signs and/or symptoms reported regarding the musculoskeletal system. Circulation, motion, and sensation intact. Range of motion: intact in all extremities. 03/21 00:39 Reassessment: Patient and/or family updated on plan of care and expected duration. Pain lg3 level reassessed. Patient is alert, oriented x 3, equal unlabored respirations, skin warm/dry/pink. Patient states feeling better. Patient states symptoms have improved. Vital Signs: 03/20 21:40 BP 145 / 72; Pulse 77; Resp 19; Temp 98.8(O); Pulse Ox 98% on R/A; tm6 22:29 BP 137 / 85 Supine; Pulse 81; Resp 15; oe 22:31 BP 153 / 95 Sitting; Pulse 78; Resp 16; oe 22:33 BP 155 / 93 Standing; Pulse 82; Resp 12; oe 03/21 00:00 BP 127 / 73; Pulse 73; Resp 17; Pulse Ox 99% ; lg3 ED Course: 03/20 21:11 Patient arrived in ED. jj6 21:12 Pili Prado FNP-C [facility]. kb 21:12 Stephen Clark MD is Attending Physician. kb 21:33 Triage completed. km8 21:33 Arm band placed on right wrist. Patient placed in an exam room. km8 21:40 Basic Metabolic Panel Sent. tm6 21:40 CBC with Diff Sent. tm6 21:40 Hepatic Function Sent. tm6 21:40 Magnesium Sent. tm6 21:40 Test, Urine Sent. tm6 21:40 Protime (+inr) Sent. tm6 21:40 Ptt, Activated Sent. tm6 21:40 Troponin High Sensitivity Sent. tm6 21:40 Urinalysis w/ reflexes Sent. tm6 21:40 Inserted saline lock: 20 gauge in left antecubital area, using aseptic technique. tm6 21:49 EKG done, by sterile supply technician. reviewed by Pili MARTINEZ. oe 23:10 Patient has correct armband on for positive identification. Placed in gown. Bed in low lg3 position. Call light in reach. Side rails up X 1. Client placed on continuous cardiac and pulse oximetry monitoring. NIBP monitoring applied. school lunch monitor on. Door closed. Noise minimized. Warm blanket given. Family accompanied patient. 03/21 00:40 No provider procedures requiring assistance completed. IV discontinued, intact, lg3 bleeding controlled, No redness/swelling at site. Pressure dressing applied. 00:41 Provided Education on: hydrate. lg3 Administered Medications: 03/20 23:10 Drug: NS 0.9% IV 1000 ml IV at 1000 ml once Route: IV; Rate: 1000 ml; Site: left lg3 antecubital; 03/21 00:40 Follow up: IV Status: Completed infusion; IV Intake: 1000ml lg3 03/20 23:10 Drug: Meclizine PO 25 mg PO once Route: PO; lg3 03/21 00:40 Follow up: Response: No adverse reaction; Marked relief of symptoms lg3 Medication: 00:40 VIS not applicable for this client. lg3 Intake: 00:40 IV: 1000ml; Total: 1000ml. lg3 Outcome: 00:03 Discharge ordered by . oli 00:40 Discharged to home ambulatory, with significant other, lg3 00:40 Condition: improved 00:40 Discharge instructions given to patient, Instructed on discharge instructions, follow up and referral plans. medication usage, Demonstrated understanding of instructions, follow-up care, medications, Prescriptions given X 1, 00:41 Patient left the ED. lg3 Signatures: Pili Prado, FITNESS CLUB MANAGER-C [employer] CLUB MANAGER-CkRex Jarvis Lacie RN RN lg3 Summer Reyna jj6 Marina Dominguez, RN RN km8 Lauryn Keller RN RN tm6
--- NOTE | 2024-03-21 00:04 | EDPHYS ---
Physician Documentation [facility] Name: Paradise Colon Age: 44 yrs Sex: Female : 1980 Arrival Date: 03/20/2024 Time: 21:09 Bed 8 Private MD: ED Physician Stephen Clark HPI: 03/20 21:15 This 44 yrs old Female presents to ER via Unassigned with complaints of Dizziness. kb 21:15 Pt is a 44 year old female who presents for lightheadedness intermittently since this kb morning. Reports history of htn and vertigo. Denies syncope, chest pain, shortness of breath, nausea, vomiting. . Historical: - Allergies: 21:33 No Known Allergies; km8 - Home Meds: 21:33 None [Active]; km8 - PMHx: 21:33 angina pectoris; Chronic pain; Hypertension; Vertigo; km8 - PSHx: 21:33 None; km8 - Immunization history:: Adult Immunizations up to date. - Infectious Disease History:: Denies. - Social history:: Smoking status: Reported history of juuling and/or vaping. Patient uses alcohol, but reports only rare drinking. Patient/guardian denies using street drugs. ROS: 21:15 Constitutional: As per HPI kb Exam: 21:15 Constitutional: This is a well developed, well nourished patient who is awake, alert, kb and in no acute distress. Head/Face: Normocephalic, atraumatic. ENT: Moist Mucous membranes Cardiovascular: Regular rate Respiratory: Respirations even and unlabored. No increased work of breathing. Talking in full sentences Abdomen/GI: Soft, non-tender. No distention Skin: Warm, dry with normal turgor. Normal color. MS/ Extremity: Pulses equal, no cyanosis. Neurovascular intact. Full, normal range of motion. Neuro: Awake and alert, GCS 15, oriented to person, place, time, and situation. Moves all extremities. Normal gait. 03/21 00:03 ECG was reviewed by the Attending Physician. Vital Signs: 03/20 21:40 BP 145 / 72; Pulse 77; Resp 19; Temp 98.8(O); Pulse Ox 98% on R/A; tm6 22:29 BP 137 / 85 Supine; Pulse 81; Resp 15; oe 22:31 BP 153 / 95 Sitting; Pulse 78; Resp 16; oe 22:33 BP 155 / 93 Standing; Pulse 82; Resp 12; oe 03/21 00:00 BP 127 / 73; Pulse 73; Resp 17; Pulse Ox 99% ; lg3 MDM: 03/20 21:12 Patient medically screened. kb 21:17 Data reviewed: vital signs, nurses notes. kb 03/21 00:02 Differential diagnosis: cardiac arrhythmia, generalized weakness, hypovolemia, kb idiopathic dizziness, vertigo. Test considered but Not performed: CT: CT brain considered but patient has no neurodeficits. Counseling: I had a detailed discussion with the patient and/or guardian regarding the historical points, exam findings, and any diagnostic results supporting the discharge/admit diagnosis, lab results, the need for outpatient follow up, a family practitioner, to return to the emergency department if symptoms worsen or persist or if there are any questions or concerns that arise at home. 00:17 Response to treatment: the patient's symptoms have markedly improved after treatment. kb ED course: At bedside to reassess patient. Patient remains awake, alert and at baseline mentation. Patient appears stable. Patient exhibits no visible signs of distress. Patient respirations even and unlabored. I discussed patient's diagnosis, differential diagnosis, expected course of illness, at home recommendations and strict return precautions. I advised patient to follow-up with PCP in 2 to 3 days. I explained all diagnostic results with the patient and answered all questions that patient had regarding the most likely diagnosis. I emphasized the need for close outpatient follow-up and care from primary care provider/specialist and went through careful and detailed return precautions with patient. Patient expressed full understanding of such and agrees with plan for discharge today. Feel patient is stable and appropriate for discharge and ongoing management of condition at home at this time.. 03/20 21:17 Order name: Basic Metabolic Panel; Complete Time: 22:16 kb 03/20 21:17 Order name: CBC with Diff; Complete Time: 22:11 kb 03/20 21:17 Order name: Hepatic Function; Complete Time: 22:16 kb 03/20 21:17 Order name: Magnesium; Complete Time: 22:16 kb 03/20 21:17 Order name: Test, Urine; Complete Time: 22:11 kb 03/20 21:17 Order name: Protime (+inr); Complete Time: 22:13 kb 03/20 21:17 Order name: Ptt, Activated; Complete Time: 22:13 kb 03/20 21:17 Order name: Troponin High Sensitivity; Complete Time: 22:16 kb 03/20 21:17 Order name: Urinalysis w/ reflexes; Complete Time: 22:11 kb 03/20 21:17 Order name: EKG; Complete Time: 21:18 kb 03/20 21:17 Order name: Cardiac monitoring; Complete Time: 21:49 kb 03/20 21:17 Order name: EKG - Nurse/Tech; Complete Time: 21:49 kb 03/20 21:17 Order name: IV Saline Lock; Complete Time: 22:43 kb 03/20 21:17 Order name: Labs collected and sent; Complete Time: 22:43 kb 03/20 21:17 Order name: NPO; Complete Time: 23:07 kb 03/20 21:17 Order name: O2 Per Protocol; Complete Time: 22:42 kb 03/20 21:17 Order name: O2 Sat Monitoring; Complete Time: 22:42 kb 03/20 21:17 Order name: Orthostatics; Complete Time: 22:42 kb EC:03 Rate is 75 beats/min. Rhythm is regular. QRS [place] is Normal. RI interval is normal at kb 150 msec. QRS interval is normal at 84 msec. QT interval is normal at 435 msec. Administered Medications: 03/20 23:10 Drug: NS 0.9% IV 1000 ml IV at 1000 ml once Route: IV; Rate: 1000 ml; Site: left lg3 antecubital; 03/21 00:40 Follow up: IV Status: Completed infusion; IV Intake: 1000ml lg3 03/20 23:10 Drug: Meclizine PO 25 mg PO once Route: PO; lg3 03/21 00:40 Follow up: Response: No adverse reaction; Marked relief of symptoms lg3 Disposition: 06:24 Co-signature as Attending Physician, Stephen Clark MD I agree with the assessment sp4 and plan of care. I reviewed the patient's care provided by the Advanced Practice Provider and agree with the diagnosis and treatment plan. Disposition Summary: 03/21/24 00:03 Discharge Ordered Notes: Location: Home kb Condition: Stable kb Diagnosis - Dizziness and giddiness kb Followup: kb - With: Private Physician - When: 2 - 3 days - Reason: Recheck today's complaints, Continuance of care, Re-evaluation by your physician Followup: kb - With: Emergency Department - When: As needed - Reason: Worsening of condition Discharge Instructions: - Discharge Summary Sheet kb - Vertigo, Pbcr-ji-Figz kb - Dizziness, Fqcu-bz-Eokc kb Forms: - Medication Reconciliation Form kb - Thank You Letter kb - Antibiotic Education kb - Prescription Opioid Use kb - Patient Portal Instructions kb - Leadership Thank You Letter kb Prescriptions: - Meclizine 25 mg Oral tablet - take 1 tablet ORAL route every 8 hours As needed; 15 tablet; Refills: 0, kb Product Selection Permitted Signatures: Dispatcher [employer] EDMS Pili Prado, CHERY-C PARTS IDENTIFICATION TECHNICIAN-Shandra Vera, RN RN lg3 Stephen Clark MD MD sp4 Marnia Dominguez, ALBA RN km8 Corrections: (The following items were deleted from the chart) 03/20 21:18 21:18 BASIC METABOLIC PANEL+C.LAB.BRZ ordered. EDMS EDMS 21:18 21:18 CBC+H.LAB.BRZ ordered. EDMS EDMS 21:18 21:18 HEPATIC FUNCTION+C.LAB.BRZ ordered. EDMS EDMS 21:18 21:18 MAGNESIUM+C.LAB.BRZ ordered. EDMS EDMS 21:18 21:18 Test, Urine+UC.LAB.BRZ ordered. EDMS EDMS 21:18 21:18 PROTIME (+INR)+COAG.LAB.BRZ ordered. EDMS EDMS 21:18 21:18 PTT, ACTIVATED+COAG.LAB.BRZ ordered. EDMS EDMS 21:18 21:18 Troponin High Sensitivity+C.LAB.BRZ ordered. EDMS EDMS 21:18 21:18 Urinalysis+U.LAB.BRZ ordered. EDMS EDMS
[2024-03-21 00:56] VITALS: BP 127/73; TEMP 98.8; O2SAT 99
== END 2024-03-21 00:41 | disposition home or self-care (01) ==
LOC: ER 21:09
DX: R42 Dizziness and giddiness (principal)
CPT/HCPCS: 36415; 80048; 80076; 81001; 81025; 83735; 84484; 85025; 85610; 85730; 93005; 96360; 99285; J7030; J8597

== ENCOUNTER 2024-04-06 15:28 | Emergency (ER) | payer OTHER ==
--- OUTSIDE RECORDS SUMMARY | 2024-04-06 15:30 | XMS REPORT | Continuity of Care Document ---
Author Name Unknown Address [address] [place] [address] [facility] thconnect Address [address] [place] [address] Care Team Providers Care Solvent Process Extractor Operator Name Role Phone Pcp, Patient Does Not Have A Primary Care Physic ignacio Jose Miguel Torres Attending Clinician Unavailab Susi Mancuso Attending Clinician SUSI HOWE Attending Clinician Unavailable Payers Payer Name Policy Type Policy Number Effective Date Expirati on Date Source Allergies, Adverse Reactions, Alerts Allergy Name Allergy Type Status Severity Reaction(s) Onset Date Inactive Date Treating Clinician Comments Source NO KNOWN ALLERGIE S Drug Class Active [facility] Social History Social Habit Start Date Stop Date Quantity Comments Source Exposure to SARS-CoV-2 (event) Not sure [facility] Sex Assigned At 1980 00:00:00 1980 00:00:00 [facility] Smoking Status Start Date Stop Date Source Unknown if ever smoked [facility] Medications Ordered Medication Name Filled Medication Name Start Date Stop Date Current Medication? Ordering Clinician Indication Dosage Frequency Signature (SIG) Comments Components Source HYDROcodone -acetaminop hen (NORCO) 10-325 mg tablet 1 tablet 2020-11 0-04 00:00: 00 09-01 22:55 :00 No 1{tbl} 1 tablet, Oral, ONCE, 1 dose, On 09/01/21 at 1900, Routine [facility] ketorolac (TORADOL) injection 30 mg 2020-11 0- 00:00: 00 09-01 22:55 :00 No 30mg 30 mg, Intramuscu lar, ONCE, 1 dose, On 09/01/21 at 1900, [facility] : SUSI HOWE [facility] diazePAM (VALIUM) injection 5 mg 2020-11 00:00: 00 09-01 22:56 :00 No 5mg 5 mg, Intramuscu lar, ONCE, 1 dose, On 09/01/21 at 1900, STAT [facility] methocarbam oL (ROBAXIN-75 0) 750 mg tablet 2020-11 00:00: 00 09-12 04:59 :00 No [id number] 750mg Take 1 tablet by mouth 4 (four) times daily for 10 days. [facility] meloxicam (MOBIC) 15 mg tablet 2020-11 00:00: 00 09-12 04:59 :00 No [id number] 9104 15mg Take 1 tablet by mouth daily for 10 days. [facility] ibuprofen 600 mg tablet 08-21 00:00: 00 Yes [id number] 600mg Take 1 tablet by mouth every 6 (six) hours as needed for Pain (scale 4-6). [facility] methocarbam oL 500 mg tablet 08-21 00:00: 00 09-01 00:00 :00 No [id number] 500mg Take 1 tablet by mouth 4 (four) times daily. [facility] traMADOL (ULTRAM) 50 mg tablet 06-26 00:00: 00 Yes 50mg Take 1 Tab by mouth every 6 (six) hours as needed for Pain. [facility] ibuprofen (MOTRIN) 600 mg tablet 06-26 00:00: 00 Yes 600mg Take 1 Tab by mouth 3 (three) times daily with meals. [facility] ALBUTEROL SULFATE 2.5 MG /3 ML (0.083 %) INHALE NEBU 03-25 00:00: 00 Yes Nebulize one every four hours, may also nebulize one extra one every six hours [facility] ZOFRAN 4 MG ORAL TAB 03-25 00:00: 00 Yes take 2 tablets by mouth every 12 hours for nausea [facility] Vital Signs Vital Name Observation Time Observation Value Comments S ource Oxygen saturation in Arterial blood by Pulse oximetry 2021-09-01 23:57:00 99 /min [facility] Systolic blood pressure 2021-09-01 22:40:45 161 mm[Hg] [facility] Diastolic blood pressure 2021-09-01 22:40:45 108 mm[Hg] [facility] Heart rate 2021-09-01 22:40:45 79 /min [facility] Body temperature 2021-09-01 22:40:45 36.78 Kimberly [facility] Respiratory rate 2021-09-01 22:40:45 16 /min [facility] Body weight 2021-09-01 22:26:00 108.863 kg [facility] Procedures Procedure Date / Time Performed Performing Clinicia n Source CONSENT/REFUSAL FOR DIAGNOSIS AND TREATMENT 2021-09-01 22:18:40 Doctor Unassigned, [place] [facility] Encounters Start Date/Time End Date/Time Encounter Type Admission Type Attending [facility] Facility Care Department Encounter ID Source 2024-04-02 19:05:00 2024-04-03 00:46:00 Emergency ER Jose Miguel Torres STLSJX STLSJX [id number] 2021-09-01 17:28:00 2021-09-01 18:58:00 Emergency Susi Howe [facility] [id number] [facility] 2021-09-01 17:18:00 2021-09-01 17:18:00 Emergency X SUSI HOWE [facility] ERT [id number] [facility] 2021-08-21 13:01:00 2021-08-21 13:01:00 Emergency X [facility] ERT [id number] [facility] Results Test Description Test Time Test Comments Results Resul t Comments Source CTA Angio Chest W WO Con Name: ANAID DELATORRE : 1980 Sex: F [facility] Pt Name: ANAID DELATORRE [address] [facility] Phys: [place] [address] : 1980 Age: 44 SEX:F Exam Date: 04/02/24 Status: REG ER Acct: [id number] Loc: [facility] Pt Unit #: [id number] Report #: [id number] CC: Jose Miguel Torres DO PULSECHECKSJX:[id number] CAT SCAN REPORT Report Status: Signed Order # Category/Exam [id number] CT/CTA Angio Chest W WO Con ([id number]): . Results EXAM: CTA of the chest HISTORY: Shortness of breath COMPARISON: None TECHNIQUE: Multiple contiguous axial images were obtained a CTA of the chest with contrast per pulmonary embolism protocol. 3-D oblique MIP reformats as well as coronal and sagittal reformats were performed. FINDINGS: HEART: Normal in size without focal cardiac abnormality. PULMONARY ARTERIES: Normal in caliber without filling defects to suggest pulmonary emboli. MEDIASTINUM: No hilar or mediastinal lymphadenopathy. LUNGS: Low-grade bilateral interstitial and alveolar opacities. PLEURAL SPACE: No pleural effusion or pneumothorax. CHEST WALL SOFT TISSUES: Unremarkable VISUALIZED OSSEOUS STRUCTURES: No acute abnormality. VISUALIZED SUBDIAPHRAGMATIC STRUCTURES: No acute abnormality. IMPRESSION: 1. No evidence of pulmonary thromboembolism 2. Low-grade pneumonitis with scattered atelectasis. Reported By: Robin Velázquez DO Electronically Signed Date/Time: 04/02/242341 Technologist: NICOLE Dictated Date/Time: 04/02/242339 Transcribed Date/Time: CT Brain WO Con Name: ANAID DELATORRE : 1980 Sex: F [facility] Pt Name: ANAID DELATORRE [address] [facility] Phys: [place] [address] : 1980 Age: 44 SEX:F Exam Date: 04/02/24 Status: REG ER Acct: [id number] Loc: [facility] Pt Unit #: [id number] Report #: [id number] CC: ED TEMP PROVIDER Jose Miguel Torres DO PULSECHECKSJX:[id number] CAT SCAN REPORT Report Status: Signed Order # Category/Exam [id number] CT/CT Brain WO Con ([id number]): . Results EXAM: CT brain without contrast HISTORY: Syncope COMPARISON: None TECHNIQUE: Multiple contiguous axial images were obtained and a CT of the brain without contrast. Sagittal andcoronal reformats were performed. FINDINGS: There is no evidence of acute intracranial hemorrhage, extra-axial fluid collection, or midline shift. The brain is normal in morphology and attenuation without focal lesions or confluent areas of infarction. The ventricles are normal in size and configuration. The calvarium and overlying soft tissues are unremarkable. The visualized paranasal sinuses and mastoid air cells are clear. IMPRESSION: 1. No evidence of acute intracranial abnormality. Reported By: Robin Velázquez DO Electronically Signed Date/Time: 04/02/242153 Technologist: NICOLE Dictated Date/Time: 04/02/242152 Transcribed Date/Time:
--- NOTE | 2024-04-06 16:30 | RAD REPORT ---
EXAM DESCRIPTION: RAD - Chest Single View - 04/06/2024 4:22 pm CLINICAL HISTORY: CHEST PAIN Chest pain. COMPARISON: Chest Single View dated 04/30/2023; Chest Single View dated 01/06/2023; Chest Single View da jorge 09/08/2021; Chest Single View dated 08/30/2021 FINDINGS: Portable technique limits examination quality. The lungs are grossly clear. The heart is normal in size. No displaced fractures. IMPRESSION: No acute intrathoracic process suspected.
[2024-04-06 16:49] LABS: Absolute Basophils 0.1 K/uL (0-0.5); Absolute Eosinophils 0.3 K/uL (0-0.5); Absolute Lymphocytes (CBC) 1.6 K/uL (0.7-4.9); Absolute Monocytes 0.5 K/uL (0.1-1.3); Absolute Neutrophil 4.1 K/uL (1.8-8.0); Basophils % 1.3 % (0-1.3); Eosinophils % 5.2 % (0-4.4); Hematocrit 38.6 % (36.0-45.0); Hemoglobin 12.8 g/dL (12.0-15.0); Lymphocytes % 24.1 % (15.3-44.8); MCH 29.5 pg (27.0-35.0); MCHC 33.2 g/dL (32.0-36.0); MPV 8.8 fL (7.6-11.3); Monocytes % 7.2 % (3.3-12.3); Neutrophils % 62.2 % (41.7-73.7); Nucleated Red Blood Cells % 0.1 % (0-0); Platelets 258 thou/uL (152-406); RBC Red Blood Cell Count 4.34 M/uL (3.86-4.86); Red Cell Distribution Width 13.7 % (12.1-15.2)
[2024-04-06 17:04] LABS: SARS-CoV-2 Antigen CONTROL BLUE LINE VIS/BG OK; SARS-CoV-2 Antigen Rapid Res Negative (Negative)
[2024-04-06 17:10] LABS: Albumin/Globulin Ratio 0.9 (1.1-1.8); Anion Gap 7.7 mEq/L (5.0-15.0); Bilirubin Total 0.5 mg/dL (0.2-1.0); Globulin 3.5 g/dL (2.3-3.5); Magnesium 1.9 mg/dL (1.6-2.4); Potassium 3.7 mEq/L (3.5-5.1); Protein, Total 6.5 g/dL (6.4-8.2); Troponin High Sensitivity 12.9 pg/mL (<58.9)
--- NOTE | 2024-04-06 17:46 | ER ---
Nurse's Notes [facility] Name: Paradise Colon Age: 44 yrs Sex: Female : 1980 Arrival Date: 04/06/2024 Time: 15:28 Bed 13 Private MD: Diagnosis: Acute sinusitis, unspecified;Weakness Presentation: 04/06 15:57 Chief complaint: Patient states: Pt c/o weakness, dehydration, and vomiting since tl4 yesterday. Pt states no improvement today. Coronavirus screen: At this time, the client does not indicate any symptoms associated with coronavirus-19. Ebola Screen: No symptoms or risks identified at this time. Initial Sepsis Screen: Does the patient meet any 2 criteria? No. Patient's initial sepsis screen is negative. Does the patient have a suspected source of infection? No. Patient's initial sepsis screen is negative. Risk Assessment: Do you want to hurt yourself or someone else? Patient reports no desire to harm self or others. Onset of symptoms was April 05, 2024. 15:57 Method Of Arrival: [facility]: [facility] tl4 15:57 Acuity: TANA 3 tl4 Triage Assessment: 16:02 General: Appears in no apparent distress. Behavior is calm, cooperative. Pain: Denies tl4 pain. EENT: No signs and/or symptoms were reported regarding the EENT system. Neuro: Level of Consciousness is awake, alert, obeys commands, Oriented to person, place, time, situation, Topper Press Operator Automatic are equal bilaterally Moves all extremities. Full function Gait is steady, Speech is normal, Facial symmetry appears normal. Neuro: Reports weakness. Cardiovascular: Denies chest pain, Capillary refill < 3 seconds Patient's skin is warm and dry. Respiratory: Airway is patent Respiratory effort is even, unlabored, Respiratory pattern is regular, symmetrical, Breath sounds are clear bilaterally. GI: Reports nausea. : No signs and/or symptoms were reported regarding the genitourinary system. Derm: No signs and/or symptoms reported regarding the dermatologic system. Musculoskeletal: No signs and/or symptoms reported regarding the musculoskeletal system. 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 - Infectious Disease History:: Denies. - Social history:: Smoking status: Reported history of juuling and/or vaping. Patient/guardian denies using tobacco, the patient reports quitting approximately 3 years ago, Patient uses alcohol, occasionally. Patient/guardian denies using street drugs. Screenin:04 [facility] ED Fall Risk Assessment (Adult) History of falling in the last 3 months, tl4 including since admission No falls in past 3 months (0 pts) Confusion or Disorientation No (0 pts) Intoxicated or Sedated No (0 pts) Impaired Gait No (0 pts) Mobility Assist Device Used No (0 pt) Altered Elimination No (0 pt) Score/Fall Risk Level 0 - 2 = Low Risk Oriented to surroundings, Maintained a safe environment, Educated pt \T\ family on fall prevention, incl call for assistance when getting out of bed, Assessed \T\ reinforced patient's understanding of fall precautions, Hourly rounding (assess needs \T\ fall precautionary measures) done, Used ambulatory aids as needed (educated on \T\ assisted with), Used gait belt as appropriate. Abuse screen: Denies threats or abuse. Denies injuries from another. Nutritional screening: No deficits noted. Tuberculosis screening: No symptoms or risk factors identified. Assessment: 16:42 Reassessment: No changes from previously documented assessment. Patient and/or family tl4 updated on plan of care and expected duration. Pain level reassessed. Patient is alert, oriented x 3, equal unlabored respirations, skin warm/dry/pink. Pt denies any needs at this time. Family at bedside. Will continue to monitor. 17:11 Reassessment: No changes from previously documented assessment. Patient and/or family tl4 updated on plan of care and expected duration. Pain level reassessed. Patient is alert, oriented x 3, equal unlabored respirations, skin warm/dry/pink. Pt resting comfortably. Pt denies any needs at this time. Family at bedside. Will continue to monitor. 18:06 Reassessment: No changes from previously documented assessment. Patient and/or family tl4 updated on plan of care and expected duration. Pain level reassessed. Patient is alert, oriented x 3, equal unlabored respirations, skin warm/dry/pink. Patient states symptoms have improved. Vital Signs: 15:57 BP 155 / 88; Pulse 97; Resp 14; Temp 99.5(O); Pulse Ox 96% on R/A; Weight 105.69 kg tl4 (M); Height 5 ft. 3 in. ; Pain 0/10; 16:00 BP 132 / 75; Pulse 89; Resp 15; Pulse Ox 96% on R/A; tl4 16:30 BP 136 / 97; Pulse 88; Resp 16; Pulse Ox 96% on R/A; Pain 0/10; tl4 17:00 BP 108 / 57; Pulse 89; Resp 19; Pulse Ox 96% on R/A; tl4 18:06 BP 113 / 56; Pulse 72; Resp 18; Temp 97.5(O); Pulse Ox 97% on R/A; Pain 0/10; tl4 15:57 Body Mass Index 41.27 (105.69 kg, 160.02 cm) tl4 15:57 Pain Scale: Adult tl4 16:30 Pain Scale: Adult tl4 18:06 Pain Scale: Adult tl4 ED Course: 15:47 Patient arrived in ED. mr 15:49 Lowell Bruner DO is Attending Physician. ms3 15:49 Pili Prado FNP-C is [facility]. kb 15:53 Arm band placed on Patient placed in an exam room, on a stretcher. ll1 15:57 Akira Villanueva, RN is Primary Nurse. tl4 16:01 Triage completed. tl4 16:04 Patient has correct armband on for positive identification. Placed in gown. Bed in low tl4 position. Call light in reach. Side rails up X 1. Adult w/ patient. Provided Education on: ED process. Client placed on continuous cardiac and pulse oximetry monitoring. NIBP monitoring applied. awake overnight monitor on. Door closed. Noise minimized. Lights dimmed. Moved to private room. Warm blanket given. 16:05 No provider procedures requiring assistance completed. Maintain EMS IV. Dressing tl4 intact. Good blood return noted. Site clean \T\ dry. Gauge \T\ site: 20g left wrist. 16:24 XRAY Chest (1 view) In Process Unspecified. EDMS 16:42 CBC with Diff Sent. tl4 16:42 Magnesium Sent. tl4 16:42 Troponin HS Sent. tl4 16:42 SARS-COV-2 Antigen Rapid Sent. tl4 16:42 Flu Sent. tl4 16:42 CMP Sent. tl4 18:07 Initial lab(s) drawn, by me, sent to lab. EKG done, by ED staff, reviewed by Pili MARTINEZ COVID swab sent to lab. Flu and/or RSV swab sent to lab. 18:08 IV discontinued, intact, bleeding controlled, No redness/swelling at site. Pressure tl4 dressing applied. Administered Medications: 17:58 Drug: Decadron - Dexamethasone IVP 10 mg IVP once Route: IVP; Site: left wrist; tl4 18:08 Follow up: Response: No adverse reaction tl4 Medication: 16:04 VIS not applicable for this client. tl4 Outcome: 17:46 Discharge ordered by . kb 18:08 Discharged to home ambulatory, with family, tl4 18:08 Condition: stable 18:08 Discharge instructions given to patient, family, Instructed on discharge instructions, follow up and referral plans. medication usage, Demonstrated understanding of instructions, follow-up care, medications, Prescriptions given X 1, 18:09 Patient left the ED. tl4 Signatures: Dispatcher [employer] EDMS Pili rPado, NUBIAC TRAY SETTER-CkKimberley Wren, Jaswant Reg mr Brianna Rebolledo, RN RN ll1 Lowell Bruner DO DO ms3 Akira Villanueva RN RN tl4
--- NOTE | 2024-04-06 17:47 | EDPHYS ---
Physician Documentation [facility] Name: Paradise Colon Age: 44 yrs Sex: Female : 1980 Arrival Date: 04/06/2024 Time: 15:28 Bed 13 Private MD: ED Physician Lowell Bruner HPI: 04/06 19:50 This 44 yrs old Female presents to ER via EMS with complaints of weakness. kb 19:50 Pt is a 44 year old female who presents for weakness and nausea that started 2 days kb ago. States she normally feels this way when her allergies start acting up and they started yesterday. States she was out of town at a home that has cats and she is allergic. Went to an ER there and was told she had dehydration, but they were unable to get an IV so they told her to just drink water. States she took allergy medication and was feeling better yesterday until the afternoon when the symptoms came back. Denies chest pain, shortness of breath. INSPECTOR: 16:44 LMP 03/30/2024, unknown tl4 Historical: - Allergies: 16:01 No Known Allergies; tl4 - Home Meds: 16:44 None [Active]; tl4 - PMHx: 16:01 angina pectoris; Chronic pain; Hypertension; Vertigo; tl4 - PSHx: 16:44 None; tl4 - Immunization history:: Adult Immunizations unknown. - Infectious Disease History:: Denies. - Social history:: Smoking status: Reported history of juuling and/or vaping. Patient/guardian denies using tobacco, the patient reports quitting approximately 3 years ago, Patient uses alcohol, occasionally. Patient/guardian denies using street drugs. ROS: 19:48 Constitutional: As per HPI kb Exam: 16:36 Constitutional: This is a well developed, well nourished patient who is awake, alert, kb and in no acute distress. Head/Face: Normocephalic, atraumatic. ENT: Moist Mucous membranes Cardiovascular: Regular rate Respiratory: Respirations even and unlabored. No increased work of breathing. Talking in full sentences Abdomen/GI: Soft, non-tender. No distention Skin: Warm, dry with normal turgor. Normal color. MS/ Extremity: Pulses equal, no cyanosis. Neurovascular intact. Full, normal range of motion. Neuro: Awake and alert, GCS 15, oriented to person, place, time, and situation. Moves all extremities. Normal gait. 16:36 ECG was reviewed by the Attending Physician. Vital Signs: 15:57 BP 155 / 88; Pulse 97; Resp 14; Temp 99.5(O); Pulse Ox 96% on R/A; Weight 105.69 kg tl4 (M); Height 5 ft. 3 in. ; Pain 0/10; 16:00 BP 132 / 75; Pulse 89; Resp 15; Pulse Ox 96% on R/A; tl4 16:30 BP 136 / 97; Pulse 88; Resp 16; Pulse Ox 96% on R/A; Pain 0/10; tl4 17:00 BP 108 / 57; Pulse 89; Resp 19; Pulse Ox 96% on R/A; tl4 18:06 BP 113 / 56; Pulse 72; Resp 18; Temp 97.5(O); Pulse Ox 97% on R/A; Pain 0/10; tl4 15:57 Body Mass Index 41.27 (105.69 kg, 160.02 cm) tl4 15:57 Pain Scale: Adult tl4 16:30 Pain Scale: Adult tl4 18:06 Pain Scale: Adult tl4 MDM: 15:49 Patient medically screened. kb 19:48 Differential Diagnosis dehydration, sinusitis, pneumonia, URI, flu, covid. Data kb reviewed: vital signs, nurses notes. Historians other than the Patient: EMS: [facility]. Counseling: I had a detailed discussion with the patient and/or guardian regarding the historical points, exam findings, and any diagnostic results supporting the discharge/admit diagnosis, lab results, radiology results, the need for outpatient follow up, a family practitioner, to return to the emergency department if symptoms worsen or persist or if there are any questions or concerns that arise at home. 04/06 15:50 Order name: CBC with Diff; Complete Time: 17:05 kb 04/06 15:50 Order name: Magnesium; Complete Time: 17:13 kb 04/06 15:50 Order name: Troponin HS; Complete Time: 17:13 kb 04/06 15:50 Order name: CMP; Complete Time: 17:13 kb 04/06 15:50 Order name: Flu; Complete Time: 17:19 kb 04/06 15:50 Order name: SARS-COV-2 Antigen Rapid; Complete Time: 17:05 kb 04/06 15:50 Order name: XRAY Chest (1 view); Complete Time: 16:31 kb 04/06 15:50 Order name: EKG; Complete Time: 15:51 kb 04/06 15:50 Order name: Cardiac monitoring; Complete Time: 16:23 kb 04/06 15:50 Order name: EKG - Nurse/Tech; Complete Time: 16:41 kb 04/06 15:50 Order name: IV Saline Lock; Complete Time: 16:23 kb 04/06 15:50 Order name: Labs collected and sent; Complete Time: 16:41 kb 04/06 15:50 Order name: O2 Per Protocol; Complete Time: 16:23 kb 04/06 15:50 Order name: O2 Sat Monitoring; Complete Time: 16:23 kb EC:36 Rate is 83 beats/min. Rhythm is regular. QRS Orient is Normal. TN interval is normal at kb 136 msec. QRS interval is normal at 82 msec. QT interval is normal at 413 msec. Administered Medications: 17:58 Drug: Decadron - Dexamethasone IVP 10 mg IVP once Route: IVP; Site: left wrist; tl4 18:08 Follow up: Response: No adverse reaction tl4 Disposition: 16:59 I was immediately available on-site in the Emergency Department for consultation in the ms3 care of the patient. Disposition Summary: 04/06/24 17:46 Discharge Ordered Notes: Location: Home kb Condition: Stable kb Diagnosis - Acute sinusitis, unspecified kb - Weakness kb Followup: kb - With: Emergency Department - When: As needed - Reason: Worsening of condition Followup: kb - With: Private Physician - When: 2 - 3 days - Reason: Recheck today's complaints, Continuance of care, Re-evaluation by your physician Discharge Instructions: - Discharge Summary Sheet kb - Sinusitis, Adult, [id number] kb - Weakness, [id number] kb Forms: - Medication Reconciliation Form kb - Antibiotic Education kb - Prescription Opioid Use kb - Patient Portal Instructions kb - Leadership Thank You Letter kb Prescriptions: - Zofran 4 mg Oral tablet - take 1 tablet ORAL route every 6 hours As needed; 12 tablet; Refills: 0, kb Product Selection Permitted Signatures: Dispatcher [employer] EDPili Mercado FNP-C CRAYON SAWYER-Ckb Lowell Bruner DO DO ms3 Akira Villanueva, RN RN tl4 Corrections: (The following items were deleted from the chart) 15:51 15:51 CBC+H.LAB.BRZ ordered. EDMS EDMS 15:51 15:51 MAGNESIUM+C.LAB.BRZ ordered. EDMS EDMS 15:51 15:51 Troponin High Sensitivity+C.LAB.BRZ ordered. EDMS EDMS 15:51 15:51 COMPREHENSIVE METABOLIC PANEL+C.LAB.BRZ ordered. EDMS EDMS 15:51 15:51 Influenza Screen (A \T\ B)+BA.LAB.BRZ ordered. EDMS EDMS 15:51 15:51 SARS-COV-2 Antigen Rapid+I.LAB.BRZ ordered. EDMS EDMS
[2024-04-06] MEDS ORDERED: dexAMETHasone 10 MG/ML VIAL ONE (17:57)
[2024-04-06 18:58] VITALS: BP 113/56; TEMP 97.5; O2SAT 97
--- NOTE | 2024-04-07 14:01 | EKG ---
Test Date: 2024-04-06 Test Time: 16:29:18 Algebra Tutor: TL MEASUREMENT RESULTS: Intervals: Rate: 83 IA: 136 QRSD: 82 QT: 352 QTc: 413 [place]: P: 41 IA: 136 QRS: 67 T: 39 INTERPRETIVE STATEMENTS: Normal sinus rhythm Normal ECG Compared to ECG 03/20/2024 21:45:10 No significant changes Electronically Signed On 04-07-24 13:59:31 CDT by Nam Lui
== END 2024-04-06 18:09 | disposition home or self-care (01) ==
LOC: ER 15:28
DX: J01.90 Acute sinusitis, unspecified (principal); Z11.52 Encounter for screening for COVID-19; I10 Essential (primary) hypertension
CPT/HCPCS: 85025; 36415; 83735; 84484; 80053; 87804 ×2; 71045; 87811; J1100; 93005

== ENCOUNTER 2024-12-25 09:30 | Emergency (ER) | payer OTHER ==
[2024-12-25] MEDS ORDERED: PANTOPRAZOLE 40 MG INJ ONE (10:09)
[2024-12-25] MEDS ORDERED: ONDANSETRON 4 MG/2 ML VIAL ONE (10:09)
[2024-12-25 10:10] LABS: Absolute Basophils 0.1 K/uL (0-0.5); Absolute Eosinophils 0.2 K/uL (0-0.5); Absolute Lymphocytes (CBC) 1.8 K/uL (0.7-4.9); Absolute Monocytes 0.3 K/uL (0.1-1.3); Absolute Neutrophil 4.4 K/uL (1.8-8.0); Basophils % 0.8 % (0-1.3); Eosinophils % 2.5 % (0-4.4); Hematocrit 39.7 % (36.0-45.0); Hemoglobin 13.5 g/dL (12.0-15.0); Lymphocytes % 27.2 % (15.3-44.8); MCH 30.3 pg (27.0-35.0); MCHC 34.1 g/dL (32.0-36.0); MCV 88.9 fL (80-100); MPV 9.2 fL (7.6-11.3); Monocytes % 3.9 % (3.3-12.3); Neutrophils % 65.6 % (41.7-73.7); Platelets 312 thou/uL (152-406); RBC Red Blood Cell Count 4.47 M/uL (3.86-4.86); Red Cell Distribution Width 13.7 % (12.1-15.2)
[2024-12-25 10:22] LABS: SARS-CoV-2 Antigen CONTROL BLUE LINE VIS/BG OK; SARS-CoV-2 Antigen Rapid Res Negative (Negative)
[2024-12-25 10:23] LABS: Albumin 3.5 g/dL (3.4-5.0); Albumin/Globulin Ratio 0.9 (1.1-1.8); Anion Gap 6.8 mEq/L (5.0-15.0); Bilirubin Total 0.6 mg/dL (0.2-1.0); Globulin 4.1 g/dL (2.3-3.5); Potassium 3.8 mEq/L (3.5-5.1); Protein, Total 7.6 g/dL (6.4-8.2)
--- NOTE | 2024-12-25 10:36 | RAD REPORT ---
Abdomen Exam Limited: 12/25/2024 10:02 AM CLINICAL HISTORY: Abd pain;Nausea / vomiting STUDY: Limited right upper quadrant ultrasound of abdomen. COMPARISON: None. FINDINGS: Liver: Limited evaluation but grossly unremarkable. Bile ducts: No intrahepatic or extrahepatic biliary ductal dilatation. Common bile duct measures 3 mm. Gallbladder: Normal. IMPRESSION: Unremarkable exam.
[2024-12-25 12:45] LABS: Specific Gravity 1.023 (1.005-1.030)
[2024-12-25 12:46] LABS: Specific Gravity 1.023 (1.005-1.030); Sqamous Epithelial <5 /HPF (None Seen); Urine Bacteria None Seen /HPF (<20); Urine Bilirubin NEGATIVE (Negative); Urine Blood Negative (Negative); Urine Clarity Clear (Clear); Urine Color Light-Yellow (Yellow); Urine Culture Reflex Order NOT NEEDED; Urine Glucose NEGATIVE (Negative); Urine Ketones NEGATIVE (Negative); Urine Microscopic Reflex YN ORDER UMIC; Urine Mucus Slight /HPF (None Seen); Urine Nitrite NEGATIVE (Negative); Urine Protein 1+ (Negative); Urine RBC None Seen /HPF (None Seen); Urine Urobilinogen Normal (Normal); Urine WBC <5 /HPF (<5); Urine pH 8.5 (5.0-7.0)
--- NOTE | 2024-12-25 13:16 | RAD REPORT ---
EXAMINATION: CT ABDOMEN AND PELVIS WITH CONTRAST CLINICAL INDICATION: Female, 44 years old.ABD PAIN TECHNIQUE: CT abdomen and pelvis was performed, after the administration of IV contrast[facility]. Axial, sagittal and coronal reconstructions were obtained. One or more of the following dose reduction techniques were used: Automated exposure control, adjustment of the mA and/o r kV according to patient size, and/or iterative reconstruction. Unless otherwise specified, incidental findings do not require dedicated imaging follow-up. [id number]. COMPARISON: No prior exam. FINDINGS: LOWER CHEST: No acute process identified.No significant pericardial effusion. Mild circumferential th ickening of the distal esophagus which could reflect esophagitis. UPPER GI: No significant abnormality. LIVER: Hepatic steatosis, but otherwise unremarkable. GALLBLADDER/BILE DUCTS: No biliary ductal dilatation.? PANCREAS: No mass, ductal dilation, or ever-pancreatic fluid. SPLEEN: Unremarkable. ADRENALS: No adrenal masses. KIDNEYS AND URETERS: No hydronephrosis.No suspicious renal mass. ABDOMINAL AORTA AND OTHER VESSELS: Normal caliber aorta and IVC. PERITONEUM: No abnormal free fluid. No free air. LYMPH NODES: No pathologic lymphadenopathy. ABDOMINAL WALL: Enlarging fat-containing periumbilical hernia which is moderate in size. Minimal hazi ness in the subjacent peritoneal fat. SMALL BOWEL/COLON: Small bowel has normal course and caliber. No colonic wall thickening or pericolon ic inflammatory changes. URINARY BLADDER: Underdistended but grossly unremarkable. REPRODUCTIVE ORGANS: 4 cm intramural fibroid. MUSCULOSKELETAL: No acute or suspicious osseous abnormality. ADDITIONAL FINDINGS: None. IMPRESSION: No acute or significant abnormalities seen in the abdomen or pelvis. Enlarging fat-containing periumb ilical hernia.
--- NOTE | 2024-12-25 13:24 | EDPHYS ---
Physician Documentation [facility] Name: Paradise Colon Age: 44 yrs Sex: Female : 1980 Arrival Date: 12/25/2024 Time: 09:30 Bed 16 Private MD: ED Physician Uri Jay HPI: 12/25 10:01 This 44 yrs old Female presents to ER via Ambulatory with complaints of Vomiting, body rn aches. 10:01 This 44 yrs old Female presents to ER via Ambulatory with complaints of Vomiting, body rn aches. 10:01 The patient presents to the emergency department with nausea, vomiting, abdominal pain. rn Onset: The symptoms/episode began/occurred last night. Possible causes: unknown. The symptoms are aggravated by pressure, The symptoms are alleviated by nothing. Severity of symptoms: At their worst the symptoms were moderate in the emergency department the symptoms are unchanged. The patient has experienced similar episodes in the past. The patient has not recently seen a physician. 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 - Infectious Disease History:: Denies. - Social history:: Smoking status: Patient reports the use of cigarette tobacco products, smokes one pack cigarettes per day. - Family history:: not pertinent. - Hospitalizations: : No recent hospitalization is reported. ROS: 10:01 Constitutional: Negative for fever, chills, and weight loss, Cardiovascular: Negative rn for chest pain, palpitations, and edema, Respiratory: Negative for shortness of breath, cough, wheezing, and pleuritic chest pain, Abdomen/GI: Negative for diarrhea, and constipation, Back: Negative for injury and pain, : Negative for injury, bleeding, discharge, and swelling, MS/Extremity: Negative for injury and deformity, Neuro: Negative for headache, weakness, numbness, tingling, and seizure, Exam: 10:01 Constitutional: This is a well developed, well nourished patient who is awake, alert, rn and in no acute distress. Laying in bed with empty emesis bag and TV remote on her abdomen Head/Face: Normocephalic, atraumatic. Cardiovascular: Regular rate and rhythm. No pulse deficits. Respiratory: No increased work of breathing, no retractions or nasal flaring. Abdomen/GI: Soft, + epigastric abd tenderness, no rebound, neg lowry, non-distended Skin: Warm, dry Neuro: Awake and alert, GCS 15 Vital Signs: 09:38 BP 136 / 98; Pulse 98; Resp 16; Temp 97.4(TE); Pulse Ox 96% on R/A; Weight 112.94 kg; hb Height 5 ft. 2 in. ; Pain 4/10; 10:32 BP 101 / 62; Pulse 74; Resp 18; Pulse Ox 95% on R/A; kj2 11:30 BP 97 / 60; Pulse 65; Resp 18; Pulse Ox 95% ; kj2 12:30 BP 98 / 68; Pulse 70; Resp 18; Pulse Ox 100% on R/A; kj2 13:42 BP 102 / 70; Pulse 72; Resp 18; Temp 98; Pulse Ox 100% on R/A; kj2 09:38 Body Mass Index 45.54 (112.94 kg, 157.48 cm) hb 09:38 Pain Scale: Adult hb MDM: 09:34 Medical Screening Exam initiated rn 13:22 Differential diagnosis: Nonspecific abd pain, gastritis, cholecystitis, pancreatitis, rn appendicitis, diverticulitis, viral gastroenteritis, gastroenteritis, Gastric ulcer, peptic ulcer disease. Data reviewed: vital signs, nurses notes, lab test result(s), radiologic studies, CT scan, ultrasound, and as a result, I will discharge patient. Counseling: I had a detailed discussion with the patient and/or guardian regarding the historical points, exam findings, and any diagnostic results supporting the discharge/admit diagnosis, lab results, radiology results, the need for outpatient follow up, to return to the emergency department if symptoms worsen or persist or if there are any questions or concerns that arise at home. Response to treatment: the patient's symptoms have markedly improved after treatment, and as a result, I will discharge patient. Special discussion: Based on the patient's Hx, exam, and Dx evaluation, there is no indication for emergent surgery or inpatient Tx. It is understood by the patient/guardian that if the Sx's persist or worsen they need to return immediately for re-evaluation. I discussed with the patient/guardian in detail that at this point there is no indication for admission to the hospital. It is understood, however, that if the symptoms persist or worsen the patient needs to return immediately for re-evaluation. Based on the history and exam findings, there is no indication for further emergent testing or inpatient evaluation. I discussed with the patient/guardian the need to see the residential green building designer for further evaluation of the symptoms. ED course: I have personally reviewed all of the results, including but not limited to blood tests and imaging deemed necessary to safely discharge this patient at this time. All results given to and printed out for patient. I personally went over all the results with the patient and answered all questions. Patient will follow-up with PCP and or specialist as discussed. Return precautions given and understood.. 12/25 09:39 Order name: Flu; Complete Time: 10:39 12/25 09:39 Order name: SARS-COV-2 Antigen Rapid; Complete Time: 10:39 12/25 09:40 Order name: CBC with Diff; Complete Time: 10:39 12/25 09:40 Order name: CMP; Complete Time: 10:39 12/25 09:40 Order name: Lipase; Complete Time: 10:39 12/25 09:40 Order name: Test, Urine; Complete Time: 12:53 12/25 09:40 Order name: Urinalysis w/ reflexes; Complete Time: 12:53 12/25 09:40 Order name: CT Abd/Pelvis - IV Contrast Only; Complete Time: 13:19 12/25 09:49 Order name: US Abdomen Limited; Complete Time: 10:39 12/25 09:40 Order name: IV Saline Lock; Complete Time: 09:58 12/25 09:40 Order name: Labs collected and sent; Complete Time: 09:58 rn Administered Medications: 10:10 Drug: Pantoprazole IVP 40 mg IVP once Route: IVP; Site: left antecubital; kj2 13:52 Follow up: Response: No adverse reaction kj2 10:12 Drug: Ondansetron IVP 4 mg IVP once; over 2 minutes Route: IVP; Site: left antecubital; kj2 13:51 Follow up: Response: No adverse reaction kj2 Disposition Summary: 12/25/24 13:23 Discharge Ordered Notes: Location: Home rn Problem: new rn Symptoms: have improved rn Condition: Stable rn Diagnosis - Vomiting, unspecified rn Followup: rn - With: Damon Grullon MD - When: As needed - Reason: Recheck today's complaints, Re-evaluation by your physician Discharge Instructions: - Discharge Summary Sheet rn - Nausea and Vomiting, Adult rn Forms: - Medication Reconciliation Form rn - Antibiotic director learning and development - Prescription Opioid Use rn - Patient Portal Instructions rn - Leadership Thank You Letter rn - Work release form kj2 Prescriptions: - ondansetron 4 mg Oral Tablet,disintegrating - take 1 tablet ORAL route every 8 hours As needed; 12 tablet; Refills: 0, rn Product Selection Permitted - Protonix 40 mg Oral Tablet - take 1 tablet ORAL route once daily; 30 tablet; Refills: 0, Product Selection rn Permitted Signatures: Dispatcher [employer] EDUri Cat MD MD rn Baxter, Heather RN Audrey Vergara RN RN kj2 Corrections: (The following items were deleted from the chart) 09:41 09:41 CBC+H.LAB.BRZ ordered. EDMS EDMS 09:41 09:41 COMPREHENSIVE METABOLIC PANEL+C.LAB.BRZ ordered. EDMS EDMS 09:41 09:41 LIPASE+C.LAB.BRZ ordered. EDMS EDMS 09:41 09:41 Test, Urine+UC.LAB.BRZ ordered. EDMS EDMS 09:41 09:41 Urinalysis+U.LAB.BRZ ordered. EDMS EDMS 09:41 09:41 Abdomen Pelvis W Con+CT.RAD.BRZ ordered. EDMS EDMS
--- NOTE | 2024-12-25 13:24 | ER ---
Nurse's Notes [facility] Name: Paradise Colon Age: 44 yrs Sex: Female : 1980 Arrival Date: 12/25/2024 Time: 09:30 Bed 16 Private MD: Diagnosis: Vomiting, unspecified Presentation: 12/25 09:38 Chief complaint: N/V and abdominal pain 4/10 since last night. Coronavirus screen: At this time, the client does not indicate any symptoms associated with coronavirus-19. Ebola Screen: No symptoms or risks identified at this time. Initial Sepsis Screen: Does the patient meet any 2 criteria? No. Patient's initial sepsis screen is negative. Does the patient have a suspected source of infection? No. Patient's initial sepsis screen is negative. Risk Assessment: Do you want to hurt yourself or someone else? Patient reports no desire to harm self or others. Onset of symptoms was December 25, 2024. 09:38 Method Of Arrival: Ambulatory hb 09:38 Acuity: TANA 3 hb Triage Assessment: 13:40 General: Appears in no apparent distress. Behavior is calm, cooperative. GI: Reports kj2 pain has subsided at this time. 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 - Infectious Disease History:: Denies. - Social history:: Smoking status: Patient reports the use of cigarette tobacco products, smokes one pack cigarettes per day. - Family history:: not pertinent. - Hospitalizations: : No recent hospitalization is reported. Screenin:00 [facility] ED Fall Risk Assessment (Adult) History of falling in the last 3 months, kj2 including since admission No falls in past 3 months (0 pts) Confusion or Disorientation No (0 pts) Intoxicated or Sedated No (0 pts) Impaired Gait No (0 pts) Mobility Assist Device Used No (0 pt) Altered Elimination No (0 pt) Score/Fall Risk Level 0 - 2 = Low Risk Maintained a safe environment, Hourly rounding (assess needs \T\ fall precautionary measures) done. Abuse screen: Denies threats or abuse. Denies injuries from another. Nutritional screening: No deficits noted. Tuberculosis screening: No symptoms or risk factors identified. Assessment: 10:00 Reassessment: Patient appears in no apparent distress at this time. Patient and/or kj2 family updated on plan of care and expected duration. Pain level reassessed. Patient is alert, oriented x 3, equal unlabored respirations, skin warm/dry/pink. Pain: Complains of pain in ABDOMINAL PAIN Pain currently is 3 out of 10 on a pain scale. Neuro: Level of Consciousness is awake, alert, obeys commands, Oriented to person, place, time, situation. Cardiovascular: Patient's skin is warm and dry. Respiratory: Airway is patent Respiratory effort is even, unlabored. GI: Abdomen is non-distended, Reports nausea, vomiting. : No signs and/or symptoms were reported regarding the genitourinary system. 10:34 Reassessment: Patient appears in no apparent distress at this time. Patient and/or kj2 family updated on plan of care and expected duration. Pain level reassessed. Patient is alert, oriented x 3, equal unlabored respirations, skin warm/dry/pink. 11:30 Reassessment: Patient appears in no apparent distress at this time. Patient and/or kj2 family updated on plan of care and expected duration. Pain level reassessed. Patient is alert, oriented x 3, equal unlabored respirations, skin warm/dry/pink. 12:30 Reassessment: Patient appears in no apparent distress at this time. Patient and/or kj2 family updated on plan of care and expected duration. Pain level reassessed. Patient is alert, oriented x 3, equal unlabored respirations, skin warm/dry/pink. 13:41 Reassessment: Patient appears in no apparent distress at this time. Patient and/or kj2 family updated on plan of care and expected duration. Pain level reassessed. Patient is alert, oriented x 3, equal unlabored respirations, skin warm/dry/pink. Vital Signs: 09:38 BP 136 / 98; Pulse 98; Resp 16; Temp 97.4(TE); Pulse Ox 96% on R/A; Weight 112.94 kg; hb Height 5 ft. 2 in. ; Pain 4/10; 10:32 BP 101 / 62; Pulse 74; Resp 18; Pulse Ox 95% on R/A; kj2 11:30 BP 97 / 60; Pulse 65; Resp 18; Pulse Ox 95% ; kj2 12:30 BP 98 / 68; Pulse 70; Resp 18; Pulse Ox 100% on R/A; kj2 13:42 BP 102 / 70; Pulse 72; Resp 18; Temp 98; Pulse Ox 100% on R/A; kj2 09:38 Body Mass Index 45.54 (112.94 kg, 157.48 cm) hb 09:38 Pain Scale: Adult hb ED Course: 09:33 Patient arrived in ED. im 09:34 Uri Jay MD is Attending Physician. rn 09:40 Triage completed. hb 09:40 Arm band placed on. hb 09:58 CBC with Diff Sent. kb4 09:58 CMP Sent. kb4 09:58 Lipase Sent. kb4 09:58 Test, Urine Sent. kb4 09:58 Urinalysis w/ reflexes Sent. kb4 09:59 SARS-COV-2 Antigen Rapid Sent. kb4 09:59 Flu Sent. kb4 09:59 COVID swab sent to lab. Flu and/or RSV swab sent to lab. Inserted saline lock: 20 gauge kb4 in left antecubital area, using aseptic technique. Blood collected. Flushed with 10 mL NS. 10:00 Patient has correct armband on for positive identification. Bed in low position. Call kj2 light in reach. Provided Education on: CALL LIGHT. 10:16 US Abdomen Limited In Process Unspecified. EDMS 10:24 Audrey Jerez, RN is Primary Nurse. kj2 10:40 Radiology exam delayed due to test not completed at this time. sm9 11:41 Radiology exam delayed due to test not completed at this time. sm9 13:05 CT Abd/Pelvis - IV Contrast Only In Process Unspecified. EDMS 13:23 Damon Grullon MD is Referral Physician. rn 13:41 No provider procedures requiring assistance completed. IV discontinued, intact, kj2 bleeding controlled, No redness/swelling at site. Pressure dressing applied. Administered Medications: 10:10 Drug: Pantoprazole IVP 40 mg IVP once Route: IVP; Site: left antecubital; kj2 13:52 Follow up: Response: No adverse reaction kj2 10:12 Drug: Ondansetron IVP 4 mg IVP once; over 2 minutes Route: IVP; Site: left antecubital; kj2 13:51 Follow up: Response: No adverse reaction kj2 Medication: 10:00 VIS not applicable for this client. kj2 Outcome: 13:23 Discharge ordered by . rn 13:41 Discharged to home ambulatory, with family, kj2 13:41 Condition: stable 13:41 Discharge instructions given to patient, family, Instructed on discharge instructions, follow up and referral plans. medication usage, Demonstrated understanding of instructions, follow-up care, medications, Prescriptions given X 2, 13:50 Patient left the ED. kj2 Signatures: Dispatcher [employer] EDMS Uri Jay MD MD rn Baxter, Heather RN RN Cesilia Shaw Sarah sm9 Audrey Jerez RN RN kj2 Sangita Borjas kb4
[2024-12-25 14:17] VITALS: O2SAT 100
[2024-12-25 14:18] VITALS: BP 102/70; TEMP 98
== END 2024-12-25 13:50 | disposition home or self-care (01) ==
LOC: ER 09:30
DX: R11.10 Vomiting, unspecified (principal); F17.210 Nicotine dependence, cigarettes, uncomplicated; Z11.52 Encounter for screening for COVID-19
CPT/HCPCS: 85025; 81001; 36415; 81025; 83690; 80053; 87804 ×2; 74177; 76705; 87811; Q9967; J2470; J2405; 96374; 96375; 99284

== ENCOUNTER 2025-01-09 15:28 | Emergency (ER) | payer OTHER ==
[2025-01-09] MEDS ORDERED: MORPHINE 4 MG/ML SYR ONE (15:34)
[2025-01-09] MEDS ORDERED: ONDANSETRON 4 MG/2 ML VIAL ONE (15:35)
--- NOTE | 2025-01-09 16:36 | RAD REPORT ---
EXAMINATION: Wrist Left 3 View CLINICAL INDICATION: Female, 44 years old. PAIN COMPARISON: No prior exam. VIEWS: As above FINDINGS: No acute fracture. Ulnar minus variance. Mild degenerative changes are present at the distal radioulnar joint. Other: n/a IMPRESSION: No acute osseous abnormality.
--- NOTE | 2025-01-09 16:36 | RAD REPORT ---
EXAM: Knee Right 2 View INDICATION: PAIN COMPARISON: None FINDINGS: No acute fracture. No significant knee effusion. Small enthesophyte along the proximal pole of the patella. Other: n/a IMPRESSION: No evidence of acute osseous abnormality involving the imaged knee.
--- NOTE | 2025-01-09 16:37 | RAD REPORT ---
EXAM: Knee Left 2 View INDICATION: PAIN COMPARISON: None FINDINGS: No acute fracture. Small knee effusion. No significant focal degenerative changes. Other: n/a IMPRESSION: No evidence of acute osseous abnormality involving the imaged knee.
--- NOTE | 2025-01-09 16:56 | EDPHYS ---
Physician Documentation [facility] Name: Paradise Colon Age: 44 yrs Sex: Female : 1980 Arrival Date: 01/09/2025 Time: 15:28 Bed 10 Private MD: ED Physician Bob Barajas HPI: 01/09 15:39 This 44 yrs old Female presents to ER via EMS with complaints of Fall Injury. sb4 15:39 tripped over something while walking outside, fell onto her knees, and caught herself sb4 with her left wrist. complains of pain in left wrist and bilateral knees. EMS noted a deformity to left wrist and placed a splint. full ROM in fingers. no numbness/tingling. 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 - Infectious Disease History:: Denies. - Social history:: Smoking status: Reported history of juuling and/or vaping. ROS: 15:41 Constitutional: Negative for fever, chills, and weight loss, sb4 15:41 MS/extremity: Positive for injury or acute deformity, pain, of the left wrist, bilateral knees, 15:41 All other systems are negative, Exam: 17:21 Head/Face: Normocephalic, atraumatic. Eyes: Extra-ocular motions intact. Periorbital sb4 areas with no swelling, redness, or edema. ENT: Mucous membranes moist. Respiratory: No increased work of breathing, no retractions or nasal flaring. Skin: Warm, dry with normal turgor. Normal color with no rashes, no lesions, and no evidence of cellulitis. 17:21 Constitutional: The patient appears alert, awake, obese, uncomfortable, 17:21 Musculoskeletal/extremity: Circulation is intact in all extremities. Pulses: are normal with no appreciated deficits, Perfusion: the extremity is normally perfused throughout, Sensation intact. Joints: the left wrist displays deformity, limited range of motion, pain at rest, painful range of motion, swelling, tenderness, 17:21 Skin: injury, abrasion(s), very small abrasion noted, of the bilateral knees, Vital Signs: 15:29 BP 131 / 72; Pulse 98; Resp 18; Temp 98.1; Pulse Ox 95% ; Weight 112.94 kg; Height 5 me1 ft. 2 in. ; Pain 8/10; 16:58 Pain 4/10; me1 16:59 BP 116 / 76; Pulse 83; Resp 16; Temp 98.1; Pulse Ox 98% ; me1 15:29 Body Mass Index 45.54 (112.94 kg, 157.48 cm) me1 15:29 Pain Scale: Adult me1 16:58 Pain Scale: Adult me1 MDM: 15:30 Medical Screening Exam initiated sb4 17:21 Data reviewed: vital signs, nurses notes, EMS record, radiologic studies, and as a sb4 result, I will discharge patient. Care significantly affected by the following chronic conditions: Diabetes, Hypertension, Obesity. Counseling: I had a detailed discussion with the patient and/or guardian regarding the historical points, exam findings, and any diagnostic results supporting the discharge/admit diagnosis, radiology results, the need for outpatient follow up, a orthopedic surgeon, to return to the emergency department if symptoms worsen or persist or if there are any questions or concerns that arise at home. 01/09 15:38 Order name: Wrist Left (3 View) XRAY; Complete Time: 16:37 sb4 01/09 16:06 Order name: Knee Left 2 View XRAY; Complete Time: 16:37 sb4 01/09 16:06 Order name: Knee Right 2 View XRAY; Complete Time: 16:37 sb4 01/09 16:55 Order name: Wrist Splint; Complete Time: 16:58 sb4 Administered Medications: 15:42 Drug: morphine IVP or IV 4 mg IVP once over 4 mins Route: IVP; Infused Over: 4 mins; me1 Site: right antecubital; 16:58 Follow up: Pain 4/10 Adult; Response: No adverse reaction; Pain is decreased me1 15:42 Drug: Ondansetron IVP 4 mg IVP once; over 2 minutes Route: IVP; Site: right antecubital;me1 16:58 Follow up: Response: No adverse reaction; Nausea is decreased me1 Disposition: 17:49 Co-signature as Attending Physician, Bob Barajas MD I reviewed the patient's care rt provided by the Advanced Practice Provider and agree with the diagnosis and treatment plan. Disposition Summary: 01/09/25 16:55 Discharge Ordered Notes: Location: Home sb4 Problem: new sb4 Symptoms: have improved sb4 Condition: Stable sb4 Diagnosis - Other specified sprain of left wrist sb4 - Fall on same level, unspecified sb4 Followup: sb4 - With: Rafael Zeng MD - When: 1 week - Reason: Further diagnostic work-up, Recheck today's complaints, Re-evaluation by your physician Discharge Instructions: - Discharge Summary Sheet sb4 - Wrist Sprain, Adult sb4 Forms: - Patient Portal Instructions sb4 - Leadership Thank You Letter sb4 Prescriptions: - Anaprox DS 550 mg Oral Tablet - take 1 tablet ORAL route every 12 hours As needed; 20 tablet; Refills: 0, sb4 Product Selection Permitted Signatures: Dispatcher [employer] EDMS Rosamaria Albrecht PA-C PA-C sb4 Bob Barajas MD MD rt Alesia Valderrama RN RN me1 Corrections: (The following items were deleted from the chart) 16:07 16:07 Knee Left 2 View+RAD.RAD.BRZ ordered. EDMS EDMS 16:07 16:07 Knee Right 2 View+RAD.RAD.BRZ ordered. EDMS EDMS 16:20 15:38 Knee Left W Comparison+RAD.RAD.BRZ ordered. EDMS EDMS
--- NOTE | 2025-01-09 16:56 | ER ---
Nurse's Notes [facility] Name: Paradise Colon Age: 44 yrs Sex: Female : 1980 Arrival Date: 01/09/2025 Time: 15:28 Bed 10 Private MD: Diagnosis: Other specified sprain of left wrist;Fall on same level, unspecified Presentation: 01/09 15:29 Chief complaint: EMS states: toned out for trip and fall with abrasions to bilateral me1 knee and pain, swelling and noted deformity to right wrist. Splinted by EMS. 20g RAC and given toradol 15mg IV. Pain is 8/10 on arrival. Coronavirus screen: Vaccine status: Patient reports receiving the 2nd dose of the covid vaccine. Ebola Screen: No symptoms or risks identified at this time. Initial Sepsis Screen: Does the patient meet any 2 criteria? HR > 90 bpm. No. Patient's initial sepsis screen is negative. Does the patient have a suspected source of infection? No. Patient's initial sepsis screen is negative. Risk Assessment: Do you want to hurt yourself or someone else? Patient reports no desire to harm self or others. Onset of symptoms was January 09, 2025 at 14:45. 15:29 Method Of Arrival: EMS: [place] [id number] 15:29 Acuity: TANA 4 mi1 15:31 Care prior to arrival: Medication(s) given: toradol 15 mg IV initiated. 20 GA, in the me1 right antecubital area. Triage Assessment: 15:31 General: Appears uncomfortable, obese, well groomed, well developed, Behavior is calm, me1 cooperative, appropriate for age. Pain: Complains of pain in left wrist Pain does not radiate. Pain currently is 8 out of 10 on a pain scale. Quality of pain is described as aching, Pain began suddenly, Is continuous. EENT: No signs and/or symptoms were reported regarding the EENT system. Neuro: Level of Consciousness is awake, alert, obeys commands, Oriented to person, place, time, situation, Appropriate for age. Cardiovascular: Patient's skin is warm and dry. Respiratory: Airway is patent Respiratory effort is even, unlabored, Respiratory pattern is regular, symmetrical. GI: No signs and/or symptoms were reported involving the gastrointestinal system. : No signs and/or symptoms were reported regarding the genitourinary system. Derm: Skin is intact, is healthy with good turgor, Skin is pink, warm \T\ dry. Musculoskeletal: Reports pain in left wrist. Injury Description: trip and fall with pain to right wrist. 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 - Infectious Disease History:: Denies. - Social history:: Smoking status: Reported history of juuling and/or vaping. Screenin:34 [facility] ED Fall Risk Assessment (Adult) History of falling in the last 3 months, me1 including since admission Yes- single mechanical fall (1 pt) Confusion or Disorientation No (0 pts) Intoxicated or Sedated No (0 pts) Impaired Gait No (0 pts) Mobility Assist Device Used No (0 pt) Altered Elimination No (0 pt) Score/Fall Risk Level 0 - 2 = Low Risk Maintained a safe environment, Provided non-skid footwear, Hourly rounding (assess needs \T\ fall precautionary measures) done. Abuse screen: Denies threats or abuse. Nutritional screening: No deficits noted. Tuberculosis screening: No symptoms or risk factors identified. Assessment: 15:34 General: See triage assessment.. me1 Vital Signs: 15:29 BP 131 / 72; Pulse 98; Resp 18; Temp 98.1; Pulse Ox 95% ; Weight 112.94 kg; Height 5 me1 ft. 2 in. ; Pain 8/10; 16:58 Pain 4/10; me1 16:59 BP 116 / 76; Pulse 83; Resp 16; Temp 98.1; Pulse Ox 98% ; me1 15:29 Body Mass Index 45.54 (112.94 kg, 157.48 cm) me1 15:29 Pain Scale: Adult me1 16:58 Pain Scale: Adult me1 ED Course: 15:29 Patient arrived in ED. me1 15:29 Rosam[facility]brecht [facility]C [facility] sb4 15:29 Bob Barajas MD is Attending Physician. sb4 15:31 Triage completed. me1 15:31 Arm band placed on Patient placed in an exam room. me1 15:34 Patient has correct armband on for positive identification. Bed in low position. Call me1 light in reach. Side rails up X2. Provided Education on: POC. Verbalized understanding.. Client placed on continuous cardiac and pulse oximetry monitoring. NIBP monitoring applied. Pulse ox on. NIBP on. 15:34 No provider procedures requiring assistance completed. Maintain EMS IV. Dressing me1 intact. Good blood return noted. Site clean \T\ dry. Gauge \T\ site: 20g RAC. Flushed with 10 mL NS. 15:38 Alesia Valderrama, RN is Primary Nurse. me1 16:00 IV discontinued, intact, bleeding controlled, Pressure dressing applied, infiltrated, me1 pressure dressing applied. 16:23 Knee Left 2 View XRAY In Process Unspecified. EDMS 16:23 Knee Right 2 View XRAY In Process Unspecified. EDMS 16:24 Wrist Left (3 View) XRAY In Process Unspecified. EDMS 16:55 Rafael Zeng MD is Referral Physician. sb4 Administered Medications: 15:42 Drug: morphine IVP or IV 4 mg IVP once over 4 mins Route: IVP; Infused Over: 4 mins; me1 Site: right antecubital; 16:58 Follow up: Pain 4/10 Adult; Response: No adverse reaction; Pain is decreased me1 15:42 Drug: Ondansetron IVP 4 mg IVP once; over 2 minutes Route: IVP; Site: right antecubital;me1 16:58 Follow up: Response: No adverse reaction; Nausea is decreased me1 Medication: 15:34 VIS not applicable for this client. me1 Outcome: 16:55 Discharge ordered by . sb4 17:13 Discharged to home via wheelchair, with family, jb4 17:13 Condition: stable 17:13 Discharge instructions given to patient, significant other, Instructed on discharge instructions, follow up and referral plans. medication usage, Demonstrated understanding of instructions, follow-up care, medications, Prescriptions given X 1, 17:13 Patient left the ED. jb4 Signatures: Dispatcher [employer] EDReji Ham RN RN jb4 Rosamaria Albrecht PAJeanie PAJeanie sb4 Alesia Valderrama, RN RN me1
[2025-01-09 19:52] VITALS: TEMP 98.1
[2025-01-09 19:54] VITALS: BP 116/76; O2SAT 98
== END 2025-01-09 17:13 | disposition home or self-care (01) ==
LOC: ER 15:28
DX: S63.592A Other specified sprain of left wrist, initial encounter (principal); S80.212A Abrasion, left knee, initial encounter; S80.211A Abrasion, right knee, initial encounter; W18.30XA Fall on same level, unspecified, initial encounter
CPT/HCPCS: 73110; 73560 ×2; J2405; 96374; 96375; 99284

== ENCOUNTER 2025-01-17 11:23 | Emergency (ER) | payer OTHER ==
[2025-01-17] MEDS ORDERED: ONDANSETRON 4 MG (ODT) TAB ONE (12:17)
[2025-01-17 13:00] LABS: SARS-CoV-2 Antigen CONTROL BLUE LINE VIS/BG OK; SARS-CoV-2 Antigen Rapid Res Negative (Negative)
[2025-01-17] MEDS ORDERED: NA CHLORIDE 0.9% 1,000 ML ONE (13:13)
--- NOTE | 2025-01-17 13:17 | RAD REPORT ---
EXAMINATION: ONE VIEW CHEST XR CLINICAL INDICATION: COUGH TECHNIQUE: Frontal chest projection is submitted. Examination is limited by patient positioning and t echnique. COMPARISON: 10/17/2024 FINDINGS: The lungs are well inflated and clear. The heart is upper limit of normal in size. No displaced fract ures identified. IMPRESSION: No acute intrathoracic abnormalities.
--- NOTE | 2025-01-17 13:57 | ER ---
Nurse's Notes [facility] Name: Paradise Colno Age: 44 yrs Sex: Female : 1980 Arrival Date: 01/17/2025 Time: 11:23 Bed 10 Private MD: Diagnosis: Cough;Viral syndrome;Nausea with vomiting, unspecified Presentation: 01/17 11:45 Chief complaint: Patient states: COUGH, BODY ACHES, NOT FEELING WELL x 24 HOURS. iw Coronavirus screen: Client presents with at least one sign or symptom that may indicate coronavirus-19. Ebola Screen: No symptoms or risks identified at this time. Initial Sepsis Screen: Does the patient meet any 2 criteria? HR > 90 bpm. Does the patient have a suspected source of infection?. Risk Assessment: Do you want to hurt yourself or someone else? Patient reports no desire to harm self or others. Onset of symptoms was January 16, 2025. 11:45 Method Of Arrival: Ambulatory iw 11:45 Acuity: TANA 4 iw Historical: - Allergies: 11:46 No Known Allergies; iw - PMHx: 11:46 Chronic pain; angina pectoris; diabetes mellitus; Hypertension; Vertigo; iw - Family history:: not pertinent. - Hospitalizations: : No recent hospitalization is reported. Assessment: 14:30 Reassessment: Patient appears in no apparent distress at this time. Patient and/or iw family updated on plan of care and expected duration. Pain level reassessed. Patient is alert, oriented x 3, equal unlabored respirations, skin warm/dry/pink. Vital Signs: 11:45 BP 150 / 100; Pulse 111; Resp 19; Temp 98.3(O); Pulse Ox 96% on R/A; Weight 112.94 kg; iw Height 5 ft. 2 in. ; 14:28 BP 115 / 81; Pulse 100; Resp 18; Temp 98.7(O); Pulse Ox 97% on R/A; iw 11:45 Body Mass Index 45.54 (112.94 kg, 157.48 cm) iw ED Course: 11:27 Patient arrived in ED. al6 11:29 Uri Jay MD is Attending Physician. rn 11:46 Triage completed. iw 13:10 Inserted saline lock: 20 gauge in right antecubital area, using aseptic technique. bc6 Flushed with 10 mL NS. 13:13 XRAY Chest (1 view) In Process Unspecified. EDMS 13:25 Kiki Armas, RN is Primary Nurse. iw 14:30 No provider procedures requiring assistance completed. IV discontinued, intact, iw bleeding controlled, No redness/swelling at site. Pressure dressing applied. Administered Medications: 12:22 Drug: Ondansetron Oral Disintegrating Tablet Oral Disintegrating Tablet 4 mg PO once ld1 Route: PO; 13:30 Follow up: Response: No adverse reaction iw 13:25 Drug: NS 0.9% IV 1000 ml IV at 1000 ml once; to be given as a bolus over 60 minutes iw Route: IV; Rate: 1000 ml; Site: right antecubital; 14:25 Follow up: IV Status: Completed infusion iw Outcome: 13:56 Discharge ordered by . rn 14:29 Discharged to home ambulatory, with family, iw 14:29 Condition: good 14:29 Discharge instructions given to patient, Instructed on discharge instructions, follow up and referral plans. Demonstrated understanding of instructions, follow-up care, medications, Prescriptions given X 2, 14:30 Patient left the ED. iw Signatures: Dispatcher [employer] EDMS Kiki Armas, RN RN iw Uri Jay MD MD rn Sims, Lauren, RN RN ld1 Radha Cervantes6 Stella Simental Corrections: (The following items were deleted from the chart) 14:30 14:28 BP 115 / 81; Pulse 100bpm; Resp 18bpm; iw iw
--- NOTE | 2025-01-17 13:57 | EDPHYS ---
Physician Documentation [facility] Name: Paradise Colon Age: 44 yrs Sex: Female : 1980 Arrival Date: 01/17/2025 Time: 11:23 Bed 10 Private MD: ED Physician Uri Jay HPI: 01/17 13:00 This 44 yrs old Female presents to ER via Ambulatory with complaints of Flu Symptoms. rn 13:00 Patient reports flulike symptoms for the last 24 hours. Reports sick contact. Reports rn generalized malaise, muscle aches, myalgias, cough and congestion as well as vomiting. No chest pain or abdominal pain.. Onset: The symptoms/episode began/occurred yesterday. Severity of symptoms: At their worst the symptoms were moderate in the emergency department the symptoms have improved. The patient has not experienced similar symptoms in the past. The patient has not recently seen a physician. Historical: - Allergies: 11:46 No Known Allergies; iw - PMHx: 11:46 Chronic pain; angina pectoris; diabetes mellitus; Hypertension; Vertigo; iw - Family history:: not pertinent. - Hospitalizations: : No recent hospitalization is reported. ROS: 13:00 Constitutional: Positive for fever and chills Eyes: Negative for injury, pain, redness, rn and discharge, ENT: Positive for sore throat Cardiovascular: Negative for chest pain, palpitations, and edema, Respiratory: Positive for cough Abdomen/GI: Positive for vomiting, negative for abdominal pain Neuro: Positive for generalized weakness Exam: 13:00 Constitutional: This is a well developed, well nourished patient who is awake, alert, rn disheveled and covered with blanket Head/Face: Normocephalic, atraumatic. ENT: Mild pharyngeal erythema. No exudate. No stridor Neck: No meningismus or tender lymphadenopathy Cardiovascular: Tachycardic, regular Respiratory: No increased work of breathing, no retractions or nasal flaring. Abdomen/GI: Soft, non-tender Vital Signs: 11:45 BP 150 / 100; Pulse 111; Resp 19; Temp 98.3(O); Pulse Ox 96% on R/A; Weight 112.94 kg; iw Height 5 ft. 2 in. ; 14:28 BP 115 / 81; Pulse 100; Resp 18; Temp 98.7(O); Pulse Ox 97% on R/A; iw 11:45 Body Mass Index 45.54 (112.94 kg, 157.48 cm) iw MDM: 11:29 Medical Screening Exam initiated rn 13:52 Differential Diagnosis Influenza, COVID, viral illness, dehydration. Data reviewed: rn vital signs, nurses notes, lab test result(s), radiologic studies, plain films, and as a result, I will discharge patient. Counseling: I had a detailed discussion with the patient and/or guardian regarding the historical points, exam findings, and any diagnostic results supporting the discharge/admit diagnosis, lab results, radiology results, the need for outpatient follow up, to return to the emergency department if symptoms worsen or persist or if there are any questions or concerns that arise at home. Response to treatment: the patient's symptoms have mildly improved after treatment, and as a result, I will discharge patient. Special discussion: I discussed with the patient/guardian in detail that at this point there is no indication for admission to the hospital. It is understood, however, that if the symptoms persist or worsen the patient needs to return immediately for re-evaluation. ED course: Patient with respiratory and GI symptoms, flu and COVID-negative, most likely viral syndrome given constellation of symptoms. Patient was dehydrated, given 1 L bolus with improvement of symptoms. Will discharge home with return precautions.. 01/17 11:29 Order name: Flu; Complete Time: 13:01 rn 01/17 11:29 Order name: SARS-COV-2 Antigen Rapid; Complete Time: 13: rn 01/17 11:41 Order name: XRAY Chest (1 view); Complete Time: 13:17 rn 01/17 13:01 Order name: IV Start; Complete Time: 13:10 rn Administered Medications: 12:22 Drug: Ondansetron Oral Disintegrating Tablet Oral Disintegrating Tablet 4 mg PO once ld1 Route: PO; 13:30 Follow up: Response: No adverse reaction iw 13:25 Drug: NS 0.9% IV 1000 ml IV at 1000 ml once; to be given as a bolus over 60 minutes iw Route: IV; Rate: 1000 ml; Site: right antecubital; 14:25 Follow up: IV Status: Completed infusion iw Disposition Summary: 01/17/25 13:56 Discharge Ordered Notes: Location: Home rn Problem: new rn Symptoms: have improved rn Condition: Stable rn Diagnosis - Cough rn - Viral syndrome rn - Nausea with vomiting, unspecified rn Followup: rn - With: Private Physician - When: As needed - Reason: Recheck today's complaints, Re-evaluation by your physician Discharge Instructions: - Discharge Summary Sheet rn - Nausea and Vomiting, Adult rn - Cough, Adult rn Forms: - Work release form iw - Medication Reconciliation Form rn - Antibiotic medical assistant internal medicine - Prescription Opioid Use rn - Patient Portal Instructions rn - Leadership Thank You Letter rn Prescriptions: - ondansetron 4 mg Oral Tablet,disintegrating - take 1 tablet ORAL route every 8 hours As needed; 12 tablet; Refills: 0, rn Product Selection Permitted - Zithromax Z-Loy 250 mg Oral Tablet - take 1 tablet ORAL route as directed for 5 days Day 1 - take two (2) tablets rn one time. Day 2, 3, 4 , 5 take one (1) tablet once daily.; 6 tablet; Refills: 0, Product Selection Permitted Signatures: Dispatcher [employer] Kiki Larry RN RN iw Uri Jay MD MD rn Sims, Lauren, RN RN ld1
[2025-01-17 14:54] VITALS: BP 115/81; TEMP 98.7; O2SAT 97
== END 2025-01-17 14:30 | disposition home or self-care (01) ==
LOC: ER 11:23
DX: R05.9 Cough, unspecified (principal); B34.9 Viral infection, unspecified; R11.2 Nausea with vomiting, unspecified; Z11.52 Encounter for screening for COVID-19
CPT/HCPCS: 36415; 87804 ×2; 71045; 87811; Q0162; J7030

== ENCOUNTER 2025-03-12 16:30 | Emergency (ER) | payer OTHER ==
--- OUTSIDE RECORDS SUMMARY | 2025-03-12 16:35 | XMS REPORT | Continuity of Care Document ---
Author Name Unknown Address [address] [facility] [address] [place] [address] [facility] [place] Address [address] [facility] [address] [place] [address] Care Team Providers Care Manager Radiation Name Role Phone Pcp, Patient Does Not Have A Primary Care Physic ignacio Lacy Escalona Attending Clinician Unavailable LACY ESCALONA Attending Clinician Unavailable KHUSHI RAMSAY Attending Clinician Unavailab KHUSHI Belcher Attending Clinician Unavail able MD JHOANA Attending Clinician Unavailab YOLANDA Oviedo Attending Clinician Unavailable CECILIO CASTRO Attending Clinician Unavailable CONFERENCE, [facility] Attending Clinician Unavailable ROB SANDOVAL Attending Clinician Unavailable LAB90 Attending Clinician Unavailable YELENA WEBBER Attending Clinician UnavailJose Miguel Miner Attending Clinician Unavailab Susi Mancuso Attending Clinician [phone] LYON Attending Clinician Unavailable Payers Payer Name Policy Type Policy Number Effective Date Expirati on Date Source [facility] 9 [id number] 2024 00:00:00 Problems Condition Name Condition Details Condition Category Status Onset Date Resolution Date Last Treatment Date Treating Clinician Comments Source Left wrist sprain, initial encounter Left wrist sprain, initial encounter Disease Active 01-18 00:00: 00 Susy Loo - Externa l 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) Disease Active 06-22 00:00: 00 Susy Loo - Externa l Class 3 severe obesity due to excess calories without serious comorbidit y with body mass index (BMI) of 45.0 to 49.9 in adult Class 3 severe obesity due to excess calories without serious comorbidit y with body mass index (BMI) of 45.0 to 49.9 in adult Disease Active 05-23 00:00: 00 Susy Loo - Externa l Family history of thyroid disorder Family history of thyroid disorder Disease Active 05-23 00:00: 00 Susy Loo - Externa l Chronic pain of right knee Chronic pain of right knee Disease Active 05-23 00:00: 00 Susy Loo - Externa l Well adult exam Well adult exam Disease Active 05-23 00:00: 00 Susy Loo - Externa l Primary hypertensi on Primary hypertensi on Disease Active 04-08 00:00: 00 Susy Loo - Externa l Allergies, Adverse Reactions, Alerts Allergy Name Allergy Type Status Severity Reaction(s) Onset Date Inactive Date Treating Clinician Comments Source NO KNOWN ALLERGIE S Drug Class [facility] Social History Social Habit Start Date Stop Date Quantity Comments Source ASSERTION Not Susy Loo - External History of tobacco use Smokes tobacco daily Susy Loo - External Sexual orientation Judy Loo - External Exposure to SARS-CoV-2 (event) Not sure [facility] History of Social function 2025-01-18 00:00:00 2025-01-18 00:00:00 Susy Loo - External Sex 2023-12-09 22:10:58 2023-12-09 22:10:58 Female (finding) Susy Yip Sex assigned at 1980 00:00:00 1980 00:00:00 Susy Yip Smoking Status Start Date Stop Date Source Unknown if ever smoked [facility] Smokes tobacco daily 2024-04-08 00:00:00 Susy Yip Medications Ordered Medication Name Filled Medication Name Start Date Stop Date Current Medication? Ordering Clinician Indication Dosage Frequency Signature (SIG) Comments Components Source Pseudoeph-B romphen-DM 30-2-10 MG/5ML oral Syrup 01-18 00:00: 00 Yes 10mL Q.25D Take 10 mL by mouth 4 times daily as needed. Susy boyce Amoxicillin -Pot Clavulanate 500-125 MG oral Tablet 01-18 00:00: 00 Yes [id number] 1{tbl} Take 1 tablet by mouth every 12 hours Please take with food. Susy boyce Ibuprofen (MOTRIN) tablet 800 mg 2023-11 10:21: 14 No [id number] 800mg 800 mg, oral, ONCE, 1 dose, On Thu11/02/24 at 1030 Susy boyce miSOPROStol (CYTOTEC) 200 MCG oral Tablet 2023-11 00:00: 00 01-18 00:00 :[id number] 1 tab vaginally the night before the procedure and 1 tab vaginally the morning of the procedure. Susy boyce Lisinopril 20 MG oral Tablet 2023-11 00:00: 00 Yes [id number] 20mg QD Take 1 tablet (20 mg total) by mouth daily. Susy boyce Trulicity 1.5 MG/0.5ML subcutaneou s Solution Auto-inject or 2023-11 00:00: 00 Yes [id number] 1.5mg Q1W Inject 1.5 mg into the skin once a week. Susy boyce Metformin HCl 500 MG oral Tablet 2023-11 00:00: 00 Yes [id number] 500mg Take 1 tablet (500 mg total) by mouth in the morning and 1 tablet (500 mg total) in the evening. Take with meals. Susy boyce medroxyPROG ESTERone Acetate (Provera) 10 MG oral Tablet 2023-11 00:00: 00 01-18 00:00 :00 No 10mg QD Take 1 tablet (10 mg total) by mouth daily. Susy boyce Methylpredn isolone Acetate (Depo-Medro l) 40 mg/ml - Physician Administere d ([id number]) 2023-11 14:10: 31 No [id number] 40mg 40 mg, Physician Administer ed, ONCE, 1 dose, On Thu09/26/24 at 1330 Susy boyce Trulicity 1.5 MG/0.5ML subcutaneou s Solution Pen-injecto r 07-27 00:00: 00 Yes [id number] 1.5mg Q1W Inject 1.5 mg into the skin once a week. Susy boyce Metformin HCl 500 MG oral Tablet 07-27 00:00: 00 10-14 00:00 :00 No [id number] 500mg Take 1 tablet (500 mg total) by mouth in the morning and 1 tablet (500 mg total) in the evening. Take with meals. Susy boyce Trulicity 1.5 MG/0.5ML subcutaneou s Solution Pen-injecto r 07-27 00:00: 00 10-14 00:00 :00 No [id number] 1.5mg Q1W Inject 1.5 mg into the skin once a week. Susy boyce Lisinopril 20 MG oral Tablet 07-27 00:00: 00 10-14 00:00 :00 No [id number] 20mg QD Take 1 tablet (20 mg total) by mouth daily. Susy boyce Trulicity 0.75 MG/0.5ML subcutaneou s Solution Pen-injecto r 06-22 00:00: 07-27 00:00 :00 No [id number] .75mg Q1W Inject 0.75 mg into the skin once a week. Susy boyce Metformin HCl 500 MG oral Tablet 06-22 00:00: 07-27 00:00 :00 No [id number] 500mg Take 1 tablet (500 mg total) by mouth in the morning and 1 tablet (500 mg total) in the evening. Take with meals. Susy boyce Triamcinolo ne Acetonide 0.1 % apply externally Cream 06-22 00:00: 00 07-21 04:59 :00 No [id number] Apply to affected areas twice a day for 1 week. Susy boyce Lisinopril 20 MG oral Tablet 06-01 00:00: 00 07-27 00:00 :00 No [id number] 20mg QD Take 1 tablet (20 mg total) by mouth daily. Susy boyce Lisinopril 10 MG oral Tablet 04-18 00:00: 00 Yes [id number] 10mg Take 1 tablet (10 mg total) by mouth daily. Susy boyce Lisinopril 5 MG oral Tablet 04-08 00:00: 00 Yes [id number] 5mg Take 1 tablet (5 mg total) by mouth daily. Susy boyce Pseudoeph-B romphen-DM 30-2-10 MG/5ML oral Syrup 04-08 00:00: 06-22 00:00 :00 No [id number] 10mL Q.25D Take 10 mL by mouth 4 times daily as needed. Susy boyce Ondansetron HCl 4 MG oral Tablet 04-06 00:00: 00 Yes Susy boyce HYDROcodone -acetaminop hen (NORCO) 10-325 mg tablet 1 tablet 2020-11 0-04 00:00: 00 09-01 22:55 :00 No 1{tbl} 1 tablet, Oral, ONCE, 1 dose, On 09/01/21 at 1900, Routine [facility] ketorolac (TORADOL) injection 30 mg 2020-11 0 00:00: 00 09-01 22:55 :00 No 30mg 30 mg, Intramuscu lar, ONCE, 1 dose, On 09/01/21 at 1900, LIT[facility] approving Restricted medication : SUSI GONZALEZ [facility] diazePAM (VALIUM) injection 5 mg 2020-11 0- 00:00: 00 09-01 22:56 :00 No 5mg 5 mg, Intramuscu lar, ONCE, 1 dose, On 09/01/21 at 1900, STAT [facility] methocarbam oL (ROBAXIN-75 0) 750 mg tablet 2020-11 00:00: 00 09-12 04:59 :00 No [id number] 9104 750mg Take 1 tablet by mouth 4 (four) times daily for 10 days. [facility] meloxicam (MOBIC) 15 mg tablet 2020-11 00:00: 00 09-12 04:59 :00 No [id number] 9104 15mg Take 1 tablet by mouth daily for 10 days. [facility] ibuprofen 600 mg tablet 08-21 00:00: 00 Yes [id number] 600mg Take 1 tablet by mouth every 6 (six) hours as needed for Pain (scale 4-6). [facility] methocarbam oL 500 mg tablet 08-21 00:00: 00 09-01 00:00 :00 No [id number] 500mg Take 1 tablet by mouth 4 (four) times daily. [facility] traMADOL (ULTRAM) 50 mg tablet 06-26 00:00: 00 Yes 50mg Take 1 Tab by mouth every 6 (six) hours as needed for Pain. [facility] ibuprofen (MOTRIN) 600 mg tablet 06-26 00:00: 00 Yes 600mg Take 1 Tab by mouth 3 (three) times daily with meals. [facility] ALBUTEROL SULFATE 2.5 MG /3 ML (0.083 %) INHALE NEBU 03-25 00:00: 00 Yes Nebulize one every four hours, may also nebulize one extra one every six hours [facility] ZOFRAN 4 MG ORAL TAB 03-25 00:00: 00 Yes take 2 tablets by mouth every 12 hours for nausea [facility] Immunizations Ordered Immunization Name Filled Immunization Name Date Status Comments Source Tdap- (Boostrix, Adacel) Unknown Completed Susy Seybold - External COVID-19 VACCINE(MODERNA)(FALL 2022)(12YRS+) Unknown Completed Susy Seybold - External AFLURIA TRIVALENT PF(0.5mL) Unknown Completed Susy Seybold - External Tdap- (Boostrix, Adacel) Unknown Completed Susy Seybold - External COVID-19 VACCINE(MODERNA)(12YR S+) Unknown Completed Susy Seybold - External AFLURIA TRIVALENT PF(0.5mL) Unknown Completed Susy Seybold - External AFLURIA TRIVALENT MDV Unknown Completed Susy Seybold - External Tdap- (Boostrix, Adacel) Unknown Completed Susy Seybold - External COVID-19 VACCINE(MODERNA)(12YR S+) Unknown Completed Susy Seybold - External AFLURIA TRIVALENT PF(0.5mL) Unknown Completed Susy Seybold - External AFLURIA TRIVALENT MDV Unknown Completed Susy Seybold - External Tdap- (Boostrix, Adacel) Unknown Completed Susy Seybold - External COVID-19 VACCINE(MODERNA)(12YR S+) Unknown Completed Susy Seybold - External AFLURIA TRIVALENT PF(0.5mL) Unknown Completed Susy Seybold - External AFLURIA TRIVALENT MDV Unknown Completed Susy Seybold - External Tdap- (Boostrix, Adacel) Unknown Completed Susy Seybold - External COVID-19 VACCINE(MODERNA)(12YR S+) Unknown Completed Susy Seybold - External AFLURIA TRIVALENT PF(0.5mL) Unknown Completed Susy Seybold - External AFLURIA TRIVALENT MDV Unknown Completed Susy Seybold - External Tdap- (Boostrix, Adacel) Unknown Completed Susy Seybold - External COVID-19 VACCINE(MODERNA)(12YR S+) Unknown Completed Susy Seybold - External AFLURIA TRIVALENT PF(0.5mL) Unknown Completed Susy Seybold - External AFLURIA TRIVALENT MDV Unknown Completed Susy Seybold - External Tdap- (Boostrix, Adacel) Unknown Completed Susy Seybold - External COVID-19 VACCINE(MODERNA)(12YR S+) Unknown Completed Susy Seybold - External AFLURIA TRIVALENT PF(0.5mL) Unknown Completed Susy Seybold - External AFLURIA TRIVALENT MDV Unknown Completed Ssuy Seybold - External Tdap- (Boostrix, Adacel) Unknown Completed Susy Seybold - External COVID-19 VACCINE(MODERNA)(12YR S+) Unknown Completed Susy Seybold - External AFLURIA TRIVALENT PF(0.5mL) Unknown Completed Susy Seybold - External AFLURIA TRIVALENT MDV Unknown Completed Susy Seybold - External Tdap- (Boostrix, Adacel) Unknown Completed Susy Seybold - External COVID-19 VACCINE(MODERNA)(12YR S+) Unknown Completed Susy Seybold - External AFLURIA TRIVALENT PF(0.5mL) Unknown Completed Susy Seybold - External AFLURIA TRIVALENT MDV Unknown Completed Susy Seybold - External Tdap- (Boostrix, Adacel) Unknown Completed Susy Seybold - External COVID-19 VACCINE(MODERNA)(12YR S+) Unknown Completed Susy Seybold - External AFLURIA TRIVALENT PF(0.5mL) Unknown Completed Susy Seybold - External AFLURIA TRIVALENT MDV Unknown Completed Susy Seybold - External Tdap- (Boostrix, Adacel) Unknown Completed Susy Seybold - External COVID-19 VACCINE(MODERNA)(FALL 2022)(12YRS+) Unknown Completed Susy Seybold - External Tdap- (Boostrix, Adacel) Unknown Completed Susy Seybold - External COVID-19 VACCINE(MODERNA)(FALL 2022)(12YRS+) Unknown Completed Susy Seybold - External Influenza, Seasonal, Injectable, Preservative Free Unknown Completed Susy Sey bold - External Vital Signs Vital Name Observation Time Observation Value Comments S ource Systolic blood pressure 2025-01-18 15:16:00 120 mm[Hg] Susy Seybo ld - External Diastolic blood pressure 2025-01-18 15:16:00 78 mm[Hg] Susy Winstonybo ld - External Heart rate 2025-01-18 15:16:00 98 /min Kelse y Seybold - External Body temperature 2025-01-18 15:16:00 37.44 Kimberly Susy Seybold - External Respiratory rate 2025-01-18 15:16:00 16 /min Susy Seybold - External Body height 2025-01-18 15:16:00 157.5 cm Tri ey Seybold - External Body weight 2025-01-18 15:16:00 112.946 kg Tri ey Seybold - External BMI 2025-01-18 15:16:00 45.54 kg/m2 Tri ey Seybold - External Oxygen saturation in Arterial blood by Pulse oximetry 2025-01-18 15:16:00 100 /min Susy Winstonybo ld - External Systolic blood pressure 2024-11-02 15:55:00 117 mm[Hg] Susy Seybo ld - External Diastolic blood pressure 2024-11-02 15:55:00 77 mm[Hg] Susy Seybo ld - External Heart rate 2024-11-02 15:55:00 85 /min Kelse y Seybold - External Body weight 2024-11-02 15:55:00 112.946 kg Tir ey Seybold - External BMI 2024-11-02 15:55:00 45.54 kg/m2 Tri ey Seybold - External Systolic blood pressure 2024-10-14 15:29:00 102 mm[Hg] Susy Seybo ld - External Diastolic blood pressure 2024-10-14 15:29:00 64 mm[Hg] Susy Seybo ld - External Heart rate 2024-10-14 15:29:00 84 /min Kelse y Seybold - External Body temperature 2024-10-14 15:29:00 36.44 Kimberly Susy Seybold - External Respiratory rate 2024-10-14 15:29:00 18 /min Susy Seybold - External Body height 2024-10-14 15:29:00 157.5 cm Tri ey Seybold - External Body weight 2024-10-14 15:29:00 112.946 kg Tri ey Seybold - External BMI 2024-10-14 15:29:00 45.54 kg/m2 Tri ey Seybold - External Oxygen saturation in Arterial blood by Pulse oximetry 2024-10-14 15:29:00 97 /min Susy Seybo ld - External Body weight 2024-09-26 18:11:00 116.574 kg Tri ey Seybold - External BMI 2024-09-26 18:11:00 47.01 kg/m2 Tri ey Seybold - External Systolic blood pressure 2024-08-29 18:56:00 133 mm[Hg] Susy Seybo ld - External Diastolic blood pressure 2024-08-29 18:56:00 71 mm[Hg] Susy Seybo ld - External Heart rate 2024-08-29 18:56:00 86 /min Kelse y Seybold - External Respiratory rate 2024-08-29 18:56:00 16 /min Susy Seybold - External Body height 2024-08-29 18:56:00 157.5 cm Tri ey Seybold - External Body weight 2024-08-29 18:56:00 117.482 kg Tri ey Seybold - External BMI 2024-08-29 18:56:00 47.37 kg/m2 Tri ey Seybold - External Oxygen saturation in Arterial blood by Pulse oximetry 2024-08-29 18:56:00 98 /min Susy Seybo ld - External Systolic blood pressure 2024-06-22 13:25:00 122 mm[Hg] Susy Seybo ld - External Diastolic blood pressure 2024-06-22 13:25:00 78 mm[Hg] Susy Seybo ld - External Heart rate 2024-06-22 13:25:00 86 /min Kelse y Seybold - External Body temperature 2024-06-22 13:25:00 36.72 Kimberly Susy Seybold - External Respiratory rate 2024-06-22 13:25:00 18 /min Susy Seybold - External Body height 2024-06-22 13:25:00 157.5 cm Tri ey Seybold - External Body weight 2024-06-22 13:25:00 121.564 kg Tri ey Seybold - External BMI 2024-06-22 13:25:00 49.02 kg/m2 Tri ey Seybold - External Oxygen saturation in Arterial blood by Pulse oximetry 2024-06-22 13:25:00 96 /min Susy Seybo ld - External Systolic blood pressure 2024-05-23 15:15:00 124 mm[Hg] Susy Seybo ld - External Diastolic blood pressure 2024-05-23 15:15:00 82 mm[Hg] Susy Seybo ld - External Heart rate 2024-05-23 15:15:00 84 /min Kelse y Seybold - External Body temperature 2024-05-23 15:15:00 36.67 Kimberly Susy Seybold - External Respiratory rate 2024-05-23 15:15:00 18 /min Susy Seybold - External Body height 2024-05-23 15:15:00 157.5 cm Tri ey Seybold - External Body weight 2024-05-23 15:15:00 119.296 kg Tri ey Seybold - External BMI 2024-05-23 15:15:00 48.10 kg/m2 Tri ey Seybold - External Oxygen saturation in Arterial blood by Pulse oximetry 2024-05-23 15:15:00 97 /min Susy Seybo ld - External Systolic blood pressure 2024-04-08 12:56:00 138 mm[Hg] Susy Seybo ld - External Diastolic blood pressure 2024-04-08 12:56:00 82 mm[Hg] Susy Seybo ld - External Heart rate 2024-04-08 12:56:00 84 /min Kelse y Seybold - External Body temperature 2024-04-08 12:56:00 36.61 Kimberly Susy Seybold - External Respiratory rate 2024-04-08 12:56:00 18 /min Susy Seybold - External Body height 2024-04-08 12:56:00 157.5 cm Tri ey Seybold - External Body weight 2024-04-08 12:56:00 119.296 kg Tri Loo - External BMI 2024-04-08 12:56:00 48.10 kg/m2 Tri Loo - External Oxygen saturation in Arterial blood by Pulse oximetry 2024-04-08 12:56:00 97 /min Susy Winstondeb ld - External Oxygen saturation in Arterial blood by Pulse oximetry 2021-09-01 23:57:00 99 /min [facility] Systolic blood pressure 2021-09-01 22:40:45 161 mm[Hg] [facility] Diastolic blood pressure 2021-09-01 22:40:45 108 mm[Hg] [facility] Heart rate 2021-09-01 22:40:45 79 /min [facility] Body temperature 2021-09-01 22:40:45 36.78 Kimberly [facility] Respiratory rate 2021-09-01 22:40:45 16 /min [facility] Body weight 2021-09-01 22:26:00 108.863 kg [facility] Procedures Procedure Date / Time Performed Performing Clinicia n Source LS RAPID STREP ASSAY-LAB TEST 2025-01-18 16:16:00 Khushi Ramsay - External CONSENT/REFUSAL FOR DIAGNOSIS AND TREATMENT 2021-09-01 22:18:40 Doctor Unassigned, [place] [facility] Encounters Start Date/Time End Date/Time Encounter Type Admission Type Attending [facility] Care Facility Care Department Encounter ID Source 2025-01-31 07:30:00 Inpatient Lacy Wild [facility] [id number] [facility] 2025-05-31 13:30:00 2025-05-31 13:30:00 Outpatient LACY ESCALONA [id number] Susy Loo 2025-05-24 10:00:00 2025-05-24 10:00:00 Outpatient KHUSHI RAMSAY [id number] Susy Loo 2025-05-05 09:30:00 2025-05-05 09:30:00 Outpatient Lacy Escalona [facility] [id number] [facility] 2025-04-26 13:30:00 2025-04-26 13:30:00 Outpatient ARSEN LACY EMERSON [id number] [facility] 2025-03-03 00:00:00 2025-03-03 00:00:00 Outpatient JOSE RAMSAYISIDRO EMERSON [id number] [facility] 2025-02-23 00:00:00 2025-02-23 00:00:00 Outpatient MD SUSY BERRY [id number] [facility] 2025-02-22 00:00:00 2025-02-22 00:00:00 Outpatient MD SUSY BERRY [id number] [facility] 2025-02-20 00:00:00 2025-02-20 00:00:00 Outpatient LACY ESCALONA [id number] [facility] 2025-02-15 00:00:00 2025-02-15 00:00:00 Outpatient [facility]AN[facility] GLASGOW [id number] [facility] 2025-01-27 00:00:00 2025-01-27 00:00:00 Outpatient LACY ESCALONA [id number] [facility] 2025-01-18 09:30:00 2025-01-18 09:30:00 Outpatient [facility] RAMSA[facility] [id number] [facility] 2025-01-16 10:15:00 2025-01-16 10:15:00 Outpatient LACY ESCALONA [id number] [facility] 2025-01-15 00:00:00 2025-01-15 00:00:00 Outpatient KHUSHI RAMSAY [id number] [facility] 2025-01-03 12:30:00 2025-01-03 12:30:00 Outpatient LACY ESCALONA [id number] [facility] 2024-12-21 10:00:00 2024-12-21 10:00:00 Outpatient LACY ESCALONA [id number] [facility] 2024-12-06 00:00:00 2024-12-06 00:00:00 Outpatient LACY ESCALONA [id number] Susy Seybold 2024-11-29 10:00:00 2024-11-29 10:00:00 Outpatient SUSY EMERSON [id number] Susy Seybold 2024-11-17 00:00:00 2024-11-17 00:00:00 Outpatient MD SUSY BERRY [id number] Susy Seybold 2024-11-16 13:30:00 2024-11-16 13:30:00 Outpatient LACY ESCALONA [id number] Susy Seybold 2024-11-08 11:00:00 2024-11-08 11:00:00 Outpatient CECILIO CASTRO [id number] Susy Seybold 2024-11-07 00:00:00 2024-11-07 00:00:00 Outpatient MD SUSY BERRY [id number] Susy Seybold 2024-11-02 15:00:00 2024-11-02 15:00:00 Outpatient SUSY EMERSON [id number] Susy Seybold 2024-11-02 14:00:00 2024-11-02 14:00:00 Outpatient SUSY EMERSON [id number] Susy Seybold 2024-11-02 10:15:00 2024-11-02 10:15:00 Outpatient LACY ESCALONA [id number] Susy Seybold 2024-10-24 11:00:00 2024-10-24 11:00:00 Outpatient CECILIO CASTRO [id number] Susy Seybold 2024-10-19 13:30:00 2024-10-19 13:30:00 Outpatient LACY ESCALONA [id number] Susy Seybold 2024-10-18 00:00:00 2024-10-18 00:00:00 Outpatient KHUSHI RAMSAY [id number] Susy Seybold 2024-10-17 00:00:00 2024-10-17 00:00:00 Outpatient LACY ESCALONA [id number] [facility] 2024-10-14 09:30:00 2024-10-14 09:30:00 Outpatient GARRY KHUSHI SUSY EMERSON [id number] [facility] 2024-10-13 00:00:00 2024-10-13 00:00:00 Outpatient ARNALDO ESCALONAER SUSY EMERSON [id number] [facility] 2024-09-28 16:00:00 2024-09-28 16:00:00 Outpatient ARSEN LACY SUSY EMERSON [id number] [facility] 2024-09-28 00:00:00 2024-09-28 00:00:00 Outpatient SUSY EMERSON [id number] [facility] 2024-09-28 00:00:00 2024-09-28 00:00:00 Outpatient DALJIT [facility] SUSY EMERSON [id number] Susy Seybold 2024-09-28 00:00:00 2024-09-28 00:00:00 Outpatient MD SUSY BERRY [id number] [facility] 2024-09-27 00:00:00 2024-09-27 00:00:00 Outpatient SUSY EMERSON [id number] Susy Seybold 2024-09-26 13:40:00 2024-09-26 13:40:00 Outpatient ROB SANDOVAL [id number] Susy Seybold 2024-09-23 00:00:00 2024-09-23 00:00:00 Outpatient KHUSHI RAMSAY [id number] Susy Seybold 2024-09-22 10:55:00 2024-09-22 10:55:00 Outpatient LABEverett EMERSON [id number] Susy Seybold 2024-09-16 00:00:00 2024-09-16 00:00:00 Outpatient KHUSHI RAMSAY [id number] Susy Seybold 2024-09-16 00:00:00 2024-09-16 00:00:00 Outpatient KHUSHI RAMSAY [id number] Susy Seybold 2024-08-29 15:30:00 2024-08-29 15:30:00 Outpatient LACY ESCALONAMERLE EMERSON [id number] [facility] 2024-08-22 14:40:00 2024-08-22 14:40:00 Outpatient SUSY SUSY [id number] [facility] 2024-08-12 09:30:00 2024-08-12 09:30:00 Outpatient SUSY EMERSON [id number] [facility] 2024-08-12 09:25:00 2024-08-12 09:25:00 Outpatient SUSY SUSY [id number] [facility] 2024-08-12 09:20:00 2024-08-12 09:20:00 Outpatient SUSY EMERSON [id number] [facility] 2024-07-27 14:00:00 2024-07-27 14:00:00 Outpatient GARRYKHUSHI [id number] [facility] 2024-07-08 14:40:00 2024-07-08 14:40:00 Outpatient SUSY EMERSON [id number] [facility] 2024-07-07 00:00:00 2024-07-07 00:00:00 Outpatient MYAH YOLANDA SUSY EMERSON [id number] [facility] 2024-06-29 00:00:00 2024-06-29 00:00:00 Outpatient MYAH YOLANDA SUSY EMERSON [id number] [facility] 2024-06-23 00:00:00 2024-06-23 00:00:00 Outpatient KHUSHI RAMSAY [id number] [facility] 2024-06-23 00:00:00 2024-06-23 00:00:00 Outpatient KHUSHI RAMSAY [id number] [facility] 2024-06-22 09:50:00 2024-06-22 09:50:00 Outpatient NEMESIO EMERSON [id number] [facility] 2024-06-22 09:00:00 2024-06-22 09:00:00 Outpatient KHUSHI RAMSAY [id number] [facility] 2024-06-22 00:00:00 2024-06-22 00:00:00 Outpatient KHUSHI RAMSAYSEY [id number] [facility] 2024-06-20 08:25:00 2024-06-20 08:25:00 Outpatient LAB90 SUSY EMERSON [id number] [facility] 2024-06-07 00:00:00 2024-06-07 00:00:00 Outpatient KHUSHI RAMSAY SUSY [id number] [facility] 2024-06-01 00:00:00 2024-06-01 00:00:00 Outpatient KHUSHI RAMSAY SUSY [id number] [facility] 2024-06-01 00:00:00 2024-06-01 00:00:00 Outpatient KHUSHI RAMSAY SUSY [id number] [facility] 2024-05-29 00:00:00 2024-05-29 00:00:00 Outpatient KHUSHI RAMSAY SUSY [id number] [facility] [facility] 2024-05-25 10:35:00 2024-05-25 10:35:00 Outpatient SUSY S[facility] [id number] [facility]24-05-25 10:30:00 2024-05-25 10:30:00 Outpatient SUSY SUSY [id number] Susy [facility] 2024-05-24 00:00:00 2024-05-24 00:00:00 Outpatient KHUSHI RAMSAY SUSY [id number] Susy [facility] 2024-05-24 00:00:00 2024-05-24 00:00:00 Outpatient KHUSHI RAMSAY SUSY [id number] [facility] 2024-05-23 11:20:00 2024-05-23 11:20:00 Outpatient LABEverett EMERSON SUSY [id number] [facility] 2024-05-23 10:30:00 2024-05-23 10:30:00 Outpatient KHUSHI RAMSAY SUSY [id number] [facility] 2024-05-05 14:00:00 2024-05-05 14:00:00 Outpatient KHUSHI RAMSAY SUSY [id number] Susy [facility] 2024-05-03 09:30:00 2024-05-03 09:30:00 Outpatient KHUSHI RAMSAY SUSY [id number] [facility] 2024-04-27 11:30:00 2024-04-27 11:30:00 Outpatient YELENA WEBBER SUSY [id number] [facility] 2024-04-18 00:00:00 2024-04-18 00:00:00 Outpatient KHUSHI RAMSAY SUSY [id number] Susy [facility] 2024-04-18 00:00:00 2024-04-18 00:00:00 Outpatient KHUSHI RAMSAY SUSY [id number] Susy [facility] 2024-04-15 08:30:00 2024-04-15 08:30:00 Outpatient YELENA WEBBER SUSY [id number] [facility] 2024-04-08 08:00:00 2024-04-08 08:00:00 Outpatient KHUSHI RAMSAY SUSY SUSY [id number] [facility] 2024-04-02 19:05:00 2024-04-03 00:46:00 Emergency ER Jose Miguel Torres STLSJX STLSJX [id number] STLSJX 2021-09-01 17:28:00 2021-09-01 18:58:00 Emergency Susi Gonzalez [facility] [id number] [facility] 2021-09-01 17:18:00 2021-09-01 17:18:00 Emergency X SUSI GONZALEZ [facility] ERT [id number] [facility] 2021-08-21 13:01:00 2021-08-21 13:01:00 Emergency X [facility] ERT [id number] [facility] Results Test Description Test Time Test Comments Results Resul t Comments Source CTA Angio Chest W WO Con Name: ANAID COLON : 1980 Sex: F [facility] Pt Name: ANAID COLON [address] Phys: [place] [address] : 1980 Age: 44 SEX:F Exam Date: 04/02/24 Status: REG ER Acct: [id number] Loc: [facility] Pt Unit #: [id number] Report #: [id number] CC: Jose Miguel Torres DO PULSECHECKSJX:[id number] CAT SCAN REPORT Report Status: Signed Order # Category/Exam [id number] CT/CTA Angio Chest W WO Con ([id number]): . Results EXAM: CTA of the chest [...] Signed Date/Time: 04/02/242341 Technologist: NICOLE Dictated Date/Time: 04/02/24 234 Transcribed Date/Time: CT Brain WO Con Name: ANAID COLON : 1980 Sex: F [facility] Pt Name: ANAID COLON [address] [facility] Phys: [place] [address] : 1980 Age: 44 SEX:F Exam Date: 04/02/24 Status: REG ER Acct: [id number] Loc: [facility] Pt Unit #: [id number] Report #: [id number] CC: ED TEMP PROVIDER Jose Miguel Torres DO PULSECHECKSJX:[id number] CAT SCAN REPORT Report Status: Signed Order # Category/Exam [id number] CT/CT Brain WO Con ([id number]): . 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 Will need refills on Lisinopril .Iris Reid LVN [facility] 2024-04-08 08:00:22 Chief Complaint Patient presents with Establish Care BP and allergies New Patient Iris Reid LVN [facility]
[2025-03-12] MEDS ORDERED: ONDANSETRON 4 MG (ODT) TAB ONE (18:14)
[2025-03-12] MEDS ORDERED: BISACODYL E.C. 5 MG TAB PO ONE (18:15)
[2025-03-12] MEDS ORDERED: LACTULOSE 20 GM/30 ML UCUP ONE (18:15)
[2025-03-12 18:23] LABS: Specific Gravity 1.023 (1.005-1.030)
[2025-03-12 18:25] LABS: Sqamous Epithelial <5 /HPF (None Seen); Urine Bacteria <20 /HPF (<20); Urine Culture Reflex Order NOT NEEDED; Urine Micro Reflex YN NO BILL MICROSCOPIC; Urine Mucus Slight /HPF (None Seen); Urine RBC <5 /HPF (None Seen); Urine WBC <5 /HPF (<5); Urine WBC Clump Rare /HPF (None Seen); Urine Yeast (Budding) Trace /HPF (None Seen)
--- NOTE | 2025-03-12 18:34 | ER ---
Nurse's Notes [facility] Name: Paradise Colon Age: 45 yrs Sex: Female : 1980 Arrival Date: 03/12/2025 Time: 16:30 Bed 18 Private MD: Diagnosis: Nausea;Constipation Presentation: 03/12 16:54 Chief complaint: Patient states: nausea and constipation, last BM was "2 days ago". aa5 denies vomiting, denies abdominal pain. Coronavirus screen: nausea. Ebola Screen: Patient denies travel to an Ebola-affected area in the 21 days before illness onset. Initial Sepsis Screen: Does the patient meet any 2 criteria? HR > 90 bpm. Does the patient have a suspected source of infection? No. Patient's initial sepsis screen is negative. Risk Assessment: Do you want to hurt yourself or someone else? Patient reports no desire to harm self or others. Onset of symptoms was February 2025. 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 - Infectious Disease History:: Denies. - Social history:: Smoking status: Reported history of juuling and/or vaping. Screenin:24 [facility] ED Fall Risk Assessment (Adult) History of falling in the last 3 months, cm10 including since admission No falls in past 3 months (0 pts) Confusion or Disorientation No (0 pts) Intoxicated or Sedated No (0 pts) Impaired Gait No (0 pts) Mobility Assist Device Used No (0 pt) Altered Elimination No (0 pt) Score/Fall Risk Level 0 - 2 = Low Risk Oriented to surroundings, Maintained a safe environment, Hourly rounding (assess needs \\T\\ fall precautionary measures) done. Abuse screen: Denies threats or abuse. Denies injuries from another. Nutritional screening: No deficits noted. Tuberculosis screening: No symptoms or risk factors identified. Assessment: 18:23 General: Appears in no apparent distress. uncomfortable, Behavior is calm, cooperative. cm10 Pain: Complains of pain in abdomen. Neuro: No deficits noted. Level of Consciousness is awake, alert, obeys commands, Oriented to person, place, time, situation, Appropriate for age. Respiratory: No deficits noted. Airway is patent Respiratory effort is even, unlabored, Respiratory pattern is regular, symmetrical. GI: Reports constipation. Vital Signs: 16:54 BP 150 / 91; Pulse 98; Resp 18; Temp 98.6(O); Pulse Ox 98% on R/A; Weight 112.94 kg aa5 (R); Height 5 ft. 2 in. (R); 18:52 BP 149 / 101; Pulse 79; Resp 17; Pulse Ox 97% on R/A; cm10 16:54 Body Mass Index 45.54 (112.94 kg, 157.48 cm) aa5 ED Course: 16:34 Patient arrived in ED. cj3 16:37 Earl Reynolds PA is PHCP. cp 16:37 Uri Jay MD is Attending Physician. cp 16:53 Arm band placed on. aa5 16:55 Triage completed. aa5 17:59 Lydia Maxwell, ALBA is Primary Nurse. cm10 18:24 Patient has correct armband on for positive identification. Bed in low position. Call cm10 light in reach. Provided Education on: ER process and procedures. 18:52 No provider procedures requiring assistance completed. Patient did not have IV access cm10 during this emergency room visit. Administered Medications: 18:23 Drug: Ondansetron PO 4 mg PO once Route: PO; cm10 18:52 Follow up: Response: No adverse reaction cm10 18:23 Drug: Lactulose PO 30 grams 45 ml PO once Volume: 45 ml; Route: PO; cm10 18:52 Follow up: Response: No adverse reaction cm10 18:23 Drug: Dulcolax PO Delayed Release Tablet 5 mg PO once Route: PO; cm10 18:52 Follow up: Response: No adverse reaction cm10 Medication: 18:24 VIS not applicable for this client. cm10 Point of Care Testing: Blood Glucose: 18:23 Blood Glucose: 101 mg/dL; cm10 Ranges: Outcome: 18:33 Discharge ordered by . cp 18:53 Discharged to home ambulatory, with significant other, cm10 18:53 Condition: good 18:53 Discharge instructions given to patient, Instructed on discharge instructions, follow up and referral plans. Demonstrated understanding of instructions, follow-up care, 18:53 Patient left the ED. cm10 Signatures: Michelle Dominguez, RN RN aa5 Earl Reynolds PA PA cp Martinez, Clarissa, RN RN cm10 Renata Hart cj3 Corrections: (The following items were deleted from the chart) 16:56 16:54 BP 150 / 91; Pulse 98bpm; Resp 18bpm; Pulse Ox 98% RA; Temp 98.6F Oral; aa5 aa5
--- NOTE | 2025-03-12 18:34 | EDPHYS ---
Physician Documentation [facility] Name: Paradise Colon Age: 45 yrs Sex: Female : 1980 Arrival Date: 03/12/2025 Time: 16:30 Bed 18 Private MD: ED Physician Uri Jay HPI: 03/12 17:10 This 45 yrs old Female presents to ER via Ambulatory with complaints of Constipation, cp Nausea. 17:10 The patient presents to the emergency department with nausea, constipation with last cp bowel movement 2 days ago. 17:10 Associated signs and symptoms: Pertinent negatives: abdominal pain, anorexia, diarrhea, cp dysuria, fever. Severity of symptoms: in the emergency department the symptoms are unchanged despite home interventions. [employer]SE [employer]: 18:52 Not cm10 Historical: - Allergies: 16:53 No Known Allergies; aa5 - Home Meds: 16:53 Metformin Oral [Active]; lisinopril Oral [Active]; Trulicity subcutaneous [Active]; aa5 - PMHx: 16:53 angina pectoris; Chronic pain; diabetes mellitus; Hypertension; Vertigo; aa5 - PSHx: 16:53 None; aa5 - Immunization history:: Adult Immunizations unknown. - Infectious Disease History:: Denies. - Social history:: Smoking status: Reported history of juuling and/or vaping. ROS: 17:15 Constitutional: Negative for body aches, chills, fever, poor PO intake, cp 17:15 Eyes: Negative for injury, pain, redness, and discharge, cp 17:15 ENT: Negative for drainage from ear(s), ear pain, sore throat, difficulty swallowing, difficulty handling secretions, 17:15 Cardiovascular: Negative for chest pain, edema, palpitations, 17:15 Respiratory: Negative for cough, shortness of breath, wheezing, 17:15 Abdomen/GI: Positive for nausea, constipation, Negative for abdominal pain, vomiting, diarrhea, anorexia, 17:15 Back: Negative for pain at rest, pain with movement, 17:15 Neuro: Negative for altered mental status, dizziness, headache, weakness, 17:15 All other systems are negative, Exam: 17:20 Constitutional: The patient appears in no acute distress, alert, awake, non-toxic, well cp developed, well nourished, obese, 17:20 Head/Face: Normocephalic, atraumatic. cp 17:20 Eyes: Periorbital structures: appear normal, Conjunctiva: normal, no exudate, no injection, Sclera: no appreciated abnormality, Lids and lashes: appear normal, bilaterally, 17:20 ENT: External ear(s): are unremarkable, Nose: is normal, Mouth: Lips: moist, Oral mucosa: moist, Posterior pharynx: Airway: no evidence of obstruction, patent, 17:20 Chest/axilla: Inspection: normal, 17:20 Cardiovascular: Rate: normal, Rhythm: regular, 17:20 Respiratory: the patient does not display signs of respiratory distress, Respirations: normal, no use of accessory muscles, no retractions, labored breathing, is not present, Breath sounds: are clear throughout, no decreased breath sounds, no stridor, no wheezing, 17:20 Abdomen/GI: Inspection: obese Bowel sounds: active, all quadrants, Palpation: abdomen is soft and non-tender, in all quadrants, rebound tenderness, is not appreciated, involuntary guarding, is not appreciated, 17:20 Back: pain, is absent, ROM is normal, Vital Signs: 16:54 BP 150 / 91; Pulse 98; Resp 18; Temp 98.6(O); Pulse Ox 98% on R/A; Weight 112.94 kg aa5 (R); Height 5 ft. 2 in. (R); 18:52 BP 149 / 101; Pulse 79; Resp 17; Pulse Ox 97% on R/A; cm10 16:54 Body Mass Index 45.54 (112.94 kg, 157.48 cm) aa5 MDM: 16:55 Medical Screening Exam initiated 17:40 Differential diagnosis: bowel obstruction, constipation, fecal impaction, ileus. 18:32 Data reviewed: vital signs, nurses notes, and as a result, I will discharge patient. 18:41 Care significantly affected by the following chronic conditions: Diabetes, cp Hypertension, Obesity. 18:41 I considered the following discharge prescriptions or medication management in the emergency department Medications were administered in the Emergency Department. See MAR. Counseling: I had a detailed discussion with the patient and/or guardian regarding the historical points, exam findings, and any diagnostic results supporting the discharge/admit diagnosis, to return to the emergency department if symptoms worsen or persist or if there are any questions or concerns that arise at home. Response to treatment: the patient's symptoms have mildly improved after treatment, and as a result, I will discharge patient. 03/12 17:08 Order name: Urine Microscopic Only; Complete Time: 18:30 cp 03/12 18:30 Interpretation: Reviewed. cp 03/12 17:08 Order name: Test, Urine; Complete Time: 18:30 cp 03/12 18:33 Order name: Glucose, Ancillary Testing; Complete Time: 18:41 EDMS 03/12 17:08 Order name: Accucheck Blood Glucose; Complete Time: 18:23 cp Administered Medications: 18:23 Drug: Ondansetron PO 4 mg PO once Route: PO; cm10 18:52 Follow up: Response: No adverse reaction cm10 18:23 Drug: Lactulose PO 30 grams 45 ml PO once Volume: 45 ml; Route: PO; cm10 18:52 Follow up: Response: No adverse reaction cm10 18:23 Drug: Dulcolax PO Delayed Release Tablet 5 mg PO once Route: PO; cm10 18:52 Follow up: Response: No adverse reaction cm10 Point of Care Testing: Blood Glucose: 18:23 Blood Glucose: 101 mg/dL; cm10 Ranges: Critical Glucose Levels:Adult <50 mg/dl or >400 mg/dl <40 mg/dl or >180 mg/dl Disposition: 03/13 10:54 Co-signature as Attending Physician, Uri Jay MD I reviewed the patient's care rn provided by the Advanced Practice Provider and agree with the diagnosis and treatment plan. Disposition Summary: 03/12/25 18:33 Discharge Ordered Notes: Location: Home cp Problem: new cp Symptoms: have improved cp Condition: Stable cp Diagnosis - Nausea cp - Constipation cp Followup: cp - With: Private Physician - When: 2 - 3 days - Reason: Worsening of condition Discharge Instructions: - Discharge Summary Sheet cp - Constipation, Adult cp - Nausea, Adult cp Forms: - Medication Reconciliation Form cp - Antibiotic Education cp - Prescription Opioid Use cp - Patient Portal Instructions cp - Leadership Thank You Letter cp Signatures: Dispatcher [employer] EDMS Uri Jay MD MD rn Calderon, Audri RN RN aa5 Earl Reynolds PA PA cp Leal, Jahala, RN RN jl7 Lydia Maxwell RN RN cm10 Corrections: (The following items were deleted from the chart) 03/12 17:08 17:08 Urine Microscopic+U.LAB.BRZ ordered. EDMS EDMS 17: 17:08 Test, Urine+UC.LAB.BRZ ordered. EDMS EDMS 03/13 17:35 03/12 17:10 The patient presents to the emergency department with nausea, cp cp
[2025-03-12 19:08] VITALS: TEMP 98.6
[2025-03-12 19:09] VITALS: BP 149/101; O2SAT 97
== END 2025-03-12 18:53 | disposition home or self-care (01) ==
LOC: ER 16:30
DX: K59.00 Constipation, unspecified (principal); E11.9 Type 2 diabetes mellitus without complications
CPT/HCPCS: 81025; 82947; 81015; 99283; Q0162